=== PATIENT | female | born 1975 | race American Indian/Alaskan Native ===

== ENCOUNTER 2017-03-01 06:27 | Inpatient (IN) | payer OTHER ==
[2017-03-01 06:28] VITALS: BMI 32.5
[2017-03-01] MEDS ORDERED: Sodium Chloride 0.9% 1,000 ML IV ONE (07:36)
[2017-03-01] MEDS ORDERED: Sodium Chloride 0.9% 1,000 ML ONE (07:50)
[2017-03-01 07:56] LABS: BASO % 0.6 % (0.0-2.0); EOS # 0.1 K/uL (0.0-0.7); EOS % 2.3 % (0.0-4.0); LYMPH # 1.6 K/uL (1.0-4.3); LYMPH % 31.8 % (20.0-40.0); MEAN CELL VOLUME 80.6 fL (81.0-99.0); MEAN CORPUSCULAR HEMOGLOBIN 28.6 pg (27.0-31.0); MEAN CORPUSCULAR HGB CONC 35.5 g/dL (33.0-37.0); MEAN PLATELET VOLUME 7.9 fL (7.2-11.7); MONO # 0.3 K/uL (0.0-0.8); MONO % 5.9 % (0.0-10.0); NRBC % 0.1 % (0.0-2.0); RED CELL DISTRIBUTION WIDTH 12.8 % (11.5-14.5); WHITE BLOOD COUNT 4.9 K/uL (4.8-10.8)
[2017-03-01 08:01] LABS: CHLORIDE 96 mmol/L (98-107)
[2017-03-01 08:02] LABS: POTASSIUM 3.9 mmol/L (3.6-5.2); SODIUM 132 mmol/L (132-148)
[2017-03-01 08:04] LABS: BILIRUBIN,TOTAL 0.6 mg/dL (0.2-1.3); GFR AFRICAN-AMERICAN > 60
[2017-03-01 08:05] LABS: ALKALINE PHOSPHATASE 132 U/L (38-126); ALT/SGPT 24 U/L (9-52); AST/SGOT 23 U/L (14-36); BLOOD UREA NITROGEN 8 mg/dL (7-17); CARBON DIOXIDE 24 mmol/L (22-30)
[2017-03-01 08:16] LABS: GLUCOSE,RANDOM 464 mg/dL (65-105)
--- NOTE | 2017-03-01 08:50 | RAD ---
PROCEDURE: Radiographs of the left great toe. TECHNIQUE:: AP radiograph of the left foot, with oblique and lateral view of the left great toe. COMPARISON: None. FINDINGS: BONES: No fracture or bone destruction. Hammertoe like orientation and interphalangeal joint space narrowing 1st metatarsal-phalangeal joint space narrowing with tiny subchondral cysts present. No erosions are noted. No periosteal reaction is seen to suggest osteomyelitis. Sesamoid sclerotic changes noted JOINTS: Mild osteoarthrosis SOFT TISSUES: Soft tissue swelling with overlying bandaging -history of infection OTHER FINDINGS: None. IMPRESSION: No periosteal reaction or osseous destruction to suggest osteomyelitis. Clinical history of infection provided Mild degenerative changes. Hammertoe orientations
--- NOTE | 2017-03-01 08:52 | C.PDOC ---
History Of Present Illness 41-year-old female, presents to the emergency department for admission for cellulitis/nechrosis lof the eft great toe that has progressively been worsening over the past few weeks. Patient is under the care of Dr. Steven and is compliant w/ meds. Denies numbness/weakness, vomiting, fevers, chills, or any other associated symptoms. No other complaints at this time. Chief Complaint (Nursing): Lower Extremity Problem/Injury History Per: Patient History/Exam Limitations: no limitations Onset/Duration Of Symptoms: Days Current Symptoms Are (Timing): Still Present Past Medical History Reviewed: Historical Data, Nursing Documentation, Vital Signs Vital Signs: Last Vital Signs Temp 98 F 03/01/17 11:49 Pulse 88 03/01/17 11:49 Resp 18 03/01/17 11:49 BP 133/87 03/01/17 11:49 Pulse Ox 100 03/01/17 11:49 - Medical History PMH: Anxiety, Asthma (LAST ATTACK 5 YEARS AGO), Back Problems, Bipolar Disorder , Depression, Diabetes, Gastritis, Gastrointestinal Ulcer, HTN, Hypercholesterolemia, Chronic Pain (Back) Denies: Chronic Kidney Disease Surgical History: Back Surgery (Multiple surgeries with residual effects (right foot dropand leg pain).), Endoscopy, Tonsillectomy - [facility] Procedures D & C NEC (12/21/14) DESTRUC UTER SUPPORT NEC (02/25/15) ESOPHAGOGASTRODUODENOSCOPY [EGD] W/CLOSED BIOPSY (06/24/13) HYSTEROSCOPY (12/21/14) INJECT/INFUSE NEC (10/27/14) OTHER AND UNSPECIFIED TOTAL ABDOMINAL HYSTERECTOMY (02/25/15) OTHER SKIN & SUBQ I D (06/04/14) Family History: States: Unknown Family Hx - Social History Hx Tobacco Use: No Hx Alcohol Use: No Hx Substance Use: No - Immunization History Hx Tetanus Toxoid Vaccination: No Hx Influenza Vaccination: No Hx Pneumococcal Vaccination: No Review Of Systems Except As Marked, All Systems Reviewed And Found Negative. Constitutional: Negative for: Fever Gastrointestinal: Negative for: Nausea, Vomiting Musculoskeletal: Positive for: Foot Pain Skin: Negative for: Rash Neurological: Negative for: Weakness, Numbness, Headache, Dizziness Physical Exam - Physical Exam Appears: Non-toxic, No Acute Distress Skin: Warm, Dry, No Rash Nose: Normal Oral Mucosa: Moist Lips: Normal Appearing Neck: Normal ROM Chest: Symmetrical Cardiovascular: Rhythm Regular Respiratory: No Accessory Muscle Use Extremity: Tenderness, No Pedal Edema, Capillary Refill (<2 seconds), No Deformity, Other (Left great toe is warm. There is 1cm nechrotic area of plantar aspect ) Neurological/Psych: Oriented x3, Normal Speech ED Course And Treatment - Laboratory Results Result Diagrams: 03/01/17 07:47 03/01/17 07:47 O2 Sat by Pulse Oximetry: 98 Disposition - Disposition Disposition Time: 08:15 Condition: STABLE - Clinical Impression Clinical Impression: Hyperglycemia, Cellulitis, Uncontrolled diabetes mellitus - Scribe Statement The provider has reviewed the documentation as recorded by the Angelina Oakley All medical record entries made by the Cheriibdana were at my direction and personally dictated by me. I have reviewed the chart and agree that the record accurately reflects my personal performance of the history, physical exam, medical decision making, and the department course for this patient. I have also personally directed, reviewed, and agree with the discharge instructions and disposition.
[2017-03-01] MEDS ORDERED: Morphine 4 MG/ML VIAL IV STA (09:16)
--- NOTE | 2017-03-01 09:18 | RAD ---
HISTORY: r/o infiltrate COMPARISON: Chest x-ray performed 10/19/15 TECHNIQUE: Chest, one view. FINDINGS: Streaky external artifact limits evaluation of the lung apices. Examination limited by habitus. LUNGS: No focal consolidation. Please note that chest x-ray has limited sensitivity for the detection of pulmonary masses. PLEURA: No significant pleural effusion identified. No definite pneumothorax . CARDIOVASCULAR: Heart size appears top normal. OSSEOUS STRUCTURES: Degenerative changes of the spine. VISUALIZED UPPER ABDOMEN: Unremarkable. OTHER FINDINGS: None. IMPRESSION: Streaky external artifact limits evaluation of the lung apices. No focal consolidation, significant pleural effusion, or definite pneumothorax identified.
[2017-03-01] MEDS ORDERED: Morphine 4 MG/ML VIAL ONE (09:23)
--- NOTE | 2017-03-01 10:08 | CP.PCM.HP ---
<Manjeet Baptiste - Last Filed: 03/01/17 13:20> History of Present Illness - History of Present Illness History of Present Illness: cc: "Dr. Steven sent me in" HPI: Patient is a 41 year old female with PMHx of uncontrolled DM, hypertension , rheumatoid arthritis, lupus, asthma, diabetic neuropathy, herniated discs and foot drop presenting to the hospital after being sent in by her development director, Dr. Steven. Patient reports that about 3 weeks ago, she noticed that there was extra layers of skin on the bottom of her right big toe. She tried peeling back a little bit and noticed it started bleeding. She decided to clip off the skin and used alcohol and hydrogen peroxide to clean it. Over the next week, she noticed that it started to change in color and she developing swelling up to her knee on the right leg. She said she went to her development director to get it evaluated and he told her to come to the hospital. She denies any drainage from the wound, no fevers, chills. She says that the affected toe is at baseline, numb, however she said since the toe worsened, she has had increased burning in her toes. PMD: Fabrizio PMHx: As stated above PSHx: 2x back surgeries, MENDOZA 2 years ago Allergies: Latex, flagyl, cipro, shellfish Fam hx: mother- heart disease, brother- pancreatic cancer diagnosed at age 38 Social hx: smoked for about 2 months at age 15 then quit, drank a gallon of baccardi daily for 7 months at age 15 then stopped. Denies drug hx. Lives at home with son. Present on Admission - Present on Admission Any Indicators Present on Admission: Yes History of Uncontrolled Diabetes: Yes Review of Systems - Constitutional Constitutional: absent: Chills, Fever, Weakness - EENT Eyes: absent: Blurred Vision, Change in Vision Nose/Mouth/Throat: absent: Nasal Congestion, Facial Pain, Neck Pain, Neck Mass - Breasts Breasts: absent: Pain, Skin Changes, Swelling - Cardiovascular Cardiovascular: Pedal Edema. absent: Chest Pain, Claudication, Irregular Heart Rhythm, Leg Edema, Palpitations - Respiratory Respiratory: absent: Cough, Dyspnea, Hemoptysis, Dyspnea on Exertion, Wheezing - Gastrointestinal Gastrointestinal: absent: Abdominal Pain, Constipation, Diarrhea, Early Satiety , Nausea, Vomiting - Genitourinary Genitourinary: absent: Difficulty Urinating, Dysuria, Bladder Distension - Musculoskeletal Musculoskeletal: Back Pain, Numbness. absent: Myalgias, Tingling - Integumentary Integumentary: Wounds (beneath R 1st toe) - Neurological Neurological: Burning Sensations, Numbness. absent: Tingling, Tremor, Weakness - Psychiatric Psychiatric: absent: Anxiety, Panic Attacks, Suicidal Ideation - Endocrine Endocrine: absent: Fatigue, Palpitations Past Patient History - Past Medical History & Family History Past Medical History?: Yes - Past Social History Smoking Status: Former Smoker Chewing Tobacco Use: No Cigar Use: No Alcohol: None Drugs: Denies Home Situation {Lives}: With Family - CARDIAC Hx Hypercholesterolemia: Yes Hx Hypertension: Yes - PULMONARY Hx Asthma: Yes (LAST ATTACK 5 YEARS AGO) - NEUROLOGICAL Hx Neurological Disorder: No - HEENT Hx HEENT Problems: No - RENAL Hx Chronic Kidney Disease: No - ENDOCRINE/METABOLIC Hx Endocrine Disorders: Yes Hx Diabetes Mellitus Type 1: Yes Hx Diabetes Mellitus Type 2: Yes Hx Systemic Lupus Erythematosus: Yes - HEMATOLOGICAL/ONCOLOGICAL Hx Blood Disorders: No - INTEGUMENTARY Hx Dermatological Problems: No Hx Psoriasis: Yes (left hand) - MUSCULOSKELETAL/RHEUMATOLOGICAL Hx Musculoskeletal Disorders: Yes Hx Back Pain: Yes Hx Herniated Disk: Yes - GASTROINTESTINAL Hx Gastritis: Yes - GENITOURINARY/GYNECOLOGICAL Hx Genitourinary Disorders: No Other/Comment: fibroid uterus - PSYCHIATRIC Hx Anxiety: Yes Hx Bipolar Disorder: Yes Hx Depression: Yes Hx Substance Use: No - SURGICAL HISTORY Hx Tonsillectomy: Yes - ANESTHESIA Hx Anesthesia: Yes Hx Anesthesia Reactions: No Hx Malignant Hyperthermia: No Meds Allergies/Adverse Reactions: Allergies Allergy/AdvReac Type Severity Reaction Status Date / Time latex Allergy RASH Verified 03/01/17 06:44 metronidazole [From Flagyl] Allergy REDNESS Verified 03/01/17 06:44 shellfish derived Allergy SHORTNESS Verified 03/01/17 06:44 OF BREATH ciprofloxacin [From Cipro] AdvReac SHORTNESS Verified 03/01/17 06:44 OF BREATH ciprofloxacin HCl AdvReac SHORTNESS Verified 03/01/17 06:44 [From Cipro] OF BREATH Penicillins AdvReac SHORTNESS Verified 03/01/17 06:44 OF BREATH Physical Exam - Constitutional Appears: Non-toxic, No Acute Distress - Head Exam Head Exam: ATRAUMATIC, NORMAL INSPECTION, NORMOCEPHALIC - Eye Exam Pupil Exam: NORMAL ACCOMODATION, PERRL - ENT Exam ENT Exam: Mucous Membranes Moist - Neck Exam Neck exam: Positive for: Normal Inspection - Respiratory Exam Respiratory Exam: Clear to Auscultation Bilateral, NORMAL BREATHING PATTERN. absent: Prolonged Expiratory Phase, Rales, Rhonchi, Wheezes - Cardiovascular Exam Cardiovascular Exam: REGULAR RHYTHM, +S1, +S2 - GI/Abdominal Exam GI & Abdominal Exam: Normal Bowel Sounds, Soft. absent: Distended, Firm, Guarding, Tenderness - Extremities Exam Extremities exam: Positive for: normal capillary refill, pedal pulses present Additional comments: R 1st digit, ulceration, dried, purple/red discoloration, swollen mild non pitting edema in R leg - Neurological Exam Neurological exam: Alert, CN II-XII Intact, Oriented x3 - Psychiatric Exam Psychiatric exam: Normal Affect, Normal Mood - Skin Skin Exam: Dry, Intact, Normal Color, Warm Results - Vital Signs Recent Vital Signs: Last Vital Signs Temp 98 F 03/01/17 06:40 Pulse 91 H 03/01/17 09:20 Resp 17 03/01/17 09:20 BP 143/89 03/01/17 09:20 Pulse Ox 100 03/01/17 09:20 - Labs Result Diagrams: 03/01/17 07:47 03/01/17 07:47 Assessment & Plan (1) Diabetic foot ulcer Status: Acute Comment: Consult Podiatry- Dr. Steven. Foot Xray- 03/01/17- No periosteal reaction or osseous destruction to suggest osteomyelitis (Please see full report ). Vanco 1gm Q12h starting 9pm, one dose given at 9am in ED. Vanco trough tomorrow before 4th dose at 9pm. EKG- 03/01/17- NSR 86bpm, left axis , inferior infarct undetermined. CXR- 03/01/17- no focal consolidation, significant pleural effusion or definite pneumothorax identified (Please see full report) (2) Hypertension Status: Chronic Comment: Continue Lisinopril 20mg PO Daily. Recommended patient to be on salt restricted diet, patient stated she refuses , she will not eat anything if she is put on a salt restriction, but has agreed to be on a diabetic diet. (3) SLE (systemic lupus erythematosus) Status: Chronic Comment: Continue home med Plaquenil 200mg PO Daily (4) Uncontrolled diabetes mellitus Status: Acute Comment: Continue Home meds: Lantus 40U SC HS. Humalog 20U SC AC. Metformin 1000mg PO BID. RISS. accucheck (5) Diabetic neuropathy Status: Chronic Comment: Continue Gabapentin 600mg PO TID (6) Asthma Status: Acute Comment: Duoneb Q6h PRN (7) Chronic pain Status: Chronic Comment: Started home meds: Oxycontin 40mg PO Q12h. Oxycodone 30mg PO Q6h PRN for breakthrough pain (8) Prophylactic measure Status: Acute Comment: Pepcid 20mg PO BID. Contraindication for SCDs due to swelling. Hold anticoagulation for possible surgery <Akash Franklin H - Last Filed: 03/01/17 17:11> Results - Vital Signs Recent Vital Signs: Last Vital Signs Temp 97.5 F L 03/01/17 16:46 Pulse 89 03/01/17 16:46 Resp 20 03/01/17 16:46 BP 123/77 03/01/17 16:46 Pulse Ox 99 03/01/17 16:46 - Labs Result Diagrams: 03/01/17 07:47 03/01/17 07:47 Labs: Laboratory Results - last 24 hr 03/01/17 03/01/17 11:54 16:33 POC Glucose (mg/dL) 342 H 312 H Attending/Attestation - Attestation I have personally seen and examined this patient.: Yes I have fully participated in the care of the patient.: Yes I have reviewed all pertinent clinical information: Yes Notes (Text): 03/01/17 17:09 Medical attending: Patient was seen and examined by me, agree with the above note by medical transcriptionist. The patient was sent in by podiatry for intervention left great toe. She does have a history of rather uncontrolled diabetes. Regular give her a medication to try to control that was she's here. Furthermore she has allergies to several antibiotics including Cipro, penicillin class, as well as Flagyl. We gave IV vancomycin in the emergency room successfully and she didn't have any problems with that. Reviewed and continue with vancomycin as well as check vancomycin levels Furthermore the patient does have a history of hypertension and we had a discussion quite extensively with the patient with regards to her diet she says that she will not stay in the hospital if she is given a low salt diet she says that she wants salt her foods. I explained her that this is rather harmful in the long run she said she realizes that but she says that she wants salt her foods otherwise she's leaving the hospital An x-ray was done of the lower extremity, it was negative for osteomyelitis however we'll have to consider further imaging such as MRI or bone scan. Thank you very much, Akash Franklin
[2017-03-01] MEDS ORDERED: oxyCODONE 5 mg Immediate Release Tab PO PRN (12:50)
[2017-03-01] MEDS ORDERED: Albuterol-Ipratrop 3 mg / 0.5 (3 ml) UD ONE (13:53)
[2017-03-01] MEDS: Albuterol-Ipratrop 3 mg / 0.5 (3 ml) UD INH SCH (13:59)
[2017-03-01] MEDS ORDERED: oxyCODONE 5 mg Immediate Release Tab ONE (15:14)
[2017-03-01] MEDS: oxyCODONE 30 mg Immediate Release Tab PO PRN (15:16)
--- NOTE | 2017-03-01 15:17 | CP.PCM.CON ---
History of Present Illness - History of Present Illness History of Present Illness: 41 year old female with PMHx of DM, HTN, RA, lupus, drop foot right presents to ED for left hallux ulceration. Patient states that she has had this ulcer on the bottom of her left great toe for [address] Steven in office yesterday who suggested she come to the ED for further evaluation. She currently rates the pain as 10/10 and burning. She has noticed blood on the bottom of her sock a few times, and admits to color change around the ulcer. Currently, she denies any drainage or malodor. She states that her leg has been swollen since Sunday. She denies any n/v/f/c/sob/cp. Past Patient History - Past Medical History & Family History Past Medical History?: Yes - Past Social History Smoking Status: Former Smoker Chewing Tobacco Use: No Cigar Use: No Alcohol: None Drugs: Denies Home Situation {Lives}: With Family - CARDIAC Hx Hypercholesterolemia: Yes Hx Hypertension: Yes - PULMONARY Hx Asthma: Yes (LAST ATTACK 5 YEARS AGO) - NEUROLOGICAL Hx Neurological Disorder: No - HEENT Hx HEENT Problems: No - RENAL Hx Chronic Kidney Disease: No - ENDOCRINE/METABOLIC Hx Endocrine Disorders: Yes Hx Diabetes Mellitus Type 1: Yes Hx Diabetes Mellitus Type 2: Yes Hx Systemic Lupus Erythematosus: Yes - HEMATOLOGICAL/ONCOLOGICAL Hx Blood Disorders: No - INTEGUMENTARY Hx Dermatological Problems: No Hx Psoriasis: Yes (left hand) - MUSCULOSKELETAL/RHEUMATOLOGICAL Hx Musculoskeletal Disorders: Yes Hx Back Pain: Yes Hx Herniated Disk: Yes - GASTROINTESTINAL Hx Gastritis: Yes - GENITOURINARY/GYNECOLOGICAL Hx Genitourinary Disorders: No Other/Comment: fibroid uterus - PSYCHIATRIC Hx Anxiety: Yes Hx Bipolar Disorder: Yes Hx Depression: Yes Hx Substance Use: No - SURGICAL HISTORY Hx Tonsillectomy: Yes - ANESTHESIA Hx Anesthesia: Yes Hx Anesthesia Reactions: No Hx Malignant Hyperthermia: No Meds Allergies/Adverse Reactions: Allergies Allergy/AdvReac Type Severity Reaction Status Date / Time latex Allergy RASH Verified 03/01/17 06:44 metronidazole [From Flagyl] Allergy REDNESS Verified 03/01/17 06:44 shellfish derived Allergy SHORTNESS Verified 03/01/17 06:44 OF BREATH ciprofloxacin [From Cipro] AdvReac SHORTNESS Verified 03/01/17 06:44 OF BREATH ciprofloxacin HCl AdvReac SHORTNESS Verified 03/01/17 06:44 [From Cipro] OF BREATH Penicillins AdvReac SHORTNESS Verified 03/01/17 06:44 OF BREATH - Medications Medications: Current Medications Albuterol/Ipratropium (Duoneb 3 Mg/0.5 Mg (3 Ml) Ud) 3 ml INH RQ6 [facility] Last Admin: 03/01/17 13:59 Dose: Not Given Famotidine (Pepcid) 20 mg PO BID [facility] Gabapentin (Neurontin) 600 mg PO TID [facility] Hydroxychloroquine Sulfate (Plaquenil) 200 mg PO DAILY [facility] Vancomycin HCl 1 gm/ Sodium (Chloride) 250 mls @ 166.7 mls/hr IVPB Q12H [facility] Insulin Aspart (Novolog) 20 unit SC AC [facility] Insulin Glargine (Lantus) 40 unit SC HS [facility] Insulin Human Regular (Novolin R) 0 unit SC ACHS [facility] PRN Reason: Protocol Lisinopril (Zestril) 20 mg PO DAILY [facility] Metformin HCl (Glucophage) 1,000 mg PO BID [facility] Oxycodone HCl (Oxycontin Extended Release Tab) 40 mg PO Q12 [facility] Oxycodone HCl (Oxycodone Immediate Release Tab) 30 mg PO Q8H PRN PRN Reason: Pain, severe (8-10) Last Admin: 03/01/17 15:16 Dose: 30 mg Physical Exam - Constitutional Appears: Well, Non-toxic, No Acute Distress - Extremities Exam Additional comments: Vasc:DP and PT pulses palpable 2/4 b/l. CFT < 3 seconds all digits. Skin temperature warm to warm from proximal to distal b/l with increased warmth noted to the left lower extremity. Neuro:Gross sensation absent on right foot, decreased on left foot. Ortho: Pain on palpation to left hallux Derm: Open ulceration noted to the plantar aspect of the left hallux measuring approximately 1 cm by 1 cm by 0.1 cm, hyperkeratotic periwound with purplish discoloration. No drainage,no purulence, no malodor, no probe to bone. Left hallux toe is edematous. - Neurological Exam Neurological exam: Alert, Oriented x3 - Psychiatric Exam Psychiatric exam: Normal Affect, Normal Mood Results - Vital Signs Recent Vital Signs: Last Vital Signs Temp 98 F 03/01/17 11:49 Pulse 88 03/01/17 11:49 Resp 18 03/01/17 11:49 BP 133/87 03/01/17 11:49 Pulse Ox 98 03/01/17 13:51 - Labs Result Diagrams: 03/01/17 07:47 03/01/17 07:47 Labs: Laboratory Results - last 24 hr 03/01/17 11:54 POC Glucose (mg/dL) 342 H Assessment & Plan - Assessment and Plan (Free Text) Assessment: 41 year old female with left hallux ulceration secondary to OM Plan: Patient examined and evaluated Discussed in detail with attending, Dr. Steven. Radiographs reviewed-No periosteal reaction or osseous destruction to suggest osteomyelitis. Clinical history of infection provided Continue IVabx per primary team Left hallux dressed with DSD MRI of left lower extremity ordered Patient to go to OR on Sunday for wound debridement, medical optimization needed Patient to be NPO tomorrow 03/02/17 after midnight Podiatry will continue to follow patient while in house
[2017-03-01] MEDS: oxyCODONE 40 mg ER Tab (oxyCONTIN) PO SCH ×2 (15:48→21:38)
[2017-03-01] MEDS ORDERED: (Novolog) Insulin Aspart, Recombinant 100 u/ml 10 ml vial SC SCH (16:30)
[2017-03-01] MEDS ORDERED: (Novolin R) Insulin Human Regular 100 units/ml vial ONE (16:40)
[2017-03-01] MEDS ORDERED: (Novolog) Insulin Aspart, Recombinant 100 u/ml 10 ml vial ONE (16:42)
[2017-03-01] MEDS: (Novolin R) Insulin Human Regular 100 units/ml vial SC SCH ×2 (16:53→22:10)
[2017-03-01] MEDS: (Lantus) Insulin Glargine, Recombinant SC SCH (22:07)
[2017-03-02] MEDS: Albuterol-Ipratrop 3 mg / 0.5 (3 ml) UD INH SCH ×4 (01:35→20:09)
[2017-03-02] MEDS: oxyCODONE 30 mg Immediate Release Tab PO PRN ×2 (04:53→17:00)
--- NOTE | 2017-03-02 08:07 | CP.PCM.PN ---
Subjective - Date & Time of Evaluation Date of Evaluation: 03/02/17 Time of Evaluation: 07:30 - Subjective Subjective: pt seen for infection and ulcer left foot /great toe .Pt has uncontrolled blood glucose . Objective - Vital Signs/Intake and Output Vital Signs (last 24 hours): Temp Pulse Resp BP Pulse Ox 97.8 F 89 20 102/67 99 03/02/17 07:51 03/02/17 07:51 03/02/17 07:51 03/02/17 07:51 03/02/17 07:51 - Medications Medications: Current Medications Albuterol/Ipratropium (Duoneb 3 Mg/0.5 Mg (3 Ml) Ud) 3 ml INH RQ6 [facility] Last Admin: 03/02/17 01:35 Dose: Not Given Famotidine (Pepcid) 20 mg PO BID [facility] Last Admin: 03/01/17 18:17 Dose: 20 mg Gabapentin (Neurontin) 600 mg PO TID [facility] Last Admin: 03/01/17 18:17 Dose: 600 mg Home Med (Patient's Own Injectable) 20 unit SC AC [facility] Hydroxychloroquine Sulfate (Plaquenil) 200 mg PO DAILY [facility] Last Admin: 03/01/17 16:45 Dose: 200 mg Vancomycin HCl 1 gm/ Sodium (Chloride) 250 mls @ 166.7 mls/hr IVPB Q12H [facility] Last Admin: 03/01/17 22:30 Dose: 166.7 mls/hr Insulin Glargine (Lantus) 40 unit SC HS [facility] Last Admin: 03/01/17 22:07 Dose: 40 units Insulin Human Regular (Novolin R) 0 unit SC ACHS [facility] PRN Reason: Protocol Last Admin: 03/01/17 22:10 Dose: Not Given Lisinopril (Zestril) 20 mg PO DAILY [facility] Last Admin: 03/01/17 16:45 Dose: 20 mg Metformin HCl (Glucophage) 1,000 mg PO BID [facility] Last Admin: 03/01/17 18:17 Dose: 1,000 mg Oxycodone HCl (Oxycontin Extended Release Tab) 40 mg PO Q12 [facility] Last Admin: 03/01/17 21:38 Dose: 40 mg Oxycodone HCl (Oxycodone Immediate Release Tab) 30 mg PO Q8H PRN PRN Reason: Pain, severe (8-10) Last Admin: 03/02/17 04:53 Dose: 30 mg Pneumococcal Polyvalent Vaccine (Pneumovax 23 Vaccine) 0.5 ml IM .ONCE ONE Stop: 03/03/17 10:01 - Extremities Exam Additional comments: O/Necrotic ulcer with eschar distal aspect left hallux. Cellulitis left foot . DM neuropathy b/l .No abscess or purulence noted . Assessment and Plan - Assessment and Plan (Free Text) Assessment: A/Ungradable DM ulcer hallux left with necroses/cellulitis/R/O OM Hallux left Plan: P/IV antibiotics Glycemic control MRI Arterial Dopplers Debridement
[2017-03-02] MEDS: (Novolin R) Insulin Human Regular 100 units/ml vial SC SCH ×4 (08:33→22:04)
[2017-03-02] MEDS: HUMALOG SC SCH ×3 (08:33→17:01)
[2017-03-02 08:39] LABS: BASO % 0.8 % (0.0-2.0); EOS # 0.1 K/uL (0.0-0.7); EOS % 2.7 % (0.0-4.0); HEMATOCRIT 36.3 % (34.0-47.0); LYMPH # 1.8 K/uL (1.0-4.3); LYMPH % 41.2 % (20.0-40.0); MEAN CELL VOLUME 80.9 fL (81.0-99.0); MEAN CORPUSCULAR HEMOGLOBIN 28.1 pg (27.0-31.0); MEAN CORPUSCULAR HGB CONC 34.8 g/dL (33.0-37.0); MEAN PLATELET VOLUME 7.5 fL (7.2-11.7); MONO # 0.2 K/uL (0.0-0.8); MONO % 5.5 % (0.0-10.0); RED CELL DISTRIBUTION WIDTH 12.9 % (11.5-14.5); WHITE BLOOD COUNT 4.3 K/uL (4.8-10.8)
[2017-03-02 09:17] LABS: CHLORIDE 99 mmol/L (98-107); SODIUM 135 mmol/L (132-148)
[2017-03-02 09:18] LABS: POTASSIUM 4.6 mmol/L (3.6-5.2)
[2017-03-02 09:20] LABS: ALKALINE PHOSPHATASE 98 U/L (38-126); ALT/SGPT 23 U/L (9-52); AST/SGOT 26 U/L (14-36); BILIRUBIN,TOTAL 0.5 mg/dL (0.2-1.3); BLOOD UREA NITROGEN 8 mg/dL (7-17); CARBON DIOXIDE 26 mmol/L (22-30); GFR AFRICAN-AMERICAN > 60; GLUCOSE,RANDOM 279 mg/dL (65-105); TOTAL PROTEIN 7.3 g/dL (6.3-8.3)
[2017-03-02 09:21] LABS: CALCIUM 8.7 mg/dl (8.6-10.4)
[2017-03-02] MEDS: oxyCODONE 40 mg ER Tab (oxyCONTIN) PO SCH ×2 (09:50→21:40)
--- NOTE | 2017-03-02 10:06 | CP.PCM.PN ---
Subjective - Date & Time of Evaluation Date of Evaluation: 03/02/17 Time of Evaluation: 10:04 - Subjective Subjective: Patient seen and evaluated by Dr. Steven this am Patient is pending dopplers/MRI. Placed on the OR schedule for debridment on Sunday at roughly [address] Steven first case. Will place NPO past midnight on sunday Will hold lovenox on sunday. Will require medical clearance in chart prior to surgery. Continue to follow while admitted. Objective - Vital Signs/Intake and Output Vital Signs (last 24 hours): Temp Pulse Resp BP Pulse Ox 97.8 F 89 20 102/67 99 03/02/17 07:51 03/02/17 07:51 03/02/17 07:51 03/02/17 07:51 03/02/17 07:51 Intake and Output: 03/02/17 03/02/17 06:59 18:59 Intake Total 200 Balance 200 - Medications Medications: Current Medications Albuterol/Ipratropium (Duoneb 3 Mg/0.5 Mg (3 Ml) Ud) 3 ml INH RQ6 [facility] Last Admin: 03/02/17 01:35 Dose: Not Given Famotidine (Pepcid) 20 mg PO BID [facility] Last Admin: 03/02/17 09:53 Dose: 20 mg Gabapentin (Neurontin) 600 mg PO TID [facility] Last Admin: 03/02/17 09:53 Dose: 600 mg Home Med (Patient's Own Injectable) 20 unit SC AC [facility] Last Admin: 03/02/17 08:33 Dose: 20 unit Hydroxychloroquine Sulfate (Plaquenil) 200 mg PO DAILY [facility] Last Admin: 03/02/17 09:53 Dose: Not Given Vancomycin HCl 1 gm/ Sodium (Chloride) 250 mls @ 166.7 mls/hr IVPB Q12H [facility] Last Admin: 03/02/17 09:56 Dose: 166.7 mls/hr Insulin Glargine (Lantus) 40 unit SC HS [facility] Last Admin: 03/01/17 22:07 Dose: 40 units Insulin Human Regular (Novolin R) 0 unit SC ACHS [facility] PRN Reason: Protocol Last Admin: 03/02/17 08:33 Dose: 8 unit Lisinopril (Zestril) 20 mg PO DAILY [facility] Last Admin: 03/02/17 09:56 Dose: 20 mg Metformin HCl (Glucophage) 1,000 mg PO BID [facility] Last Admin: 03/02/17 09:53 Dose: 1,000 mg Oxycodone HCl (Oxycontin Extended Release Tab) 40 mg PO Q12 [facility] Last Admin: 03/02/17 09:50 Dose: 40 mg Oxycodone HCl (Oxycodone Immediate Release Tab) 30 mg PO Q8H PRN PRN Reason: Pain, severe (8-10) Last Admin: 03/02/17 04:53 Dose: 30 mg Pneumococcal Polyvalent Vaccine (Pneumovax 23 Vaccine) 0.5 ml IM .ONCE ONE Stop: 03/03/17 10:01 - Labs Labs: 03/02/17 08:19 03/02/17 08:19
--- NOTE | 2017-03-02 11:54 | CARD ---
APPROVED REPORT EKG Measurement Heart [id number] <Conclusion> Normal sinus rhythm Left axis deviation Inferior infarct, age undetermined Abnormal ECG
--- NOTE | 2017-03-02 14:01 | MRI ---
MRI left forefoot History: Ulcer. Comparison: X-ray dated 03/01/2017 Technique: Multi-echo multiplanar sequences were performed through the left forefoot without the use of intravenous contrast. Findings: Prominent soft tissue ulcer seen at the level of the 1st distal phalanx. Prominent signal abnormality within the 1st distal phalanx with increased STIR signal with associated patchy decreased T1 signal consistent with acute osteomyelitis. Adjacent signal abnormality seen at the head of the 1st proximal phalanx with patchy decreased T1 signal and increased STIR signal also concerning for acute osteomyelitis. Moderate hallux valgus deformity. Degenerative changes with osteochondral change noted at the medial aspect of the metatarsus sesamoid joint space. Increased signal seen within the visualized Lisfranc ligament suggestive for a low to moderate grade sprain with some interstitial delamination. Degenerative changes noted at the talonavicular joint space. Partially imaged anterior and mid talus demonstrates some signal abnormality with reactive edema. This may be the sequelae of osteochondral change ; however, additional etiologies not excluded. Clinical correlation and or correlation with mid and hindfoot MRI is recommended if clinically indicated. Impression: 1. Prominent soft tissue ulcer seen at the level of the 1st distal phalanx. 2. Prominent signal abnormality within the 1st distal phalanx with increased STIR signal with associated patchy decreased T1 signal consistent with acute osteomyelitis. Adjacent signal abnormality seen at the head of the 1st proximal phalanx with patchy decreased T1 signal and increased STIR signal also concerning for acute osteomyelitis. 3. Moderate hallux valgus deformity. 4. Degenerative changes with osteochondral change noted at the medial aspect of the metatarsus sesamoid joint space. 5. Increased signal seen within the visualized Lisfranc ligament suggestive for a low to moderate grade sprain with some interstitial delamination. 6. Degenerative changes noted at the talonavicular joint space. 7. Partially imaged anterior and mid talus demonstrates some signal abnormality with reactive edema. This may be the sequelae of osteochondral change ; however, additional etiologies not excluded. Clinical correlation and or correlation with mid and hindfoot MRI is recommended if clinically indicated.
[2017-03-02] MEDS: (Lantus) Insulin Glargine, Recombinant SC SCH (21:40)
--- NOTE | 2017-03-02 22:53 | CP.PCM.PN ---
<Mohsen Loredokan - Last Filed: 03/03/17 00:18> Subjective - Date & Time of Evaluation Date of Evaluation: 03/02/17 Time of Evaluation: 07:23 - Subjective Subjective: Pt seen and examined. Pt reports that she vomited last night and that the her plaquenil makes her nauseous. Pt denies pain in her left distal extremity first phalynx ulcer. Pt denies fever, chills, chest pain, shortness of breath. Objective - Vital Signs/Intake and Output Vital Signs (last 24 hours): Temp Pulse Resp BP Pulse Ox 98.3 F 95 H 20 103/65 100 03/02/17 16:00 03/02/17 16:00 03/02/17 16:00 03/02/17 16:00 03/02/17 16:00 Intake and Output: 03/02/17 03/03/17 18:59 06:59 Intake Total 800 Output Total 800 Balance 0 - Medications Medications: Current Medications Albuterol/Ipratropium (Duoneb 3 Mg/0.5 Mg (3 Ml) Ud) 3 ml INH RQ6 [facility] Last Admin: 03/02/17 20:09 Dose: Not Given Famotidine (Pepcid) 20 mg PO BID [facility] Last Admin: 03/02/17 20:10 Dose: 20 mg Gabapentin (Neurontin) 600 mg PO TID [facility] Last Admin: 03/02/17 19:56 Dose: 600 mg Home Med (Patient's Own Injectable) 20 unit SC AC [facility] Last Admin: 03/02/17 17:01 Dose: Not Given Hydroxychloroquine Sulfate (Plaquenil) 200 mg PO DAILY [facility] Last Admin: 03/02/17 09:53 Dose: Not Given Vancomycin HCl 1 gm/ Sodium (Chloride) 250 mls @ 166.7 mls/hr IVPB Q12H [facility] Last Admin: 03/02/17 20:00 Dose: 166.7 mls/hr Insulin Glargine (Lantus) 40 unit SC HS [facility] Last Admin: 03/02/17 21:40 Dose: Not Given Insulin Human Regular (Novolin R) 0 unit SC ACHS [facility] PRN Reason: Protocol Last Admin: 03/02/17 22:04 Dose: Not Given Lisinopril (Zestril) 20 mg PO DAILY [facility] Last Admin: 03/02/17 09:56 Dose: 20 mg Metformin HCl (Glucophage) 1,000 mg PO BID [facility] Last Admin: 03/02/17 19:58 Dose: 1,000 mg Oxycodone HCl (Oxycontin Extended Release Tab) 40 mg PO Q12 [facility] Last Admin: 03/02/17 21:40 Dose: 40 mg Oxycodone HCl (Oxycodone Immediate Release Tab) 30 mg PO Q8H PRN PRN Reason: Pain, severe (8-10) Last Admin: 03/02/17 17:00 Dose: 30 mg Pneumococcal Polyvalent Vaccine (Pneumovax 23 Vaccine) 0.5 ml IM .ONCE ONE Stop: 03/03/17 10:01 - Labs Labs: 03/02/17 08:19 03/02/17 08:19 - Constitutional Appears: No Acute Distress - Head Exam Head Exam: ATRAUMATIC, NORMOCEPHALIC - Eye Exam Eye Exam: EOMI, PERRL - ENT Exam ENT Exam: Mucous Membranes Moist. absent: Mucous Membranes Dry - Neck Exam Neck Exam: Full ROM. absent: Lymphadenopathy - Respiratory Exam Respiratory Exam: Clear to Ausculation Bilateral. absent: Rales, Rhonchi, Wheezes, Respiratory Distress - Cardiovascular Exam Cardiovascular Exam: +S1, +S2. absent: Gallop, Rubs, Murmur - GI/Abdominal Exam GI & Abdominal Exam: Soft, Normal Bowel Sounds. absent: Distended, Rigid, Tenderness - Extremities Exam Additional comments: left distal extremity great toe ulcer - Neurological Exam Neurological Exam: Alert, Awake, Oriented x3 - Psychiatric Exam Psychiatric exam: Normal Affect, Normal Mood - Skin Skin Exam: Normal Color, Warm Assessment and Plan - Assessment and Plan (Free Text) Assessment: Diabetic Foot Ulcer of Left Great Toe: Pt afebrile, nontachycardic Cage Tender, Dr. Steven, consulted. Help appreciated. Left Foot x-ray - soft tissue swelling; no periosteal destruction to suggest osteomyelitis Left lower extremity MRI: soft tissue ulcer seen at the distal 1st phalanx; prominent signal abnormality consistent with acute osteomyelitis Blood cultures no growth after 24 hours Vancomycin 1 gm IV q12h Diabetes Mellitus: Metformin 1000 mg po bid Lantus 40 units sc hs Novolin sliding scale HTN: Zestril 20 mg po qd Neuropathic Pain: Oxycodone ER 40 mg po q12h Oxycodone IR 30 mg po q8h prn Gabapentin 600 mg po tid Lupus: Plaquenil held due to pt complaining of vomiting Asthma: Duonebs prn Prophylactic Measures: DVT: SCDs GI: Pepcid 20 mg po bid <Akash Franklin H - Last Filed: 03/03/17 10:48> Objective - Vital Signs/Intake and Output Vital Signs (last 24 hours): Temp Pulse Resp BP Pulse Ox 98.1 F 91 H 20 120/81 97 03/03/17 08:00 03/03/17 08:00 03/03/17 08:00 03/03/17 08:00 03/03/17 08:00 Intake and Output: 03/03/17 03/03/17 06:59 18:59 Intake Total 800 Output Total 800 Balance 0 - Medications Medications: Current Medications Albuterol/Ipratropium (Duoneb 3 Mg/0.5 Mg (3 Ml) Ud) 3 ml INH RQ6 [facility] Last Admin: 03/03/17 07:32 Dose: Not Given Famotidine (Pepcid) 20 mg PO BID [facility] Last Admin: 03/03/17 09:58 Dose: 20 mg Gabapentin (Neurontin) 600 mg PO TID [facility] Last Admin: 03/03/17 09:58 Dose: 600 mg Home Med (Patient's Own Injectable) 20 unit SC AC [facility] Last Admin: 03/03/17 07:59 Dose: 20 unit Hydroxychloroquine Sulfate (Plaquenil) 200 mg PO DAILY [facility] Last Admin: 03/02/17 09:53 Dose: Not Given Vancomycin HCl 1 gm/ Sodium (Chloride) 250 mls @ 166.7 mls/hr IVPB Q12H [facility] Last Admin: 03/03/17 08:01 Dose: 166.7 mls/hr Insulin Glargine (Lantus) 40 unit SC HS [facility] Last Admin: 03/02/17 21:40 Dose: Not Given Insulin Human Regular (Novolin R) 0 unit SC ACHS [facility] PRN Reason: Protocol Last Admin: 03/03/17 07:58 Dose: 8 unit Lisinopril (Zestril) 20 mg PO DAILY [facility] Last Admin: 03/03/17 10:06 Dose: 20 mg Metformin HCl (Glucophage) 1,000 mg PO BID [facility] Last Admin: 03/03/17 09:58 Dose: 1,000 mg Oxycodone HCl (Oxycontin Extended Release Tab) 40 mg PO Q12 [facility] Last Admin: 03/03/17 09:56 Dose: 40 mg Oxycodone HCl (Oxycodone Immediate Release Tab) 30 mg PO Q8H PRN PRN Reason: Pain, severe (8-10) Last Admin: 03/03/17 05:27 Dose: 30 mg - Labs Labs: 03/03/17 07:45 03/03/17 07:45 Attending/Attestation - Attestation I have personally seen and examined this patient.: Yes I have fully participated in the care of the patient.: Yes I have reviewed all pertinent clinical information, including history, physical exam and plan: Yes Notes (Text): Medical Attending: Patient was seen and examined by me. Agree with the above note by the resident The patient explains she had a rough night with nausea. We held the plaqunil per patient request yesterday saying it makes her nausea The patient had MRI done yesterday afternoon and it was positive for osteomylitis of the toe. The patient remains on IV abx. Today when we saw her we had another long discussion about her diet as well as blood sugar. She explains that she did not want Lantus last night We explained to her that it is important to have good sugar controll in the setting of diabetic foot wounds. Podiatry is planning OR on Sunday Akash Franklin
[2017-03-03] MEDS: Albuterol-Ipratrop 3 mg / 0.5 (3 ml) UD INH SCH ×4 (01:36→20:19)
[2017-03-03] MEDS: oxyCODONE 30 mg Immediate Release Tab PO PRN ×2 (05:27→13:35)
[2017-03-03] MEDS: (Novolin R) Insulin Human Regular 100 units/ml vial SC SCH ×4 (07:58→21:33)
[2017-03-03] MEDS: HUMALOG SC SCH ×3 (07:59→16:41)
[2017-03-03 08:01] LABS: BASO % 0.9 % (0.0-2.0); EOS # 0.1 K/uL (0.0-0.7); EOS % 2.9 % (0.0-4.0); HEMATOCRIT 34.9 % (34.0-47.0); LYMPH # 1.8 K/uL (1.0-4.3); LYMPH % 42.4 % (20.0-40.0); MEAN CELL VOLUME 80.7 fL (81.0-99.0); MEAN CORPUSCULAR HEMOGLOBIN 28.5 pg (27.0-31.0); MEAN CORPUSCULAR HGB CONC 35.3 g/dL (33.0-37.0); MEAN PLATELET VOLUME 7.7 fL (7.2-11.7); MONO # 0.3 K/uL (0.0-0.8); MONO % 6.6 % (0.0-10.0); RED CELL DISTRIBUTION WIDTH 12.7 % (11.5-14.5); WHITE BLOOD COUNT 4.2 K/uL (4.8-10.8)
[2017-03-03 08:08] LABS: CHLORIDE 101 mmol/L (98-107)
[2017-03-03 08:09] LABS: POTASSIUM 4.9 mmol/L (3.6-5.2); SODIUM 136 mmol/L (132-148)
[2017-03-03 08:11] LABS: ALB/GLOB RATIO 0.9 (1.0-2.1); ALKALINE PHOSPHATASE 97 U/L (38-126); ALT/SGPT 14 U/L (9-52); AST/SGOT 23 U/L (14-36); BILIRUBIN,TOTAL 0.2 mg/dL (0.2-1.3); BLOOD UREA NITROGEN 8 mg/dL (7-17); CARBON DIOXIDE 23 mmol/L (22-30); GFR AFRICAN-AMERICAN > 60; GLUCOSE,RANDOM 287 mg/dL (65-105); TOTAL PROTEIN 6.7 g/dL (6.3-8.3)
[2017-03-03 08:12] LABS: CALCIUM 8.5 mg/dl (8.6-10.4); MAGNESIUM 1.3 mg/dL (1.6-2.3); PHOSPHOROUS 3.8 mg/dL (2.5-4.5)
[2017-03-03] MEDS: oxyCODONE 40 mg ER Tab (oxyCONTIN) PO SCH ×2 (09:56→21:39)
[2017-03-03] MEDS ORDERED: Pneumococcal 23-Valent Vaccine IM ONE (10:00)
--- NOTE | 2017-03-03 10:43 | CP.PCM.PN ---
Subjective - Date & Time of Evaluation Date of Evaluation: 03/03/17 Time of Evaluation: 09:30 - Subjective Subjective: PODIATRY PROGRESS NOTE DR. STEVEN: 41 yo female patient S&E w/ Dr. Steven this morning at bedside. Pt seen resting comfortably in bed at time of visit. Denies any acute events overnight. Denies pain or discomfort to the left foot today. Does say that she thinks the antibiotics she is receiving is making her a bit nauseous. Denies f/c/sob/cp. Denies any other pedal complaints at this time. Objective - Vital Signs/Intake and Output Vital Signs (last 24 hours): Temp Pulse Resp BP Pulse Ox 98.1 F 91 H 20 120/81 97 03/03/17 08:00 03/03/17 08:00 03/03/17 08:00 03/03/17 08:00 03/03/17 08:00 Intake and Output: 03/03/17 03/03/17 06:59 18:59 Intake Total 800 Output Total 800 Balance 0 - Medications Medications: Current Medications Albuterol/Ipratropium (Duoneb 3 Mg/0.5 Mg (3 Ml) Ud) 3 ml INH RQ6 [facility] Last Admin: 03/03/17 07:32 Dose: Not Given Famotidine (Pepcid) 20 mg PO BID [facility] Last Admin: 03/03/17 09:58 Dose: 20 mg Gabapentin (Neurontin) 600 mg PO TID [facility] Last Admin: 03/03/17 09:58 Dose: 600 mg Home Med (Patient's Own Injectable) 20 unit SC AC [facility] Last Admin: 03/03/17 07:59 Dose: 20 unit Hydroxychloroquine Sulfate (Plaquenil) 200 mg PO DAILY [facility] Last Admin: 03/02/17 09:53 Dose: Not Given Vancomycin HCl 1 gm/ Sodium (Chloride) 250 mls @ 166.7 mls/hr IVPB Q12H [facility] Last Admin: 03/03/17 08:01 Dose: 166.7 mls/hr Insulin Glargine (Lantus) 40 unit SC HS [facility] Last Admin: 03/02/17 21:40 Dose: Not Given Insulin Human Regular (Novolin R) 0 unit SC ACHS [facility] PRN Reason: Protocol Last Admin: 03/03/17 07:58 Dose: 8 unit Lisinopril (Zestril) 20 mg PO DAILY [facility] Last Admin: 03/03/17 10:06 Dose: 20 mg Metformin HCl (Glucophage) 1,000 mg PO BID [facility] Last Admin: 03/03/17 09:58 Dose: 1,000 mg Oxycodone HCl (Oxycontin Extended Release Tab) 40 mg PO Q12 [facility] Last Admin: 03/03/17 09:56 Dose: 40 mg Oxycodone HCl (Oxycodone Immediate Release Tab) 30 mg PO Q8H PRN PRN Reason: Pain, severe (8-10) Last Admin: 03/03/17 05:27 Dose: 30 mg - Labs Labs: 03/03/17 07:45 03/03/17 07:45 - Constitutional Appears: Non-toxic, No Acute Distress - Extremities Exam Additional comments: LLE exam: dressing appears c/d/i to the left foot VASC- DP/PT pulses palpable 2/4, skin temp runs warm to cool, cap fill time < 4 sec to digits x 5, no pedal edema NEURO- grossly diminished DERM- there is an ulceration to plantar-distal aspect of left hallux with necrotic center noted, moderate serous drainage, no purulence, no malodor, no fluctuance, no erythema noted ORTHO- no tenderness on palpation of ulceration - Neurological Exam Neurological Exam: Alert, Awake, Oriented x3 - Psychiatric Exam Psychiatric exam: Normal Affect, Normal Mood Assessment and Plan - Assessment and Plan (Free Text) Assessment: 41yo female patient w/ left hallux ulceration secondary to diabetic neuropathy Plan: -Pt S&E at bedside w/ Dr. Steven present -Chart, labs and vitals reviewed: afebrile, WBC 4.2 -HBA1c: 12.6 -Left foot MRI: (+) acute OM of left hallux (proximal and distal phalanx) -S/P arterial duplex. Pending results -Discussed w/ patient importance of glycemic control w/ goal of HbA1c 6-7% -Pt is for OR w/ Dr. Steven Monday 03/05 for debridement of the left hallux (to follow his first case) -NPO Sunday night -Lovenox to be held Sunday for surgery -Pt is medically cleared for OR pending coag studies per primary Dr. Franklin -Hallux redressed with xeroform, DSD -SUrgical shoe ordered, pt may WB to the heel only -Will follow
--- NOTE | 2017-03-03 11:36 | CP.PCM.PN ---
<Radha Jean Baptiste - Last Filed: 03/03/17 14:32> Subjective - Date & Time of Evaluation Date of Evaluation: 03/03/17 Time of Evaluation: 07:20 - Subjective Subjective: PGY [address] Franklin: Patient seen and examined this morning at bedside. Patient reports that she vomited last night and that she thinks the antibiotic she is on is making her nauseous. She denied fever/chills overnight. Pt admits to pain in her left distal extremity first phalynx ulcer. Patient chest pain, shortness of breath, diarrhea or constipation, numbness/tingling in the extremities, headache, changes in vision. She is tolerating her diet. He plaquenil is now on hold. Patient also stated she refused her Lantus last night because she felt some nausea. Objective - Vital Signs/Intake and Output Vital Signs (last 24 hours): Temp Pulse Resp BP Pulse Ox 98.1 F 91 H 20 120/81 97 03/03/17 08:00 03/03/17 08:00 03/03/17 08:00 03/03/17 08:00 03/03/17 08:00 Intake and Output: 03/03/17 03/03/17 06:59 18:59 Intake Total 800 Output Total 800 Balance 0 - Medications Medications: Current Medications Albuterol/Ipratropium (Duoneb 3 Mg/0.5 Mg (3 Ml) Ud) 3 ml INH RQ6 [facility] Last Admin: 03/03/17 07:32 Dose: Not Given Famotidine (Pepcid) 20 mg PO BID [facility] Last Admin: 03/03/17 09:58 Dose: 20 mg Gabapentin (Neurontin) 600 mg PO TID [facility] Last Admin: 03/03/17 09:58 Dose: 600 mg Home Med (Patient's Own Injectable) 20 unit SC AC [facility] Last Admin: 03/03/17 07:59 Dose: 20 unit Hydroxychloroquine Sulfate (Plaquenil) 200 mg PO DAILY [facility] Last Admin: 03/02/17 09:53 Dose: Not Given Vancomycin HCl 1 gm/ Sodium (Chloride) 250 mls @ 166.7 mls/hr IVPB Q12H [facility] Last Admin: 03/03/17 08:01 Dose: 166.7 mls/hr Insulin Glargine (Lantus) 40 unit SC HS [facility] Last Admin: 03/02/17 21:40 Dose: Not Given Insulin Human Regular (Novolin R) 0 unit SC ACHS [facility] PRN Reason: Protocol Last Admin: 03/03/17 07:58 Dose: 8 unit Lisinopril (Zestril) 20 mg PO DAILY [facility] Last Admin: 03/03/17 10:06 Dose: 20 mg Metformin HCl (Glucophage) 1,000 mg PO BID [facility] Last Admin: 03/03/17 09:58 Dose: 1,000 mg Oxycodone HCl (Oxycontin Extended Release Tab) 40 mg PO Q12 [facility] Last Admin: 03/03/17 09:56 Dose: 40 mg Oxycodone HCl (Oxycodone Immediate Release Tab) 30 mg PO Q8H PRN PRN Reason: Pain, severe (8-10) Last Admin: 03/03/17 05:27 Dose: 30 mg - Labs Labs: 03/03/17 07:45 03/03/17 07:45 - Constitutional Appears: Non-toxic, No Acute Distress - Head Exam Head Exam: ATRAUMATIC, NORMAL INSPECTION - Eye Exam Eye Exam: EOMI, Normal appearance, PERRL Pupil Exam: NORMAL ACCOMODATION - ENT Exam ENT Exam: Mucous Membranes Moist - Respiratory Exam Respiratory Exam: Clear to Ausculation Bilateral, NORMAL BREATHING PATTERN. absent: Accessory Muscle Use, Chest Wall Tenderness, Respiratory Distress - Cardiovascular Exam Cardiovascular Exam: REGULAR RHYTHM, +S1, +S2 - GI/Abdominal Exam GI & Abdominal Exam: Soft, Normal Bowel Sounds. absent: Distended, Firm, Guarding, Tenderness - Extremities Exam Extremities Exam: absent: Calf Tenderness, Pedal Edema Additional comments: left distal extremity great toe ulcer, dressing changed today by podiatry c/d/i - Back Exam Back Exam: NORMAL INSPECTION. absent: CVA tenderness (L), CVA tenderness (R), paraspinal tenderness - Neurological Exam Neurological Exam: Alert, Awake, CN II-XII Intact, Oriented x3 - Psychiatric Exam Psychiatric exam: Normal Mood - Skin Skin Exam: Dry, Intact, Normal Color, Warm Assessment and Plan - Assessment and Plan (Free Text) Assessment: Diabetic Foot Ulcer of Left Great Toe: Pt afebrile, nontachycardic Aircraft Avionics Technician, Dr. Steven, consulted. Help appreciated. -> Plan for OR for debridement on Monday 03/05 Chest X ray - no active disease EGKG - NSR, Left axis deviation Detsky score 0 - 6% risk of cardiovascular complication with surgery -> Patient is clear for surgery pending coags studies Left Foot x-ray - soft tissue swelling; no periosteal destruction to suggest osteomyelitis Left lower extremity MRI: soft tissue ulcer seen at the distal 1st phalanx; prominent signal abnormality consistent with acute osteomyelitis Blood cultures no growth after 24 hours Vancomycin 1 gm IV q12h (started 03/01) Diabetes Mellitus: Metformin 1000 mg po bid Lantus 40 units sc hs - patient refused last night, sugars are elevated Novolin sliding scale HTN: Zestril 20 mg po qd Neuropathic Pain: Oxycodone ER 40 mg po q12h Oxycodone IR 30 mg po q8h prn Gabapentin 600 mg po tid Lupus: Plaquenil held due to pt complaining of vomiting Asthma: Duonebs prn Prophylactic Measures: DVT: SCDs GI: Pepcid 20 mg po bid Zofran prn nausea/vom Lovenox 40 mg SC daily <Akash Franklin H - Last Filed: 03/03/17 15:27> Objective - Vital Signs/Intake and Output Vital Signs (last 24 hours): Temp Pulse Resp BP Pulse Ox 98.1 F 91 H 20 120/81 97 03/03/17 08:00 03/03/17 08:00 03/03/17 08:00 03/03/17 08:00 03/03/17 08:00 Intake and Output: 03/03/17 03/03/17 06:59 18:59 Intake Total 800 800 Output Total 800 Balance 0 800 - Medications Medications: Current Medications Albuterol/Ipratropium (Duoneb 3 Mg/0.5 Mg (3 Ml) Ud) 3 ml INH RQ6 [facility] Last Admin: 03/03/17 14:16 Dose: Not Given Enoxaparin Sodium (Lovenox) 40 mg SC DAILY [facility] Stop: 03/04/17 23:55 Last Admin: 03/03/17 14:40 Dose: 40 mg Famotidine (Pepcid) 20 mg PO BID [facility] Last Admin: 03/03/17 09:58 Dose: 20 mg Gabapentin (Neurontin) 600 mg PO TID [facility] Last Admin: 03/03/17 13:35 Dose: 600 mg Home Med (Patient's Own Injectable) 20 unit SC AC [facility] Last Admin: 03/03/17 12:12 Dose: 20 unit Hydroxychloroquine Sulfate (Plaquenil) 200 mg PO DAILY [facility] Last Admin: 03/02/17 09:53 Dose: Not Given Vancomycin HCl 1 gm/ Sodium (Chloride) 250 mls @ 166.7 mls/hr IVPB Q12H [facility] Last Admin: 03/03/17 08:01 Dose: 166.7 mls/hr Insulin Glargine (Lantus) 40 unit SC HS [facility] Last Admin: 03/02/17 21:40 Dose: Not Given Insulin Human Regular (Novolin R) 0 unit SC ACHS [facility] PRN Reason: Protocol Last Admin: 03/03/17 12:11 Dose: 6 unit Lisinopril (Zestril) 20 mg PO DAILY [facility] Last Admin: 03/03/17 10:06 Dose: 20 mg Metformin HCl (Glucophage) 1,000 mg PO BID [facility] Last Admin: 03/03/17 09:58 Dose: 1,000 mg Ondansetron HCl (Zofran Inj) 4 mg IVP Q6 PRN PRN Reason: Nausea/Vomiting Last Admin: 03/03/17 12:11 Dose: 4 mg Oxycodone HCl (Oxycontin Extended Release Tab) 40 mg PO Q12 [facility] Last Admin: 03/03/17 09:56 Dose: 40 mg Oxycodone HCl (Oxycodone Immediate Release Tab) 30 mg PO Q8H PRN PRN Reason: Pain, severe (8-10) Last Admin: 03/03/17 13:35 Dose: 30 mg - Labs Labs: 03/03/17 07:45 03/03/17 07:45 Attending/Attestation - Attestation I have personally seen and examined this patient.: Yes I have fully participated in the care of the patient.: Yes I have reviewed all pertinent clinical information, including history, physical exam and plan: Yes Notes (Text): Medical attending: Patient was seen and examined by me, agrees the above note by medical researcher. As documented before the MRI returned showing she she does have osteomyelitis of the toe she is currently on IV antibiotics at this time including vancomycin Yesterday we held the plaquinil after the patient reported that she sick and tired of taking this in the she thought it was giving her nausea after all these years. Today she complained that the antibiotics was given her nausea. She also did not want her afternoon dose of Lantus last night. As result her blood sugars were somewhat elevated this morning. We explained to the patient that it's very important to try to get her blood sugar under control Podiatry is planning on intervention this coming Sunday Thank you very much, Akash Franklin
[2017-03-03] MEDS: Enoxaparin 40 mg Syringe SC SCH (14:40)
[2017-03-03] MEDS: (Lantus) Insulin Glargine, Recombinant SC SCH (21:33)
[2017-03-04] MEDS: Albuterol-Ipratrop 3 mg / 0.5 (3 ml) UD INH SCH ×3 (02:18→20:34)
[2017-03-04 08:11] LABS: BASO % 0.8 % (0.0-2.0); EOS # 0.1 K/uL (0.0-0.7); HEMATOCRIT 37.3 % (34.0-47.0); LYMPH # 1.9 K/uL (1.0-4.3); LYMPH % 42.7 % (20.0-40.0); MEAN CELL VOLUME 80.8 fL (81.0-99.0); MEAN CORPUSCULAR HEMOGLOBIN 28.3 pg (27.0-31.0); MEAN PLATELET VOLUME 7.5 fL (7.2-11.7); MONO # 0.3 K/uL (0.0-0.8); MONO % 6.2 % (0.0-10.0); NRBC % 0.1 % (0.0-2.0); RED CELL DISTRIBUTION WIDTH 12.7 % (11.5-14.5); WHITE BLOOD COUNT 4.5 K/uL (4.8-10.8)
[2017-03-04 08:14] LABS: INR 0.9
[2017-03-04 08:15] LABS: CHLORIDE 100 mmol/L (98-107); POTASSIUM 4.7 mmol/L (3.6-5.2); SODIUM 136 mmol/L (132-148)
[2017-03-04] MEDS: oxyCODONE 30 mg Immediate Release Tab PO PRN ×2 (08:15→16:38)
[2017-03-04 08:17] LABS: ALKALINE PHOSPHATASE 115 U/L (38-126); AST/SGOT 28 U/L (14-36); BILIRUBIN,TOTAL 0.5 mg/dL (0.2-1.3); CARBON DIOXIDE 25 mmol/L (22-30); GFR AFRICAN-AMERICAN > 60
[2017-03-04 08:18] LABS: ALT/SGPT 23 U/L (9-52); BLOOD UREA NITROGEN 8 mg/dL (7-17); GLUCOSE,RANDOM 306 mg/dL (65-105); MAGNESIUM 1.4 mg/dL (1.6-2.3); PHOSPHOROUS 4.7 mg/dL (2.5-4.5); TOTAL PROTEIN 7.5 g/dL (6.3-8.3)
[2017-03-04] MEDS: HUMALOG SC SCH ×3 (08:30→17:35)
[2017-03-04] MEDS: (Novolin R) Insulin Human Regular 100 units/ml vial SC SCH ×4 (08:35→21:46)
[2017-03-04] MEDS: oxyCODONE 40 mg ER Tab (oxyCONTIN) PO SCH ×2 (10:17→21:44)
[2017-03-04] MEDS: Enoxaparin 40 mg Syringe SC SCH (10:19)
--- NOTE | 2017-03-04 10:37 | CP.PCM.PN ---
Subjective - Date & Time of Evaluation Date of Evaluation: 03/04/17 Time of Evaluation: 10:45 - Subjective Subjective: PODIATRY PROGRESS NOTE DR. STEVEN: 41 yo female patient S&E at bedside this morning. Pt seen resting comfortably in bed at time of visit. Pleasant and chatty today. Denies f/c/sob/cp overnight. Says nausea is better but has stomach ache today, denies vomiting. Says she feels some throbbing pain in the left big toe today. Has been using the surgical shoe for heel weight bearing. Is aware and ready for surgical procedure w/ Dr. Steven tomorrow. Denies any other complaints at this time. Objective - Vital Signs/Intake and Output Vital Signs (last 24 hours): Temp Pulse Resp BP Pulse Ox 97.9 F 94 H 20 138/92 H 99 03/04/17 08:13 03/04/17 08:13 03/04/17 08:13 03/04/17 08:13 03/04/17 08:13 - Medications Medications: Current Medications Albuterol/Ipratropium (Duoneb 3 Mg/0.5 Mg (3 Ml) Ud) 3 ml INH RQ6 [facility] Last Admin: 03/04/17 02:18 Dose: Not Given Enoxaparin Sodium (Lovenox) 40 mg SC DAILY [facility] Stop: 03/04/17 23:55 Last Admin: 03/04/17 10:19 Dose: Not Given Famotidine (Pepcid) 20 mg PO BID [facility] Last Admin: 03/04/17 10:17 Dose: 20 mg Gabapentin (Neurontin) 600 mg PO TID [facility] Last Admin: 03/04/17 10:17 Dose: 600 mg Home Med (Patient's Own Injectable) 20 unit SC AC [facility] Last Admin: 03/04/17 08:30 Dose: Not Given Hydroxychloroquine Sulfate (Plaquenil) 200 mg PO DAILY [facility] Last Admin: 03/02/17 09:53 Dose: Not Given Vancomycin HCl 1 gm/ Sodium (Chloride) 250 mls @ 166.7 mls/hr IVPB Q12H [facility] Last Admin: 03/04/17 10:18 Dose: 166.7 mls/hr Insulin Glargine (Lantus) 40 unit SC HS [facility] Last Admin: 03/03/17 21:33 Dose: Not Given Insulin Human Regular (Novolin R) 0 unit SC ACHS [facility] PRN Reason: Protocol Last Admin: 03/04/17 08:35 Dose: 8 unit Lisinopril (Zestril) 20 mg PO DAILY [facility] Last Admin: 03/04/17 10:17 Dose: 20 mg Metformin HCl (Glucophage) 1,000 mg PO BID [facility] Last Admin: 03/03/17 09:58 Dose: 1,000 mg Ondansetron HCl (Zofran Inj) 4 mg IVP Q6 PRN PRN Reason: Nausea/Vomiting Last Admin: 03/03/17 12:11 Dose: 4 mg Oxycodone HCl (Oxycontin Extended Release Tab) 40 mg PO Q12 [facility] Last Admin: 03/04/17 10:17 Dose: 40 mg Oxycodone HCl (Oxycodone Immediate Release Tab) 30 mg PO Q8H PRN PRN Reason: Pain, severe (8-10) Last Admin: 03/04/17 08:15 Dose: 30 mg - Labs Labs: 03/04/17 07:55 03/04/17 07:55 PT 10.4 SECONDS (9.7-12.2) 03/04/17 07:55 INR 0.9 03/04/17 07:55 APTT 39 SECONDS (21-34) H 03/04/17 07:55 - Constitutional Appears: Well, Non-toxic, No Acute Distress - Extremities Exam Extremities Exam: absent: Calf Tenderness Additional comments: LLE exam: dressing appears c/d/i to the left foot VASC- DP/PT pulses palpable 2/4, skin temp runs warm to cool, cap fill time < 4 sec to digits x 5, no pedal edema NEURO- grossly diminished DERM- there is an ulceration to plantar-distal aspect of left hallux with necrotic center noted, moderate serous drainage, no purulence, no malodor, no fluctuance, no erythema noted ORTHO- no tenderness on palpation of ulceration - Neurological Exam Neurological Exam: Alert, Awake, Oriented x3 - Psychiatric Exam Psychiatric exam: Normal Affect, Normal Mood Assessment and Plan - Assessment and Plan (Free Text) Assessment: 41yo female patient w/ left hallux ulceration secondary to diabetic neuropathy Plan: -Pt S&E at bedside -Plan discussed w/ Dr. Steven and primary Dr. Franklin -Chart, labs and vitals reviewed: afebrile, WBC 4.5 -HBA1c: 12.6 -Left foot MRI: (+) acute OM of left hallux (proximal and distal phalanx) -S/P arterial duplex. Pending results -Again discussed w/ patient importance of glycemic control for wound healing -Pt is for OR w/ Dr. Steven tomorrow Monday 03/05 for debridement of the left hallux (to follow his first case) -NPO after midnight -Lovenox to be held Sunday for surgery -Pt is medically cleared for OR pending coag studies per primary Dr. Franklin -Hallux redressed with xeroform, DSD -Pt weight bearing to heel only -Will follow
--- NOTE | 2017-03-04 11:37 | CP.PCM.PN ---
Subjective - Date & Time of Evaluation Date of Evaluation: 03/04/17 Time of Evaluation: 11:00 - Subjective Subjective: Patient is medically cleared for OR tommorow. Today she did not have any nausea as she had been reporting the previous few days. She denied chest pain, denied fever, denied shortness of breath. She had CXRAY, and EKG, labwork ok besides some high sugars. She reports some pain in her toe however it is controlled with the pain medication that she is getting. Objective - Vital Signs/Intake and Output Vital Signs (last 24 hours): Temp Pulse Resp BP Pulse Ox 97.9 F 94 H 20 138/92 H 99 03/04/17 08:13 03/04/17 08:13 03/04/17 08:13 03/04/17 08:13 03/04/17 08:13 - Medications Medications: Current Medications Albuterol/Ipratropium (Duoneb 3 Mg/0.5 Mg (3 Ml) Ud) 3 ml INH RQ6 [facility] Last Admin: 03/04/17 02:18 Dose: Not Given Enoxaparin Sodium (Lovenox) 40 mg SC DAILY [facility] Stop: 03/04/17 23:55 Last Admin: 03/04/17 10:19 Dose: Not Given Famotidine (Pepcid) 20 mg PO BID [facility] Last Admin: 03/04/17 10:17 Dose: 20 mg Gabapentin (Neurontin) 600 mg PO TID [facility] Last Admin: 03/04/17 10:17 Dose: 600 mg Home Med (Patient's Own Injectable) 20 unit SC AC [facility] Last Admin: 03/04/17 08:30 Dose: Not Given Hydroxychloroquine Sulfate (Plaquenil) 200 mg PO DAILY [facility] Last Admin: 03/02/17 09:53 Dose: Not Given Vancomycin HCl 1 gm/ Sodium (Chloride) 250 mls @ 166.7 mls/hr IVPB Q12H [facility] Last Admin: 03/04/17 10:18 Dose: 166.7 mls/hr Insulin Glargine (Lantus) 40 unit SC HS [facility] Last Admin: 03/03/17 21:33 Dose: Not Given Insulin Human Regular (Novolin R) 0 unit SC ACHS [facility] PRN Reason: Protocol Last Admin: 03/04/17 08:35 Dose: 8 unit Lisinopril (Zestril) 20 mg PO DAILY [facility] Last Admin: 03/04/17 10:17 Dose: 20 mg Metformin HCl (Glucophage) 1,000 mg PO BID [facility] Last Admin: 03/03/17 09:58 Dose: 1,000 mg Ondansetron HCl (Zofran Inj) 4 mg IVP Q6 PRN PRN Reason: Nausea/Vomiting Last Admin: 03/03/17 12:11 Dose: 4 mg Oxycodone HCl (Oxycontin Extended Release Tab) 40 mg PO Q12 [facility] Last Admin: 03/04/17 10:17 Dose: 40 mg Oxycodone HCl (Oxycodone Immediate Release Tab) 30 mg PO Q8H PRN PRN Reason: Pain, severe (8-10) Last Admin: 03/04/17 08:15 Dose: 30 mg - Labs Labs: 03/04/17 07:55 03/04/17 07:55 PT 10.4 SECONDS (9.7-12.2) 03/04/17 07:55 INR 0.9 03/04/17 07:55 APTT 39 SECONDS (21-34) H 03/04/17 07:55 Assessment and Plan - Assessment and Plan (Free Text) Assessment: Diabetic Foot Ulcer of Left Great Toe: 03/05: Pain is controlled today, blood culture negatve 48 hrs. Continue Vancomycin. NPO, medically cleared for surgery Pt afebrile, nontachycardic Circus Rider, Dr. Steven, consulted. Help appreciated. -> Plan for OR for debridement on Monday 03/05 Chest X ray - no active disease EGKG - NSR, Left axis deviation Detsky score 0 - 6% risk of cardiovascular complication with surgery -> Patient is clear for surgery pending coags studies Left Foot x-ray - soft tissue swelling; no periosteal destruction to suggest osteomyelitis Left lower extremity MRI: soft tissue ulcer seen at the distal 1st phalanx; prominent signal abnormality consistent with acute osteomyelitis Blood cultures no growth after 24 hours Vancomycin 1 gm IV q12h (started 03/01) Diabetes Mellitus: 03/04: She took her insulin now. Recent accuchecks better Metformin 1000 mg po bid Lantus 40 units sc hs - patient refused last night, sugars are elevated Novolin sliding scale HTN: Zestril 20 mg po qd Neuropathic Pain: Oxycodone ER 40 mg po q12h Oxycodone IR 30 mg po q8h prn Gabapentin 600 mg po tid Lupus: Plaquenil held due to pt complaining of vomiting Asthma: Duonebs prn Prophylactic Measures: DVT: SCDs GI: Pepcid 20 mg po bid Zofran prn nausea/vom Lovenox 40 mg SC daily
[2017-03-04] MEDS: (Lantus) Insulin Glargine, Recombinant SC SCH (21:46)
[2017-03-05] MEDS: Albuterol-Ipratrop 3 mg / 0.5 (3 ml) UD INH SCH ×4 (02:05→19:24)
[2017-03-05] MEDS: oxyCODONE 30 mg Immediate Release Tab PO PRN ×2 (07:39→16:01)
[2017-03-05 08:14] LABS: BASO % 0.7 % (0.0-2.0); EOS # 0.1 K/uL (0.0-0.7); EOS % 2.9 % (0.0-4.0); HEMATOCRIT 34.3 % (34.0-47.0); LYMPH # 1.9 K/uL (1.0-4.3); LYMPH % 41.5 % (20.0-40.0); MEAN CELL VOLUME 81.7 fL (81.0-99.0); MEAN CORPUSCULAR HGB CONC 34.3 g/dL (33.0-37.0); MEAN PLATELET VOLUME 7.4 fL (7.2-11.7); MONO # 0.3 K/uL (0.0-0.8); MONO % 6.9 % (0.0-10.0); RED CELL DISTRIBUTION WIDTH 12.7 % (11.5-14.5); WHITE BLOOD COUNT 4.6 K/uL (4.8-10.8)
[2017-03-05 08:31] LABS: CHLORIDE 102 mmol/L (98-107); POTASSIUM 4.4 mmol/L (3.6-5.2); SODIUM 138 mmol/L (132-148)
[2017-03-05 08:33] LABS: BILIRUBIN,TOTAL 0.4 mg/dL (0.2-1.3); GFR AFRICAN-AMERICAN > 60
[2017-03-05 08:34] LABS: ALKALINE PHOSPHATASE 81 U/L (38-126); ALT/SGPT 25 U/L (9-52); AST/SGOT 26 U/L (14-36); BLOOD UREA NITROGEN 8 mg/dL (7-17); CALCIUM 8.5 mg/dl (8.6-10.4); CARBON DIOXIDE 26 mmol/L (22-30); GLUCOSE,RANDOM 192 mg/dL (65-105); PHOSPHOROUS 4.9 mg/dL (2.5-4.5); TOTAL PROTEIN 6.5 g/dL (6.3-8.3)
[2017-03-05 08:35] LABS: MAGNESIUM 1.3 mg/dL (1.6-2.3)
--- NOTE | 2017-03-05 08:55 | VASCLAB ---
STUDY DESCRIPTION: HISTORY: non healing wound toe PRIORS: None. TECHNIQUE: Pulse volume recording waveforms and segmental pressures of bilateral lower extremities at multiple levels were obtained. Ankle Brachial Indices (ABIs) were calculated. Report prepared by Jovany Saucedo RVT RIGHT LOWER EXTREMITY: * Brachial artery: Pressure - 115 mmHg. * High thigh: Pressure - 182 mmHg: Ratio - 1.58: PVR waveform - Pulsatile * Low thigh: Pressure - 174 mmHg: Ratio - 1.51 PVR waveform: Pulsatile * Calf: Pressure - 149 mmHg: Ratio - 1.30 PVR waveform: Pulsatile * Posterior tibial Artery: Pressure - 131 mmHg: Ratio - 1.14 PVR waveform: Pulsatile * Dorsalis pedis Artery: Pressure - 139 mmHg: Ratio - 1.21 PVR waveform: Pulsatile * Great toe: Pressure - 102 mmHg: Ratio - 0.89 PVR waveform: Pulsatile Ankle brachial index (MAGALY): 1.21 LEFT LOWER EXTREMITY: * Brachial artery: Pressure - mmHg. * High thigh: Pressure - 162 mmHg: Ratio - 1.41: PVR waveform - Pulsatile * Low thigh: Pressure - 175 mmHg: Ratio - 1.52 PVR waveform: Pulsatile * Calf: Pressure - 152 mmHg: Ratio - 1.32 PVR waveform: Pulsatile * Posterior tibial Artery: Pressure - 128 mmHg: Ratio - 1.11 PVR waveform: Pulsatile * Dorsalis pedis Artery: Pressure - 137 mmHg: Ratio - 1.19 PVR waveform: Pulsatile * Great toe: Pressure - 137 mmHg: Ratio - 1.19 PVR waveform: Pulsatile Ankle brachial index (MAGALY): 1.19 OTHER FINDINGS: Right: Left: IMPRESSION: Right: There was no evidence of hemodynamically significant arterial insufficiency in the right lower extremity. Left: There was no evidence of hemodynamically significant arterial insufficiency in the left lower extremity.
[2017-03-05] MEDS: HUMALOG SC SCH ×3 (09:22→18:13)
[2017-03-05] MEDS: (Novolin R) Insulin Human Regular 100 units/ml vial SC SCH ×4 (09:30→21:55)
[2017-03-05] MEDS: oxyCODONE 40 mg ER Tab (oxyCONTIN) PO SCH ×3 (09:31→21:51)
[2017-03-05] MEDS ORDERED: Propofol 10 mg/ml Inj (20 ML) ONE ×2 (10:12→10:38)
[2017-03-05] MEDS ORDERED: Midazolam 2 MG/2 ML VIAL ONE (10:12)
[2017-03-05] MEDS ORDERED: Lidocaine 2% Inj (20ml) ONE (10:15)
[2017-03-05] MEDS ORDERED: Bupivacaine HCl 0.5% PF (10 ml) Inj ONE (10:15)
--- NOTE | 2017-03-05 10:42 | CP.PCM.PN ---
<PricilaLuke - Last Filed: 03/05/17 10:38> Subjective - Date & Time of Evaluation Date of Evaluation: 03/05/17 Time of Evaluation: 07:30 - Subjective Subjective: PGY-[address] Franklin Patient seen and examiend at bedside. Patient was NPO overnight. She is going to OR this morning for debridement of Left great toe. Patient resting in bed complaining that she did not sleep well due to her roommate. She reports some pain in her toe but states it is controlled with the pain medication. Denies fever/chills, cp, sob, palpitations, abd pain, n/v/d. Objective - Vital Signs/Intake and Output Vital Signs (last 24 hours): Temp Pulse Resp BP Pulse Ox 98.8 F 96 H 20 125/83 100 03/05/17 08:18 03/05/17 08:18 03/05/17 08:18 03/05/17 08:18 03/05/17 08:18 Intake and Output: 03/05/17 03/05/17 06:59 18:59 Intake Total 500 Balance 500 - Medications Medications: Current Medications Albuterol/Ipratropium (Duoneb 3 Mg/0.5 Mg (3 Ml) Ud) 3 ml INH RQ6 [facility] Last Admin: 03/05/17 07:38 Dose: Not Given Famotidine (Pepcid) 20 mg PO BID [facility] Last Admin: 03/05/17 09:31 Dose: Not Given Gabapentin (Neurontin) 600 mg PO TID [facility] Last Admin: 03/05/17 09:31 Dose: Not Given Home Med (Patient's Own Injectable) 20 unit SC AC [facility] Last Admin: 03/05/17 09:22 Dose: Not Given Hydroxychloroquine Sulfate (Plaquenil) 200 mg PO DAILY [facility] Last Admin: 03/02/17 09:53 Dose: Not Given Vancomycin HCl 1 gm/ Sodium (Chloride) 250 mls @ 166.7 mls/hr IVPB Q12H [facility] Last Admin: 03/05/17 09:21 Dose: 166.7 mls/hr Insulin Glargine (Lantus) 40 unit SC HS [facility] Last Admin: 03/04/17 21:46 Dose: Not Given Insulin Human Regular (Novolin R) 0 unit SC ACHS [facility] PRN Reason: Protocol Last Admin: 03/05/17 09:30 Dose: Not Given Lisinopril (Zestril) 20 mg PO DAILY [facility] Last Admin: 03/04/17 10:17 Dose: 20 mg Metformin HCl (Glucophage) 1,000 mg PO BID [facility] Last Admin: 03/03/17 09:58 Dose: 1,000 mg Ondansetron HCl (Zofran Inj) 4 mg IVP Q6 PRN PRN Reason: Nausea/Vomiting Last Admin: 03/03/17 12:11 Dose: 4 mg Oxycodone HCl (Oxycontin Extended Release Tab) 40 mg PO Q12 [facility] Last Admin: 03/05/17 09:31 Dose: Not Given Oxycodone HCl (Oxycodone Immediate Release Tab) 30 mg PO Q8H PRN PRN Reason: Pain, severe (8-10) Last Admin: 03/05/17 07:39 Dose: 30 mg - Labs Labs: 03/05/17 08:08 03/05/17 08:08 PT 10.4 SECONDS (9.7-12.2) 03/04/17 07:55 INR 0.9 03/04/17 07:55 APTT 39 SECONDS (21-34) H 03/04/17 07:55 - Constitutional Appears: Non-toxic, No Acute Distress - Head Exam Head Exam: ATRAUMATIC, NORMOCEPHALIC - Eye Exam Eye Exam: EOMI, Normal appearance Pupil Exam: PERRL - ENT Exam ENT Exam: Mucous Membranes Moist - Neck Exam Neck Exam: Normal Inspection - Respiratory Exam Respiratory Exam: Clear to Ausculation Bilateral, NORMAL BREATHING PATTERN - Cardiovascular Exam Cardiovascular Exam: REGULAR RHYTHM, +S1, +S2 - GI/Abdominal Exam GI & Abdominal Exam: Soft, Normal Bowel Sounds. absent: Tenderness - Extremities Exam Extremities Exam: absent: Calf Tenderness Additional comments: left distal extremity great toe ulcer, dressing falling off - Back Exam Back Exam: absent: CVA tenderness (L), CVA tenderness (R) - Neurological Exam Neurological Exam: Alert, Awake, CN II-XII Intact, Oriented x3 - Psychiatric Exam Psychiatric exam: Normal Affect, Normal Mood - Skin Skin Exam: Dry, Warm Assessment and Plan - Assessment and Plan (Free Text) Plan: Diabetic Foot Ulcer of Left Great Toe: OR today with Podiatry for debridement Pt afebrile, nontachycardic Veneer Lathe Operator, Dr. Steven, consulted. Help appreciated. -> Plan for OR for debridement on Monday 03/05 Chest X ray - no active disease EGKG - NSR, Left axis deviation Detsky score 0 - 6% risk of cardiovascular complication with surgery -> Patient is clear for surgery pending coags studies Left Foot x-ray - soft tissue swelling; no periosteal destruction to suggest osteomyelitis Left lower extremity MRI: soft tissue ulcer seen at the distal 1st phalanx; prominent signal abnormality consistent with acute osteomyelitis Blood cultures no growth after 24 hours Vancomycin 1 gm IV q12h (started 03/01) Diabetes Mellitus: Accuchecks HOLD Metformin 1000 mg po bid Lantus 40 units sc hs Novolin sliding scale HTN: Zestril 20 mg po qd Neuropathic Pain: Oxycodone ER 40 mg po q12h Oxycodone IR 30 mg po q8h prn Gabapentin 600 mg po tid Lupus: Plaquenil held due to pt complaining of vomiting Asthma: Duonebs prn Prophylactic Measures: DVT: SCDs GI: Pepcid 20 mg po bid Zofran prn nausea/vom <Akash Franklin H - Last Filed: 03/05/17 13:22> Objective - Vital Signs/Intake and Output Vital Signs (last 24 hours): Temp Pulse Resp BP Pulse Ox 94.7 F L 79 11 L 113/70 100 03/05/17 11:45 03/05/17 11:45 03/05/17 11:45 03/05/17 11:45 03/05/17 11:45 Intake and Output: 03/05/17 03/05/17 06:59 18:59 Intake Total 500 300 Balance 500 300 - Medications Medications: Current Medications Albuterol/Ipratropium (Duoneb 3 Mg/0.5 Mg (3 Ml) Ud) 3 ml INH RQ6 [facility] Last Admin: 03/05/17 07:38 Dose: Not Given Famotidine (Pepcid) 20 mg PO BID [facility] Last Admin: 03/05/17 09:31 Dose: Not Given Gabapentin (Neurontin) 600 mg PO TID [facility] Last Admin: 03/05/17 09:31 Dose: Not Given Home Med (Patient's Own Injectable) 20 unit SC AC [facility] Last Admin: 03/05/17 09:22 Dose: Not Given Hydroxychloroquine Sulfate (Plaquenil) 200 mg PO DAILY [facility] Last Admin: 03/02/17 09:53 Dose: Not Given Vancomycin HCl 1 gm/ Sodium (Chloride) 250 mls @ 166.7 mls/hr IVPB Q12H [facility] Last Admin: 03/05/17 09:21 Dose: 166.7 mls/hr Insulin Glargine (Lantus) 40 unit SC HS [facility] Last Admin: 03/04/17 21:46 Dose: Not Given Insulin Human Regular (Novolin R) 0 unit SC ACHS [facility] PRN Reason: Protocol Last Admin: 03/05/17 11:37 Dose: 4 unit Lisinopril (Zestril) 20 mg PO DAILY [facility] Last Admin: 03/04/17 10:17 Dose: 20 mg Metformin HCl (Glucophage) 1,000 mg PO BID [facility] Last Admin: 03/03/17 09:58 Dose: 1,000 mg Ondansetron HCl (Zofran Inj) 4 mg IVP Q6 PRN PRN Reason: Nausea/Vomiting Last Admin: 03/03/17 12:11 Dose: 4 mg Oxycodone HCl (Oxycontin Extended Release Tab) 40 mg PO Q12 [facility] Last Admin: 03/05/17 12:57 Dose: 40 mg Oxycodone HCl (Oxycodone Immediate Release Tab) 30 mg PO Q8H PRN PRN Reason: Pain, severe (8-10) Last Admin: 03/05/17 07:39 Dose: 30 mg - Labs Labs: 03/05/17 08:08 03/05/17 08:08 PT 10.4 SECONDS (9.7-12.2) 03/04/17 07:55 INR 0.9 03/04/17 07:55 APTT 39 SECONDS (21-34) H 03/04/17 07:55 Attending/Attestation - Attestation I have personally seen and examined this patient.: Yes I have fully participated in the care of the patient.: Yes I have reviewed all pertinent clinical information, including history, physical exam and plan: Yes Notes (Text): 03/05/17 13:16 Medical attending: Patient was seen and examined by me, agree with the above note by medical practitioners. Today when we saw her she was awaiting surgery for her great toe. She felt okay, she did not have any reports of nausea or vomiting. She says that by holding of the Plaquenil she felt much better than before. Set this time were pending a more for the osteomyelitis in the meantime were giving continue antibiotics. We need to clarify as to how long patient will need antibiotics for Thank you very much, Akash Franklin
[2017-03-05] MEDS ORDERED: HYDROmorphone 0.5 mg/0.5 ml ISec IVP PRN (11:01)
--- NOTE | 2017-03-05 11:05 | PCM.SURG1 ---
Surgeon's Initial Post Op Note - Surgeon's Notes Surgeon: liborio Shrimp Picker: alistair Type of Anesthesia: IV Sedation, Local Anesthesia Administered By: annmarie Pre-Operative Diagnosis: left non healing ulceration with osteo Operative Findings: see dictation Post-Operative Diagnosis: same Operation Performed: left foot wound debridment Specimen/Specimens Removed: soft tissue Estimated Blood Loss: EBL {In ML}: 5 Blood Products Given: N/A Drains Used: No Drains Post-Op Condition: Good Date of Surgery/Procedure: 03/05/17 Time of Surgery/Procedure: 11:05
--- NOTE | 2017-03-05 11:44 | CP.PCM.PN ---
Subjective - Date & Time of Evaluation Date of Evaluation: 03/05/17 Time of Evaluation: 11:42 - Subjective Subjective: 41 y/o female to the OR this morning for left hallux wound debridment. Patient was taken to the OR and tolerated anesthesia and procedure well and was transported to recovery with VSS and NVSI to the left foot. Patient placed into posterior splint and to be NWB; pt eval placed Consult placed for Dr. Noguera; will need intermediate teacher abx treatment for OM of phalanx. Dressing to be kept in place Will continue to follow. Objective - Vital Signs/Intake and Output Vital Signs (last 24 hours): Temp Pulse Resp BP Pulse Ox 98.1 F 84 12 118/72 99 03/05/17 10:58 03/05/17 11:15 03/05/17 11:15 03/05/17 11:15 03/05/17 11:15 Intake and Output: 03/05/17 03/05/17 06:59 18:59 Intake Total 500 250 Balance 500 250 - Medications Medications: Current Medications Albuterol/Ipratropium (Duoneb 3 Mg/0.5 Mg (3 Ml) Ud) 3 ml INH RQ6 [facility] Last Admin: 03/05/17 07:38 Dose: Not Given Famotidine (Pepcid) 20 mg PO BID [facility] Last Admin: 03/05/17 09:31 Dose: Not Given Gabapentin (Neurontin) 600 mg PO TID [facility] Last Admin: 03/05/17 09:31 Dose: Not Given Home Med (Patient's Own Injectable) 20 unit SC AC [facility] Last Admin: 03/05/17 09:22 Dose: Not Given Hydromorphone HCl (Dilaudid) 0.5 mg IVP Q10M PRN PRN Reason: Pain, Mild (1-3) Stop: 03/05/17 13:01 Hydroxychloroquine Sulfate (Plaquenil) 200 mg PO DAILY [facility] Last Admin: 03/02/17 09:53 Dose: Not Given Vancomycin HCl 1 gm/ Sodium (Chloride) 250 mls @ 166.7 mls/hr IVPB Q12H [facility] Last Admin: 03/05/17 09:21 Dose: 166.7 mls/hr Insulin Glargine (Lantus) 40 unit SC HS [facility] Last Admin: 03/04/17 21:46 Dose: Not Given Insulin Human Regular (Novolin R) 0 unit SC ACHS [facility] PRN Reason: Protocol Last Admin: 03/05/17 11:37 Dose: 4 unit Lisinopril (Zestril) 20 mg PO DAILY [facility] Last Admin: 03/04/17 10:17 Dose: 20 mg Metformin HCl (Glucophage) 1,000 mg PO BID [facility] Last Admin: 03/03/17 09:58 Dose: 1,000 mg Ondansetron HCl (Zofran Inj) 4 mg IVP Q6 PRN PRN Reason: Nausea/Vomiting Last Admin: 03/03/17 12:11 Dose: 4 mg Ondansetron HCl (Zofran Inj) 4 mg IVP ONCE PRN PRN Reason: Nausea/Vomiting Stop: 03/05/17 13:01 Oxycodone HCl (Oxycontin Extended Release Tab) 40 mg PO Q12 [facility] Last Admin: 03/05/17 09:31 Dose: Not Given Oxycodone HCl (Oxycodone Immediate Release Tab) 30 mg PO Q8H PRN PRN Reason: Pain, severe (8-10) Last Admin: 03/05/17 07:39 Dose: 30 mg - Labs Labs: 03/05/17 08:08 03/05/17 08:08 PT 10.4 SECONDS (9.7-12.2) 03/04/17 07:55 INR 0.9 03/04/17 07:55 APTT 39 SECONDS (21-34) H 03/04/17 07:55
--- NOTE | 2017-03-05 12:07 | CP.PCM.CON ---
History of Present Illness - History of Present Illness History of Present Illness: admitted with infected left hallux Positive OM by MRI Review of Systems - Constitutional Constitutional: absent: As Per HPI, Anorexia, Chills, Daytime Sleepiness, Excessive Sweating, Fatigue, Fever, Frequent Falls, Headache, Increased Appetite , Lethargy, Malaise, Night Sweats, Snoring, Sleep Apnea, Weight Gain, Weight Loss, Weakness, Other - EENT Eyes: absent: As Per HPI, Blind Spots, Blurred Vision, Change in Vision, Decreased Night Vision, Diplopia, Discharge, Dry Eye, Exophthalmos, Floaters, Irritation, Itchy Eyes, Loss of Peripheral Vision, Pain, Photophobia, Requires Corrective Lenses, Sees Flashes, Spots in Vision, Tunnel Vision, Other Visual Disturbances, Loss of Vision, Other Ears: absent: As Per HPI, Decreased Hearing, Ear Discharge, Ear Pain, Tinnitus, Abnormal Hearing, Disequilibrium, Dizziness, Other Nose/Mouth/Throat: absent: As Per HPI, Epistaxis, Nasal Congestion, Nasal Discharge, Nasal Obstruction, Nasal Trauma, Nose Pain, Post Nasal Drip, Sinus Pain, Sinus Pressure, Bleeding Gums, Change in Voice, Dental Pain, Dry Mouth, Dysphagia, Halitosis, Hoarsness, Lip Swelling, Mouth Lesions, Mouth Pain, Odynophagia, Sore Throat, Throat Swelling, Tongue Swelling, Facial Pain, Neck Pain, Neck Mass, Other - Breasts Breasts: absent: As Per HPI, Change in Shape, Mass, Pain, Nipple Discharge, Nipple Inversion, Skin Changes, Swelling, Other - Cardiovascular Cardiovascular: absent: As Per HPI, Acrocyanosis, Chest Pain, Chest Pain at Rest , Chest Pain with Activity, Claudication, Diaphoresis, Dyspnea, Dyspnea on Exertion, Edema, Irregular Heart Rhythm, Pain Radiating to Arm/Neck/Jaw, Leg Edema, Leg Ulcers, Lightheadedness, Orthopnea, Palpitations, Paroxysmal Nocturnal Dyspnea, Pedal Edema, Radiating Pain, Rapid Heart Rate, Slow Heart Rate, Syncope, Other - Respiratory Respiratory: absent: As Per HPI, Cough, Dyspnea, Hemoptysis, Dyspnea on Exertion , Wheezing, Snoring, Stridor, Pain on Inspiration, Chest Congestion, Excessive Mucous Production, Change in Mucous Color, Pain with Coughing, Other - Gastrointestinal Gastrointestinal: absent: As Per HPI, Abdominal Pain, Belching, Bloating, Change in Bowel Habits, Change in Stool Character, Coffee Ground Emesis, Constipation, Cramping, Diarrhea, Dyspepsia, Dysphagia, Early Satiety, Excessive Flatus, Fecal Incontinence, Heartburn, Hematemesis, Hematochezia, Loose Stools, Melena, Nausea, Odynophagia, Temesmus, Vomiting, Other - Genitourinary Genitourinary: absent: As Per HPI, Change in Urinary Stream, Difficulty Urinating, Dysuria, Flank Pain, Hematuria, Pyuria, Nocturia, Urinary Incontinence, Urinary Frequency, Urinary Hesitance, Urinary Urgency, Voiding Freq/Small Amts, Freq UTI, Hx Renal/Bladder Calculi, Hx /Renal Surgery, Bladder Distension, Other - Reproductive: Female Reproductive:Female: absent: As Per HPI, Amenorrhea, Amenorrhea/ Control, Currently Menstual, Cycle <21 Days, Cycle >35 Days, Cycle Variable, Menses 1-7 Days, Menses >/= 8 Days, Menses Variable, Cycle > 4 Weeks Between, No Menses for 6 Months, Heavy Menses, Light Menses, Normal Menses, Spotting Between Cycles , S/P Hysterectomy, Menopausal, Post Menopausal, Premenarche, Abnormal Vaginal Bleeding, Dysmenorrhea, Dyspareunia, Genital Lesions, Genital Pruritis, Pelvic Pain, Prolapse Symptoms, Sexual Dysfunction, Vaginal Discharge, Vaginal Dryness , Vaginal Odor, Vaginal Pruritis, Other - Menstruation Menstruation: absent: As Per HPI, Amenorrhea, Amenorrhea/ Control, Currently Menstual, Cycle <21 Days, Cycle >35 Days, Cycle Variable, Menses 1-7 Days, Menses >/= 8 Days, Menses Variable, Cycle > 4 Weeks Between, No Menses for 6 Months, Heavy Menses, Light Menses, Normal Menses, Spotting Between Cycles , S/P Hysterectomy, Menopausal, Post Menopausal, Premenarche, Abnormal Vaginal Bleeding, Dysmenorrhea, Other - Musculoskeletal Musculoskeletal: As Per HPI - Integumentary Integumentary: As Per HPI, Skin Pain, Wounds - Neurological Neurological: absent: As Per HPI, Abnormal Gait, Abnormal Hearing, Abnormal Movements, Abnormal Speech, Behavioral Changes, Burning Sensations, Confusion, Convulsions, Disequilibrium, Dizziness, Numbness, Focal Weakness, Frequent Falls , Headaches, Lack of Coordination, Loss of Vision, Memory Loss, Paresthesias, Radicular Pain, Restless Legs, Sensory Deficit, Syncope, Tingling, Tremor, Vertigo, Weakness, Other Visual Disturbances, Other - Psychiatric Psychiatric: absent: As Per HPI, Abnormal Sleep Pattern, Anhedonia, Anxiety, Auditory Hallucinations, Behavioral Changes, Change in Appetite, Change in Libido, Confusion, Depression, Difficulty Concentrating, Hallucinations, Homicidal Ideation, Hopelessness, Irritability, Memory Loss, Mood Swings, Panic Attacks, Paranoia, Suicidal Ideation, Visual Hallucinations, Tactile Hallucinations, Other - Endocrine Endocrine: absent: As Per HPI, Change in Body Appearance, Change in Libido, Cold Intolorance, Deepening of Voice, Excessive Sweating, Fatigue, Flushing, Heat Intolorance, Increase in Ring/Shoe/Hat Size, Palpitations, Polydipsia, Polyphagia, Polyuria, Other - Hematologic/Lymphatic Hematologic: absent: As Per HPI, Easy Bleeding, Easy Bruising, Lymphadenopathy, Other Past Patient History - Past Medical History & Family History Past Medical History?: Yes - Past Social History Smoking Status: Never Smoked - CARDIAC Hx Hypercholesterolemia: Yes Hx Hypertension: Yes - PULMONARY Hx Asthma: Yes (LAST ATTACK 5 YEARS AGO) - NEUROLOGICAL Hx Neurological Disorder: No - HEENT Hx HEENT Problems: No - RENAL Hx Chronic Kidney Disease: No - ENDOCRINE/METABOLIC Hx Endocrine Disorders: Yes Hx Diabetes Mellitus Type 1: Yes Hx Diabetes Mellitus Type 2: Yes Hx Systemic Lupus Erythematosus: Yes - HEMATOLOGICAL/ONCOLOGICAL Hx Blood Disorders: No - INTEGUMENTARY Hx Dermatological Problems: No Hx Psoriasis: Yes (left hand) - MUSCULOSKELETAL/RHEUMATOLOGICAL Hx Falls: No - GASTROINTESTINAL Hx Gastritis: Yes - GENITOURINARY/GYNECOLOGICAL Hx Genitourinary Disorders: No Other/Comment: fibroid uterus - PSYCHIATRIC Hx Bipolar Disorder: Yes Hx Depression: Yes Hx Substance Use: No - SURGICAL HISTORY Hx Hysterectomy: Yes (2 yrs ago) Hx Tonsillectomy: Yes Other/Comment: back surgery 2014 for bulging disc,L breast partial mastectomy 2001 - ANESTHESIA Hx Anesthesia: Yes Hx Anesthesia Reactions: No Hx Malignant Hyperthermia: No Meds Home Medications: Home Medication List Medication Instructions Recorded Confirmed Type Cefepime 1gm in NS 100ml [Maxipime 1 gm IVPB Q12 38 Days 03/09/17 Rx 1gm] Docusate [Colace] 100 mg PO BID #60 cap 04/28/17 Rx Gabapentin [Neurontin] 600 mg PO TID #90 03/09/17 Rx Lisinopril [Zestril] 20 mg PO DAILY #30 tab 03/09/17 Rx MetFORMIN [glucoPHAGE] 1,000 mg PO BID #60 03/09/17 Rx Miconazole Nitrate [Miconazole 7] 100 mg VG HS #7 supp.vag 03/09/17 Rx Saccharomyces Boulardi [Florastor] 250 mg PO BID #84 cap 03/09/17 Rx Vancomycin [Vancomycin Inj] 1 gm IVPB Q12H 34 Days 03/09/17 Rx oxyCODONE [oxyCODONE Immediate 30 mg PO Q8H PRN tab 03/09/17 Rx Release Tab] oxyCODONE [oxyCONTIN Extended 40 mg PO Q12 #5 tab 03/09/17 Rx Release Tab] Allergies/Adverse Reactions: Allergies Allergy/AdvReac Type Severity Reaction Status Date / Time latex Allergy RASH Verified 03/01/17 06:44 metronidazole [From Flagyl] Allergy REDNESS Verified 03/01/17 06:44 shellfish derived Allergy SHORTNESS Verified 03/01/17 06:44 OF BREATH ciprofloxacin [From Cipro] AdvReac SHORTNESS Verified 03/01/17 06:44 OF BREATH ciprofloxacin HCl AdvReac SHORTNESS Verified 03/01/17 06:44 [From Cipro] OF BREATH Penicillins AdvReac SHORTNESS Verified 03/01/17 06:44 OF BREATH - Medications Medications: Current Medications Albuterol/Ipratropium (Duoneb 3 Mg/0.5 Mg (3 Ml) Ud) 3 ml INH RQ6 [facility] Last Admin: 03/05/17 07:38 Dose: Not Given Famotidine (Pepcid) 20 mg PO BID [facility] Last Admin: 03/05/17 09:31 Dose: Not Given Gabapentin (Neurontin) 600 mg PO TID [facility] Last Admin: 03/05/17 09:31 Dose: Not Given Home Med (Patient's Own Injectable) 20 unit SC AC [facility] Last Admin: 03/05/17 09:22 Dose: Not Given Hydromorphone HCl (Dilaudid) 0.5 mg IVP Q10M PRN PRN Reason: Pain, Mild (1-3) Stop: 03/05/17 13:01 Hydroxychloroquine Sulfate (Plaquenil) 200 mg PO DAILY [facility] Last Admin: 03/02/17 09:53 Dose: Not Given Vancomycin HCl 1 gm/ Sodium (Chloride) 250 mls @ 166.7 mls/hr IVPB Q12H [facility] Last Admin: 03/05/17 09:21 Dose: 166.7 mls/hr Insulin Glargine (Lantus) 40 unit SC HS [facility] Last Admin: 03/04/17 21:46 Dose: Not Given Insulin Human Regular (Novolin R) 0 unit SC ACHS [facility] PRN Reason: Protocol Last Admin: 03/05/17 11:37 Dose: 4 unit Lisinopril (Zestril) 20 mg PO DAILY [facility] Last Admin: 03/04/17 10:17 Dose: 20 mg Metformin HCl (Glucophage) 1,000 mg PO BID [facility] Last Admin: 03/03/17 09:58 Dose: 1,000 mg Ondansetron HCl (Zofran Inj) 4 mg IVP Q6 PRN PRN Reason: Nausea/Vomiting Last Admin: 03/03/17 12:11 Dose: 4 mg Ondansetron HCl (Zofran Inj) 4 mg IVP ONCE PRN PRN Reason: Nausea/Vomiting Stop: 03/05/17 13:01 Oxycodone HCl (Oxycontin Extended Release Tab) 40 mg PO Q12 [facility] Last Admin: 03/05/17 09:31 Dose: Not Given Oxycodone HCl (Oxycodone Immediate Release Tab) 30 mg PO Q8H PRN PRN Reason: Pain, severe (8-10) Last Admin: 03/05/17 07:39 Dose: 30 mg Physical Exam - Constitutional Appears: Non-toxic, Chronically Ill - Head Exam Head Exam: NORMOCEPHALIC - Eye Exam Eye Exam: absent: Scleral icterus Pupil Exam: NORMAL ACCOMODATION - ENT Exam ENT Exam: Mucous Membranes Dry - Neck Exam Neck exam: Negative for: Lymphadenopathy - Respiratory Exam Respiratory Exam: Decreased Breath Sounds, Rhonchi - Cardiovascular Exam Cardiovascular Exam: REGULAR RHYTHM, +S1, +S2 - GI/Abdominal Exam GI & Abdominal Exam: Diminished Bowel Sounds, Soft. absent: Tenderness - Rectal Exam Rectal Exam: Deferred - Exam Exam: NORMAL INSPECTION - Extremities Exam Extremities exam: Negative for: calf tenderness, pedal edema - Back Exam Back exam: absent: CVA tenderness (L), CVA tenderness (R) - Neurological Exam Neurological exam: Alert, CN II-XII Intact, Oriented x3, Reflexes Normal - Psychiatric Exam Psychiatric exam: Normal Mood - Skin Skin Exam: Dry, Intact Results - Vital Signs Recent Vital Signs: Last Vital Signs Temp 94.7 F L 03/05/17 11:45 Pulse 79 03/05/17 11:45 Resp 11 L 03/05/17 11:45 BP 113/70 03/05/17 11:45 Pulse Ox 100 03/05/17 11:45 - Labs Result Diagrams: 03/09/17 07:20 03/09/17 07:20 Labs: Laboratory Results - last 24 hr 03/04/17 03/04/17 03/05/17 16:34 21:18 07:18 WBC RBC Hgb Hct MCV MCH MCHC RDW Plt Count MPV Neut % (Auto) Lymph % (Auto) [place] % (Auto) Eos % (Auto) Baso % (Auto) Neut # Lymph # [place] # Eos # Baso # Sodium Potassium Chloride Carbon Dioxide Anion Gap BUN Creatinine Est GFR ( Amer) Est GFR (Non-Af Amer) POC Glucose (mg/dL) 251 H 181 H 200 H Random Glucose Calcium Phosphorus Magnesium Total Bilirubin AST ALT Alkaline Phosphatase Total Protein Albumin Globulin Albumin/Globulin Ratio 03/05/17 03/05/17 08:08 11:33 WBC 4.6 L RBC 4.20 Hgb 11.8 Hct 34.3 MCV 81.7 MCH 28.0 MCHC 34.3 RDW 12.7 Plt Count 276 MPV 7.4 Neut % (Auto) 48.0 L Lymph % (Auto) 41.5 H [place] % (Auto) 6.9 Eos % (Auto) 2.9 Baso % (Auto) 0.7 Neut # 2.2 Lymph # 1.9 [place] # 0.3 Eos # 0.1 Baso # 0.0 Sodium 138 Potassium 4.4 Chloride 102 Carbon Dioxide 26 Anion Gap 14 BUN 8 Creatinine 0.7 Est GFR ( Amer) > 60 Est GFR (Non-Af Amer) > 60 POC Glucose (mg/dL) 236 H Random Glucose 192 H Calcium 8.5 L Phosphorus 4.9 H Magnesium 1.3 L Total Bilirubin 0.4 AST 26 ALT 25 Alkaline Phosphatase 81 Total Protein 6.5 Albumin 3.2 L Globulin 3.3 Albumin/Globulin Ratio 1.0 Assessment & Plan (1) Cellulitis Status: Acute - Assessment and Plan (Free Text) Assessment: OM+ await cultures cont iv rx
[2017-03-05] MEDS: Cefepime IV 1 gm in Dextrose 50 ML IVPB SCH (15:39)
[2017-03-05 16:52] VITALS: RESP 20
[2017-03-05] MEDS: (Lantus) Insulin Glargine, Recombinant SC SCH (21:54)
[2017-03-06] MEDS: oxyCODONE 30 mg Immediate Release Tab PO PRN ×3 (00:20→17:35)
[2017-03-06] MEDS: Albuterol-Ipratrop 3 mg / 0.5 (3 ml) UD INH SCH ×3 (01:36→13:24)
[2017-03-06] MEDS: Cefepime IV 1 gm in Dextrose 50 ML IVPB SCH ×2 (03:40→16:29)
[2017-03-06] MEDS: (Novolin R) Insulin Human Regular 100 units/ml vial SC SCH ×4 (08:07→21:32)
[2017-03-06] MEDS: HUMALOG SC SCH ×3 (08:07→17:38)
[2017-03-06 08:09] LABS: BASO % 0.6 % (0.0-2.0); EOS # 0.1 K/uL (0.0-0.7); EOS % 2.2 % (0.0-4.0); HEMATOCRIT 33.1 % (34.0-47.0); LYMPH # 1.8 K/uL (1.0-4.3); LYMPH % 34.1 % (20.0-40.0); MEAN CELL VOLUME 81.9 fL (81.0-99.0); MEAN CORPUSCULAR HGB CONC 34.2 g/dL (33.0-37.0); MEAN PLATELET VOLUME 7.2 fL (7.2-11.7); MONO # 0.4 K/uL (0.0-0.8); MONO % 6.8 % (0.0-10.0); RED CELL DISTRIBUTION WIDTH 12.7 % (11.5-14.5); WHITE BLOOD COUNT 5.3 K/uL (4.8-10.8)
[2017-03-06 08:21] LABS: CHLORIDE 103 mmol/L (98-107); SODIUM 137 mmol/L (132-148)
[2017-03-06 08:22] LABS: POTASSIUM 4.4 mmol/L (3.6-5.2)
[2017-03-06 08:24] LABS: ALKALINE PHOSPHATASE 81 U/L (38-126); ALT/SGPT 13 U/L (9-52); AST/SGOT 34 U/L (14-36); BILIRUBIN,TOTAL 0.2 mg/dL (0.2-1.3); BLOOD UREA NITROGEN 15 mg/dL (7-17); CARBON DIOXIDE 24 mmol/L (22-30); GFR AFRICAN-AMERICAN > 60; GLUCOSE,RANDOM 157 mg/dL (65-105); TOTAL PROTEIN 6.3 g/dL (6.3-8.3)
[2017-03-06 08:25] LABS: CALCIUM 8.1 mg/dl (8.6-10.4)
[2017-03-06] MEDS: oxyCODONE 40 mg ER Tab (oxyCONTIN) PO SCH ×2 (10:22→21:28)
--- NOTE | 2017-03-06 10:54 | CP.PCM.PN ---
Subjective - Date & Time of Evaluation Date of Evaluation: 03/06/17 Time of Evaluation: 10:51 - Subjective Subjective: 41 y/o female 1 day s/p left hallux wound debridement with underlying OM. Patient awake in bed and pleasant at this time. States that Dr. Noguera came by and saw her yesterday. States today they discussed skilled nursing at home antibiotic treatment which she is amenible too. States that she will need crutches at home to be able to ambulate properly. No further complaints. No f/c/n/v/sob. Objective - Vital Signs/Intake and Output Vital Signs (last 24 hours): Temp Pulse Resp BP Pulse Ox 98.5 F 70 20 125/78 100 03/06/17 08:00 03/06/17 08:00 03/06/17 08:00 03/06/17 08:00 03/06/17 08:00 Intake and Output: 03/06/17 03/06/17 06:59 18:59 Intake Total 800 Balance 800 - Medications Medications: Current Medications Albuterol/Ipratropium (Duoneb 3 Mg/0.5 Mg (3 Ml) Ud) 3 ml INH RQ6 [facility] Last Admin: 03/06/17 07:34 Dose: Not Given Famotidine (Pepcid) 20 mg PO BID [facility] Last Admin: 03/06/17 10:23 Dose: 20 mg Gabapentin (Neurontin) 600 mg PO TID [facility] Last Admin: 03/06/17 10:23 Dose: 600 mg Home Med (Patient's Own Injectable) 20 unit SC AC [facility] Last Admin: 03/06/17 08:07 Dose: 20 unit Hydroxychloroquine Sulfate (Plaquenil) 200 mg PO DAILY [facility] Last Admin: 03/02/17 09:53 Dose: Not Given Vancomycin HCl 1 gm/ Sodium (Chloride) 250 mls @ 166.7 mls/hr IVPB Q12H [facility] Last Admin: 03/06/17 08:09 Dose: 166.7 mls/hr Cefepime HCl (Maxipime Iv 1 Gm Premix) 50 mls @ 100 mls/hr IVPB Q12H [facility] Last Admin: 03/06/17 03:40 Dose: 100 mls/hr Insulin Glargine (Lantus) 40 unit SC HS [facility] Last Admin: 03/05/17 21:54 Dose: 40 units Insulin Human Regular (Novolin R) 0 unit SC ACHS [facility] PRN Reason: Protocol Last Admin: 03/06/17 08:07 Dose: 1 unit Lisinopril (Zestril) 20 mg PO DAILY [facility] Last Admin: 03/06/17 10:23 Dose: 20 mg Metformin HCl (Glucophage) 1,000 mg PO BID [facility] Last Admin: 03/03/17 09:58 Dose: 1,000 mg Ondansetron HCl (Zofran Inj) 4 mg IVP Q6 PRN PRN Reason: Nausea/Vomiting Last Admin: 03/03/17 12:11 Dose: 4 mg Oxycodone HCl (Oxycontin Extended Release Tab) 40 mg PO Q12 [facility] Last Admin: 03/06/17 10:22 Dose: 40 mg Oxycodone HCl (Oxycodone Immediate Release Tab) 30 mg PO Q8H PRN PRN Reason: Pain, severe (8-10) Last Admin: 03/06/17 08:30 Dose: 30 mg - Labs Labs: 03/06/17 07:55 03/06/17 07:55 PT 10.4 SECONDS (9.7-12.2) 03/04/17 07:55 INR 0.9 03/04/17 07:55 APTT 39 SECONDS (21-34) H 03/04/17 07:55 - Constitutional Appears: Well, Non-toxic, No Acute Distress - Additional Findings Additional findings: Dressing left c/d/i todya. Assessment and Plan - Assessment and Plan (Free Text) Assessment: 41 y/o female 1 day s/p left hallux wound debridment with underlying OM> Plan: Patient evaluated and chart reviewed Discussed with Dr capone. Dressing left c/d/i to the left foot today ;to change tomorrow Dr Noguera help appreciated; Following analytics developer abx plan and dressing change tomorrow patient will be stable from podiatric standpoint. Tomorrow will f/u and change dressing and splint; To be NWB to the LE with crutches
--- NOTE | 2017-03-06 14:28 | CP.PCM.PN ---
<Luke Mcnulty - Last Filed: 03/06/17 14:25> Subjective - Date & Time of Evaluation Date of Evaluation: 03/06/17 Time of Evaluation: 07:50 - Subjective Subjective: PGY-[address] Yip Patient seen and examined at bedside. No acute event overnight. She is POD #1 s/ p debridement of Left great toe. Patient resting in bed complaining of pain in the left foot. Pain medication is helping but yun is still there. Denies fever/ chills, cp, sob, palpitations, abd pain, n/v/d, constipation, incontinence. Objective - Vital Signs/Intake and Output Vital Signs (last 24 hours): Temp Pulse Resp BP Pulse Ox 98.5 F 70 20 125/78 100 03/06/17 08:00 03/06/17 08:00 03/06/17 08:00 03/06/17 08:00 03/06/17 08:00 Intake and Output: 03/06/17 03/06/17 06:59 18:59 Intake Total 800 Balance 800 - Medications Medications: Current Medications Albuterol/Ipratropium (Duoneb 3 Mg/0.5 Mg (3 Ml) Ud) 3 ml INH RQ6 [facility] Last Admin: 03/06/17 13:24 Dose: Not Given Famotidine (Pepcid) 20 mg PO BID [facility] Last Admin: 03/06/17 10:23 Dose: 20 mg Gabapentin (Neurontin) 600 mg PO TID [facility] Last Admin: 03/06/17 13:18 Dose: 600 mg Home Med (Patient's Own Injectable) 20 unit SC AC [facility] Last Admin: 03/06/17 11:51 Dose: 20 unit Hydroxychloroquine Sulfate (Plaquenil) 200 mg PO DAILY [facility] Last Admin: 03/02/17 09:53 Dose: Not Given Vancomycin HCl 1 gm/ Sodium (Chloride) 250 mls @ 166.7 mls/hr IVPB Q12H [facility] Last Admin: 03/06/17 08:09 Dose: 166.7 mls/hr Cefepime HCl (Maxipime Iv 1 Gm Premix) 50 mls @ 100 mls/hr IVPB Q12H [facility] Last Admin: 03/06/17 03:40 Dose: 100 mls/hr Insulin Glargine (Lantus) 40 unit SC HS [facility] Last Admin: 03/05/17 21:54 Dose: 40 units Insulin Human Regular (Novolin R) 0 unit SC ACHS [facility] PRN Reason: Protocol Last Admin: 03/06/17 11:51 Dose: 2 unit Lisinopril (Zestril) 20 mg PO DAILY [facility] Last Admin: 03/06/17 10:23 Dose: 20 mg Metformin HCl (Glucophage) 1,000 mg PO BID [facility] Last Admin: 03/03/17 09:58 Dose: 1,000 mg Ondansetron HCl (Zofran Inj) 4 mg IVP Q6 PRN PRN Reason: Nausea/Vomiting Last Admin: 03/06/17 12:49 Dose: 4 mg Oxycodone HCl (Oxycontin Extended Release Tab) 40 mg PO Q12 [facility] Last Admin: 03/06/17 10:22 Dose: 40 mg Oxycodone HCl (Oxycodone Immediate Release Tab) 30 mg PO Q8H PRN PRN Reason: Pain, severe (8-10) Last Admin: 03/06/17 08:30 Dose: 30 mg - Labs Labs: 03/06/17 07:55 03/06/17 07:55 PT 10.4 SECONDS (9.7-12.2) 03/04/17 07:55 INR 0.9 03/04/17 07:55 APTT 39 SECONDS (21-34) H 03/04/17 07:55 - Constitutional Appears: No Acute Distress - Head Exam Head Exam: ATRAUMATIC, NORMOCEPHALIC - Eye Exam Eye Exam: EOMI, Normal appearance Pupil Exam: PERRL - ENT Exam ENT Exam: Mucous Membranes Moist - Neck Exam Neck Exam: Normal Inspection - Respiratory Exam Respiratory Exam: Clear to Ausculation Bilateral, NORMAL BREATHING PATTERN - Cardiovascular Exam Cardiovascular Exam: REGULAR RHYTHM, +S1, +S2 - GI/Abdominal Exam GI & Abdominal Exam: Soft, Normal Bowel Sounds. absent: Tenderness - Extremities Exam Extremities Exam: Tenderness (l foot) Additional comments: L foot wrapped in big boot dressing - Back Exam Back Exam: absent: CVA tenderness (L), CVA tenderness (R) - Neurological Exam Neurological Exam: Alert, Awake, CN II-XII Intact, Normal Gait, Oriented x3 - Psychiatric Exam Psychiatric exam: Normal Affect, Normal Mood - Skin Skin Exam: Dry, Normal Color, Warm Assessment and Plan - Assessment and Plan (Free Text) Plan: Diabetic Foot Ulcer of Left Great Toe: POD #1 s/p debridement of Left great toe Pt afebrile, nontachycardic Sand Mixer Operator, Dr. Steven, consulted. Help appreciated. -> Plan for OR for debridement on Monday 03/05 Chest X ray - no active disease EGKG - NSR, Left axis deviation Detsky score 0 - 6% risk of cardiovascular complication with surgery -> Patient is clear for surgery pending coags studies Left Foot x-ray - soft tissue swelling; no periosteal destruction to suggest osteomyelitis Left lower extremity MRI: soft tissue ulcer seen at the distal 1st phalanx; prominent signal abnormality consistent with acute osteomyelitis Blood cultures no growth after 24 hours Vancomycin 1 gm IV q12h (started 03/01) Diabetes Mellitus: Accuchecks HOLD Metformin 1000 mg po bid until tomorrow due to procedure Lantus 40 units sc hs Novolin sliding scale HTN: Zestril 20 mg po qd Neuropathic Pain: Oxycodone ER 40 mg po q12h Oxycodone IR 30 mg po q8h prn Gabapentin 600 mg po tid Lupus: Plaquenil held due to pt complaining of vomiting Asthma: Duonebs prn Prophylactic Measures: DVT: SCDs GI: Pepcid 20 mg po bid Zofran prn nausea/vomiting <Izzy Yip V - Last Filed: 03/06/17 23:16> Objective - Vital Signs/Intake and Output Vital Signs (last 24 hours): Temp Pulse Resp BP Pulse Ox 98.7 F 93 H 20 120/75 99 03/06/17 16:00 03/06/17 16:00 03/06/17 16:00 03/06/17 16:00 03/06/17 16:00 Intake and Output: 03/06/17 03/07/17 18:59 06:59 Intake Total 850 350 Balance 850 350 - Medications Medications: Current Medications Famotidine (Pepcid) 20 mg PO BID [facility] Last Admin: 03/06/17 17:38 Dose: 20 mg Gabapentin (Neurontin) 600 mg PO TID [facility] Last Admin: 03/06/17 17:38 Dose: 600 mg Home Med (Patient's Own Injectable) 20 unit SC AC [facility] Last Admin: 03/06/17 17:38 Dose: Not Given Hydroxychloroquine Sulfate (Plaquenil) 200 mg PO DAILY [facility] Last Admin: 03/02/17 09:53 Dose: Not Given Vancomycin HCl 1 gm/ Sodium (Chloride) 250 mls @ 166.7 mls/hr IVPB Q12H [facility] Last Admin: 03/06/17 21:32 Dose: 166.7 mls/hr Cefepime HCl (Maxipime Iv 1 Gm Premix) 50 mls @ 100 mls/hr IVPB Q12H [facility] Last Admin: 03/06/17 16:29 Dose: 100 mls/hr Insulin Glargine (Lantus) 40 unit SC HS [facility] Last Admin: 03/06/17 21:33 Dose: Not Given Insulin Human Regular (Novolin R) 0 unit SC ACHS [facility] PRN Reason: Protocol Last Admin: 03/06/17 21:32 Dose: Not Given Lisinopril (Zestril) 20 mg PO DAILY [facility] Last Admin: 03/06/17 10:23 Dose: 20 mg Metformin HCl (Glucophage) 1,000 mg PO BID [facility] Last Admin: 03/03/17 09:58 Dose: 1,000 mg Ondansetron HCl (Zofran Inj) 4 mg IVP Q6 PRN PRN Reason: Nausea/Vomiting Last Admin: 03/06/17 12:49 Dose: 4 mg Oxycodone HCl (Oxycontin Extended Release Tab) 40 mg PO Q12 [facility] Last Admin: 03/06/17 21:28 Dose: 40 mg Oxycodone HCl (Oxycodone Immediate Release Tab) 30 mg PO Q8H PRN PRN Reason: Pain, severe (8-10) Last Admin: 03/06/17 17:35 Dose: 30 mg Saccharomyces Boulardii (Florastor) 250 mg PO BID [facility] - Labs Labs: 03/06/17 07:55 03/06/17 07:55 PT 10.4 SECONDS (9.7-12.2) 03/04/17 07:55 INR 0.9 03/04/17 07:55 APTT 39 SECONDS (21-34) H 03/04/17 07:55 Attending/Attestation - Attestation I have personally seen and examined this patient.: Yes I have fully participated in the care of the patient.: Yes I have reviewed all pertinent clinical information, including history, physical exam and plan: Yes Notes (Text): Patient seen, examined, and case discussed with day-time resident. Patient is status post debridement POD 1 with podiatry for suspecting underlying osteomyelitis. Patient is currently on IV abx to cover for osteomyelitis. Patient is reporting pain localized to her toe. Patient reports she was seen evaluated by podiatry and physical therapy today. Patient is otherwise is in good spirits. 1)Acute Osteomyelitis 2) Diabetic Foot Ulcer of Left Great Toe * Consult podiatry (Dr. Steven) on board-->help appreciated * Consult infectious disease (Dr. Noguera) on board-->help appreciated * POD #1 s/p debridement of Left great toe per podiatry * Review of imaging: - Left Foot x-ray - soft tissue swelling; no periosteal destruction to suggest osteomyelitis - Left lower extremity MRI: soft tissue ulcer seen at the distal 1st phalanx ; prominent signal abnormality consistent with acute osteomyelitis * Blood cultures no growth after 5 days X2 * Vancomycin 1 gm IV q12h (started 03/01)-->f/u repeat vanco trough in AM * Cefepime 1 gram IV Q 12hours (started 03/05) * Will need to follow-up with ID regarding if patient needs PICC lines and duration of antibiotics; and will need to f/u with podiatry regarding if patient had clean margins during debridement 3) Diabetes Mellitus type 2, uncontrolled * Accuchecks QAC and HS * Hgba1c: 12.4 * Held Metformin 1000 mg po bid -->will restart tomorrow * Lantus 40 units subq HS-->refused this evening * Novolin sliding scale 4)Hypertension * Zestril 20 mg po qdaily * monitor vital signs and adjust accordingly 5)Neuropathic Pain: * Oxycodone ER 40 mg po q12h * Oxycodone IR 30 mg po q8h prn * Gabapentin 600 mg po tid 6) Lupus: * Plaquenil held due to pt complaining of vomiting 7) Asthma: * Duonebs prn * Patient is not in acute exacerbation 8) Prophylactic Measures: * DVT: SCDs * GI: Pepcid 20 mg po bid * Zofran prn nausea/vomiting * Heparin 5000 units subq 8 hours DVT ppx
[2017-03-06] MEDS: (Lantus) Insulin Glargine, Recombinant SC SCH (21:33)
[2017-03-07] MEDS: Cefepime IV 1 gm in Dextrose 50 ML IVPB SCH ×2 (04:30→16:44)
[2017-03-07] MEDS: oxyCODONE 30 mg Immediate Release Tab PO PRN ×2 (05:52→14:26)
[2017-03-07 07:38] LABS: BASO % 0.4 % (0.0-2.0); EOS # 0.1 K/uL (0.0-0.7); EOS % 2.5 % (0.0-4.0); HEMATOCRIT 32.6 % (34.0-47.0); LYMPH # 1.3 K/uL (1.0-4.3); LYMPH % 30.1 % (20.0-40.0); MEAN CELL VOLUME 81.2 fL (81.0-99.0); MEAN CORPUSCULAR HEMOGLOBIN 28.3 pg (27.0-31.0); MEAN CORPUSCULAR HGB CONC 34.8 g/dL (33.0-37.0); MEAN PLATELET VOLUME 7.2 fL (7.2-11.7); MONO # 0.4 K/uL (0.0-0.8); MONO % 8.6 % (0.0-10.0); RED CELL DISTRIBUTION WIDTH 12.4 % (11.5-14.5); WHITE BLOOD COUNT 4.4 K/uL (4.8-10.8)
[2017-03-07 07:49] LABS: CHLORIDE 101 mmol/L (98-107); POTASSIUM 4.7 mmol/L (3.6-5.2); SODIUM 136 mmol/L (132-148)
[2017-03-07] MEDS: HUMALOG SC SCH ×3 (07:49→18:05)
[2017-03-07 07:51] LABS: BILIRUBIN,TOTAL 0.4 mg/dL (0.2-1.3); GFR AFRICAN-AMERICAN > 60
[2017-03-07] MEDS: (Novolin R) Insulin Human Regular 100 units/ml vial SC SCH ×4 (07:51→21:36)
[2017-03-07 07:52] LABS: ALKALINE PHOSPHATASE 84 U/L (38-126); ALT/SGPT 24 U/L (9-52); AST/SGOT 29 U/L (14-36); BLOOD UREA NITROGEN 12 mg/dL (7-17); CARBON DIOXIDE 26 mmol/L (22-30); GLUCOSE,RANDOM 269 mg/dL (65-105); PHOSPHOROUS 4.3 mg/dL (2.5-4.5); TOTAL PROTEIN 6.6 g/dL (6.3-8.3)
[2017-03-07 07:53] LABS: CALCIUM 8.2 mg/dl (8.6-10.4); MAGNESIUM 1.5 mg/dL (1.6-2.3)
[2017-03-07] MEDS: POLYETHYLENE GLYCOL 3350 17 GM/Dose PACKET PO SCH ×3 (10:00→18:03)
[2017-03-07] MEDS: oxyCODONE 40 mg ER Tab (oxyCONTIN) PO SCH ×2 (10:01→21:43)
[2017-03-07] MEDS: Saccharomyces Boulardi 250 mg Cap PO SCH ×2 (10:01→18:02)
--- NOTE | 2017-03-07 12:29 | CP.PCM.PN ---
Subjective - Date & Time of Evaluation Date of Evaluation: 03/07/17 Time of Evaluation: 12:25 - Subjective Subjective: 41 y/o female seen and examiend 2 days s/p left hallux wound debridement with underlying OM. Patient is awake in bed at time of exam. States that she is agitates b/c people keep coming into the room and grabbing her foot. States that she is in no pain today at this time. Denies any other pedal complaints. States that she has alot of problems walking NWB b/c of drop foot on opposite limb. No f/c/n/v/sob. Objective - Vital Signs/Intake and Output Vital Signs (last 24 hours): Temp Pulse Resp BP Pulse Ox 98.6 F 96 H 20 112/72 98 03/07/17 08:00 03/07/17 08:00 03/07/17 08:00 03/07/17 08:00 03/07/17 08:00 Intake and Output: 03/07/17 03/07/17 06:59 18:59 Intake Total 800 Balance 800 - Medications Medications: Current Medications Docusate Sodium (Colace) 100 mg PO BID [facility] Last Admin: 03/07/17 10:01 Dose: 100 mg Famotidine (Pepcid) 20 mg PO BID [facility] Last Admin: 03/07/17 10:01 Dose: 20 mg Gabapentin (Neurontin) 600 mg PO TID [facility] Last Admin: 03/07/17 10:01 Dose: 600 mg Heparin Sodium (Porcine) (Heparin) 5,000 units SC Q8 [facility] Last Admin: 03/07/17 05:49 Dose: 5,000 units Home Med (Patient's Own Injectable) 20 unit SC AC [facility] Last Admin: 03/07/17 12:14 Dose: 20 unit Hydroxychloroquine Sulfate (Plaquenil) 200 mg PO DAILY [facility] Last Admin: 03/02/17 09:53 Dose: Not Given Vancomycin HCl 1 gm/ Sodium (Chloride) 250 mls @ 166.7 mls/hr IVPB Q12H [facility] Last Admin: 03/07/17 09:03 Dose: 166.7 mls/hr Cefepime HCl (Maxipime Iv 1 Gm Premix) 50 mls @ 100 mls/hr IVPB Q12H [facility] Last Admin: 03/07/17 04:30 Dose: 100 mls/hr Insulin Glargine (Lantus) 40 unit SC HS [facility] Last Admin: 03/06/17 21:33 Dose: Not Given Insulin Human Regular (Novolin R) 0 unit SC ACHS [facility] PRN Reason: Protocol Last Admin: 03/07/17 11:43 Dose: Not Given Lisinopril (Zestril) 20 mg PO DAILY [facility] Last Admin: 03/07/17 10:01 Dose: 20 mg Metformin HCl (Glucophage) 1,000 mg PO BID [facility] Last Admin: 03/03/17 09:58 Dose: 1,000 mg Ondansetron HCl (Zofran Inj) 4 mg IVP Q6 PRN PRN Reason: Nausea/Vomiting Last Admin: 03/07/17 00:06 Dose: 4 mg Oxycodone HCl (Oxycontin Extended Release Tab) 40 mg PO Q12 [facility] Last Admin: 03/07/17 10:01 Dose: 40 mg Oxycodone HCl (Oxycodone Immediate Release Tab) 30 mg PO Q8H PRN PRN Reason: Pain, severe (8-10) Last Admin: 03/07/17 05:52 Dose: 30 mg Polyethylene Glycol (Miralax) 17 gm PO BID [facility] Last Admin: 03/07/17 11:47 Dose: 17 gm Saccharomyces Boulardii (Florastor) 250 mg PO BID [facility] Last Admin: 03/07/17 10:01 Dose: 250 mg - Labs Labs: 03/07/17 07:20 03/07/17 07:20 PT 10.4 SECONDS (9.7-12.2) 03/04/17 07:55 INR 0.9 03/04/17 07:55 APTT 39 SECONDS (21-34) H 03/04/17 07:55 - Constitutional Appears: Well, Non-toxic, No Acute Distress - Neurological Exam Neurological Exam: Alert, Awake, Oriented x3 - Psychiatric Exam Psychiatric exam: Normal Affect, Normal Mood - Skin Skin Exam: Normal Color, Warm - Additional Findings Additional findings: LLE exam: dressing appears c/d/i to the left foot VASC- DP/PT pulses palpable 2/4, skin temp runs warm to cool, cap fill time < 4 sec to digits x 5, no pedal edema NEURO- grossly diminished DERM- There is a roughly 2cm x 2cm to deep soft tissue, no bone is exposed, no purulence, no malodor, no edema, no erythema, no clinical signs of infection noted, no interdigtal maceration, wound is red and beefy with surrounding granulation tissue noted. ORTHO- tendreness to surgical site Assessment and Plan - Assessment and Plan (Free Text) Assessment: 41 y/o female 2 day s/p left hallux wound debridement with underlying OM Plan: Patient evaluated and chart reviewed Discussed with Dr. Steven. At this time splint was removed due to patient stability from opposite limb drop foot Patient was cleansed and redressed with wet to dry dressing and bulky dsd. Order placed for patient to have surgical shoe applied to left foot. Patient to try to non weight bear to left as much as possible but can put pressure to left heel as needed for support while walking. Wound is stable; Will await Dr. Chuckie vee's for supervisor intermediates antibiotics for underlying OM. Will continue to follow while admitted.
[2017-03-07] MEDS ORDERED: Magnesium Sulfate 1 gm in D5W 1 GM/100 ML BAG IVPB ONE (14:00)
--- NOTE | 2017-03-07 15:13 | OP ---
PROCEDURE DATE: 03/05/2017 PREOPERATIVE DIAGNOSIS: Left foot nonhealing ulceration with osteomyelitis. POSTOPERATIVE DIAGNOSIS: Left foot nonhealing ulceration with osteomyelitis. PROCEDURE PERFORMED: Left foot hallux wound debridement. SURGEON: Robbin Steven DPM. VOCATIONAL EVALUATOR: Ciro Mccarthy, PGY-2 ANESTHESIOLOGIST: Dr. Jackson ANESTHESIA: IV sedation with local injection. INDICATIONS: The patient is a 41-year-old female with the above-mentioned diagnosis. The patient desai s exhausted all forms of conservative treatment at this time and wishes to have further surgical inte rventions for the condition listed above. Ater a careful explanation of risks, benefits and complica tions for the proposed procedure, patient signed the consent form. All questions and concerns were a ddressed at this time. OPERATIVE PROCEDURE: The patient was brought to the operating room and placed on the operating table in supine position. No pneumatic ankle tourniquet was utilized for this procedure. Following induc tion of IV sedation, a local injection of 10 mL of 0.5% Marcaine plain and 2% lidocaine plain was inj ected in the patient's left foot in local block type fashion without complication. Following local a nesthetic, the left foot was prepped and draped in normal sterile manner procedure began. Procedure #1: Left foot hallux wound debridement. At this time, attention was directed to the dista l plantar aspect of the patient's left hallux where there was noted to be a roughly 1 cm x 1 cm ulcer ation which was covered by a large necrotic area of skin tissue. Utilizing a #15 blade, an incision was made circumferentially around the ulceration site and the necrotic area site. The incision was t hen deepened and the necrotic material was then removed from the wound bed and passed from the operat wm field without complication. Following the removal of the necrotic area, there was no purulence i n the area and no drainage. Did have a sample taken. The wound did not probe to bone, although it i s to be noted that on MRI there is a gross ____ abnormality in the distal phalanx, which is most like ly consistent with osteomyelitis. So, at this time, utilizing pulse lavage, the wound was then pulse lavaged with bacitracin-infused saline. Following the pulse lavage, the wound was then packed with Xeroform dressing and dressed with a dry sterile dressing. The patient was placed into a posterior s plint to be nonweightbearing at this time. POSTOPERATIVE CONDITION: The patient tolerated anesthesia and procedure well and returned to recover y room with vital signs stable and neurovascular status intact to the left foot. This patient will b e followed on the floor as well as admitted and followed by Dr. Steven as an outpatient following disc harge. Ciro Mccarthy DPM Robbin Steven DPM cc: [id number] TT: 03/07/2017 15:12:39 sn
--- NOTE | 2017-03-07 15:43 | CP.PCM.PN ---
<PricilaLuke - Last Filed: 03/07/17 15:43> Subjective - Date & Time of Evaluation Date of Evaluation: 03/07/17 Time of Evaluation: 08:00 - Subjective Subjective: PGY-[address] Yip Patient seen and examined at bedside. No acute event overnight. She is POD #2 s/ p debridement of Left great toe. Patient resting in bed complaining of pain in the left foot. Patient is tolerating diet but is constipated. Denies fever/ chills, cp, sob, palpitations, abd pain, n/v/d, constipation, incontinence. Objective - Vital Signs/Intake and Output Vital Signs (last 24 hours): Temp Pulse Resp BP Pulse Ox 98.6 F 96 H 20 112/72 98 03/07/17 08:00 03/07/17 08:00 03/07/17 08:00 03/07/17 08:00 03/07/17 08:00 Intake and Output: 03/07/17 03/07/17 06:59 18:59 Intake Total 800 Balance 800 - Medications Medications: Current Medications Docusate Sodium (Colace) 100 mg PO BID [facility] Last Admin: 03/07/17 10:01 Dose: 100 mg Famotidine (Pepcid) 20 mg PO BID [facility] Last Admin: 03/07/17 10:01 Dose: 20 mg Gabapentin (Neurontin) 600 mg PO TID [facility] Last Admin: 03/07/17 13:14 Dose: 600 mg Heparin Sodium (Porcine) (Heparin) 5,000 units SC Q8 [facility] Last Admin: 03/07/17 13:15 Dose: Not Given Home Med (Patient's Own Injectable) 20 unit SC AC [facility] Last Admin: 03/07/17 12:14 Dose: 20 unit Hydroxychloroquine Sulfate (Plaquenil) 200 mg PO DAILY [facility] Last Admin: 03/02/17 09:53 Dose: Not Given Vancomycin HCl 1 gm/ Sodium (Chloride) 250 mls @ 166.7 mls/hr IVPB Q12H [facility] Last Admin: 03/07/17 09:03 Dose: 166.7 mls/hr Cefepime HCl (Maxipime Iv 1 Gm Premix) 50 mls @ 100 mls/hr IVPB Q12H [facility] Last Admin: 03/07/17 04:30 Dose: 100 mls/hr Insulin Glargine (Lantus) 40 unit SC HS [facility] Last Admin: 03/06/17 21:33 Dose: Not Given Insulin Human Regular (Novolin R) 0 unit SC ACHS [facility] PRN Reason: Protocol Last Admin: 03/07/17 11:43 Dose: Not Given Lisinopril (Zestril) 20 mg PO DAILY [facility] Last Admin: 03/07/17 10:01 Dose: 20 mg Metformin HCl (Glucophage) 1,000 mg PO BID [facility] Last Admin: 03/03/17 09:58 Dose: 1,000 mg Ondansetron HCl (Zofran Inj) 4 mg IVP Q6 PRN PRN Reason: Nausea/Vomiting Last Admin: 03/07/17 00:06 Dose: 4 mg Oxycodone HCl (Oxycontin Extended Release Tab) 40 mg PO Q12 [facility] Last Admin: 03/07/17 10:01 Dose: 40 mg Oxycodone HCl (Oxycodone Immediate Release Tab) 30 mg PO Q8H PRN PRN Reason: Pain, severe (8-10) Last Admin: 03/07/17 14:26 Dose: 30 mg Polyethylene Glycol (Miralax) 17 gm PO BID [facility] Last Admin: 03/07/17 11:47 Dose: 17 gm Saccharomyces Boulardii (Florastor) 250 mg PO BID [facility] Last Admin: 03/07/17 10:01 Dose: 250 mg - Labs Labs: 03/07/17 07:20 03/07/17 07:20 PT 10.4 SECONDS (9.7-12.2) 03/04/17 07:55 INR 0.9 03/04/17 07:55 APTT 39 SECONDS (21-34) H 03/04/17 07:55 - Constitutional Appears: No Acute Distress - Head Exam Head Exam: ATRAUMATIC, NORMOCEPHALIC - Eye Exam Eye Exam: EOMI, Normal appearance Pupil Exam: PERRL - ENT Exam ENT Exam: Mucous Membranes Moist - Neck Exam Neck Exam: Normal Inspection - Respiratory Exam Respiratory Exam: Clear to Ausculation Bilateral, NORMAL BREATHING PATTERN - Cardiovascular Exam Cardiovascular Exam: REGULAR RHYTHM, +S1, +S2 - GI/Abdominal Exam GI & Abdominal Exam: Soft, Normal Bowel Sounds. absent: Tenderness - Extremities Exam Extremities Exam: Tenderness (L foot) Additional comments: left foot dressing freshly changed - c/d/i - Back Exam Back Exam: absent: CVA tenderness (L), CVA tenderness (R) - Neurological Exam Neurological Exam: Abnormal Gait (due to pain and dressing), Alert, Awake, CN II -XII Intact, Oriented x3 - Psychiatric Exam Psychiatric exam: Normal Affect, Normal Mood - Skin Skin Exam: Dry, Normal Color, Warm Assessment and Plan - Assessment and Plan (Free Text) Plan: Diabetic Foot Ulcer of Left Great Toe: POD #2 s/p debridement of Left great toe Pt afebrile, nontachycardic Podiatry consult, Dr. Steven, Help appreciated Infectious disease consult, Dr. Noguera, help appreciated Chest X ray - no active disease EGKG - NSR, Left axis deviation Detsky score 0 - 6% risk of cardiovascular complication with surgery -> Patient is clear for surgery pending coags studies Left Foot x-ray - soft tissue swelling; no periosteal destruction to suggest osteomyelitis Left lower extremity MRI: soft tissue ulcer seen at the distal 1st phalanx; prominent signal abnormality consistent with acute osteomyelitis Blood cultures no growth after 24 hours Vancomycin 1 gm IV q12h (started 03/01) Diabetes Mellitus: Accuchecks HOLD Metformin 1000 mg po bid until tomorrow due to procedure Lantus 40 units sc hs Novolin sliding scale HTN: Zestril 20 mg po qd Neuropathic Pain: Oxycodone ER 40 mg po q12h Oxycodone IR 30 mg po q8h prn Gabapentin 600 mg po tid Lupus: Plaquenil held due to pt complaining of vomiting Asthma: Duonebs prn Constipation: Miralax BID Colace BID Prophylactic Measures: DVT: SCDs GI: Pepcid 20 mg po bid Zofran prn nausea/vomiting <Izzy Yip V - Last Filed: 03/07/17 22:55> Objective - Vital Signs/Intake and Output Vital Signs (last 24 hours): Temp Pulse Resp BP Pulse Ox 98.3 F 104 H 20 160/98 H 99 03/07/17 16:00 03/07/17 16:00 03/07/17 16:00 03/07/17 16:00 03/07/17 16:00 Intake and Output: 03/07/17 03/08/17 18:59 06:59 Intake Total 400 Balance 400 - Medications Medications: Current Medications Docusate Sodium (Colace) 100 mg PO BID [facility] Last Admin: 03/07/17 18:03 Dose: 100 mg Famotidine (Pepcid) 20 mg PO BID [facility] Last Admin: 03/07/17 18:02 Dose: 20 mg Gabapentin (Neurontin) 600 mg PO TID [facility] Last Admin: 03/07/17 18:04 Dose: 600 mg Heparin Sodium (Porcine) (Heparin) 5,000 units SC Q8 [facility] Last Admin: 03/07/17 21:32 Dose: Not Given Home Med (Patient's Own Injectable) 20 unit SC AC [facility] Last Admin: 03/07/17 18:05 Dose: Not Given Hydroxychloroquine Sulfate (Plaquenil) 200 mg PO DAILY [facility] Last Admin: 03/02/17 09:53 Dose: Not Given Vancomycin HCl 1 gm/ Sodium (Chloride) 250 mls @ 166.7 mls/hr IVPB Q12H [facility] Last Admin: 03/07/17 21:29 Dose: 166.7 mls/hr Cefepime HCl (Maxipime Iv 1 Gm Premix) 50 mls @ 100 mls/hr IVPB Q12H [facility] Last Admin: 03/07/17 16:44 Dose: 100 mls/hr Insulin Glargine (Lantus) 40 unit SC HS [facility] Last Admin: 03/07/17 21:32 Dose: 40 units Insulin Human Regular (Novolin R) 0 unit SC ACHS [facility] PRN Reason: Protocol Last Admin: 03/07/17 21:36 Dose: 2 unit Lisinopril (Zestril) 20 mg PO DAILY [facility] Last Admin: 03/07/17 10:01 Dose: 20 mg Metformin HCl (Glucophage) 1,000 mg PO BID [facility] Last Admin: 03/03/17 09:58 Dose: 1,000 mg Ondansetron HCl (Zofran Inj) 4 mg IVP Q6 PRN PRN Reason: Nausea/Vomiting Last Admin: 03/07/17 00:06 Dose: 4 mg Oxycodone HCl (Oxycontin Extended Release Tab) 40 mg PO Q12 [facility] Last Admin: 03/07/17 21:43 Dose: 40 mg Oxycodone HCl (Oxycodone Immediate Release Tab) 30 mg PO Q8H PRN PRN Reason: Pain, severe (8-10) Last Admin: 03/07/17 14:26 Dose: 30 mg Polyethylene Glycol (Miralax) 17 gm PO BID [facility] Last Admin: 03/07/17 18:03 Dose: 17 gm Saccharomyces Boulardii (Florastor) 250 mg PO BID [facility] Last Admin: 03/07/17 18:02 Dose: 250 mg - Labs Labs: 03/07/17 07:20 03/07/17 07:20 PT 10.4 SECONDS (9.7-12.2) 03/04/17 07:55 INR 0.9 03/04/17 07:55 APTT 39 SECONDS (21-34) H 03/04/17 07:55 Attending/Attestation - Attestation I have personally seen and examined this patient.: Yes I have fully participated in the care of the patient.: Yes I have reviewed all pertinent clinical information, including history, physical exam and plan: Yes Notes (Text): Patient seen, examined, and case discussed with day-time resident. Patient is status post debridement POD 2 with podiatry for suspecting underlying osteomyelitis. Patient is currently on IV abx to cover for osteomyelitis. Per discussion with podiatry, there is no bone culture taken from the OR, but soft tissue culture was collected; awaiting results to determiner IV Abx and duration of antibiotics. Patient is reporting pain localized to her toe and reporting she was very upset when patient would pull out the table acting as support. Patient wants to be able to go home upon discharge. Patient refuses outpatient transfusion and refuses rehab. Patient is ordered for PICC via IR. 1)Acute Osteomyelitis 2) Diabetic Foot Ulcer of Left Great Toe * Consult podiatry (Dr. Steven) on board-->help appreciated * Consult infectious disease (Dr. Noguera) on board-->help appreciated * POD #2 s/p debridement of Left great toe per podiatry--->follow-up soft tissue culture * Review of imaging: - Left Foot x-ray - soft tissue swelling; no periosteal destruction to suggest osteomyelitis - Left lower extremity MRI: soft tissue ulcer seen at the distal 1st phalanx ; prominent signal abnormality consistent with acute osteomyelitis * Blood cultures no growth after 5 days X2 * Vancomycin 1 gm IV q12h (started 03/01) * Cefepime 1 gram IV Q 12hours (started 03/05) * Will need to follow-up with ID regarding if how many and duration of antibiotics * Ordered for PICC line placement via IR 3) Diabetes Mellitus type 2, uncontrolled * Accuchecks QAC and HS * Hgba1c: 12.4 * Held Metformin 1000 mg po bid -->will restart tomorrow * Lantus 40 units subq HS-->refused this evening * Novolin sliding scale 4)Hypertension * Zestril 20 mg po qdaily * monitor vital signs and adjust accordingly 5)Neuropathic Pain: * Oxycodone ER 40 mg po q12h * Oxycodone IR 30 mg po q8h prn * Gabapentin 600 mg po tid 6) Lupus: * Plaquenil held due to pt complaining of vomiting 7) Asthma: * Duonebs prn * Patient is not in acute exacerbation 8) Prophylactic Measures: * DVT: SCDs * GI: Pepcid 20 mg po bid * Zofran prn nausea/vomiting * Heparin 5000 units subq 8 hours DVT ppx
--- NOTE | 2017-03-07 17:32 | CP.PCM.PN ---
Subjective - Date & Time of Evaluation Date of Evaluation: 03/07/17 Time of Evaluation: 08:00 - Subjective Subjective: + OM left great toe cultures pending for PICC and cont IV rx Objective - Vital Signs/Intake and Output Vital Signs (last 24 hours): Temp Pulse Resp BP Pulse Ox 98.3 F 104 H 20 160/98 H 99 03/07/17 16:00 03/07/17 16:00 03/07/17 16:00 03/07/17 16:00 03/07/17 16:00 Intake and Output: 03/07/17 03/07/17 06:59 18:59 Intake Total 800 400 Balance 800 400 - Medications Medications: Current Medications Docusate Sodium (Colace) 100 mg PO BID [facility] Last Admin: 03/07/17 10:01 Dose: 100 mg Famotidine (Pepcid) 20 mg PO BID [facility] Last Admin: 03/07/17 10:01 Dose: 20 mg Gabapentin (Neurontin) 600 mg PO TID [facility] Last Admin: 03/07/17 13:14 Dose: 600 mg Heparin Sodium (Porcine) (Heparin) 5,000 units SC Q8 [facility] Last Admin: 03/07/17 13:15 Dose: Not Given Home Med (Patient's Own Injectable) 20 unit SC AC [facility] Last Admin: 03/07/17 12:14 Dose: 20 unit Hydroxychloroquine Sulfate (Plaquenil) 200 mg PO DAILY [facility] Last Admin: 03/02/17 09:53 Dose: Not Given Vancomycin HCl 1 gm/ Sodium (Chloride) 250 mls @ 166.7 mls/hr IVPB Q12H [facility] Last Admin: 03/07/17 09:03 Dose: 166.7 mls/hr Cefepime HCl (Maxipime Iv 1 Gm Premix) 50 mls @ 100 mls/hr IVPB Q12H [facility] Last Admin: 03/07/17 16:44 Dose: 100 mls/hr Insulin Glargine (Lantus) 40 unit SC HS [facility] Last Admin: 03/06/17 21:33 Dose: Not Given Insulin Human Regular (Novolin R) 0 unit SC ACHS [facility] PRN Reason: Protocol Last Admin: 03/07/17 11:43 Dose: Not Given Lisinopril (Zestril) 20 mg PO DAILY [facility] Last Admin: 03/07/17 10:01 Dose: 20 mg Metformin HCl (Glucophage) 1,000 mg PO BID [facility] Last Admin: 03/03/17 09:58 Dose: 1,000 mg Ondansetron HCl (Zofran Inj) 4 mg IVP Q6 PRN PRN Reason: Nausea/Vomiting Last Admin: 03/07/17 00:06 Dose: 4 mg Oxycodone HCl (Oxycontin Extended Release Tab) 40 mg PO Q12 [facility] Last Admin: 03/07/17 10:01 Dose: 40 mg Oxycodone HCl (Oxycodone Immediate Release Tab) 30 mg PO Q8H PRN PRN Reason: Pain, severe (8-10) Last Admin: 03/07/17 14:26 Dose: 30 mg Polyethylene Glycol (Miralax) 17 gm PO BID [facility] Last Admin: 03/07/17 11:47 Dose: 17 gm Saccharomyces Boulardii (Florastor) 250 mg PO BID [facility] Last Admin: 03/07/17 10:01 Dose: 250 mg - Labs Labs: 03/07/17 07:20 03/07/17 07:20 PT 10.4 SECONDS (9.7-12.2) 03/04/17 07:55 INR 0.9 03/04/17 07:55 APTT 39 SECONDS (21-34) H 03/04/17 07:55 - Constitutional Appears: Non-toxic, Chronically Ill - Head Exam Head Exam: NORMOCEPHALIC - Eye Exam Eye Exam: PERRL. absent: Scleral icterus - ENT Exam ENT Exam: Mucous Membranes Dry - Neck Exam Neck Exam: absent: Lymphadenopathy - Respiratory Exam Respiratory Exam: Decreased Breath Sounds, Clear to Ausculation Bilateral - Cardiovascular Exam Cardiovascular Exam: REGULAR RHYTHM, +S1, +S2 - GI/Abdominal Exam GI & Abdominal Exam: Distended - Rectal Exam Rectal Exam: Deferred - Exam Exam: NORMAL INSPECTION - Extremities Exam Extremities Exam: Pedal Edema. absent: Calf Tenderness - Back Exam Back Exam: absent: CVA tenderness (L), CVA tenderness (R) Assessment and Plan - Assessment and Plan (Free Text) Plan: rx as OM await OR cultures
[2017-03-07] MEDS: (Lantus) Insulin Glargine, Recombinant SC SCH (21:32)
[2017-03-08] MEDS: oxyCODONE 30 mg Immediate Release Tab PO PRN ×3 (00:35→16:01)
[2017-03-08] MEDS: Cefepime IV 1 gm in Dextrose 50 ML IVPB SCH ×2 (04:10→17:51)
[2017-03-08] MEDS: HUMALOG SC SCH ×3 (08:26→17:52)
[2017-03-08] MEDS: (Novolin R) Insulin Human Regular 100 units/ml vial SC SCH ×4 (08:29→21:09)
[2017-03-08] MEDS: Saccharomyces Boulardi 250 mg Cap PO SCH ×2 (10:46→17:50)
[2017-03-08] MEDS: oxyCODONE 40 mg ER Tab (oxyCONTIN) PO SCH ×2 (10:47→21:08)
[2017-03-08] MEDS: POLYETHYLENE GLYCOL 3350 17 GM/Dose PACKET PO SCH ×2 (10:50→17:52)
--- NOTE | 2017-03-08 11:51 | CP.PCM.PN ---
Subjective - Date & Time of Evaluation Date of Evaluation: 03/08/17 Time of Evaluation: 11:47 - Subjective Subjective: 41 y/o female seen and examiend 3 days s/p left hallux wound debridement with underlying OM. Patient seen at bedside with Dr. Steven. States that she is going to get a picc tami eplaced today. States that she is to get iv abx at home when d/c'd and that she is workng with her landlord to set up her appt so that she will best be able to get around and heal her wound. No complaints at this time. Denies any f/ c/n//vsob. Objective - Vital Signs/Intake and Output Vital Signs (last 24 hours): Temp Pulse Resp BP Pulse Ox 98.6 F 88 20 127/88 99 03/08/17 07:59 03/08/17 07:59 03/08/17 07:59 03/08/17 07:59 03/08/17 07:59 Intake and Output: 03/08/17 03/08/17 06:59 18:59 Intake Total 400 Balance 400 - Medications Medications: Current Medications Docusate Sodium (Colace) 100 mg PO BID [facility] Last Admin: 03/08/17 10:46 Dose: 100 mg Famotidine (Pepcid) 20 mg PO BID [facility] Last Admin: 03/08/17 10:46 Dose: 20 mg Gabapentin (Neurontin) 600 mg PO TID [facility] Last Admin: 03/08/17 10:46 Dose: 600 mg Heparin Sodium (Porcine) (Heparin) 5,000 units SC Q8 [facility] Last Admin: 03/08/17 06:00 Dose: Not Given Home Med (Patient's Own Injectable) 20 unit SC AC [facility] Last Admin: 03/08/17 08:26 Dose: 20 unit Hydroxychloroquine Sulfate (Plaquenil) 200 mg PO DAILY [facility] Last Admin: 03/02/17 09:53 Dose: Not Given Vancomycin HCl 1 gm/ Sodium (Chloride) 250 mls @ 166.7 mls/hr IVPB Q12H [facility] Last Admin: 03/08/17 08:36 Dose: 166.7 mls/hr Cefepime HCl (Maxipime Iv 1 Gm Premix) 50 mls @ 100 mls/hr IVPB Q12H [facility] Last Admin: 03/08/17 04:10 Dose: 100 mls/hr Insulin Glargine (Lantus) 40 unit SC HS [facility] Last Admin: 03/07/17 21:32 Dose: 40 units Insulin Human Regular (Novolin R) 0 unit SC ACHS [facility] PRN Reason: Protocol Last Admin: 03/08/17 08:29 Dose: Not Given Lisinopril (Zestril) 20 mg PO DAILY [facility] Last Admin: 03/08/17 10:50 Dose: 20 mg Metformin HCl (Glucophage) 1,000 mg PO BID [facility] Last Admin: 03/08/17 10:52 Dose: 1,000 mg Ondansetron HCl (Zofran Inj) 4 mg IVP Q6 PRN PRN Reason: Nausea/Vomiting Last Admin: 03/07/17 00:06 Dose: 4 mg Oxycodone HCl (Oxycontin Extended Release Tab) 40 mg PO Q12 [facility] Last Admin: 03/08/17 10:47 Dose: 40 mg Oxycodone HCl (Oxycodone Immediate Release Tab) 30 mg PO Q8H PRN PRN Reason: Pain, severe (8-10) Last Admin: 03/08/17 08:26 Dose: 30 mg Polyethylene Glycol (Miralax) 17 gm PO BID [facility] Last Admin: 03/08/17 10:50 Dose: Not Given Saccharomyces Boulardii (Florastor) 250 mg PO BID [facility] Last Admin: 03/08/17 10:46 Dose: 250 mg - Labs Labs: 03/07/17 07:20 03/07/17 07:20 PT 10.4 SECONDS (9.7-12.2) 03/04/17 07:55 INR 0.9 03/04/17 07:55 APTT 39 SECONDS (21-34) H 03/04/17 07:55 - Constitutional Appears: Well, Non-toxic, No Acute Distress - Neurological Exam Neurological Exam: Alert, Awake, Oriented x3 - Psychiatric Exam Psychiatric exam: Normal Affect, Normal Mood - Skin Skin Exam: Normal Color, Warm - Additional Findings Additional findings: LLE exam: dressing appears c/d/i to the left foot VASC- DP/PT pulses palpable 2/4, skin temp runs warm to cool, cap fill time < 4 sec to digits x 5, no pedal edema NEURO- grossly diminished DERM- There is a roughly 2cm x 2cm to deep soft tissue, no bone is exposed, no purulence, no malodor, no edema, no erythema, no clinical signs of infection noted, no interdigtal maceration, wound is red and beefy with surrounding granulation tissue noted. ORTHO- tendreness to surgical site Assessment and Plan - Assessment and Plan (Free Text) Assessment: 41 y/o female 3 day s/p left hallux wound debridement with underlying OM Plan: Patient evaluated and chart reviewed Seen with attending Dr. Steven. Wound redressed with xeroform and DSD. patient can WB to the left heel for balance as needed. Will need f/u with Dr. Steven in wound center following d/c. Wound stable from pod standpoint, will need continued Iv abx per Dr. Noguera rec No culture was taken during the or, soft tissue sample was sent for path but was an overlying escharous lesion; under eschar no purulence noted, no drainage, healthy viable tissue was seen; no bone culture taken at that time; Will continue to follow
--- NOTE | 2017-03-08 15:30 | CP.PCM.PN ---
<MarvinMaya hearn - Last Filed: 03/08/17 15:22> Subjective - Date & Time of Evaluation Date of Evaluation: 03/08/17 Time of Evaluation: 15:23 - Subjective Subjective: Patient seen and examined at bedside. She reports intermittent sharp pain to her left foot. Patient POD #3 s/p debridement of Left great toe. Per podiatry, on debridement there was no purulent fluid, solely dry eschar. Patient is tolerating diet. She continues to be constipated. Denies fever/chills, chest pain, shortness of breath, palpitations, abdominal pain, nausea, vomiting, diarrhea, and dysuria. Objective - Vital Signs/Intake and Output Vital Signs (last 24 hours): Temp Pulse Resp BP Pulse Ox 98.6 F 88 20 127/88 99 03/08/17 07:59 03/08/17 07:59 03/08/17 07:59 03/08/17 07:59 03/08/17 07:59 Intake and Output: 03/08/17 03/08/17 06:59 18:59 Intake Total 400 Balance 400 - Medications Medications: Current Medications Docusate Sodium (Colace) 100 mg PO BID [facility] Last Admin: 03/08/17 10:46 Dose: 100 mg Famotidine (Pepcid) 20 mg PO BID [facility] Last Admin: 03/08/17 10:46 Dose: 20 mg Gabapentin (Neurontin) 600 mg PO TID [facility] Last Admin: 03/08/17 14:27 Dose: 600 mg Heparin Sodium (Porcine) (Heparin) 5,000 units SC Q8 [facility] Last Admin: 03/08/17 14:27 Dose: Not Given Home Med (Patient's Own Injectable) 20 unit SC AC [facility] Last Admin: 03/08/17 12:19 Dose: 20 unit Hydroxychloroquine Sulfate (Plaquenil) 200 mg PO DAILY [facility] Last Admin: 03/02/17 09:53 Dose: Not Given Vancomycin HCl 1 gm/ Sodium (Chloride) 250 mls @ 166.7 mls/hr IVPB Q12H [facility] Last Admin: 03/08/17 08:36 Dose: 166.7 mls/hr Cefepime HCl (Maxipime Iv 1 Gm Premix) 50 mls @ 100 mls/hr IVPB Q12H [facility] Last Admin: 03/08/17 04:10 Dose: 100 mls/hr Insulin Glargine (Lantus) 40 unit SC HS [facility] Last Admin: 03/07/17 21:32 Dose: 40 units Insulin Human Regular (Novolin R) 0 unit SC ACHS [facility] PRN Reason: Protocol Last Admin: 03/08/17 12:20 Dose: Not Given Lisinopril (Zestril) 20 mg PO DAILY [facility] Last Admin: 03/08/17 10:50 Dose: 20 mg Metformin HCl (Glucophage) 1,000 mg PO BID [facility] Last Admin: 03/08/17 10:52 Dose: 1,000 mg Ondansetron HCl (Zofran Inj) 4 mg IVP Q6 PRN PRN Reason: Nausea/Vomiting Last Admin: 03/07/17 00:06 Dose: 4 mg Oxycodone HCl (Oxycontin Extended Release Tab) 40 mg PO Q12 [facility] Last Admin: 03/08/17 10:47 Dose: 40 mg Oxycodone HCl (Oxycodone Immediate Release Tab) 30 mg PO Q8H PRN PRN Reason: Pain, severe (8-10) Last Admin: 03/08/17 08:26 Dose: 30 mg Polyethylene Glycol (Miralax) 17 gm PO BID [facility] Last Admin: 03/08/17 10:50 Dose: Not Given Saccharomyces Boulardii (Florastor) 250 mg PO BID [facility] Last Admin: 03/08/17 10:46 Dose: 250 mg - Labs Labs: 03/07/17 07:20 03/07/17 07:20 PT 10.4 SECONDS (9.7-12.2) 03/04/17 07:55 INR 0.9 03/04/17 07:55 APTT 39 SECONDS (21-34) H 03/04/17 07:55 - Constitutional Appears: Non-toxic, No Acute Distress - Head Exam Head Exam: ATRAUMATIC, NORMAL INSPECTION, NORMOCEPHALIC - Eye Exam Eye Exam: EOMI, Normal appearance, PERRL - ENT Exam ENT Exam: Mucous Membranes Moist - Neck Exam Neck Exam: Full ROM, Normal Inspection - Respiratory Exam Respiratory Exam: Clear to Ausculation Bilateral, NORMAL BREATHING PATTERN. absent: Rales, Rhonchi, Wheezes - Cardiovascular Exam Cardiovascular Exam: +S1, +S2. absent: Tachycardia - GI/Abdominal Exam GI & Abdominal Exam: Soft, Normal Bowel Sounds. absent: Distended, Firm, Guarding, Tenderness - Extremities Exam Additional comments: left foot dressing c/d/i - Neurological Exam Neurological Exam: Alert, Awake, Oriented x3 - Psychiatric Exam Psychiatric exam: Normal Affect, Normal Mood - Skin Skin Exam: Intact, Normal Color, Warm Assessment and Plan - Assessment and Plan (Free Text) Assessment: Diabetic Foot Ulcer of Left Great Toe: POD #3 s/p debridement of Left great toe Per podiatry, dry eschar on debridement Pt afebrile, non-tachycardic Podiatry consult, Dr. Steven, Help appreciated Infectious disease consult, Dr. Noguera, help appreciated Chest X ray - no active disease EGKG - NSR, Left axis deviation Detsky score 0 - 6% risk of cardiovascular complication with surgery -> Patient is clear for surgery pending coags studies Left Foot x-ray - soft tissue swelling; no periosteal destruction to suggest osteomyelitis Left lower extremity MRI: soft tissue ulcer seen at the distal 1st phalanx; prominent signal abnormality consistent with acute osteomyelitis Blood cultures no growth after 24 hours Continue on Vancomycin 1 gm IV q12h (started 03/01) and Cefepime 1 gm IVPB Q12h ( started 03/05/17) for 6 weeks total Diabetes Mellitus: Accuchecks Restart Metformin 1000 mg po bid Lantus 40 units sc hs Novolin sliding scale HTN: Zestril 20 mg po qd Neuropathic Pain: Oxycodone ER 40 mg po q12h Oxycodone IR 30 mg po q8h prn Gabapentin 600 mg po tid Lupus: Plaquenil 200 mg po daily restarted. Held yesterday due to nausea. Asthma: Duonebs prn Constipation: Miralax BID Colace BID Prophylactic Measures: DVT: SCDs GI: Pepcid 20 mg po bid Zofran prn nausea/vomiting Dispo: Patient to have PICC line placed. Ativan 0.5 mg po stat when prior to being placed. Patient to be discharged home and continue on IV antibiotics for 6 weeks total. <Izzy Yip V - Last Filed: 03/08/17 21:36> Objective - Vital Signs/Intake and Output Vital Signs (last 24 hours): Temp Pulse Resp BP Pulse Ox 98.3 F 81 20 119/76 98 03/08/17 15:25 03/08/17 15:25 03/08/17 15:25 03/08/17 15:25 03/08/17 15:25 - Medications Medications: Current Medications Docusate Sodium (Colace) 100 mg PO BID [facility] Last Admin: 03/08/17 17:50 Dose: 100 mg Famotidine (Pepcid) 20 mg PO BID [facility] Last Admin: 03/08/17 17:53 Dose: 20 mg Gabapentin (Neurontin) 600 mg PO TID [facility] Last Admin: 03/08/17 17:52 Dose: 600 mg Heparin Sodium (Porcine) (Heparin) 5,000 units SC Q8 [facility] Last Admin: 03/08/17 21:10 Dose: Not Given Home Med (Patient's Own Injectable) 20 unit SC AC [facility] Last Admin: 03/08/17 17:52 Dose: Not Given Hydroxychloroquine Sulfate (Plaquenil) 200 mg PO DAILY [facility] Last Admin: 03/02/17 09:53 Dose: Not Given Insulin Glargine (Lantus) 40 unit SC [facility] Last Admin: 03/08/17 21:19 Dose: 40 units Insulin Human Regular (Novolin R) 0 unit SC [facility] PRN Reason: Protocol Last Admin: 03/08/17 21:09 Dose: Not Given Linezolid (Zyvox) 600 mg PO BID [facility] Last Admin: 03/08/17 21:08 Dose: 600 mg Lisinopril (Zestril) 20 mg PO DAILY [facility] Last Admin: 03/08/17 10:50 Dose: 20 mg Metformin HCl (Glucophage) 1,000 mg PO BID [facility] Last Admin: 03/08/17 17:55 Dose: Not Given Ondansetron HCl (Zofran Tab) 4 mg PO Q4H PRN PRN Reason: Nausea/Vomiting Oxycodone HCl (Oxycontin Extended Release Tab) 40 mg PO Q12 [facility] Last Admin: 03/08/17 21:08 Dose: 40 mg Oxycodone HCl (Oxycodone Immediate Release Tab) 30 mg PO Q8H PRN PRN Reason: Pain, severe (8-10) Last Admin: 03/08/17 16:01 Dose: 30 mg Polyethylene Glycol (Miralax) 17 gm PO BID [facility] Last Admin: 03/08/17 17:52 Dose: Not Given Saccharomyces Boulardii (Florastor) 250 mg PO BID [facility] Last Admin: 03/08/17 17:50 Dose: 250 mg - Labs Labs: 03/07/17 07:20 03/07/17 07:20 PT 10.4 SECONDS (9.7-12.2) 03/04/17 07:55 INR 0.9 03/04/17 07:55 APTT 39 SECONDS (21-34) H 03/04/17 07:55 Attending/Attestation - Attestation I have personally seen and examined this patient.: Yes I have fully participated in the care of the patient.: Yes I have reviewed all pertinent clinical information, including history, physical exam and plan: Yes Notes (Text): Patient seen, examined, and case discussed with day-time resident. Patient is status post debridement POD 3 with podiatry for suspecting underlying osteomyelitis. Discussed with podiatry, soft tissue for pathology, but no cultures collected. Per discussion, appeared as dry eschar not noted purulence. Patient is currently on IV abx to cover for osteomyelitis; recommended for 6 weeks of Abx. Patient is awaiting PICC line placement for discharge planning. Emergency arose in IR which delayed patient's PICC line. patient ordered for PRN small dose Ativan prior to PICC line placement, because she reports she is intensely scared of needles. Patient is pending for discharge for home with home IV abx. Patient refuses outpatient transfusion and refuses rehab. Patient is ordered for PICC via IR. 1)Acute Osteomyelitis 2) Diabetic Foot Ulcer of Left Great Toe * Consult podiatry (Dr. Steven) on board-->help appreciated * Consult infectious disease (Dr. Noguera) on board-->help appreciated * POD #3 s/p debridement of Left great toe per podiatry--->follow-up soft tissue pathology * Review of imaging: - Left Foot x-ray - soft tissue swelling; no periosteal destruction to suggest osteomyelitis - Left lower extremity MRI: soft tissue ulcer seen at the distal 1st phalanx ; prominent signal abnormality consistent with acute osteomyelitis * Blood cultures no growth after 5 days X2 * Vancomycin 1 gm IV q12h (started 03/01) * Cefepime 1 gram IV Q 12hours (started 03/05) * Duration for 6 weeks * Ordered for PICC line placement via IR-->pending 3) Diabetes Mellitus type 2, uncontrolled * Accuchecks QAC and HS * Hgba1c: 12.4 * Restarted Metformin 1000 mg po bid * Lantus 40 units subq HS-->refused this evening * Novolin sliding scale 4)Hypertension * Zestril 20 mg po qdaily * monitor vital signs and adjust accordingly 5)Neuropathic Pain: * Oxycodone ER 40 mg po q12h * Oxycodone IR 30 mg po q8h prn * Gabapentin 600 mg po tid 6) Lupus: * Plaquenil held due to pt complaining of vomiting * Will restart post-treatment for osteomyelitis 7) Asthma: * Duonebs prn * Patient is not in acute exacerbation 8) Prophylactic Measures: * DVT: SCDs * GI: Pepcid 20 mg po bid * Zofran prn nausea/vomiting * Heparin 5000 units subq 8 hours DVT ppx
--- NOTE | 2017-03-08 18:34 | CP.PCM.PN ---
Subjective - Date & Time of Evaluation Date of Evaluation: 03/08/17 Time of Evaluation: 06:00 - Subjective Subjective: discussed on rounds refusing amputation of digit no cultures available dr ANNE TO FOLLOW CONT iv vANCO / CEFEPIME FOR 6 WEEKS WITH WEEKLY LEVELS Objective - Vital Signs/Intake and Output Vital Signs (last 24 hours): Temp Pulse Resp BP Pulse Ox 98.3 F 81 20 119/76 98 03/08/17 15:25 03/08/17 15:25 03/08/17 15:25 03/08/17 15:25 03/08/17 15:25 Intake and Output: 03/08/17 03/08/17 06:59 18:59 Intake Total 400 Balance 400 - Medications Medications: Current Medications Docusate Sodium (Colace) 100 mg PO BID [facility] Last Admin: 03/08/17 17:50 Dose: 100 mg Famotidine (Pepcid) 20 mg PO BID [facility] Last Admin: 03/08/17 17:53 Dose: 20 mg Gabapentin (Neurontin) 600 mg PO TID [facility] Last Admin: 03/08/17 17:52 Dose: 600 mg Heparin Sodium (Porcine) (Heparin) 5,000 units SC Q8 [facility] Last Admin: 03/08/17 14:27 Dose: Not Given Home Med (Patient's Own Injectable) 20 unit SC AC [facility] Last Admin: 03/08/17 17:52 Dose: Not Given Hydroxychloroquine Sulfate (Plaquenil) 200 mg PO DAILY [facility] Last Admin: 03/02/17 09:53 Dose: Not Given Vancomycin HCl 1 gm/ Sodium (Chloride) 250 mls @ 166.7 mls/hr IVPB Q12H [facility] Last Admin: 03/08/17 08:36 Dose: 166.7 mls/hr Cefepime HCl (Maxipime Iv 1 Gm Premix) 50 mls @ 100 mls/hr IVPB Q12H [facility] Last Admin: 03/08/17 17:51 Dose: Not Given Insulin Glargine (Lantus) 40 unit SC HS [facility] Last Admin: 03/07/17 21:32 Dose: 40 units Insulin Human Regular (Novolin R) 0 unit SC ACHS [facility] PRN Reason: Protocol Last Admin: 03/08/17 17:52 Dose: Not Given Lisinopril (Zestril) 20 mg PO DAILY [facility] Last Admin: 03/08/17 10:50 Dose: 20 mg Metformin HCl (Glucophage) 1,000 mg PO BID [facility] Last Admin: 03/08/17 17:55 Dose: Not Given Ondansetron HCl (Zofran Inj) 4 mg IVP Q6 PRN PRN Reason: Nausea/Vomiting Last Admin: 03/07/17 00:06 Dose: 4 mg Oxycodone HCl (Oxycontin Extended Release Tab) 40 mg PO Q12 [facility] Last Admin: 03/08/17 10:47 Dose: 40 mg Oxycodone HCl (Oxycodone Immediate Release Tab) 30 mg PO Q8H PRN PRN Reason: Pain, severe (8-10) Last Admin: 03/08/17 16:01 Dose: 30 mg Polyethylene Glycol (Miralax) 17 gm PO BID [facility] Last Admin: 03/08/17 17:52 Dose: Not Given Saccharomyces Boulardii (Florastor) 250 mg PO BID [facility] Last Admin: 03/08/17 17:50 Dose: 250 mg - Labs Labs: 03/07/17 07:20 03/07/17 07:20 PT 10.4 SECONDS (9.7-12.2) 03/04/17 07:55 INR 0.9 03/04/17 07:55 APTT 39 SECONDS (21-34) H 03/04/17 07:55 - Constitutional Appears: Non-toxic, Chronically Ill - Head Exam Head Exam: NORMOCEPHALIC - Eye Exam Eye Exam: EOMI Pupil Exam: NORMAL ACCOMODATION - ENT Exam ENT Exam: Mucous Membranes Dry - Neck Exam Neck Exam: absent: Lymphadenopathy - Respiratory Exam Respiratory Exam: Decreased Breath Sounds, Rhonchi - Cardiovascular Exam Cardiovascular Exam: REGULAR RHYTHM, +S1, +S2 - GI/Abdominal Exam GI & Abdominal Exam: Distended, Soft. absent: Tenderness - Rectal Exam Rectal Exam: Deferred Assessment and Plan - Assessment and Plan (Free Text) Plan: CONT RX OSTEO ID FOLLOW UP PODIATRY FOLLOW UP
[2017-03-08] MEDS: (Lantus) Insulin Glargine, Recombinant SC SCH (21:19)
[2017-03-09 07:33] LABS: BASO % 0.5 % (0.0-2.0); EOS # 0.1 K/uL (0.0-0.7); EOS % 2.6 % (0.0-4.0); HEMATOCRIT 31.5 % (34.0-47.0); LYMPH # 1.6 K/uL (1.0-4.3); LYMPH % 34.2 % (20.0-40.0); MEAN CELL VOLUME 81.9 fL (81.0-99.0); MEAN CORPUSCULAR HEMOGLOBIN 28.8 pg (27.0-31.0); MEAN CORPUSCULAR HGB CONC 35.2 g/dL (33.0-37.0); MEAN PLATELET VOLUME 7.2 fL (7.2-11.7); MONO # 0.5 K/uL (0.0-0.8); MONO % 10.5 % (0.0-10.0); RED CELL DISTRIBUTION WIDTH 12.8 % (11.5-14.5); WHITE BLOOD COUNT 4.7 K/uL (4.8-10.8)
--- NOTE | 2017-03-09 07:43 | CP.PCM.PN ---
<Maya Singletary - Last Filed: 03/09/17 07:40> Subjective - Date & Time of Evaluation Date of Evaluation: 03/09/17 Time of Evaluation: 07:40 - Subjective Subjective: Patient seen and examined at bedside. Patient is POD#4 s/p debridement of left great toe. Objective - Vital Signs/Intake and Output Vital Signs (last 24 hours): Temp Pulse Resp BP Pulse Ox 98.8 F 70 20 132/81 97 03/09/17 00:00 03/09/17 00:00 03/09/17 00:00 03/09/17 00:00 03/09/17 00:00 Intake and Output: 03/09/17 03/09/17 06:59 18:59 Intake Total 120 Balance 120 - Medications Medications: Current Medications Docusate Sodium (Colace) 100 mg PO BID [facility] Last Admin: 03/08/17 17:50 Dose: 100 mg Famotidine (Pepcid) 20 mg PO BID [facility] Last Admin: 03/08/17 17:53 Dose: 20 mg Gabapentin (Neurontin) 600 mg PO TID [facility] Last Admin: 03/08/17 17:52 Dose: 600 mg Heparin Sodium (Porcine) (Heparin) 5,000 units SC Q8 [facility] Last Admin: 03/09/17 06:04 Dose: Not Given Home Med (Patient's Own Injectable) 20 unit SC AC [facility] Last Admin: 03/08/17 17:52 Dose: Not Given Hydroxychloroquine Sulfate (Plaquenil) 200 mg PO DAILY [facility] Last Admin: 03/02/17 09:53 Dose: Not Given Insulin Glargine (Lantus) 40 unit SC HS [facility] Last Admin: 03/08/17 21:19 Dose: 40 units Insulin Human Regular (Novolin R) 0 unit SC ACHS [facility] PRN Reason: Protocol Last Admin: 03/08/17 21:09 Dose: Not Given Linezolid (Zyvox) 600 mg PO BID [facility] Last Admin: 03/08/17 21:08 Dose: 600 mg Lisinopril (Zestril) 20 mg PO DAILY [facility] Last Admin: 03/08/17 10:50 Dose: 20 mg Metformin HCl (Glucophage) 1,000 mg PO BID [facility] Last Admin: 03/08/17 17:55 Dose: Not Given Ondansetron HCl (Zofran Tab) 4 mg PO Q4H PRN PRN Reason: Nausea/Vomiting Oxycodone HCl (Oxycontin Extended Release Tab) 40 mg PO Q12 [facility] Last Admin: 03/08/17 21:08 Dose: 40 mg Oxycodone HCl (Oxycodone Immediate Release Tab) 30 mg PO Q8H PRN PRN Reason: Pain, severe (8-10) Last Admin: 03/08/17 16:01 Dose: 30 mg Polyethylene Glycol (Miralax) 17 gm PO BID [facility] Last Admin: 03/08/17 17:52 Dose: Not Given Saccharomyces Boulardii (Florastor) 250 mg PO BID [facility] Last Admin: 03/08/17 17:50 Dose: 250 mg - Labs Labs: 03/07/17 07:20 03/07/17 07:20 PT 10.4 SECONDS (9.7-12.2) 03/04/17 07:55 INR 0.9 03/04/17 07:55 APTT 39 SECONDS (21-34) H 03/04/17 07:55 Assessment and Plan - Assessment and Plan (Free Text) Assessment: Diabetic Foot Ulcer of Left Great Toe: POD #3 s/p debridement of Left great toe Per podiatry, dry eschar on debridement Pt afebrile, non-tachycardic Podiatry consult, Dr. Steven, Help appreciated Infectious disease consult, Dr. Noguera, help appreciated Chest X ray - no active disease EGKG - NSR, Left axis deviation Detsky score 0 - 6% risk of cardiovascular complication with surgery -> Patient is clear for surgery pending coags studies Left Foot x-ray - soft tissue swelling; no periosteal destruction to suggest osteomyelitis Left lower extremity MRI: soft tissue ulcer seen at the distal 1st phalanx; prominent signal abnormality consistent with acute osteomyelitis Blood cultures no growth after 24 hours Continue on Vancomycin 1 gm IV q12h (started 03/01) and Cefepime 1 gm IVPB Q12h ( started 03/05/17) for 6 weeks total Diabetes Mellitus: Accuchecks Restart Metformin 1000 mg po bid Lantus 40 units sc hs Novolin sliding scale HTN: Zestril 20 mg po qd Neuropathic Pain: Oxycodone ER 40 mg po q12h Oxycodone IR 30 mg po q8h prn Gabapentin 600 mg po tid Lupus: Plaquenil 200 mg po daily restarted. Held yesterday due to nausea. Asthma: Duonebs prn Constipation: Miralax BID Colace BID Prophylactic Measures: DVT: SCDs GI: Pepcid 20 mg po bid Zofran prn nausea/vomiting Dispo: Patient to have PICC line placed. Ativan 0.5 mg po stat when prior to being placed. Patient to be discharged home and continue on IV antibiotics for 6 weeks total. <Izzy Yip V - Last Filed: 03/09/17 20:08> Objective - Vital Signs/Intake and Output Vital Signs (last 24 hours): Temp Pulse Resp BP Pulse Ox 98.5 F 94 H 20 146/85 100 03/09/17 08:00 03/09/17 08:00 03/09/17 08:00 03/09/17 08:00 03/09/17 08:00 Intake and Output: 03/09/17 03/10/17 18:59 06:59 Intake Total 500 Balance 500 - Labs Labs: 03/09/17 07:20 03/09/17 07:20 PT 10.4 SECONDS (9.7-12.2) 03/04/17 07:55 INR 0.9 03/04/17 07:55 APTT 39 SECONDS (21-34) H 03/04/17 07:55 Attending/Attestation - Attestation I have personally seen and examined this patient.: Yes I have fully participated in the care of the patient.: Yes I have reviewed all pertinent clinical information, including history, physical exam and plan: Yes Notes (Text): Patient seen, examined, and case discussed with day-time resident. Patient is status post debridement POD 4 with podiatry for suspecting underlying osteomyelitis. Discussed with podiatry, soft tissue for pathology, but no cultures collected. Per discussion, appeared as dry eschar not noted purulence. Patient is currently on IV abx to cover for osteomyelitis; recommended for 6 weeks of Abx. Patient received PICC line today. No complaints. Patient to be discharged for home with home IV abx for 6 weeks. Patient refuses outpatient transfusion and refuses rehab. Reviewed [place] [facility], patient has sufficient supply oxycodone IR and ER to last her to her appointment for Sunday, March 12 per directory. No further pain medication provided. Patient to follow-up with her pain management on Sunday. Patient to follow-up with infectious disease and podiatry upon discharge. Patient provided scripts for IV abx and Sunistat- for yeast infection. Patient provided script for home care and Unna boot. Discussed discharge order and discharge instructions with day-time resident. This is a summary of patient's hospitalization. Please see EMR for further recommendations. 1)Acute Osteomyelitis 2) Diabetic Foot Ulcer of Left Great Toe * Consult podiatry (Dr. Steven) on board-->help appreciated * Consult infectious disease (Dr. Noguera) on board-->help appreciated * POD #4 s/p debridement of Left great toe per podiatry--->follow-up soft tissue pathology * Review of imaging: - Left Foot x-ray - soft tissue swelling; no periosteal destruction to suggest osteomyelitis - Left lower extremity MRI: soft tissue ulcer seen at the distal 1st phalanx ; prominent signal abnormality consistent with acute osteomyelitis * Blood cultures no growth after 5 days X2 * Vancomycin 1 gm IV q12h (started 03/01) * Cefepime 1 gram IV Q 12hours (started 03/05) * Duration for 6 weeks * Received PICC today for home IV abx 3) Diabetes Mellitus type 2, uncontrolled * Accuchecks QAC and HS * Hgba1c: 12.4 * Metformin 1000 mg po bid * Lantus 40 units subq HS-->refused this evening * Novolin sliding scale 4)Hypertension * Zestril 20 mg po qdaily * monitor vital signs and adjust accordingly 5)Neuropathic Pain: * Oxycodone ER 40 mg po q12h * Oxycodone IR 30 mg po q8h prn * Gabapentin 600 mg po tid * Review [place] [employer] day of discharge, patient has sufficient supply of Oxycodone IR and ER per EMR. Patient not provided new scripts. patient has a follow-up appointment with pain management next week. 6) Lupus: * Plaquenil held due to pt complaining of vomiting * Will restart post-treatment for osteomyelitis 7) Asthma: * Duonebs prn * Patient is not in acute exacerbation 8) Prophylactic Measures: * DVT: SCDs * GI: Pepcid 20 mg po bid * Zofran prn nausea/vomiting * Heparin 5000 units subq 8 hours DVT ppx
[2017-03-09] MEDS: oxyCODONE 30 mg Immediate Release Tab PO PRN (07:48)
[2017-03-09] MEDS: (Novolin R) Insulin Human Regular 100 units/ml vial SC SCH ×2 (07:51→12:02)
[2017-03-09] MEDS: HUMALOG SC SCH ×2 (07:52→12:13)
[2017-03-09 08:05] LABS: CHLORIDE 99 mmol/L (98-107); SODIUM 136 mmol/L (132-148)
[2017-03-09 08:06] VITALS: BP 146/85; PULSE 94; TEMP 98.5; O2SAT 100
[2017-03-09 08:07] LABS: BILIRUBIN,TOTAL 0.5 mg/dL (0.2-1.3); GFR AFRICAN-AMERICAN > 60
[2017-03-09 08:08] LABS: ALB/GLOB RATIO 0.9 (1.0-2.1); ALKALINE PHOSPHATASE 86 U/L (38-126); AST/SGOT 35 U/L (14-36); BLOOD UREA NITROGEN 8 mg/dL (7-17); CALCIUM 8.5 mg/dl (8.6-10.4); CARBON DIOXIDE 29 mmol/L (22-30); GLUCOSE,RANDOM 193 mg/dL (65-105); TOTAL PROTEIN 6.4 g/dL (6.3-8.3)
[2017-03-09 08:09] LABS: ALT/SGPT 25 U/L (9-52); MAGNESIUM 1.7 mg/dL (1.6-2.3)
[2017-03-09] MEDS: Saccharomyces Boulardi 250 mg Cap PO SCH (09:22)
[2017-03-09] MEDS: POLYETHYLENE GLYCOL 3350 17 GM/Dose PACKET PO SCH (09:23)
--- NOTE | 2017-03-09 09:32 | CP.PCM.PN ---
Subjective - Date & Time of Evaluation Date of Evaluation: 03/09/17 Time of Evaluation: 09:29 - Subjective Subjective: 41 y/o female s/p left foot hallux wound debridment with underlying osteo Patient states that she is feeling well today. States that later today she is to go to have a PICC placed. States that at home abx therapy has been set up for her and she understands how to use it. patient denies any other complaints at this time. Denies any f/c/n/v/sob. Objective - Vital Signs/Intake and Output Vital Signs (last 24 hours): Temp Pulse Resp BP Pulse Ox 98.5 F 94 H 20 146/85 100 03/09/17 08:00 03/09/17 08:00 03/09/17 08:00 03/09/17 08:00 03/09/17 08:00 Intake and Output: 03/09/17 03/09/17 06:59 18:59 Intake Total 120 Balance 120 - Medications Medications: Current Medications Docusate Sodium (Colace) 100 mg PO BID [facility] Last Admin: 03/09/17 09:22 Dose: 100 mg Famotidine (Pepcid) 20 mg PO BID [facility] Last Admin: 03/09/17 09:21 Dose: 20 mg Gabapentin (Neurontin) 600 mg PO TID [facility] Last Admin: 03/09/17 09:22 Dose: 600 mg Heparin Sodium (Porcine) (Heparin) 5,000 units SC Q8 [facility] Last Admin: 03/09/17 06:04 Dose: Not Given Home Med (Patient's Own Injectable) 20 unit SC AC [facility] Last Admin: 03/09/17 07:52 Dose: 20 unit Hydroxychloroquine Sulfate (Plaquenil) 200 mg PO DAILY [facility] Last Admin: 03/09/17 09:22 Dose: 200 mg Insulin Glargine (Lantus) 40 unit SC HS [facility] Last Admin: 03/08/17 21:19 Dose: 40 units Insulin Human Regular (Novolin R) 0 unit SC ACHS [facility] PRN Reason: Protocol Last Admin: 03/09/17 07:51 Dose: 4 unit Linezolid (Zyvox) 600 mg PO BID [facility] Last Admin: 03/09/17 09:22 Dose: 600 mg Lisinopril (Zestril) 20 mg PO DAILY [facility] Last Admin: 03/09/17 09:22 Dose: 20 mg Metformin HCl (Glucophage) 1,000 mg PO BID [facility] Last Admin: 03/09/17 09:21 Dose: 1,000 mg Ondansetron HCl (Zofran Tab) 4 mg PO Q4H PRN PRN Reason: Nausea/Vomiting Oxycodone HCl (Oxycontin Extended Release Tab) 40 mg PO Q12 [facility] Last Admin: 03/08/17 21:08 Dose: 40 mg Oxycodone HCl (Oxycodone Immediate Release Tab) 30 mg PO Q8H PRN PRN Reason: Pain, severe (8-10) Last Admin: 03/09/17 07:48 Dose: 30 mg Polyethylene Glycol (Miralax) 17 gm PO BID [facility] Last Admin: 03/09/17 09:23 Dose: Not Given Saccharomyces Boulardii (Florastor) 250 mg PO BID [facility] Last Admin: 03/09/17 09:22 Dose: 250 mg - Labs Labs: 03/09/17 07:20 03/09/17 07:20 PT 10.4 SECONDS (9.7-12.2) 03/04/17 07:55 INR 0.9 03/04/17 07:55 APTT 39 SECONDS (21-34) H 03/04/17 07:55 - Constitutional Appears: Well, Non-toxic, No Acute Distress - Skin Skin Exam: Normal Color, Warm - Additional Findings Additional findings: LLE exam: dressing appears c/d/i to the left foot VASC- DP/PT pulses palpable 2/4, skin temp runs warm to cool, cap fill time < 4 sec to digits x 5, no pedal edema NEURO- grossly diminished DERM- There is a roughly 2cm x 2cm to deep soft tissue, no bone is exposed, no purulence, no malodor, no edema, no erythema, no clinical signs of infection noted, no interdigtal maceration, wound is red and beefy with surrounding granulation tissue noted. ORTHO- tendreness to surgical site Assessment and Plan - Assessment and Plan (Free Text) Assessment: 41 y/o female 4 day s/p left hallux wound debridement with underlying OM Plan: Patient evaluated and charts reviewed Discussed with Dr. Steven Labs/vitals reviewed Patient wound redressed with xeroform and DSD to have PICC placed today Wound is stable Wound dressing to be left c/d/i unti lfollow up with liborio Patient to call Dr. Steven upon d/c for f/u appt. At home abx for 6 weeks; Vanco/cefepime Will continue to follow while admitted.
[2017-03-09] MEDS: oxyCODONE 40 mg ER Tab (oxyCONTIN) PO SCH (12:05)
--- NOTE | 2017-03-09 12:18 | RAD ---
PROCEDURE: CHEST RADIOGRAPH, 1 VIEW HISTORY: verify Right PICC COMPARISON: Comparison is made to 03/01/2017 FINDINGS: LUNGS: No evidence of new infiltrate or consolidation in the lungs. PLEURA: No pneumothorax or pleural fluid seen. CARDIOVASCULAR: Normal. OSSEOUS STRUCTURES: No significant abnormalities. VISUALIZED UPPER ABDOMEN: Normal. OTHER FINDINGS: None. IMPRESSION: No active disease.
--- NOTE | 2017-03-09 22:23 | CP.PCM.DIS ---
<Maya Singletary - Last Filed: 03/09/17 22:19> Provider - Provider Date of Admission: 03/01/17 08:39 Attending physician: Akash Franklin DO Primary care physician: Dr. Dinh Consults: ALBERTO, Dr. Noguera Podiatry, Dr. Steven Time Spent in preparation of Discharge (in minutes): 31 Diagnosis - Discharge Diagnosis (1) Osteomyelitis of right foot Status: Acute Comment: please see hospital course (2) Diabetes mellitus Status: Chronic Comment: please see hospital course (3) Asthma Status: Chronic Comment: please see hospital course (4) Chronic pain Status: Chronic Comment: please see hospital course (5) Hypertension Status: Chronic Comment: please see hospital course (6) SLE (systemic lupus erythematosus) Status: Chronic Comment: please see hospital course Hospital Course - Lab Results Lab Results: Most Recent Lab Values WBC 4.7 K/uL (4.8-10.8) L 03/09/17 07:20 RBC 3.85 Mil/uL (3.80-5.20) 03/09/17 07:20 Hgb 11.1 g/dL (11.0-16.0) 03/09/17 07:20 Hct 31.5 % (34.0-47.0) L 03/09/17 07:20 MCV 81.9 fL (81.0-99.0) 03/09/17 07:20 MCH 28.8 pg (27.0-31.0) 03/09/17 07:20 MCHC 35.2 g/dL (33.0-37.0) 03/09/17 07:20 RDW 12.8 % (11.5-14.5) 03/09/17 07:20 Plt Count 282 K/uL (130-400) 03/09/17 07:20 MPV 7.2 fL (7.2-11.7) 03/09/17 07:20 Neut % (Auto) 52.2 % (50.0-75.0) 03/09/17 07:20 Lymph % (Auto) 34.2 % (20.0-40.0) 03/09/17 07:20 [place] % (Auto) 10.5 % (0.0-10.0) H 03/09/17 07:20 Eos % (Auto) 2.6 % (0.0-4.0) 03/09/17 07:20 Baso % (Auto) 0.5 % (0.0-2.0) 03/09/17 07:20 Neut # 2.4 K/uL (1.8-7.0) 03/09/17 07:20 Lymph # 1.6 K/uL (1.0-4.3) 03/09/17 07:20 [place] # 0.5 K/uL (0.0-0.8) 03/09/17 07:20 Eos # 0.1 K/uL (0.0-0.7) 03/09/17 07:20 Baso # 0.0 K/uL (0.0-0.2) 03/09/17 07:20 PT 10.4 SECONDS (9.7-12.2) 03/04/17 07:55 INR 0.9 03/04/17 07:55 APTT 39 SECONDS (21-34) H 03/04/17 07:55 Sodium 136 mmol/L (132-148) 03/09/17 07:20 Potassium 5.0 mmol/L (3.6-5.2) 03/09/17 07:20 Chloride 99 mmol/L (98-107) 03/09/17 07:20 Carbon Dioxide 29 mmol/L (22-30) 03/09/17 07:20 Anion Gap 13 (10-20) 03/09/17 07:20 BUN 8 mg/dL (7-17) 03/09/17 07:20 Creatinine 0.9 MG/DL (0.7-1.2) 03/09/17 07:20 Est GFR ( Amer) > 60 03/09/17 07:20 Est GFR (Non-Af Amer) > 60 03/09/17 07:20 POC Glucose (mg/dL) 93 mg/dL (65-110) 03/09/17 11:15 Random Glucose 193 mg/dL (65-105) H 03/09/17 07:20 Hemoglobin A1c 12.6 % (4.2-6.5) H 03/02/17 09:52 Calcium 8.5 mg/dl (8.6-10.4) L 03/09/17 07:20 Phosphorus 4.3 mg/dL (2.5-4.5) 03/07/17 07:20 Magnesium 1.7 mg/dL (1.6-2.3) 03/09/17 07:20 Total Bilirubin 0.5 mg/dL (0.2-1.3) 03/09/17 07:20 AST 35 U/L (14-36) 03/09/17 07:20 ALT 25 U/L (9-52) 03/09/17 07:20 Alkaline Phosphatase 86 U/L (38-126) 03/09/17 07:20 Total Protein 6.4 g/dL (6.3-8.3) 03/09/17 07:20 Albumin 3.1 g/dL (3.5-5.0) L 03/09/17 07:20 Globulin 3.3 gm/dL (2.2-3.9) 03/09/17 07:20 Albumin/Globulin Ratio 0.9 (1.0-2.1) L 03/09/17 07:20 Vancomycin Trough 6.6 ug/mL (5.0-10.0) 03/09/17 07:20 Urine Opiates Screen Positive (NEGATIVE) 03/08/17 17:40 Urine Methadone Screen Negative (NEGATIVE) 03/08/17 17:40 Ur Barbiturates Screen Negative (NEGATIVE) 03/08/17 17:40 Ur Phencyclidine Scrn Negative (NEGATIVE) 03/08/17 17:40 Ur Amphetamines Screen Negative (NEGATIVE) 03/08/17 17:40 U Benzodiazepines Scrn Negative (NEGATIVE) 03/08/17 17:40 U Oth Cocaine Metabols Negative (NEGATIVE) 03/08/17 17:40 U Cannabinoids Screen Negative (NEGATIVE) 03/08/17 17:40 - Hospital Course Hospital Course: On admission: cc: "Dr. Steven sent me in" HPI: Patient is a 41 year old female with PMHx of uncontrolled DM, hypertension , rheumatoid arthritis, lupus, asthma, diabetic neuropathy, herniated discs and foot drop presenting to the hospital after being sent in by her sheet metal mechanic, Dr. Steven. Patient reports that about 3 weeks ago, she noticed that there was extra layers of skin on the bottom of her right big toe. She tried peeling back a little bit and noticed it started bleeding. She decided to clip off the skin and used alcohol and hydrogen peroxide to clean it. Over the next week, she noticed that it started to change in color and she developing swelling up to her knee on the right leg. She said she went to her sheet metal mechanic to get it evaluated and he told her to come to the hospital. She denies any drainage from the wound, no fevers, chills. She says that the affected toe is at baseline, numb, however she said since the toe worsened, she has had increased burning in her toes. PMD: Fabrizio PMHx: As stated above PSHx: 2x back surgeries, MENDOZA 2 years ago Allergies: Latex, flagyl, cipro, shellfish Fam hx: mother- heart disease, brother- pancreatic cancer diagnosed at age 38 Social hx: smoked for about 2 months at age 15 then quit, drank a gallon of baccardi daily for 7 months at age 15 then stopped. Denies drug hx. Lives at home with son. During hospital course: Acute Osteomyelitis Diabetic Foot Ulcer of Left Great Toe Podiatry (Dr. Steven) was consulted as well as ID (Dr. Noguera) Debridement of Left great toe performed by podiatry Soft tissue pathology to be followed-up. No wound culture as dry eschar px in OR Imaging: Left Foot x-ray: soft tissue swelling; no periosteal destruction to suggest osteomyelitis Left lower extremity MRI: soft tissue ulcer seen at the distal 1st phalanx; prominent signal abnormality consistent with acute osteomyelitis Blood cultures no growth after 5 days X2 Vancomycin 1 gm IV q12h (started 03/01) - to be continued for 6 weeks Cefepime 1 gram IV Q 12hours (started 03/05) - to be continued for 6 weeks PICC line placed by PICC line nurse on 03/09/17 Diabetes Mellitus type 2, uncontrolled Accuchecks QAC and HS Hgba1c: 12.4 Metformin 1000 mg po bid held for debridement but then restarted Lantus 40 units subq HS Novolin sliding scale Patient reports allergy to Novolog Hypertension Zestril 20 mg po qdaily Vitals were monitored throughout course Neuropathic Pain: Oxycodone ER 40 mg po q12h Oxycodone IR 30 mg po q8h prn Gabapentin 600 mg po tid Patient follows with pain management doctor as outpatient Lupus: Plaquenil held due to pt complaining of vomiting Will restart post-treatment for osteomyelitis Asthma: Duonebs ordered as needed. Patient was not in acute exacerbation. Prophylactic Measures: DVT: SCDs GI: Pepcid 20 mg po bid Zofran prn nausea/vomiting OnHeparin 5000 units subq 8 hours DVT ppx Please note this is summary of hospital course. For full details please see patient patient. Discharge Instructions: Patient medically stable for discharge. Discharged to home with PICC line for home infusions. Patient to continue taking the following medications as prescribed: Vancomycin 1 gm IVPB Q12h for total of 6 weeks (started on 03/01/17) Cefepime 1 gm in NS IVPB Q12h for total og 6 weeks (started on 03/05/17) Florastor 250 mg tab by mouth twice daily for total of 6 weeks Omeprazole 40 mg tab by mouth at night Metformin 1000 mg tab by mouth twice daily Gabapentin 600 mg tab by mouth three times daily Lisinopril 20 mg tab by mouth daily Colace 100 mg by tab mouth twice daily Miconazole 7 vaginal suppository for seven days at night to treat yeast infection. Prescription given for patient to have home physical therapy as well as nurse for diabetes management Prescription given for patient to have walker to aid with ambulation. Prescription for the following blood work to be done given: CMP, CBC, and Vancomycin Trough weekly Patient instructed to follow-up with infectious disease, Dr. Noguera, within one week of discharge. Patient instructed to follow-up with sheet metal mechanic, Dr. Steven, within one week of discharge. Patient instructed to follow-up with pain management doctor, scheduled appointment for 11 am on 03/12/17. Patient given detailed instructions at bedside. Patient understands and agrees. - Date & Time of H&P Date of H&P: 03/01/17 Time of H&P: 10:08 Discharge Exam - Head Exam Head Exam: NORMOCEPHALIC - Eye Exam Eye Exam: EOMI, Normal appearance Pupil Exam: PERRL - ENT Exam ENT Exam: Mucous Membranes Moist - Respiratory Exam Respiratory Exam: Clear to PA & Lateral, NORMAL BREATHING PATTERN, UNREMARKABLE - Cardiovascular Exam Cardiovascular Exam: +S1, +S2. absent: Tachycardia, Systolic Murmur - GI/Abdominal Exam GI & Abdominal Exam: Normal Bowel Sounds, Unremarkable - Extremities Exam Additional comments: dressing to right foot clean, dry and intact - Neurological Exam Neurological exam: Alert, Oriented x3 - Psychiatric Exam Psychiatric exam: Normal Affect, Normal Mood - Skin Skin Exam: Dry, Intact Additional comments: acanthosis nigricans to posterior neck Discharge Plan - Discharge Medications Prescriptions: Cefepime 1gm in NS 100ml [Maxipime 1gm] 1 gm IVPB Q12 38 Days Docusate [Colace] 100 mg PO BID #60 cap Gabapentin [Neurontin] 600 mg PO TID #90 Lisinopril [Zestril] 20 mg PO DAILY #30 tab MetFORMIN [glucoPHAGE] 1,000 mg PO BID #60 Miconazole Nitrate [Miconazole 7] 100 mg VG HS #7 supp.vag oxyCODONE [oxyCONTIN Extended Release Tab] 40 mg PO Q12 #5 tab Saccharomyces Boulardi [Florastor] 250 mg PO BID #84 cap Vancomycin [Vancomycin Inj] 1 gm IVPB Q12H 34 Days - Follow Up Plan Condition: STABLE Disposition: HOME/ ROUTINE Instructions: Gabapentin (By mouth), Metformin (By mouth), Probiotic (By mouth) , Cellulitis (DC), Osteomyelitis (DC), Diabetic Hyperglycemia (DC) Additional Instructions: Patient medically stable for discharge. Discharged to home with PICC line for home infusions. Patient to continue taking the following medications as prescribed: Vancomycin 1 gm IVPB Q12h for total of 6 weeks (started on 03/01/17) Cefepime 1 gm in NS IVPB Q12h for total og 6 weeks (started on 03/05/17) Florastor 250 mg tab by mouth twice daily for total of 6 weeks Omeprazole 40 mg tab by mouth at night Metformin 1000 mg tab by mouth twice daily Gabapentin 600 mg tab by mouth three times daily Lisinopril 20 mg tab by mouth daily Colace 100 mg by tab mouth twice daily Miconazole 7 vaginal suppository for seven days at night to treat yeast infection. Prescription given for patient to have home physical therapy as well as nurse for diabetes management Prescription given for patient to have walker to aid with ambulation. Prescription for the following blood work to be done given: CMP, CBC, and Vancomycin Trough weekly Patient instructed to follow-up with infectious disease, Dr. Noguera, within one week of discharge. Patient instructed to follow-up with sheet metal mechanic, Dr. Steven, within one week of discharge. Patient instructed to follow-up with pain management doctor, scheduled appointment for 11 am on 03/12/17. Patient given detailed instructions at bedside. Patient understands and agrees. Referrals: Solitario Noguera MD [Staff Provider] - Robbin Steven DPM [Staff Provider] - <Izzy Yip V - Last Filed: 03/10/17 16:23> Provider - Provider Date of Admission: 03/01/17 08:39 Attending physician: Akash Franklin DO Hospital Course - Lab Results Lab Results: Most Recent Lab Values WBC 4.7 K/uL (4.8-10.8) L 03/09/17 07:20 RBC 3.85 Mil/uL (3.80-5.20) 03/09/17 07:20 Hgb 11.1 g/dL (11.0-16.0) 03/09/17 07:20 Hct 31.5 % (34.0-47.0) L 03/09/17 07:20 MCV 81.9 fL (81.0-99.0) 03/09/17 07:20 MCH 28.8 pg (27.0-31.0) 03/09/17 07:20 MCHC 35.2 g/dL (33.0-37.0) 03/09/17 07:20 RDW 12.8 % (11.5-14.5) 03/09/17 07:20 Plt Count 282 K/uL (130-400) 03/09/17 07:20 MPV 7.2 fL (7.2-11.7) 03/09/17 07:20 Neut % (Auto) 52.2 % (50.0-75.0) 03/09/17 07:20 Lymph % (Auto) 34.2 % (20.0-40.0) 03/09/17 07:20 [place] % (Auto) 10.5 % (0.0-10.0) H 03/09/17 07:20 Eos % (Auto) 2.6 % (0.0-4.0) 03/09/17 07:20 Baso % (Auto) 0.5 % (0.0-2.0) 03/09/17 07:20 Neut # 2.4 K/uL (1.8-7.0) 03/09/17 07:20 Lymph # 1.6 K/uL (1.0-4.3) 03/09/17 07:20 [place] # 0.5 K/uL (0.0-0.8) 03/09/17 07:20 Eos # 0.1 K/uL (0.0-0.7) 03/09/17 07:20 Baso # 0.0 K/uL (0.0-0.2) 03/09/17 07:20 PT 10.4 SECONDS (9.7-12.2) 03/04/17 07:55 INR 0.9 03/04/17 07:55 APTT 39 SECONDS (21-34) H 03/04/17 07:55 Sodium 136 mmol/L (132-148) 03/09/17 07:20 Potassium 5.0 mmol/L (3.6-5.2) 03/09/17 07:20 Chloride 99 mmol/L (98-107) 03/09/17 07:20 Carbon Dioxide 29 mmol/L (22-30) 03/09/17 07:20 Anion Gap 13 (10-20) 03/09/17 07:20 BUN 8 mg/dL (7-17) 03/09/17 07:20 Creatinine 0.9 MG/DL (0.7-1.2) 03/09/17 07:20 Est GFR ( Amer) > 60 03/09/17 07:20 Est GFR (Non-Af Amer) > 60 03/09/17 07:20 POC Glucose (mg/dL) 93 mg/dL (65-110) 03/09/17 11:15 Random Glucose 193 mg/dL (65-105) H 03/09/17 07:20 Hemoglobin A1c 12.6 % (4.2-6.5) H 03/02/17 09:52 Calcium 8.5 mg/dl (8.6-10.4) L 03/09/17 07:20 Phosphorus 4.3 mg/dL (2.5-4.5) 03/07/17 07:20 Magnesium 1.7 mg/dL (1.6-2.3) 03/09/17 07:20 Total Bilirubin 0.5 mg/dL (0.2-1.3) 03/09/17 07:20 AST 35 U/L (14-36) 03/09/17 07:20 ALT 25 U/L (9-52) 03/09/17 07:20 Alkaline Phosphatase 86 U/L (38-126) 03/09/17 07:20 Total Protein 6.4 g/dL (6.3-8.3) 03/09/17 07:20 Albumin 3.1 g/dL (3.5-5.0) L 03/09/17 07:20 Globulin 3.3 gm/dL (2.2-3.9) 03/09/17 07:20 Albumin/Globulin Ratio 0.9 (1.0-2.1) L 03/09/17 07:20 Vancomycin Trough 6.6 ug/mL (5.0-10.0) 03/09/17 07:20 Urine Opiates Screen Positive (NEGATIVE) 03/08/17 17:40 Urine Methadone Screen Negative (NEGATIVE) 03/08/17 17:40 Ur Barbiturates Screen Negative (NEGATIVE) 03/08/17 17:40 Ur Phencyclidine Scrn Negative (NEGATIVE) 03/08/17 17:40 Ur Amphetamines Screen Negative (NEGATIVE) 03/08/17 17:40 U Benzodiazepines Scrn Negative (NEGATIVE) 03/08/17 17:40 U Oth Cocaine Metabols Negative (NEGATIVE) 03/08/17 17:40 U Cannabinoids Screen Negative (NEGATIVE) 03/08/17 17:40 Attending/Attestation - Attestation I have personally seen and examined this patient.: Yes I have fully participated in the care of the patient.: Yes I have reviewed all pertinent clinical information, including history, physical exam and plan: Yes Notes (Text): This is a late computer entry for 03/09/17. Patient seen, examined and case discussed with day-time resident. Patient is status post debridement POD 4 with podiatry for suspecting underlying osteomyelitis. Patient is currently on IV abx to cover for osteomyelitis; recommended for 6 weeks of Abx. Patient received PICC line today. Patient refuses outpatient transfusion and refuses rehab. Reviewed [place] [facility]-->patient has sufficient supply of Oxycodone IR and ER for her follow-up pain management doctor on Sunday. No new pain prescription prescribed. Discussed discharge order and discharge instructions with day-time resident. Patient medically stable for discharge. Discharged to home with PICC line for home infusions. Patient to continue taking the following medications as prescribed: 1)Vancomycin 1 gm IVPB Q12h for total of 6 weeks (started on 03/01/17) 2) Cefepime 1 gm in NS IVPB Q12h for total og 6 weeks (started on 03/05/17) 3) Florastor 250 mg tab by mouth twice daily for total of 6 weeks 4) Omeprazole 40 mg tab by mouth at night 5) Metformin 1000 mg tab by mouth twice daily 6) Gabapentin 600 mg tab by mouth three times daily 7) Lisinopril 20 mg tab by mouth daily 8)Colace 100 mg by tab mouth twice daily 9) Miconazole 7 vaginal suppository for seven days at night to treat yeast infection. Prescription given for patient to have home physical therapy as well as nurse for diabetes management Prescription given for patient to have walker to aid with ambulation. Prescription for the following blood work to be done given: CMP, CBC, and Vancomycin Trough weekly and to follow-up with ID. Patient instructed to follow-up with infectious disease, Dr. Noguera, within one week of discharge. Patient instructed to follow-up with sheet metal mechanic, Dr. Steven, within one week of discharge. Patient instructed to follow-up with pain management doctor, scheduled appointment for 11 am on 03/12/17. Patient given detailed instructions at bedside. Patient understands and agrees. This is a summary of patient's hospitalization. Please review EMR for further details 1)Acute Osteomyelitis 2) Diabetic Foot Ulcer of Left Great Toe * Consult podiatry (Dr. Steven) on board-->help appreciated * Consult infectious disease (Dr. Noguera) on board-->help appreciated * POD #4 s/p debridement of Left great toe per podiatry--->follow-up soft tissue pathology * Review of imaging: - Left Foot x-ray - soft tissue swelling; no periosteal destruction to suggest osteomyelitis - Left lower extremity MRI: soft tissue ulcer seen at the distal 1st phalanx ; prominent signal abnormality consistent with acute osteomyelitis * Blood cultures no growth after 5 days X2 * Vancomycin 1 gm IV q12h (started 03/01) * Cefepime 1 gram IV Q 12hours (started 03/05) * Duration for 6 weeks * PICC completed 3) Diabetes Mellitus type 2, uncontrolled * Accuchecks QAC and HS * Hgba1c: 12.4 * Restarted Metformin 1000 mg po bid upon discharge 4)Hypertension * Zestril 20 mg po qdaily resumed upon discharge * monitor vital signs and adjust accordingly 5)Neuropathic Pain: * Oxycodone ER 40 mg po q12h * Oxycodone IR 30 mg po q8h prn * Gabapentin 600 mg po tid * No new pain pain prescription given, given reviewed [place] [employer] and patient should have sufficient supply 6) Lupus: * Plaquenil held due to pt complaining of vomiting * Will restart post-treatment for osteomyelitis 7) Asthma: * Duonebs prn * Patient is not in acute exacerbation 8) Prophylactic Measures: * DVT: SCDs * GI: Pepcid 20 mg po bid * Zofran prn nausea/vomiting * Heparin 5000 units subq 8 hours DVT ppx
== END 2017-03-09 16:35 | disposition home or self-care (01) | DRG 565 ==
LOC: C.ER 06:27 → OBSVTOIN 08:39 → C.9E 08:39 → C.3T 15:59
PROVIDERS: ADMIT Hospitalist; ATTEND Hospitalist
PROC: 0JBR0ZZ Excision of Left Foot Subcutaneous Tissue and Fascia, Open Approach (ICD-10-PCS; principal; 2017-03-05 11:45)
DX: E11.69 Type 2 diabetes mellitus with other specified complication (principal); M86.172 Other acute osteomyelitis, left ankle and foot; E11.40 Type 2 diabetes mellitus with diabetic neuropathy, unspecified; E11.621 Type 2 diabetes mellitus with foot ulcer; M32.9 Systemic lupus erythematosus, unspecified; L97.529 Non-pressure chronic ulcer of other part of left foot with unspecified severity; L83 Acanthosis nigricans; E11.65 Type 2 diabetes mellitus with hyperglycemia; M21.372 Foot drop, left foot; M06.9 Rheumatoid arthritis, unspecified; J45.909 Unspecified asthma, uncomplicated; I10 Essential (primary) hypertension; Z79.4 Long term (current) use of insulin; Z90.710 Acquired absence of both cervix and uterus; Z88.1 Allergy status to other antibiotic agents; Z91.040 Latex allergy status

== ENCOUNTER 2017-04-12 16:16 | Inpatient (IN) | payer OTHER ==
[2017-04-12 16:25] VITALS: BMI 29.5
--- NOTE | 2017-04-12 17:15 | C.PDOC ---
History Of Present Illness 41 year old patient is sent to the emergency department by Dr. Rizo for further evaluation. pt has pmh of iddm, ra, lupus, htn; recent hospitalization for diabetic foot infection, now at home on 2 antibiotics bid for last 5 weeks via picc line. pt has routine blood work done in last day or so, and was discovered today that she is neutropenic. pt was called by PMD to come to ED for further testing. pt denies fever, chills, worse foot pain; c/o vomiting one time today and feeling nauseous. Time Seen by Provider: 04/12/17 16:51 Chief Complaint (Nursing): Abnormal Labs History Per: Patient History/Exam Limitations: no limitations Recent travel outside of the [place]: No Past Medical History Reviewed: Historical Data, Nursing Documentation, Vital Signs Vital Signs: Last Vital Signs Temp 98.3 F 04/12/17 16:25 Pulse 95 H 04/12/17 16:25 Resp 20 04/12/17 16:25 BP 172/93 H 04/12/17 16:25 Pulse Ox 100 04/12/17 17:41 - Medical History PMH: Anxiety, Asthma (LAST ATTACK 5 YEARS AGO), Back Problems, Bipolar Disorder , Depression, Diabetes, Gastritis, Gastrointestinal Ulcer, HTN, Hypercholesterolemia, Chronic Pain (Back) Surgical History: Back Surgery (Multiple surgeries with residual effects (right foot dropand leg pain).), Endoscopy, Tonsillectomy Other Surgeries: left foot surgery, hysterectomy - [facility] Procedures D & C NEC (12/21/14) DESTRUC UTER SUPPORT NEC (02/25/15) ESOPHAGOGASTRODUODENOSCOPY [EGD] W/CLOSED BIOPSY (06/24/13) EXCISION OF L FOOT SUBCU/FASCIA, OPEN APPROACH (03/01/17) HYSTEROSCOPY (12/21/14) INJECT/INFUSE NEC (10/27/14) OTHER AND UNSPECIFIED TOTAL ABDOMINAL HYSTERECTOMY (02/25/15) OTHER SKIN & SUBQ I D (06/04/14) Family History: States: Unknown Family Hx - Social History Hx Tobacco Use: No Hx Alcohol Use: No Hx Substance Use: No - Immunization History Hx Tetanus Toxoid Vaccination: No Hx Influenza Vaccination: No Hx Pneumococcal Vaccination: No Review Of Systems Constitutional: Negative for: Fever, Chills Cardiovascular: Negative for: Chest Pain Respiratory: Negative for: Cough, Shortness of Breath Gastrointestinal: Positive for: Nausea, Vomiting Genitourinary: Negative for: Dysuria Skin: Negative for: Rash Physical Exam - Physical Exam Appears: Non-toxic, No Acute Distress Skin: Warm, Dry Head: Atraumatic, Normacephalic Eye(s): bilateral: Normal Inspection Oral Mucosa: Moist Neck: Normal ROM Chest: Symmetrical, No Deformity, No Tenderness Cardiovascular: Rhythm Regular, No Murmur Respiratory: Normal Breath Sounds, No Rales, No Rhonchi, No Wheezing Gastrointestinal/Abdominal: Bowel Sounds, Soft, No Tenderness Neurological/Psych: Oriented x3, Normal Speech, Normal Cognition, Normal Motor, Normal Sensation ED Course And Treatment - Laboratory Results Result Diagrams: 04/12/17 17:57 04/12/17 17:57 O2 Sat by Pulse Oximetry: 100 (room air) Pulse Ox Interpretation: Normal Medical Decision Making Medical Decision Makin41 y/o female sent to ED for neutropenia; pt appears well; will recheck labs. 630 pm labs repeated, wbc still 1.6, await differential. discussed with Dr Marilou Rizo, wantla nena pt admitted to Dr Guo's service. discussed with Dr Brant Rizo. discussed with Dr Gilbert, hematology, he will come see pt. Disposition Discussed With .: Shaye Rizo Doctor Will See Patient In The: Hospital - Disposition Disposition: HOSPITALIZED Disposition Time: 18:44 Condition: SERIOUS - Clinical Impression Clinical Impression: Neutropenia Decision To Admit - Pt Status Changed To: Hospital Disposition Of: Inpatient - Admit Certification Admit to Inpatient:: After my assessment, the patient will require hospitalization for at least two midnights. This is because of the severity of symptoms shown, intensity of services needed, and/or the medical risk in this patient being treated as an outpatient. - InPatient: Physician Admission Certification: I certify that this patient requires 2 or more midnights of care for the following reason:: requires evaluation and treatment of neutropenia - . Bed Request Type: Regular Admitting Physician: Shaye Rizo Patient Diagnosis: Neutropenia
[2017-04-12 18:04] LABS: HEMATOCRIT 30.8 % (34.0-47.0); MEAN CORPUSCULAR HEMOGLOBIN 27.5 pg (27.0-31.0); MEAN CORPUSCULAR HGB CONC 35.4 g/dL (33.0-37.0); MEAN PLATELET VOLUME 6.9 fL (7.2-11.7); PLATELET COUNT 306 K/uL (130-400); RED CELL DISTRIBUTION WIDTH 12.8 % (11.5-14.5)
[2017-04-12 18:08] LABS: CHLORIDE 99 mmol/L (98-107); POTASSIUM 3.4 mmol/L (3.6-5.2); SODIUM 135 mmol/L (132-148)
[2017-04-12 18:10] LABS: BILIRUBIN,TOTAL 0.9 mg/dL (0.2-1.3); CARBON DIOXIDE 27 mmol/L (22-30); GFR AFRICAN-AMERICAN > 60
[2017-04-12 18:11] LABS: ALKALINE PHOSPHATASE 88 U/L (38-126); ALT/SGPT 33 U/L (9-52); AST/SGOT 21 U/L (14-36); BLOOD UREA NITROGEN 10 mg/dL (7-17); CALCIUM 8.7 mg/dl (8.6-10.4); GLUCOSE,RANDOM 223 mg/dL (65-105); TOTAL PROTEIN 7.5 g/dL (6.3-8.3)
[2017-04-12 18:17] LABS: MEAN CELL VOLUME 77.8 fL (81.0-99.0); WHITE BLOOD COUNT 1.6 K/uL (4.8-10.8)
[2017-04-12 18:49] LABS: EOS # 0.5 K/uL (0.0-0.7); EOS % 2.4 % (0.0-4.0); LYMPH % 63.7 % (20.0-40.0); MONO % 33.5 % (0.0-10.0)
[2017-04-12 18:53] LABS: EOSINOPHIL 1 % (0-4); TOTAL CELLS COUNTED 100
[2017-04-12 19:10] LABS: RBC URINE 20 /hpf (0-3); URINE BACTERIA OCC (<OCC); URINE BILIRUBIN NEGATIVE (NEGATIVE); URINE BLOOD 1+ (NEGATIVE); URINE COLOR Yellow (YELLOW); URINE GLUCOSE (UA) 3+ mg/dL (Normal); URINE KETONE NEGATIVE (NEGATIVE); URINE LEUKOCYTE ESTERASE NEG Leu/uL (Negative); URINE PROTEIN 2+ mg/dL (NEGATIVE); URINE UROBILINOGEN NORMAL mg/dL (0.2-1.0); WBC URINE 2 /hpf (0-5)
[2017-04-12] MEDS ORDERED: (Novolog) Insulin Aspart, Recombinant 100 u/ml 10 ml vial SC SCH (22:00)
[2017-04-12] MEDS: (Novolin R) Insulin Human Regular 100 units/ml vial SC SCH (22:06)
[2017-04-12] MEDS: oxyCODONE 40 mg ER Tab (oxyCONTIN) PO SCH (22:10)
[2017-04-12] MEDS: (Lantus) Insulin Glargine, Recombinant SC SCH (22:11)
[2017-04-12] MEDS ORDERED: Potassium Chloride 20 mEq ER Tab PO ONE (23:00)
[2017-04-13] MEDS: (Novolin R) Insulin Human Regular 100 units/ml vial SC SCH ×4 (08:08→22:08)
[2017-04-13 08:32] LABS: HEMATOCRIT 30.5 % (34.0-47.0); LYMPH % 65.9 % (20.0-40.0); MEAN CELL VOLUME 77.2 fL (81.0-99.0); MEAN CORPUSCULAR HEMOGLOBIN 27.8 pg (27.0-31.0); MEAN PLATELET VOLUME 6.8 fL (7.2-11.7); MONO # 0.5 K/uL (0.0-0.8); MONO % 30.7 % (0.0-10.0); NRBC % 0.2 % (0.0-2.0); PLATELET COUNT 295 K/uL (130-400); RED CELL DISTRIBUTION WIDTH 12.9 % (11.5-14.5)
[2017-04-13 08:38] LABS: CHLORIDE 98 mmol/L (98-107); POTASSIUM 3.4 mmol/L (3.6-5.2); SODIUM 135 mmol/L (132-148)
[2017-04-13 08:40] LABS: BILIRUBIN,TOTAL 0.9 mg/dL (0.2-1.3); GFR AFRICAN-AMERICAN > 60
[2017-04-13 08:41] LABS: ALKALINE PHOSPHATASE 87 U/L (38-126); ALT/SGPT 19 U/L (9-52); AST/SGOT 22 U/L (14-36); BLOOD UREA NITROGEN 10 mg/dL (7-17); CALCIUM 8.5 mg/dl (8.6-10.4); CARBON DIOXIDE 28 mmol/L (22-30); GLUCOSE,RANDOM 256 mg/dL (65-105); TOTAL PROTEIN 7.4 g/dL (6.3-8.3)
[2017-04-13 08:50] LABS: WHITE BLOOD COUNT 1.5 K/uL (4.8-10.8)
[2017-04-13] MEDS ORDERED: Cefepime IV 1 gm in Dextrose 1 GM/50 ML BAG IVPB SCH (10:00)
[2017-04-13] MEDS ORDERED: Potassium Chloride 20 mEq ER Tab PO SCH (10:00)
[2017-04-13 10:13] LABS: NEUTROPHIL 4 % (50-75); TOTAL CELLS COUNTED 50
[2017-04-13] MEDS ORDERED: Potassium Chloride 20 mEq ER Tab PO ONE (10:33)
[2017-04-13] MEDS: oxyCODONE 40 mg ER Tab (oxyCONTIN) PO SCH ×2 (10:40→22:07)
--- NOTE | 2017-04-13 10:40 | CP.PCM.PN ---
Subjective - Date & Time of Evaluation Date of Evaluation: 04/13/17 Time of Evaluation: 09:00 - Subjective Subjective: PGY2 on medicine Dr. Rizo service: Pt seen and examined at bedside this morning. 41F PMhx HTN, RA, lupus, asthma and recent admission in 02/2016 for diabetic foot ulcer and subsequent ostemyelitis was sent here by PMD for evaluation of new onset neutropenia on routine labs. Pt finished course of 6 weeks of Vancomycin and still 5 more days on 6 weeks course of Cefepime. Pt has been following Dr. Steven for the foot ulcer and wound has improved since. Pt currently complaining right chest discomfort which she thinks is secondary to the PICC line. Pt also complains Cefepime makes her SOB but she almost finished her 6 weeks course of treatment. Family hx significant for pancreatic CA in her brother at age of 38. Objective - Vital Signs/Intake and Output Vital Signs (last 24 hours): Temp Pulse Resp BP Pulse Ox 98.5 F 92 H 20 159/95 H 99 04/13/17 07:43 04/13/17 07:43 04/13/17 07:43 04/13/17 07:43 04/13/17 07:43 Intake and Output: 04/13/17 04/13/17 06:59 18:59 Intake Total 240 Balance 240 - Medications Medications: Current Medications Gabapentin (Neurontin) 600 mg PO TID [facility] Last Admin: 04/12/17 22:11 Dose: 600 mg Insulin Glargine (Lantus) 45 unit SC HS [facility] Last Admin: 04/12/17 22:11 Dose: 45 unit Insulin Human Regular (Novolin R) 0 unit SC ACHS [facility] PRN Reason: Protocol Last Admin: 04/13/17 08:08 Dose: 2 unit Lisinopril (Zestril) 20 mg PO DAILY [facility] Metformin HCl (Glucophage) 1,000 mg PO BID [facility] Ondansetron HCl (Zofran Inj) 4 mg IVP Q6H PRN PRN Reason: Nausea/Vomiting Last Admin: 04/12/17 22:12 Dose: 4 mg Oxycodone HCl (Oxycodone Immediate Release Tab) 30 mg PO Q8H PRN PRN Reason: Pain, moderate (4-7) Oxycodone HCl (Oxycontin Extended Release Tab) 40 mg PO Q12 [facility] Last Admin: 04/12/17 22:10 Dose: Not Given Pantoprazole Sodium (Protonix Ec Tab) 40 mg PO DAILY [facility] - Labs Labs: 04/13/17 08:27 04/13/17 08:27 - Constitutional Appears: Non-toxic, No Acute Distress - Head Exam Head Exam: NORMOCEPHALIC - Eye Exam Eye Exam: Normal appearance - ENT Exam ENT Exam: Mucous Membranes Moist - Respiratory Exam Respiratory Exam: Clear to Ausculation Bilateral, NORMAL BREATHING PATTERN. absent: Rhonchi, Wheezes - Cardiovascular Exam Cardiovascular Exam: REGULAR RHYTHM, +S1, +S2. absent: Gallop, Rubs - GI/Abdominal Exam GI & Abdominal Exam: Soft, Normal Bowel Sounds - Extremities Exam Extremities Exam: Normal Capillary Refill. absent: Pedal Edema Additional comments: left first toe ulcer open wound, no erythema and no drainage, bandage clean, dry and was intact - Neurological Exam Neurological Exam: Alert, Awake, Oriented x3 - Psychiatric Exam Psychiatric exam: Normal Mood - Skin Skin Exam: Intact Assessment and Plan - Assessment and Plan (Free Text) Assessment: Neutropenia WBC 1.6 yesterday, today 1.[address] Gilbert consulted, help appreciated. One dose of Granix was given. Continue monitoring. Osteomyelitis Patient finished 6 weeks of Vancomycin that was started on 03/01. Patient also on 6 weeks course of Cefepime that was started on 03/05. Patient has 5 more days to go but DCed as per attending due to neutropenia. Toe wound Podiatry Dr. Steven consulted, help appreciated. ID Dr. Noguera consulted, help appreciated. DM Continue Lantus 45U SC HS, Neurontin, Metformin. RISS, accuchecks. Asthma Duoneb PRN. HTN Continue Lisinoprl. Prophylactic measure Protonix, HepSQ. Management per Dr. Rizo.
[2017-04-13] MEDS: Pantoprazole 40 mg EC Tab PO SCH (10:41)
[2017-04-13] MEDS: oxyCODONE 30 mg Immediate Release Tab PO PRN (12:35)
--- NOTE | 2017-04-13 12:54 | RAD ---
HISTORY: verify PICC line placement COMPARISON: No prior. FINDINGS: LUNGS: In situ right-sided PICC line with tip in the region of the proximal right subclavian vein. Poor inspiration with low lung volumes, mild crowded bronchovascular markings and mild bibasilar atelectasis. . PLEURA: No significant pleural effusion identified, no pneumothorax apparent. CARDIOVASCULAR: Heart appears mildly enlarged. OSSEOUS STRUCTURES: No significant abnormalities. VISUALIZED UPPER ABDOMEN: Normal. OTHER FINDINGS: None. IMPRESSION: In situ right-sided PICC line with tip in the region of the proximal right subclavian vein. Azam Poor inspiration with low lung volumes, mild crowded bronchovascular markings and mild bibasilar atelectasis. . Findings discussed 3 [place] at approximately 12:50 p.m. with written down and read back verification.
--- NOTE | 2017-04-13 13:18 | CP.PCM.CON ---
History of Present Illness - History of Present Illness History of Present Illness: 41 year old female with a history of HTN, DM, HL, osteomyelitis of the left foot on antibiotics (vancomycin and cefepime), admitted with severe neutropenia. The patient denies blood problems in the past. Review of her past blood work shows no neutropenia in the past. Her only new medications is antibiotics. She denies fevers and chills. Past medical history: HTN, DM, HL, osteomyelitis. Past surgical history: Foot debridement Family history: Denies hematologic and oncologic problems Social history: Denies tobacco, alcohol, and illicit drug use. Allergies: Multiple, see list Review of systems: All remaining review of systems including HEENT, cardiovascular, respiratory, gastrointestinal, genitourinary, musculoskeletal, dermatologic, neurologic, and psychiatric are negative unless mentioned in the HPI. Past Patient History - Past Medical History & Family History Past Medical History?: Yes - Past Social History Smoking Status: Never Smoked - CARDIAC Hx Hypercholesterolemia: Yes Hx Hypertension: Yes - PULMONARY Hx Asthma: Yes (LAST ATTACK 5 YEARS AGO) - NEUROLOGICAL Hx Neurological Disorder: No - HEENT Hx HEENT Problems: No - RENAL Hx Chronic Kidney Disease: No - ENDOCRINE/METABOLIC Hx Endocrine Disorders: Yes Hx Diabetes Mellitus Type 1: Yes Hx Diabetes Mellitus Type 2: Yes Hx Systemic Lupus Erythematosus: Yes - HEMATOLOGICAL/ONCOLOGICAL Hx Blood Disorders: No - INTEGUMENTARY Hx Dermatological Problems: No Hx Psoriasis: Yes (left hand) - MUSCULOSKELETAL/RHEUMATOLOGICAL Hx Falls: No - GASTROINTESTINAL Hx Gastritis: Yes - GENITOURINARY/GYNECOLOGICAL Hx Genitourinary Disorders: No - PSYCHIATRIC Hx Anxiety: Yes Hx Bipolar Disorder: Yes Hx Depression: Yes Hx Substance Use: No - SURGICAL HISTORY Hx Hysterectomy: Yes (2 yrs ago) Hx Tonsillectomy: Yes - ANESTHESIA Hx Anesthesia: Yes Hx Anesthesia Reactions: No Hx Malignant Hyperthermia: No Meds Allergies/Adverse Reactions: Allergies Allergy/AdvReac Type Severity Reaction Status Date / Time latex Allergy RASH Verified 04/12/17 16:24 metronidazole [From Flagyl] Allergy REDNESS Verified 04/12/17 16:24 shellfish derived Allergy SHORTNESS Verified 04/12/17 16:24 OF BREATH ciprofloxacin [From Cipro] AdvReac SHORTNESS Verified 04/12/17 16:24 OF BREATH ciprofloxacin HCl AdvReac SHORTNESS Verified 04/12/17 16:24 [From Cipro] OF BREATH Penicillins AdvReac SHORTNESS Verified 04/12/17 16:24 OF BREATH - Medications Medications: Current Medications Gabapentin (Neurontin) 600 mg PO TID [facility] Last Admin: 04/13/17 10:40 Dose: 600 mg Heparin Sodium (Porcine) (Heparin) 5,000 units SC Q12 [facility] Insulin Glargine (Lantus) 45 unit SC HS [facility] Last Admin: 04/12/17 22:11 Dose: 45 unit Insulin Human Regular (Novolin R) 0 unit SC ACHS [facility] PRN Reason: Protocol Last Admin: 04/13/17 12:20 Dose: 3 unit Lisinopril (Zestril) 20 mg PO DAILY [facility] Last Admin: 04/13/17 10:41 Dose: 20 mg Metformin HCl (Glucophage) 1,000 mg PO BID [facility] Last Admin: 04/13/17 10:41 Dose: 1,000 mg Ondansetron HCl (Zofran Inj) 4 mg IVP Q6H PRN PRN Reason: Nausea/Vomiting Last Admin: 04/12/17 22:12 Dose: 4 mg Oxycodone HCl (Oxycodone Immediate Release Tab) 30 mg PO Q8H PRN PRN Reason: Pain, moderate (4-7) Last Admin: 04/13/17 12:35 Dose: 30 mg Oxycodone HCl (Oxycontin Extended Release Tab) 40 mg PO Q12 [facility] Last Admin: 04/13/17 10:40 Dose: 40 mg Pantoprazole Sodium (Protonix Ec Tab) 40 mg PO DAILY [facility] Last Admin: 04/13/17 10:41 Dose: 40 mg Physical Exam - Head Exam Head Exam: ATRAUMATIC - Eye Exam Eye Exam: Normal appearance - ENT Exam ENT Exam: Mucous Membranes Dry - Respiratory Exam Respiratory Exam: NORMAL BREATHING PATTERN - Cardiovascular Exam Cardiovascular Exam: +S1, +S2 - GI/Abdominal Exam GI & Abdominal Exam: Normal Bowel Sounds - Neurological Exam Neurological exam: Oriented x3 - Psychiatric Exam Psychiatric exam: Normal Affect, Normal Mood - Skin Skin Exam: Warm Results - Vital Signs Recent Vital Signs: Last Vital Signs Temp 98.5 F 04/13/17 07:43 Pulse 92 H 04/13/17 07:43 Resp 20 04/13/17 07:43 BP 159/95 H 04/13/17 07:43 Pulse Ox 99 06/02/17 07:43 - Labs Result Diagrams: 04/13/17 08:27 04/13/17 08:27 Labs: Laboratory Results - last 24 hr 04/12/17 04/12/17 04/13/17 18:58 21:18 07:17 WBC RBC Hgb Hct MCV MCH MCHC RDW Plt Count MPV Neut % (Auto) Lymph % (Auto) [place] % (Auto) Eos % (Auto) Baso % (Auto) Neut # Lymph # [place] # Eos # Baso # Neutrophils % (Manual) Lymphocytes % (Manual) Monocytes % (Manual) Platelet Estimate Hypochromasia (manual) Poikilocytosis (manual Anisocytosis (manual) Sodium Potassium Chloride Carbon Dioxide Anion Gap BUN Creatinine Est GFR ( Amer) Est GFR (Non-Af Amer) POC Glucose (mg/dL) 225 H 249 H Random Glucose Calcium Total Bilirubin AST ALT Alkaline Phosphatase Total Protein Albumin Globulin Albumin/Globulin Ratio Urine Color Yellow Urine Clarity Hazy Urine pH 5.0 Ur Specific [place] 1.022 Urine Protein 2+ H Urine Glucose (UA) 3+ H Urine Ketones Negative Urine Blood 1+ H Urine Nitrate Negative Urine Bilirubin Negative Urine Urobilinogen Normal Ur Leukocyte Esterase Neg Urine WBC (Auto) 2 Urine RBC (Auto) 20 H Ur Squamous Epith Cells 17 H Urine Bacteria Occ H 04/13/17 04/13/17 04/13/17 08:27 08:27 11:29 WBC 1.5 L* RBC 3.95 Hgb 11.0 Hct 30.5 L MCV 77.2 L MCH 27.8 MCHC 36.0 RDW 12.9 Plt Count 295 MPV 6.8 L Neut % (Auto) 0.4 L Lymph % (Auto) 65.9 H [place] % (Auto) 30.7 H Eos % (Auto) 3.0 Baso % (Auto) 0.0 Neut # 0.0 L Lymph # 1.0 [place] # 0.5 Eos # 0.0 Baso # 0.0 Neutrophils % (Manual) 4 L Lymphocytes % (Manual) 70 H Monocytes % (Manual) 26 H Platelet Estimate Normal Hypochromasia (manual) Slight Poikilocytosis (manual Slight Anisocytosis (manual) Slight Sodium 135 Potassium 3.4 L Chloride 98 Carbon Dioxide 28 Anion Gap 12 BUN 10 Creatinine 0.8 Est GFR ( Amer) > 60 Est GFR (Non-Af Amer) > 60 POC Glucose (mg/dL) 277 H Random Glucose 256 H Calcium 8.5 L Total Bilirubin 0.9 AST 22 ALT 19 Alkaline Phosphatase 87 Total Protein 7.4 Albumin 3.8 Globulin 3.6 Albumin/Globulin Ratio 1.0 Urine Color Urine Clarity Urine pH Ur Specific [place] Urine Protein Urine Glucose (UA) Urine Ketones Urine Blood Urine Nitrate Urine Bilirubin Urine Urobilinogen Ur Leukocyte Esterase Urine WBC (Auto) Urine RBC (Auto) Ur Squamous Epith Cells Urine Bacteria Assessment & Plan (1) Neutropenia Assessment and Plan: Severe neutropenia. neutropenic precautions no neutropenia in February suspect medication induced - vancomycin more likely than cefepime; vancomycon D/ C'd given 1 dose of Neupogen today f/u CBC in AM Status: Acute (2) Anemia Assessment and Plan: will check ferritin, retic count, b12, folate, FOBT to further characterize Gibsonk you for this interesting consult. Status: Acute
--- NOTE | 2017-04-13 15:15 | CP.PCM.CON ---
History of Present Illness - History of Present Illness History of Present Illness: 41 y/o female patient with PMHx of nxiety, Asthma (LAST ATTACK 5 YEARS AGO), Back Problems, Bipolar Disorder, Depression, Diabetes, Gastritis, Gastrointestinal Ulcer, HTN, Hypercholesterolemia, Chronic Pain (Back) seen and evaluated at bedside after request for podiatry consult. Patient is well known to attending Dr. Steven. Patient states that after she visited her PCP, she found out her WBC is too low and was sent to ED. Patient states that she has been seeing Dr. Steven for couple of years for her left hallux open wound. Patient also states that she changed her dressing everyday at home. Patient denies any pedal pain at this time. Patient also denies any symptoms of N/V/F/ SOB/Chest pain. Past Patient History - Past Medical History & Family History Past Medical History?: Yes - Past Social History Smoking Status: Never Smoked - CARDIAC Hx Hypercholesterolemia: Yes Hx Hypertension: Yes - PULMONARY Hx Asthma: Yes (LAST ATTACK 5 YEARS AGO) - NEUROLOGICAL Hx Neurological Disorder: No - HEENT Hx HEENT Problems: No - RENAL Hx Chronic Kidney Disease: No - ENDOCRINE/METABOLIC Hx Endocrine Disorders: Yes Hx Diabetes Mellitus Type 1: Yes Hx Diabetes Mellitus Type 2: Yes Hx Systemic Lupus Erythematosus: Yes - HEMATOLOGICAL/ONCOLOGICAL Hx Blood Disorders: No - INTEGUMENTARY Hx Dermatological Problems: No Hx Psoriasis: Yes (left hand) - MUSCULOSKELETAL/RHEUMATOLOGICAL Hx Falls: No - GASTROINTESTINAL Hx Gastritis: Yes - GENITOURINARY/GYNECOLOGICAL Hx Genitourinary Disorders: No - PSYCHIATRIC Hx Anxiety: Yes Hx Bipolar Disorder: Yes Hx Depression: Yes Hx Substance Use: No - SURGICAL HISTORY Hx Hysterectomy: Yes (2 yrs ago) Hx Tonsillectomy: Yes - ANESTHESIA Hx Anesthesia: Yes Hx Anesthesia Reactions: No Hx Malignant Hyperthermia: No Meds Allergies/Adverse Reactions: Allergies Allergy/AdvReac Type Severity Reaction Status Date / Time latex Allergy RASH Verified 04/12/17 16:24 metronidazole [From Flagyl] Allergy REDNESS Verified 04/12/17 16:24 shellfish derived Allergy SHORTNESS Verified 04/12/17 16:24 OF BREATH ciprofloxacin [From Cipro] AdvReac SHORTNESS Verified 04/12/17 16:24 OF BREATH ciprofloxacin HCl AdvReac SHORTNESS Verified 04/12/17 16:24 [From Cipro] OF BREATH Penicillins AdvReac SHORTNESS Verified 04/12/17 16:24 OF BREATH - Medications Medications: Current Medications Gabapentin (Neurontin) 600 mg PO TID [facility] Last Admin: 04/13/17 14:04 Dose: 600 mg Heparin Sodium (Porcine) (Heparin) 5,000 units SC Q12 [facility] Insulin Glargine (Lantus) 45 unit SC HS [facility] Last Admin: 04/12/17 22:11 Dose: 45 unit Insulin Human Regular (Novolin R) 0 unit SC ACHS [facility] PRN Reason: Protocol Last Admin: 04/13/17 12:20 Dose: 3 unit Lisinopril (Zestril) 20 mg PO DAILY [facility] Last Admin: 04/13/17 10:41 Dose: 20 mg Metformin HCl (Glucophage) 1,000 mg PO BID [facility] Last Admin: 04/13/17 10:41 Dose: 1,000 mg Ondansetron HCl (Zofran Inj) 4 mg IVP Q6H PRN PRN Reason: Nausea/Vomiting Last Admin: 04/12/17 22:12 Dose: 4 mg Oxycodone HCl (Oxycodone Immediate Release Tab) 30 mg PO Q8H PRN PRN Reason: Pain, moderate (4-7) Last Admin: 04/13/17 12:35 Dose: 30 mg Oxycodone HCl (Oxycontin Extended Release Tab) 40 mg PO Q12 [facility] Last Admin: 04/13/17 10:40 Dose: 40 mg Pantoprazole Sodium (Protonix Ec Tab) 40 mg PO DAILY [facility] Last Admin: 04/13/17 10:41 Dose: 40 mg Physical Exam - Constitutional Appears: Well, Non-toxic, No Acute Distress - Extremities Exam Additional comments: Vascular: DP and PT palpable, CFT is less than 3 seconds, no pedal edema noted, normal ski coloration Derm: Open wound at plantar aspect of left hallux ( 3 cm x 2.5 cm x 0.1) Granular base, no drainage noted, no sinus tract, no tunneling, no signs of infection [place] mild ankld and SJT ROM intact, no pain with palpable Neuro: Protective sensation intact, light touch intact - Neurological Exam Neurological exam: CN II-XII Intact, Motor Sensory Deficit - Psychiatric Exam Psychiatric exam: Normal Affect, Normal Mood Results - Vital Signs Recent Vital Signs: Last Vital Signs Temp 98.5 F 04/13/17 07:43 Pulse 92 H 04/13/17 07:43 Resp 20 04/13/17 07:43 BP 159/95 H 04/13/17 07:43 Pulse Ox 99 04/13/17 07:43 - Labs Result Diagrams: 04/13/17 08:27 04/13/17 08:27 Labs: Laboratory Results - last 24 hr 04/12/17 04/12/17 04/13/17 18:58 21:18 07:17 WBC RBC Hgb Hct MCV MCH MCHC RDW Plt Count MPV Neut % (Auto) Lymph % (Auto) [place] % (Auto) Eos % (Auto) Baso % (Auto) Neut # Lymph # [place] # Eos # Baso # Neutrophils % (Manual) Lymphocytes % (Manual) Monocytes % (Manual) Platelet Estimate Hypochromasia (manual) Poikilocytosis (manual Anisocytosis (manual) Sodium Potassium Chloride Carbon Dioxide Anion Gap BUN Creatinine Est GFR ( Amer) Est GFR (Non-Af Amer) POC Glucose (mg/dL) 225 H 249 H Random Glucose Calcium Total Bilirubin AST ALT Alkaline Phosphatase Total Protein Albumin Globulin Albumin/Globulin Ratio Urine Color Yellow Urine Clarity Hazy Urine pH 5.0 Ur Specific [place] 1.022 Urine Protein 2+ H Urine Glucose (UA) 3+ H Urine Ketones Negative Urine Blood 1+ H Urine Nitrate Negative Urine Bilirubin Negative Urine Urobilinogen Normal Ur Leukocyte Esterase Neg Urine WBC (Auto) 2 Urine RBC (Auto) 20 H Ur Squamous Epith Cells 17 H Urine Bacteria Occ H 04/13/17 04/13/17 04/13/17 08:27 08:27 11:29 WBC 1.5 L* RBC 3.95 Hgb 11.0 Hct 30.5 L MCV 77.2 L MCH 27.8 MCHC 36.0 RDW 12.9 Plt Count 295 MPV 6.8 L Neut % (Auto) 0.4 L Lymph % (Auto) 65.9 H [place] % (Auto) 30.7 H Eos % (Auto) 3.0 Baso % (Auto) 0.0 Neut # 0.0 L Lymph # 1.0 [place] # 0.5 Eos # 0.0 Baso # 0.0 Neutrophils % (Manual) 4 L Lymphocytes % (Manual) 70 H Monocytes % (Manual) 26 H Platelet Estimate Normal Hypochromasia (manual) Slight Poikilocytosis (manual Slight Anisocytosis (manual) Slight Sodium 135 Potassium 3.4 L Chloride 98 Carbon Dioxide 28 Anion Gap 12 BUN 10 Creatinine 0.8 Est GFR ( Amer) > 60 Est GFR (Non-Af Amer) > 60 POC Glucose (mg/dL) 277 H Random Glucose 256 H Calcium 8.5 L Total Bilirubin 0.9 AST 22 ALT 19 Alkaline Phosphatase 87 Total Protein 7.4 Albumin 3.8 Globulin 3.6 Albumin/Globulin Ratio 1.0 Urine Color Urine Clarity Urine pH Ur Specific [place] Urine Protein Urine Glucose (UA) Urine Ketones Urine Blood Urine Nitrate Urine Bilirubin Urine Urobilinogen Ur Leukocyte Esterase Urine WBC (Auto) Urine RBC (Auto) Ur Squamous Epith Cells Urine Bacteria Assessment & Plan - Assessment and Plan (Free Text) Assessment: 41 y/o female patient with chronic open wound to plantar aspect of left foot hallux Plan: Patient seen and evaluated at bedside All the questions and concerns were addressed Discussed with attending Dr. Steven Applied the left foot with xeroform and DSD Labs and vitals were reviewed Patient is stable per podiatry. Podiatry will continue to follow while patient remains in house.
--- NOTE | 2017-04-13 17:36 | CP.PCM.CON ---
History of Present Illness - History of Present Illness History of Present Illness: 41 year old patient is sent to the emergency department by Dr. Rizo for further evaluation. pt has pmh of iddm, ra, lupus, htn; recent hospitalization for diabetic foot infection, now at home on 2 antibiotics bid for last 5 weeks via picc line. pt has routine blood work done in last day or so, and was discovered today that she is neutropenic. pt was called by PMD to come to ED for further testing. pt denies fever, chills, worse foot pain; c/o vomiting one time today and feeling nauseous. was treated with iv antibiotic for 6 weeks- didnt follow up as requested labs done show neutopenia left great toe dry non purulent - Medical History PMH: Anxiety, Asthma (LAST ATTACK 5 YEARS AGO), Back Problems, Bipolar Disorder , Depression, Diabetes, Gastritis, Gastrointestinal Ulcer, HTN, Hypercholesterolemia, Chronic Pain (Back) Surgical History: Back Surgery (Multiple surgeries with residual effects (right foot dropand leg pain).), Endoscopy, Tonsillectomy Other Surgeries: left foot surgery, hysterectomy Review of Systems - Review of Systems All systems: reviewed and no additional remarkable complaints except - Constitutional Constitutional: absent: As Per HPI, Anorexia, Chills, Daytime Sleepiness, Excessive Sweating, Fatigue, Fever, Frequent Falls, Headache, Increased Appetite , Lethargy, Malaise, Night Sweats, Snoring, Sleep Apnea, Weight Gain, Weight Loss, Weakness, Other - EENT Eyes: absent: As Per HPI, Blind Spots, Blurred Vision, Change in Vision, Decreased Night Vision, Diplopia, Discharge, Dry Eye, Exophthalmos, Floaters, Irritation, Itchy Eyes, Loss of Peripheral Vision, Pain, Photophobia, Requires Corrective Lenses, Sees Flashes, Spots in Vision, Tunnel Vision, Other Visual Disturbances, Loss of Vision, Other Ears: absent: As Per HPI, Decreased Hearing, Ear Discharge, Ear Pain, Tinnitus, Abnormal Hearing, Disequilibrium, Dizziness, Other Nose/Mouth/Throat: absent: As Per HPI, Epistaxis, Nasal Congestion, Nasal Discharge, Nasal Obstruction, Nasal Trauma, Nose Pain, Post Nasal Drip, Sinus Pain, Sinus Pressure, Bleeding Gums, Change in Voice, Dental Pain, Dry Mouth, Dysphagia, Halitosis, Hoarsness, Lip Swelling, Mouth Lesions, Mouth Pain, Odynophagia, Sore Throat, Throat Swelling, Tongue Swelling, Facial Pain, Neck Pain, Neck Mass, Other - Breasts Breasts: absent: As Per HPI, Change in Shape, Mass, Pain, Nipple Discharge, Nipple Inversion, Skin Changes, Swelling, Other - Cardiovascular Cardiovascular: absent: As Per HPI, Acrocyanosis, Chest Pain, Chest Pain at Rest , Chest Pain with Activity, Claudication, Diaphoresis, Dyspnea, Dyspnea on Exertion, Edema, Irregular Heart Rhythm, Pain Radiating to Arm/Neck/Jaw, Leg Edema, Leg Ulcers, Lightheadedness, Orthopnea, Palpitations, Paroxysmal Nocturnal Dyspnea, Pedal Edema, Radiating Pain, Rapid Heart Rate, Slow Heart Rate, Syncope, Other - Respiratory Respiratory: absent: As Per HPI, Cough, Dyspnea, Hemoptysis, Dyspnea on Exertion , Wheezing, Snoring, Stridor, Pain on Inspiration, Chest Congestion, Excessive Mucous Production, Change in Mucous Color, Pain with Coughing, Other - Gastrointestinal Gastrointestinal: absent: As Per HPI, Abdominal Pain, Belching, Bloating, Change in Bowel Habits, Change in Stool Character, Coffee Ground Emesis, Constipation, Cramping, Diarrhea, Dyspepsia, Dysphagia, Early Satiety, Excessive Flatus, Fecal Incontinence, Heartburn, Hematemesis, Hematochezia, Loose Stools, Melena, Nausea, Odynophagia, Temesmus, Vomiting, Other - Genitourinary Genitourinary: absent: As Per HPI, Change in Urinary Stream, Difficulty Urinating, Dysuria, Flank Pain, Hematuria, Pyuria, Nocturia, Urinary Incontinence, Urinary Frequency, Urinary Hesitance, Urinary Urgency, Voiding Freq/Small Amts, Freq UTI, Hx Renal/Bladder Calculi, Hx /Renal Surgery, Bladder Distension, Other - Reproductive: Female Reproductive:Female: absent: As Per HPI, Amenorrhea, Amenorrhea/ Control, Currently Menstual, Cycle <21 Days, Cycle >35 Days, Cycle Variable, Menses 1-7 Days, Menses >/= 8 Days, Menses Variable, Cycle > 4 Weeks Between, No Menses for 6 Months, Heavy Menses, Light Menses, Normal Menses, Spotting Between Cycles , S/P Hysterectomy, Menopausal, Post Menopausal, Premenarche, Abnormal Vaginal Bleeding, Dysmenorrhea, Dyspareunia, Genital Lesions, Genital Pruritis, Pelvic Pain, Prolapse Symptoms, Sexual Dysfunction, Vaginal Discharge, Vaginal Dryness , Vaginal Odor, Vaginal Pruritis, Other - Menstruation Menstruation: absent: As Per HPI, Amenorrhea, Amenorrhea/ Control, Currently Menstual, Cycle <21 Days, Cycle >35 Days, Cycle Variable, Menses 1-7 Days, Menses >/= 8 Days, Menses Variable, Cycle > 4 Weeks Between, No Menses for 6 Months, Heavy Menses, Light Menses, Normal Menses, Spotting Between Cycles , S/P Hysterectomy, Menopausal, Post Menopausal, Premenarche, Abnormal Vaginal Bleeding, Dysmenorrhea, Other - Musculoskeletal Musculoskeletal: absent: As Per HPI, Abnormal Gait, Arthralgias, Atrophy, Back Pain, Deformity, Joint Swelling, Limited Range of Motion, Loss of Height, Muscle Cramps, Muscle Weakness, Myalgias, Neck Pain, Numbness, Radiating Pain into Limb, Stiffness, Tingling, Other - Integumentary Integumentary: absent: As Per HPI, Acne, Alopecia, Bleeding Lesions, Change in Hair, Change in Nails, Change in Pigmentation, Changing Lesions, Dry Skin, Erythema, Furuncle, Hirsutism, Lesions, New Lesions, Non-Healing Lesions, Photosensitivity, Pruritus, Rash, Skin Pain, Skin Ulcer, Sores, Striae, Swelling , Unusual Bruising, Wounds, Jaundice, Other - Neurological Neurological: absent: As Per HPI, Abnormal Gait, Abnormal Hearing, Abnormal Movements, Abnormal Speech, Behavioral Changes, Burning Sensations, Confusion, Convulsions, Disequilibrium, Dizziness, Numbness, Focal Weakness, Frequent Falls , Headaches, Lack of Coordination, Loss of Vision, Memory Loss, Paresthesias, Radicular Pain, Restless Legs, Sensory Deficit, Syncope, Tingling, Tremor, Vertigo, Weakness, Other Visual Disturbances, Other - Psychiatric Psychiatric: absent: As Per HPI, Abnormal Sleep Pattern, Anhedonia, Anxiety, Auditory Hallucinations, Behavioral Changes, Change in Appetite, Change in Libido, Confusion, Depression, Difficulty Concentrating, Hallucinations, Homicidal Ideation, Hopelessness, Irritability, Memory Loss, Mood Swings, Panic Attacks, Paranoia, Suicidal Ideation, Visual Hallucinations, Tactile Hallucinations, Other - Endocrine Endocrine: absent: As Per HPI, Change in Body Appearance, Change in Libido, Cold Intolorance, Deepening of Voice, Excessive Sweating, Fatigue, Flushing, Heat Intolorance, Increase in Ring/Shoe/Hat Size, Palpitations, Polydipsia, Polyphagia, Polyuria, Other - Hematologic/Lymphatic Hematologic: absent: As Per HPI, Easy Bleeding, Easy Bruising, Lymphadenopathy, Other Past Patient History - Past Medical History & Family History Past Medical History?: Yes - Past Social History Smoking Status: Never Smoked - CARDIAC Hx Hypercholesterolemia: Yes Hx Hypertension: Yes - PULMONARY Hx Asthma: Yes (LAST ATTACK 5 YEARS AGO) - NEUROLOGICAL Hx Neurological Disorder: No - HEENT Hx HEENT Problems: No - RENAL Hx Chronic Kidney Disease: No - ENDOCRINE/METABOLIC Hx Endocrine Disorders: Yes Hx Diabetes Mellitus Type 1: Yes Hx Diabetes Mellitus Type 2: Yes Hx Systemic Lupus Erythematosus: Yes - HEMATOLOGICAL/ONCOLOGICAL Hx Blood Disorders: No - INTEGUMENTARY Hx Dermatological Problems: No Hx Psoriasis: Yes (left hand) - MUSCULOSKELETAL/RHEUMATOLOGICAL Hx Falls: No - GASTROINTESTINAL Hx Gastritis: Yes - GENITOURINARY/GYNECOLOGICAL Hx Genitourinary Disorders: No - PSYCHIATRIC Hx Anxiety: Yes Hx Bipolar Disorder: Yes Hx Depression: Yes Hx Substance Use: No - SURGICAL HISTORY Hx Hysterectomy: Yes (2 yrs ago) Hx Tonsillectomy: Yes - ANESTHESIA Hx Anesthesia: Yes Hx Anesthesia Reactions: No Hx Malignant Hyperthermia: No Meds Allergies/Adverse Reactions: Allergies Allergy/AdvReac Type Severity Reaction Status Date / Time latex Allergy RASH Verified 04/12/17 16:24 metronidazole [From Flagyl] Allergy REDNESS Verified 04/12/17 16:24 shellfish derived Allergy SHORTNESS Verified 04/12/17 16:24 OF BREATH ciprofloxacin [From Cipro] AdvReac SHORTNESS Verified 04/12/17 16:24 OF BREATH ciprofloxacin HCl AdvReac SHORTNESS Verified 04/12/17 16:24 [From Cipro] OF BREATH Penicillins AdvReac SHORTNESS Verified 04/12/17 16:24 OF BREATH - Medications Medications: Current Medications Gabapentin (Neurontin) 600 mg PO TID [facility] Last Admin: 04/13/17 14:04 Dose: 600 mg Heparin Sodium (Porcine) (Heparin) 5,000 units SC Q12 [facility] Insulin Glargine (Lantus) 45 unit SC HS [facility] Last Admin: 04/12/17 22:11 Dose: 45 unit Insulin Human Regular (Novolin R) 0 unit SC ACHS [facility] PRN Reason: Protocol Last Admin: 04/13/17 12:20 Dose: 3 unit Lisinopril (Zestril) 20 mg PO DAILY [facility] Last Admin: 04/13/17 10:41 Dose: 20 mg Metformin HCl (Glucophage) 1,000 mg PO BID [facility] Last Admin: 04/13/17 10:41 Dose: 1,000 mg Ondansetron HCl (Zofran Inj) 4 mg IVP Q6H PRN PRN Reason: Nausea/Vomiting Last Admin: 04/12/17 22:12 Dose: 4 mg Oxycodone HCl (Oxycodone Immediate Release Tab) 30 mg PO Q8H PRN PRN Reason: Pain, moderate (4-7) Last Admin: 04/13/17 12:35 Dose: 30 mg Oxycodone HCl (Oxycontin Extended Release Tab) 40 mg PO Q12 [facility] Last Admin: 04/13/17 10:40 Dose: 40 mg Pantoprazole Sodium (Protonix Ec Tab) 40 mg PO DAILY [facility] Last Admin: 04/13/17 10:41 Dose: 40 mg Physical Exam - Constitutional Appears: Non-toxic, Chronically Ill - Head Exam Head Exam: NORMOCEPHALIC - Eye Exam Eye Exam: PERRL. absent: Scleral icterus - ENT Exam ENT Exam: Mucous Membranes Dry, Normal External Ear Exam - Neck Exam Neck exam: Negative for: Lymphadenopathy, Thyromegaly - Respiratory Exam Respiratory Exam: Decreased Breath Sounds, Rhonchi - Cardiovascular Exam Cardiovascular Exam: REGULAR RHYTHM, +S1, +S2 - GI/Abdominal Exam GI & Abdominal Exam: Diminished Bowel Sounds, Soft. absent: Tenderness - Rectal Exam Rectal Exam: Deferred - Exam Exam: NORMAL INSPECTION - Extremities Exam Extremities exam: Negative for: pedal edema - Back Exam Back exam: absent: CVA tenderness (L), CVA tenderness (R) - Neurological Exam Neurological exam: Alert, CN II-XII Intact, Oriented x3, Reflexes Normal - Psychiatric Exam Psychiatric exam: Normal Mood - Skin Skin Exam: Dry, Intact Results - Vital Signs Recent Vital Signs: Last Vital Signs Temp 98.2 F 04/13/17 15:00 Pulse 92 H 04/13/17 15:00 Resp 20 04/13/17 15:00 BP 147/85 04/13/17 15:00 Pulse Ox 99 04/13/17 15:00 - Labs Result Diagrams: 04/13/17 08:27 04/13/17 08:27 Labs: Laboratory Results - last 24 hr 04/12/17 04/12/17 04/13/17 18:58 21:18 07:17 WBC RBC Hgb Hct MCV MCH MCHC RDW Plt Count MPV Neut % (Auto) Lymph % (Auto) [place] % (Auto) Eos % (Auto) Baso % (Auto) Neut # Lymph # [place] # Eos # Baso # Neutrophils % (Manual) Lymphocytes % (Manual) Monocytes % (Manual) Platelet Estimate Hypochromasia (manual) Poikilocytosis (manual Anisocytosis (manual) Sodium Potassium Chloride Carbon Dioxide Anion Gap BUN Creatinine Est GFR ( Amer) Est GFR (Non-Af Amer) POC Glucose (mg/dL) 225 H 249 H Random Glucose Calcium Total Bilirubin AST ALT Alkaline Phosphatase Total Protein Albumin Globulin Albumin/Globulin Ratio Urine Color Yellow Urine Clarity Hazy Urine pH 5.0 Ur Specific [place] 1.022 Urine Protein 2+ H Urine Glucose (UA) 3+ H Urine Ketones Negative Urine Blood 1+ H Urine Nitrate Negative Urine Bilirubin Negative Urine Urobilinogen Normal Ur Leukocyte Esterase Neg Urine WBC (Auto) 2 Urine RBC (Auto) 20 H Ur Squamous Epith Cells 17 H Urine Bacteria Occ H 04/13/17 04/13/17 04/13/17 08:27 08:27 11:29 WBC 1.5 L* RBC 3.95 Hgb 11.0 Hct 30.5 L MCV 77.2 L MCH 27.8 MCHC 36.0 RDW 12.9 Plt Count 295 MPV 6.8 L Neut % (Auto) 0.4 L Lymph % (Auto) 65.9 H [place] % (Auto) 30.7 H Eos % (Auto) 3.0 Baso % (Auto) 0.0 Neut # 0.0 L Lymph # 1.0 [place] # 0.5 Eos # 0.0 Baso # 0.0 Neutrophils % (Manual) 4 L Lymphocytes % (Manual) 70 H Monocytes % (Manual) 26 H Platelet Estimate Normal Hypochromasia (manual) Slight Poikilocytosis (manual Slight Anisocytosis (manual) Slight Sodium 135 Potassium 3.4 L Chloride 98 Carbon Dioxide 28 Anion Gap 12 BUN 10 Creatinine 0.8 Est GFR ( Amer) > 60 Est GFR (Non-Af Amer) > 60 POC Glucose (mg/dL) 277 H Random Glucose 256 H Calcium 8.5 L Total Bilirubin 0.9 AST 22 ALT 19 Alkaline Phosphatase 87 Total Protein 7.4 Albumin 3.8 Globulin 3.6 Albumin/Globulin Ratio 1.0 Urine Color Urine Clarity Urine pH Ur Specific [place] Urine Protein Urine Glucose (UA) Urine Ketones Urine Blood Urine Nitrate Urine Bilirubin Urine Urobilinogen Ur Leukocyte Esterase Urine WBC (Auto) Urine RBC (Auto) Ur Squamous Epith Cells Urine Bacteria 04/13/17 16:43 WBC RBC Hgb Hct MCV MCH MCHC RDW Plt Count MPV Neut % (Auto) Lymph % (Auto) [place] % (Auto) Eos % (Auto) Baso % (Auto) Neut # Lymph # [place] # Eos # Baso # Neutrophils % (Manual) Lymphocytes % (Manual) Monocytes % (Manual) Platelet Estimate Hypochromasia (manual) Poikilocytosis (manual Anisocytosis (manual) Sodium Potassium Chloride Carbon Dioxide Anion Gap BUN Creatinine Est GFR ( Amer) Est GFR (Non-Af Amer) POC Glucose (mg/dL) 214 H Random Glucose Calcium Total Bilirubin AST ALT Alkaline Phosphatase Total Protein Albumin Globulin Albumin/Globulin Ratio Urine Color Urine Clarity Urine pH Ur Specific [place] Urine Protein Urine Glucose (UA) Urine Ketones Urine Blood Urine Nitrate Urine Bilirubin Urine Urobilinogen Ur Leukocyte Esterase Urine WBC (Auto) Urine RBC (Auto) Ur Squamous Epith Cells Urine Bacteria Assessment & Plan (1) Neutropenia Status: Acute (2) Asthma Status: Acute (3) Chronic back pain Status: Acute (4) Uncontrolled diabetes mellitus Status: Acute - Assessment and Plan (Free Text) Assessment: need podiatry input may need amp
[2017-04-13] MEDS ORDERED: Albuterol-Ipratrop 3 mg / 0.5 (3 ml) UD INH PRN (18:03)
[2017-04-13] MEDS: (Lantus) Insulin Glargine, Recombinant SC SCH (22:06)
[2017-04-14 07:36] LABS: EOS # 0.1 K/uL (0.0-0.7); EOS % 2.3 % (0.0-4.0); HEMATOCRIT 29.8 % (34.0-47.0); LYMPH # 1.6 K/uL (1.0-4.3); LYMPH % 56.8 % (20.0-40.0); MEAN CELL VOLUME 77.5 fL (81.0-99.0); MEAN CORPUSCULAR HEMOGLOBIN 27.8 pg (27.0-31.0); MEAN CORPUSCULAR HGB CONC 35.9 g/dL (33.0-37.0); MEAN PLATELET VOLUME 7.3 fL (7.2-11.7); MONO # 1.2 K/uL (0.0-0.8); MONO % 40.6 % (0.0-10.0); NRBC % 0.1 % (0.0-2.0); PLATELET COUNT 291 K/uL (130-400); RED CELL DISTRIBUTION WIDTH 12.6 % (11.5-14.5)
[2017-04-14 07:44] LABS: CHLORIDE 98 mmol/L (98-107); POTASSIUM 3.6 mmol/L (3.6-5.2); SODIUM 134 mmol/L (132-148)
[2017-04-14 07:46] LABS: ALKALINE PHOSPHATASE 76 U/L (38-126); AST/SGOT 18 U/L (14-36); BILIRUBIN,TOTAL 0.9 mg/dL (0.2-1.3); CARBON DIOXIDE 27 mmol/L (22-30); GFR AFRICAN-AMERICAN > 60; WHITE BLOOD COUNT 2.9 K/uL (4.8-10.8)
[2017-04-14 07:47] LABS: ALT/SGPT 17 U/L (9-52); BLOOD UREA NITROGEN 13 mg/dL (7-17); CALCIUM 8.5 mg/dl (8.6-10.4); GLUCOSE,RANDOM 199 mg/dL (65-105)
[2017-04-14] MEDS: (Novolin R) Insulin Human Regular 100 units/ml vial SC SCH ×4 (08:25→21:38)
[2017-04-14] MEDS: oxyCODONE 40 mg ER Tab (oxyCONTIN) PO SCH ×2 (09:22→22:11)
[2017-04-14] MEDS: Pantoprazole 40 mg EC Tab PO SCH (09:22)
[2017-04-14 09:30] LABS: EOSINOPHIL 2 % (0-4); NEUTROPHIL 2 % (50-75); TOTAL CELLS COUNTED 100
[2017-04-14 09:33] LABS: LARGE PLATELETS PRESENT
--- NOTE | 2017-04-14 10:11 | CP.PCM.PN ---
Subjective - Date & Time of Evaluation Date of Evaluation: 04/14/17 Time of Evaluation: 10:08 - Subjective Subjective: Patient seen and evaluated at bedside with attending, Dr. Steven. Patient is resting comfortably, NAD. Bandage is clean dry and intact to the left foot. Patient denies n/v/f/c/sob. Objective - Vital Signs/Intake and Output Vital Signs (last 24 hours): Temp Pulse Resp BP Pulse Ox 98.3 F 99 H 20 156/96 H 99 04/14/17 00:00 04/14/17 00:00 04/14/17 00:00 04/14/17 00:00 04/14/17 00:00 Intake and Output: 04/14/17 04/14/17 06:59 18:59 Intake Total 960 Balance 960 - Medications Medications: Current Medications Albuterol/Ipratropium (Duoneb 3 Mg/0.5 Mg (3 Ml) Ud) 3 ml INH RQ2 PRN PRN Reason: SOB Gabapentin (Neurontin) 600 mg PO TID [facility] Last Admin: 04/14/17 09:24 Dose: 600 mg Heparin Sodium (Porcine) (Heparin) 5,000 units SC Q12 [facility] Last Admin: 04/14/17 09:23 Dose: 5,000 units Insulin Glargine (Lantus) 45 unit SC HS [facility] Last Admin: 04/13/17 22:06 Dose: 45 unit Insulin Human Regular (Novolin R) 0 unit SC ACHS [facility] PRN Reason: Protocol Last Admin: 04/14/17 08:25 Dose: 2 unit Lisinopril (Zestril) 20 mg PO DAILY [facility] Last Admin: 04/13/17 10:41 Dose: 20 mg Metformin HCl (Glucophage) 1,000 mg PO BID [facility] Last Admin: 04/14/17 09:22 Dose: 1,000 mg Ondansetron HCl (Zofran Inj) 4 mg IVP Q6H PRN PRN Reason: Nausea/Vomiting Last Admin: 04/12/17 22:12 Dose: 4 mg Oxycodone HCl (Oxycodone Immediate Release Tab) 30 mg PO Q8H PRN PRN Reason: Pain, moderate (4-7) Last Admin: 04/13/17 12:35 Dose: 30 mg Oxycodone HCl (Oxycontin Extended Release Tab) 40 mg PO Q12 [facility] Last Admin: 04/14/17 09:22 Dose: 40 mg Pantoprazole Sodium (Protonix Ec Tab) 40 mg PO DAILY [facility] Last Admin: 04/14/17 09:22 Dose: 40 mg - Labs Labs: 04/14/17 07:26 04/14/17 07:26 - Constitutional Appears: Well, Non-toxic, No Acute Distress - Neurological Exam Neurological Exam: Oriented x3 - Psychiatric Exam Psychiatric exam: Normal Affect, Normal Mood - Additional Findings Additional findings: DERMATOLOGIC: Left hallux small superficial ulceration with granular base, mild serous drainage, no purulence, no erythema. The wound does not probe deep, no tunneling. Periwound skin is hyperpigmented. VASCULAR: DP/PT pulses 2/4, PATIENT SUPPORT SPECIALIST<3 seconds, skin temperature is normal. NEUROLOGIC: Protective sensation decreased ORTHOPEDIC: Mild pain on palpation to the left hallux Assessment and Plan - Assessment and Plan (Free Text) Assessment: 41 year old female with ischemic ulceration to the left hallux Plan: Patient seen and evaluated with attending Dr. Steven Patients foot dressed with xeroform, DSD Will plan for graft application once patient has stable white count Podiatry will continue to follow while in house
[2017-04-14] MEDS: oxyCODONE 30 mg Immediate Release Tab PO PRN (17:09)
--- NOTE | 2017-04-14 21:45 | CP.PCM.PN ---
Subjective - Date & Time of Evaluation Date of Evaluation: 04/14/17 Time of Evaluation: 17:45 - Subjective Subjective: Feeling better Objective - Vital Signs/Intake and Output Vital Signs (last 24 hours): Temp Pulse Resp BP Pulse Ox 98.1 F 95 H 20 149/81 97 04/14/17 15:00 04/14/17 15:00 04/14/17 15:00 04/14/17 15:00 04/14/17 15:00 Intake and Output: 04/14/17 04/15/17 18:59 06:59 Intake Total 600 Balance 600 - Medications Medications: Current Medications Albuterol/Ipratropium (Duoneb 3 Mg/0.5 Mg (3 Ml) Ud) 3 ml INH RQ2 PRN PRN Reason: SOB Gabapentin (Neurontin) 600 mg PO TID [facility] Last Admin: 04/14/17 17:06 Dose: 600 mg Heparin Sodium (Porcine) (Heparin) 5,000 units SC Q12 [facility] Last Admin: 04/14/17 09:23 Dose: 5,000 units Insulin Glargine (Lantus) 45 unit SC HS [facility] Last Admin: 04/13/17 22:06 Dose: 45 unit Insulin Human Regular (Novolin R) 0 unit SC ACHS [facility] PRN Reason: Protocol Last Admin: 04/14/17 21:38 Dose: Not Given Lisinopril (Zestril) 20 mg PO DAILY [facility] Last Admin: 04/14/17 10:30 Dose: 20 mg Metformin HCl (Glucophage) 1,000 mg PO BID [facility] Last Admin: 04/14/17 17:05 Dose: 1,000 mg Ondansetron HCl (Zofran Inj) 4 mg IVP Q6H PRN PRN Reason: Nausea/Vomiting Last Admin: 04/14/17 15:35 Dose: 4 mg Oxycodone HCl (Oxycodone Immediate Release Tab) 30 mg PO Q8H PRN PRN Reason: Pain, moderate (4-7) Last Admin: 04/14/17 17:09 Dose: 30 mg Oxycodone HCl (Oxycontin Extended Release Tab) 40 mg PO Q12 [facility] Last Admin: 04/14/17 09:22 Dose: 40 mg Pantoprazole Sodium (Protonix Ec Tab) 40 mg PO DAILY [facility] Last Admin: 04/14/17 09:22 Dose: 40 mg - Labs Labs: 04/14/17 07:26 04/14/17 07:26 - Head Exam Head Exam: ATRAUMATIC - Eye Exam Eye Exam: Normal appearance - ENT Exam ENT Exam: Mucous Membranes Dry - Respiratory Exam Respiratory Exam: NORMAL BREATHING PATTERN - Cardiovascular Exam Cardiovascular Exam: +S1, +S2 - GI/Abdominal Exam GI & Abdominal Exam: Normal Bowel Sounds Assessment and Plan (1) Neutropenia Assessment & Plan: suspect medication induced Neupogen until ANC > 500 Status: Acute (2) Anemia Assessment & Plan: chronic disease Status: Acute
[2017-04-14] MEDS: (Lantus) Insulin Glargine, Recombinant SC SCH (22:11)
[2017-04-15 07:02] LABS: BASO % 0.8 % (0.0-2.0); EOS # 0.1 K/uL (0.0-0.7); EOS % 3.5 % (0.0-4.0); HEMATOCRIT 29.9 % (34.0-47.0); LYMPH # 1.8 K/uL (1.0-4.3); MEAN CELL VOLUME 77.2 fL (81.0-99.0); MEAN CORPUSCULAR HGB CONC 36.3 g/dL (33.0-37.0); MEAN PLATELET VOLUME 7.1 fL (7.2-11.7); MONO # 1.7 K/uL (0.0-0.8); MONO % 44.3 % (0.0-10.0); NRBC % 0.1 % (0.0-2.0); PLATELET COUNT 297 K/uL (130-400); RED CELL DISTRIBUTION WIDTH 12.6 % (11.5-14.5); WHITE BLOOD COUNT 3.8 K/uL (4.8-10.8)
[2017-04-15] MEDS: (Novolin R) Insulin Human Regular 100 units/ml vial SC SCH ×4 (07:49→23:25)
[2017-04-15 07:59] LABS: ALKALINE PHOSPHATASE 82 U/L (38-126); ALT/SGPT 27 U/L (9-52); AST/SGOT 25 U/L (14-36); BILIRUBIN,TOTAL 0.9 mg/dL (0.2-1.3); BLOOD UREA NITROGEN 12 mg/dL (7-17); CALCIUM 8.5 mg/dl (8.6-10.4); CARBON DIOXIDE 26 mmol/L (22-30); CHLORIDE 99 mmol/L (98-107); GFR AFRICAN-AMERICAN > 60; GLUCOSE,RANDOM 139 mg/dL (65-105); POTASSIUM 3.6 mmol/L (3.6-5.2); SODIUM 136 mmol/L (132-148); TOTAL PROTEIN 6.9 g/dL (6.3-8.3)
[2017-04-15 08:36] LABS: EOSINOPHIL 2 % (0-4); NEUTROPHIL 1 % (50-75); TOTAL CELLS COUNTED 100
[2017-04-15 08:40] LABS: RBC URINE < 1 /hpf (0-3); URINE BACTERIA RARE (<OCC); URINE BILIRUBIN NEGATIVE (NEGATIVE); URINE BLOOD NEGATIVE (NEGATIVE); URINE COLOR Yellow (YELLOW); URINE GLUCOSE (UA) NORMAL (Normal); URINE KETONE NEGATIVE (NEGATIVE); URINE LEUKOCYTE ESTERASE NEG Leu/uL (Negative); URINE PROTEIN 1+ mg/dL (NEGATIVE); URINE UROBILINOGEN NORMAL mg/dL (0.2-1.0); WBC URINE 2 /hpf (0-5)
--- NOTE | 2017-04-15 09:41 | CP.PCM.PN ---
Subjective - Date & Time of Evaluation Date of Evaluation: 04/15/17 Time of Evaluation: 09:40 - Subjective Subjective: Patient seen and evaluated at bedside, NAD. Patient reports feeling nauseous and vomiting yesterday. She denies pain to her left foot. She denies fevers or chills. Patient has bandage clean dry and intact to the left foot. Objective - Vital Signs/Intake and Output Vital Signs (last 24 hours): Temp Pulse Resp BP Pulse Ox 98.1 F 95 H 20 149/81 97 04/14/17 15:00 04/14/17 15:00 04/14/17 15:00 04/14/17 15:00 04/14/17 15:00 Intake and Output: 04/15/17 04/15/17 06:59 18:59 Intake Total 920 Balance 920 - Medications Medications: Current Medications Albuterol/Ipratropium (Duoneb 3 Mg/0.5 Mg (3 Ml) Ud) 3 ml INH RQ2 PRN PRN Reason: SOB Gabapentin (Neurontin) 600 mg PO TID [facility] Last Admin: 04/14/17 17:06 Dose: 600 mg Heparin Sodium (Porcine) (Heparin) 5,000 units SC Q12 [facility] Last Admin: 04/14/17 22:10 Dose: Not Given Insulin Glargine (Lantus) 45 unit SC HS [facility] Last Admin: 04/14/17 22:11 Dose: 45 unit Insulin Human Regular (Novolin R) 0 unit SC ACHS [facility] PRN Reason: Protocol Last Admin: 04/15/17 07:49 Dose: 1 unit Lisinopril (Zestril) 20 mg PO DAILY [facility] Last Admin: 04/14/17 10:30 Dose: 20 mg Metformin HCl (Glucophage) 1,000 mg PO BID [facility] Last Admin: 04/14/17 17:05 Dose: 1,000 mg Ondansetron HCl (Zofran Inj) 4 mg IVP Q6H PRN PRN Reason: Nausea/Vomiting Last Admin: 04/14/17 15:35 Dose: 4 mg Oxycodone HCl (Oxycodone Immediate Release Tab) 30 mg PO Q8H PRN PRN Reason: Pain, moderate (4-7) Last Admin: 04/14/17 17:09 Dose: 30 mg Oxycodone HCl (Oxycontin Extended Release Tab) 40 mg PO Q12 [facility] Last Admin: 04/14/17 22:11 Dose: 40 mg Pantoprazole Sodium (Protonix Ec Tab) 40 mg PO DAILY [facility] Last Admin: 04/14/17 09:22 Dose: 40 mg - Labs Labs: 04/15/17 06:50 04/15/17 06:50 - Constitutional Appears: Well, Non-toxic, No Acute Distress - Neurological Exam Neurological Exam: Oriented x3 - Psychiatric Exam Psychiatric exam: Normal Affect, Normal Mood - Additional Findings Additional findings: DERMATOLOGIC: Left hallux small superficial ulceration with granular base, mild hypergranular tissue medially, mild serous drainage, no purulence, no erythema. The wound does not probe deep, no tunneling. Periwound skin is hyperpigmented. VASCULAR: DP/PT pulses 2/4, GUIDANCE AND CONTROL SYSTEM ENGINEER<3 seconds, skin temperature is normal. NEUROLOGIC: Protective sensation decreased ORTHOPEDIC: Mild pain on palpation to the left hallux Assessment and Plan - Assessment and Plan (Free Text) Assessment: 41 year old female with chronic ulceration of the left hallux Plan: Patient seen and evaluated, d/w attending Dr. Steven Patients left foot cleansed with sterile saline, dressed with xeroform, DSD, TO[place] Patients WBC count up to 3.8 this morning, will wait till white count is normal and stable to consider skin graft for wound Podiatry will continue to follow
[2017-04-15] MEDS: Pantoprazole 40 mg EC Tab PO SCH (10:39)
[2017-04-15] MEDS: oxyCODONE 40 mg ER Tab (oxyCONTIN) PO SCH ×2 (10:39→23:24)
--- NOTE | 2017-04-15 16:14 | CP.PCM.PN ---
Subjective - Date & Time of Evaluation Date of Evaluation: 04/15/17 Time of Evaluation: 08:00 - Subjective Subjective: denies fever decreased urination and some back pain ultrasound pending Objective - Vital Signs/Intake and Output Vital Signs (last 24 hours): Temp Pulse Resp BP Pulse Ox 98.4 F 76 20 120/77 99 04/15/17 11:45 04/15/17 11:45 04/15/17 11:45 04/15/17 11:45 04/15/17 08:00 Intake and Output: 04/15/17 04/15/17 06:59 18:59 Intake Total 920 Balance 920 - Medications Medications: Current Medications Albuterol/Ipratropium (Duoneb 3 Mg/0.5 Mg (3 Ml) Ud) 3 ml INH RQ2 PRN PRN Reason: SOB Gabapentin (Neurontin) 600 mg PO TID [facility] Last Admin: 04/15/17 14:07 Dose: 600 mg Heparin Sodium (Porcine) (Heparin) 5,000 units SC Q12 [facility] Last Admin: 04/15/17 10:40 Dose: 5,000 units Insulin Glargine (Lantus) 45 unit SC HS [facility] Last Admin: 04/14/17 22:11 Dose: 45 unit Insulin Human Regular (Novolin R) 0 unit SC ACHS [facility] PRN Reason: Protocol Last Admin: 04/15/17 12:02 Dose: 1 unit Lisinopril (Zestril) 20 mg PO DAILY [facility] Last Admin: 04/15/17 10:10 Dose: 20 mg Metformin HCl (Glucophage) 1,000 mg PO BID [facility] Last Admin: 04/15/17 10:39 Dose: 1,000 mg Ondansetron HCl (Zofran Inj) 4 mg IVP Q6H PRN PRN Reason: Nausea/Vomiting Last Admin: 04/15/17 10:40 Dose: 4 mg Oxycodone HCl (Oxycodone Immediate Release Tab) 30 mg PO Q8H PRN PRN Reason: Pain, moderate (4-7) Last Admin: 04/14/17 17:09 Dose: 30 mg Oxycodone HCl (Oxycontin Extended Release Tab) 40 mg PO Q12 [facility] Last Admin: 04/15/17 10:39 Dose: 40 mg Pantoprazole Sodium (Protonix Ec Tab) 40 mg PO DAILY [facility] Last Admin: 04/15/17 10:39 Dose: 40 mg - Labs Labs: 04/15/17 06:50 04/15/17 06:50 - Constitutional Appears: Non-toxic, Chronically Ill - Head Exam Head Exam: NORMOCEPHALIC - Eye Exam Eye Exam: PERRL. absent: Scleral icterus - ENT Exam ENT Exam: Mucous Membranes Dry - Neck Exam Neck Exam: absent: Lymphadenopathy - Respiratory Exam Respiratory Exam: Decreased Breath Sounds - Cardiovascular Exam Cardiovascular Exam: REGULAR RHYTHM - GI/Abdominal Exam GI & Abdominal Exam: Distended, Soft. absent: Tenderness - Rectal Exam Rectal Exam: Deferred - Exam Exam: NORMAL INSPECTION - Extremities Exam Extremities Exam: absent: Calf Tenderness, Pedal Edema - Back Exam Back Exam: absent: CVA tenderness (L), CVA tenderness (R) - Neurological Exam Neurological Exam: Alert, Awake, Oriented x3 - Psychiatric Exam Psychiatric exam: Normal Mood - Skin Skin Exam: Dry Assessment and Plan (1) Neutropenia Status: Acute (2) Asthma Status: Acute (3) Chronic back pain Status: Acute (4) Uncontrolled diabetes mellitus Status: Acute
[2017-04-15] MEDS: oxyCODONE 30 mg Immediate Release Tab PO PRN (19:26)
[2017-04-15] MEDS: (Lantus) Insulin Glargine, Recombinant SC SCH (23:00)
[2017-04-16 06:31] LABS: BASO # 0.1 K/uL (0.0-0.2); BASO % 1.1 % (0.0-2.0); EOS # 0.2 K/uL (0.0-0.7); EOS % 3.3 % (0.0-4.0); HEMATOCRIT 31.4 % (34.0-47.0); LYMPH # 2.1 K/uL (1.0-4.3); LYMPH % 39.8 % (20.0-40.0); MEAN CELL VOLUME 77.3 fL (81.0-99.0); MEAN CORPUSCULAR HEMOGLOBIN 27.6 pg (27.0-31.0); MEAN CORPUSCULAR HGB CONC 35.7 g/dL (33.0-37.0); MEAN PLATELET VOLUME 7.4 fL (7.2-11.7); MONO # 1.6 K/uL (0.0-0.8); MONO % 30.5 % (0.0-10.0); NRBC % 0.4 % (0.0-2.0); PLATELET COUNT 304 K/uL (130-400); RED CELL DISTRIBUTION WIDTH 12.7 % (11.5-14.5); WHITE BLOOD COUNT 5.3 K/uL (4.8-10.8)
[2017-04-16 06:37] LABS: CHLORIDE 97 mmol/L (98-107); SODIUM 136 mmol/L (132-148)
[2017-04-16 06:40] LABS: ALKALINE PHOSPHATASE 90 U/L (38-126); ALT/SGPT 23 U/L (9-52); AST/SGOT 28 U/L (14-36); BILIRUBIN,TOTAL 0.8 mg/dL (0.2-1.3); BLOOD UREA NITROGEN 10 mg/dL (7-17); CARBON DIOXIDE 28 mmol/L (22-30); GFR AFRICAN-AMERICAN > 60; GLUCOSE,RANDOM 128 mg/dL (65-105); TOTAL PROTEIN 6.9 g/dL (6.3-8.3)
[2017-04-16 06:41] LABS: CALCIUM 8.8 mg/dl (8.6-10.4)
--- NOTE | 2017-04-16 08:20 | CP.PCM.PN ---
Subjective - Date & Time of Evaluation Date of Evaluation: 04/16/17 Time of Evaluation: 09:00 - Subjective Subjective: Patient seen and evaluated at bedside, NAD. Patient was resting comfortably in bed. No NAD. She denies pain to her left foot. She denies fevers or chills. Patient has bandage clean dry and intact to the left foot. Objective - Vital Signs/Intake and Output Vital Signs (last 24 hours): Temp Pulse Resp BP Pulse Ox 98.6 F 101 H 20 132/85 100 04/16/17 00:00 04/16/17 00:00 04/16/17 00:00 04/16/17 00:00 04/16/17 00:00 Intake and Output: 04/16/17 04/16/17 06:59 18:59 Intake Total 480 Balance 480 - Medications Medications: Current Medications Albuterol/Ipratropium (Duoneb 3 Mg/0.5 Mg (3 Ml) Ud) 3 ml INH RQ2 PRN PRN Reason: SOB Gabapentin (Neurontin) 600 mg PO TID [facility] Last Admin: 04/15/17 19:00 Dose: 600 mg Heparin Sodium (Porcine) (Heparin) 5,000 units SC Q12 [facility] Last Admin: 04/15/17 23:25 Dose: Not Given Insulin Glargine (Lantus) 45 unit SC HS [facility] Last Admin: 04/15/17 23:00 Dose: 45 unit Insulin Human Regular (Novolin R) 0 unit SC ACHS [facility] PRN Reason: Protocol Last Admin: 04/15/17 23:25 Dose: Not Given Lisinopril (Zestril) 20 mg PO DAILY [facility] Last Admin: 04/15/17 10:10 Dose: 20 mg Metformin HCl (Glucophage) 1,000 mg PO BID [facility] Last Admin: 04/15/17 19:00 Dose: 1,000 mg Ondansetron HCl (Zofran Inj) 4 mg IVP Q6H PRN PRN Reason: Nausea/Vomiting Last Admin: 04/15/17 10:40 Dose: 4 mg Oxycodone HCl (Oxycodone Immediate Release Tab) 30 mg PO Q8H PRN PRN Reason: Pain, moderate (4-7) Last Admin: 04/15/17 19:26 Dose: 30 mg Oxycodone HCl (Oxycontin Extended Release Tab) 40 mg PO Q12 [facility] Last Admin: 04/15/17 23:24 Dose: 40 mg Pantoprazole Sodium (Protonix Ec Tab) 40 mg PO DAILY [facility] Last Admin: 04/15/17 10:39 Dose: 40 mg - Labs Labs: 04/16/17 06:15 04/16/17 06:15 - Constitutional Appears: Well, Non-toxic, No Acute Distress - Head Exam Head Exam: ATRAUMATIC - Extremities Exam Additional comments: DERMATOLOGIC: Left hallux small superficial ulceration with granular base, mild hypergranular tissue medially, mild serous drainage, no purulence, no erythema. The wound does not probe deep, no tunneling. Periwound skin is hyperpigmented. VASCULAR: DP/PT pulses 2/4, [employer]<3 seconds, skin temperature is normal. NEUROLOGIC: Protective sensation decreased ORTHOPEDIC: Mild pain on palpation to the left hallux - Neurological Exam Neurological Exam: Alert, Awake, Oriented x3 - Psychiatric Exam Psychiatric exam: Normal Affect, Normal Mood Assessment and Plan - Assessment and Plan (Free Text) Assessment: 41 year old female with chronic ulceration of the left hallux Plan: Patient seen and evaluated at bedside All the questions and concerns were addressed Discussed with attending reviewed all labs and vitals Patient to OR tomorrow at 7:45 am for left hallux graft application Patients left foot cleansed with sterile saline, dressed with xeroform, DSD, TOBIN Podiatry will continue to follow while patient remains in house.
[2017-04-16 08:30] LABS: BASOPHIL 1 % (0-2); EOSINOPHIL 2 % (0-4); TOTAL CELLS COUNTED 100
[2017-04-16 08:31] LABS: NEUTROPHIL 9 % (50-75)
--- NOTE | 2017-04-16 08:43 | CP.PCM.PN ---
Subjective - Date & Time of Evaluation Date of Evaluation: 04/16/17 Time of Evaluation: 09:30 - Subjective Subjective: Dr. Rizo progress note: Patient is seen in room. She is complaining of some abdominal pain with some chills. She denies nausea, vomiting, dysuria, diarrhea, joint pain, or swelling. She reports having tingling sensation in her extremities. Objective - Vital Signs/Intake and Output Vital Signs (last 24 hours): Temp Pulse Resp BP Pulse Ox 98.6 F 101 H 20 132/85 100 04/16/17 00:00 04/16/17 00:00 04/16/17 00:00 04/16/17 00:00 04/16/17 00:00 Intake and Output: 04/16/17 04/16/17 06:59 18:59 Intake Total 480 Balance 480 - Medications Medications: Current Medications Albuterol/Ipratropium (Duoneb 3 Mg/0.5 Mg (3 Ml) Ud) 3 ml INH RQ2 PRN PRN Reason: SOB Gabapentin (Neurontin) 600 mg PO TID [facility] Last Admin: 04/15/17 19:00 Dose: 600 mg Heparin Sodium (Porcine) (Heparin) 5,000 units SC Q12 [facility] Last Admin: 04/15/17 23:25 Dose: Not Given Insulin Glargine (Lantus) 45 unit SC HS [facility] Last Admin: 04/15/17 23:00 Dose: 45 unit Insulin Human Regular (Novolin R) 0 unit SC ACHS [facility] PRN Reason: Protocol Last Admin: 04/15/17 23:25 Dose: Not Given Lisinopril (Zestril) 20 mg PO DAILY [facility] Last Admin: 04/15/17 10:10 Dose: 20 mg Metformin HCl (Glucophage) 1,000 mg PO BID [facility] Last Admin: 04/15/17 19:00 Dose: 1,000 mg Ondansetron HCl (Zofran Inj) 4 mg IVP Q6H PRN PRN Reason: Nausea/Vomiting Last Admin: 04/15/17 10:40 Dose: 4 mg Oxycodone HCl (Oxycodone Immediate Release Tab) 30 mg PO Q8H PRN PRN Reason: Pain, moderate (4-7) Last Admin: 04/15/17 19:26 Dose: 30 mg Oxycodone HCl (Oxycontin Extended Release Tab) 40 mg PO Q12 [facility] Last Admin: 04/15/17 23:24 Dose: 40 mg Pantoprazole Sodium (Protonix Ec Tab) 40 mg PO DAILY [facility] Last Admin: 04/15/17 10:39 Dose: 40 mg - Labs Labs: 04/16/17 06:15 04/16/17 06:15 - Constitutional Appears: Non-toxic, No Acute Distress - Head Exam Head Exam: NORMAL INSPECTION - Eye Exam Eye Exam: Normal appearance Pupil Exam: NORMAL ACCOMODATION - ENT Exam ENT Exam: Normal Exam - Neck Exam Neck Exam: Normal Inspection - Respiratory Exam Respiratory Exam: Clear to Ausculation Bilateral. absent: Rales, Rhonchi, Wheezes - Cardiovascular Exam Cardiovascular Exam: REGULAR RHYTHM, RRR, +S1, +S2. absent: Gallop, Rubs - GI/Abdominal Exam GI & Abdominal Exam: Soft, Normal Bowel Sounds. absent: Tenderness - Extremities Exam Extremities Exam: Normal Inspection. absent: Pedal Edema Assessment and Plan (1) Diabetic foot ulcer Assessment & Plan: Patient is scheduled for surgery tomorrow, will be NPO past midnight Status: Acute (2) Diabetic neuropathy Assessment & Plan: continue Neurontin. Status: Chronic (3) Neutropenia Assessment & Plan: resolved, follow up morning cbc WBC 5.3 ANC 1200 Status: Acute (4) Uncontrolled diabetes mellitus Assessment & Plan: continue current managment Status: Acute (5) Prophylactic measure Assessment & Plan: protonix 40mg, hold Heparin for surgery tomorrow morning. Status: Acute
[2017-04-16] MEDS: (Novolin R) Insulin Human Regular 100 units/ml vial SC SCH ×4 (09:11→21:41)
--- NOTE | 2017-04-16 10:17 | US ---
HISTORY: r/o nephrolithiasis, r/o bladder distention COMPARISON: Limited abdominal ultrasound 10/02/2014 TECHNIQUE: Sonographic evaluation of the abdomen. FINDINGS: LIVER: Measures 18.9 cm. Diffusely increased echogenicity of the liver parenchyma. No mass. No intrahepatic bile duct dilatation. GALLBLADDER: Mobile sludge. Probable small calculi. No mural thickening or pericholecystic fluid. Negative sonographic Mcmahon sign. COMMON BILE DUCT: Measures 3 mm. No stones. No dilatation. PANCREAS: Unremarkable as visualized. No mass. No ductal dilatation. RIGHT KIDNEY: Measures 11.4cm. Normal echogenicity. No calculus, mass, or hydronephrosis. LEFT KIDNEY: Measures 11.0cm. Normal echogenicity. No calculus, mass, or hydronephrosis. SPLEEN: Normal in size and contour. No mass. AORTA: No aneurysmal dilatation. IVC: Unremarkable. OTHER FINDINGS: Limited evaluation of urinary bladder shows no evidence of bladder distention. Bladder volume at the time of this examination is 24.5 mL. IMPRESSION: Gallbladder sludge and probable tiny calculi. No sonographic evidence of cholecystitis. Mild hepatomegaly with fatty infiltration of the liver.
[2017-04-16] MEDS: oxyCODONE 40 mg ER Tab (oxyCONTIN) PO SCH ×2 (10:27→22:50)
[2017-04-16] MEDS: Pantoprazole 40 mg EC Tab PO SCH (10:28)
[2017-04-16] MEDS: oxyCODONE 30 mg Immediate Release Tab PO PRN ×2 (13:41→21:39)
[2017-04-16] MEDS: (Lantus) Insulin Glargine, Recombinant SC SCH (21:43)
[2017-04-16] MEDS ORDERED: oxyCODONE 40 mg ER Tab (oxyCONTIN) PO STA (23:05)
[2017-04-17] MEDS: oxyCODONE 30 mg Immediate Release Tab PO PRN ×2 (06:26→20:23)
[2017-04-17] MEDS: (Novolin R) Insulin Human Regular 100 units/ml vial SC SCH ×4 (07:59→21:34)
[2017-04-17 08:16] LABS: BASO % 0.6 % (0.0-2.0); EOS # 0.2 K/uL (0.0-0.7); EOS % 2.2 % (0.0-4.0); LYMPH # 2.2 K/uL (1.0-4.3); LYMPH % 31.5 % (20.0-40.0); MEAN CELL VOLUME 77.9 fL (81.0-99.0); MEAN CORPUSCULAR HEMOGLOBIN 27.9 pg (27.0-31.0); MEAN CORPUSCULAR HGB CONC 35.8 g/dL (33.0-37.0); MEAN PLATELET VOLUME 7.4 fL (7.2-11.7); MONO # 1.3 K/uL (0.0-0.8); MONO % 18.9 % (0.0-10.0); NRBC % 0.7 % (0.0-2.0); PLATELET COUNT 286 K/uL (130-400); RED CELL DISTRIBUTION WIDTH 12.7 % (11.5-14.5)
[2017-04-17 08:39] LABS: BILIRUBIN,TOTAL 0.6 mg/dL (0.2-1.3); TOTAL PROTEIN 6.9 g/dL (6.3-8.3)
[2017-04-17 08:40] LABS: CALCIUM 8.4 mg/dl (8.6-10.4)
[2017-04-17 09:05] LABS: BASOPHIL 1 % (0-2); EOSINOPHIL 1 % (0-4); NEUTROPHIL 25 % (50-75); TOTAL CELLS COUNTED 100
[2017-04-17] MEDS: oxyCODONE 40 mg ER Tab (oxyCONTIN) PO SCH ×2 (09:08→22:22)
[2017-04-17] MEDS: Pantoprazole 40 mg EC Tab PO SCH (09:10)
--- NOTE | 2017-04-17 09:57 | HP ---
The patient is a 41-year-old female admitted to the hospital with chief complaint of weakness, neutro penia. The patient has history of a diabetic foot, given IV antibiotic, vancomycin and cefepime. Th e patient is complaining of weakness. White count revealed leukopenia. The patient advised admissio n to the hospital. The patient has diabetes. The patient uses Lantus, NovoLog and metformin. PHYSICAL EXAMINATION: GENERAL: The patient is awake, alert, oriented. VITAL SIGNS: Temperature 98, pulse 90. HEENT: Within normal limits. NECK: Supple. CHEST: Symmetrical. HEART: Regular. ABDOMEN: Soft. EXTREMITIES: There are atrophic changes in both lower extremities. There is an ulcer, clean, at the right big toe. The patient suffers from diabetic foot, neutropenia, rule out drug-induced neutropenia. At this poin t, get hematology consult, hold on IV antibiotics for reevaluation. Shaye Garrido MD cc: [id number] TT: 04/13/2017 11:09:12 en
--- NOTE | 2017-04-17 10:01 | PN ---
DATE: 04/14/2017 The patient is improving, for hematology evaluation. Follow up white count. Shaye Garrido MD cc: [id number] TT: 04/14/2017 10:02:01 Confirmation # [id number] Dictation # [id number]
--- NOTE | 2017-04-17 10:33 | CP.PCM.PN ---
Subjective - Date & Time of Evaluation Date of Evaluation: 04/17/17 Time of Evaluation: 10:33 - Subjective Subjective: 41 y/o female patient seen and evaluated at bedside for follow up on left hallux open wound. Patient was resting comfortably in bed and in NAD. Patient states that she has not eaten/drank since last night. Patient to OR today at 3: 30pm for left foot hallux graft application. Left foot dressing intact, clean and dry. Patient denies any symptoms of N/V/F/SOB/Chest pain. Objective - Vital Signs/Intake and Output Vital Signs (last 24 hours): Temp Pulse Resp BP Pulse Ox 97.9 F 98 H 20 128/84 98 04/17/17 08:00 04/17/17 08:00 04/17/17 08:00 04/17/17 08:00 04/17/17 08:00 Intake and Output: 04/17/17 04/17/17 06:59 18:59 Intake Total 640 Balance 640 - Medications Medications: Current Medications Albuterol/Ipratropium (Duoneb 3 Mg/0.5 Mg (3 Ml) Ud) 3 ml INH RQ2 PRN PRN Reason: SOB Gabapentin (Neurontin) 600 mg PO TID [facility] Last Admin: 04/17/17 09:10 Dose: 600 mg Heparin Sodium (Porcine) (Heparin) 5,000 units SC Q12 [facility] Last Admin: 04/16/17 10:26 Dose: 5,000 units Insulin Glargine (Lantus) 45 unit SC HS [facility] Last Admin: 04/16/17 21:43 Dose: 45 unit Insulin Human Regular (Novolin R) 0 unit SC ACHS [facility] PRN Reason: Protocol Last Admin: 04/17/17 07:59 Dose: Not Given Lisinopril (Zestril) 20 mg PO DAILY [facility] Last Admin: 04/17/17 09:10 Dose: 20 mg Metformin HCl (Glucophage) 1,000 mg PO BID [facility] Last Admin: 04/16/17 17:24 Dose: 1,000 mg Ondansetron HCl (Zofran Inj) 4 mg IVP Q6H PRN PRN Reason: Nausea/Vomiting Last Admin: 04/17/17 08:30 Dose: 4 mg Oxycodone HCl (Oxycodone Immediate Release Tab) 30 mg PO Q8H PRN PRN Reason: Pain, moderate (4-7) Last Admin: 04/17/17 06:26 Dose: 30 mg Oxycodone HCl (Oxycontin Extended Release Tab) 40 mg PO Q12 [facility] Last Admin: 04/17/17 09:08 Dose: 40 mg Pantoprazole Sodium (Protonix Ec Tab) 40 mg PO DAILY [facility] Last Admin: 04/17/17 09:10 Dose: 40 mg - Labs Labs: 04/17/17 08:02 04/17/17 08:02 - Constitutional Appears: Well, Non-toxic, No Acute Distress - Extremities Exam Additional comments: Left foot dressing intact, clean and dry. WIll change it in the OR. - Neurological Exam Neurological Exam: Alert, Awake - Psychiatric Exam Psychiatric exam: Normal Affect, Normal Mood Assessment and Plan - Assessment and Plan (Free Text) Assessment: 41 y/o female patient with left foot hallux chronic open wound. Plan: Patient seen and evaluated at bedside All the questions and concerns were addressed Discussed with attending Dr. Steven Patient to OR at 3:30pm for left foot hallux wound debridement with graft application NPO status confirmed Anticoagulation meds has held Patient signed on consent for surgery All the risks, benefits and alternatives were addressed Podiatry will continue to follow while patient remains in house.
--- NOTE | 2017-04-17 10:39 | CP.PCM.PN ---
Subjective - Date & Time of Evaluation Date of Evaluation: 04/17/17 Time of Evaluation: 10:00 - Subjective Subjective: Dr. Rizo note: Patient seen and examined in room. She is complaining of feeling nauseated through the night but no vomiting. She denies diarrhea, fever, chills, chest pain, cough, or shortness of breath. She is very anxious for her surgery. Objective - Vital Signs/Intake and Output Vital Signs (last 24 hours): Temp Pulse Resp BP Pulse Ox 97.9 F 98 H 20 128/84 98 04/17/17 08:00 04/17/17 08:00 04/17/17 08:00 04/17/17 08:00 04/17/17 08:00 Intake and Output: 04/17/17 04/17/17 06:59 18:59 Intake Total 640 Balance 640 - Medications Medications: Current Medications Albuterol/Ipratropium (Duoneb 3 Mg/0.5 Mg (3 Ml) Ud) 3 ml INH RQ2 PRN PRN Reason: SOB Gabapentin (Neurontin) 600 mg PO TID [facility] Last Admin: 04/17/17 09:10 Dose: 600 mg Heparin Sodium (Porcine) (Heparin) 5,000 units SC Q12 [facility] Last Admin: 04/16/17 10:26 Dose: 5,000 units Insulin Glargine (Lantus) 45 unit SC HS [facility] Last Admin: 04/16/17 21:43 Dose: 45 unit Insulin Human Regular (Novolin R) 0 unit SC ACHS [facility] PRN Reason: Protocol Last Admin: 04/17/17 07:59 Dose: Not Given Lisinopril (Zestril) 20 mg PO DAILY [facility] Last Admin: 04/17/17 09:10 Dose: 20 mg Metformin HCl (Glucophage) 1,000 mg PO BID [facility] Last Admin: 04/16/17 17:24 Dose: 1,000 mg Ondansetron HCl (Zofran Inj) 4 mg IVP Q6H PRN PRN Reason: Nausea/Vomiting Last Admin: 04/17/17 08:30 Dose: 4 mg Oxycodone HCl (Oxycodone Immediate Release Tab) 30 mg PO Q8H PRN PRN Reason: Pain, moderate (4-7) Last Admin: 04/17/17 06:26 Dose: 30 mg Oxycodone HCl (Oxycontin Extended Release Tab) 40 mg PO Q12 [facility] Last Admin: 04/17/17 09:08 Dose: 40 mg Pantoprazole Sodium (Protonix Ec Tab) 40 mg PO DAILY [facility] Last Admin: 04/17/17 09:10 Dose: 40 mg - Labs Labs: 04/17/17 08:02 04/17/17 08:02 - Constitutional Appears: Non-toxic, No Acute Distress - Head Exam Head Exam: NORMAL INSPECTION - Eye Exam Eye Exam: Normal appearance Pupil Exam: NORMAL ACCOMODATION - ENT Exam ENT Exam: Normal Exam - Respiratory Exam Respiratory Exam: Clear to Ausculation Bilateral. absent: Rales, Rhonchi, Wheezes - Cardiovascular Exam Cardiovascular Exam: REGULAR RHYTHM, RRR, +S1, +S2. absent: Gallop, Rubs - GI/Abdominal Exam GI & Abdominal Exam: Soft, Normal Bowel Sounds. absent: Distended, Guarding, Tenderness - Extremities Exam Extremities Exam: Normal Inspection. absent: Pedal Edema - Back Exam Back Exam: NORMAL INSPECTION - Psychiatric Exam Psychiatric exam: Normal Affect, Normal Mood - Skin Skin Exam: Normal Color Assessment and Plan (1) Diabetic foot ulcer Assessment & Plan: Patient went to the OR with podiatry this afternoon and has been cleared by them for discharge. Oxycodone 30mg PO Q8H PRN for breakthrough pain Oxycodone ER 40mg Q12H scheduled Status: Acute (2) Diabetic neuropathy Assessment & Plan: Neurontin PO Status: Chronic (3) Neutropenia Assessment & Plan: resolved. Status: Acute (4) Uncontrolled diabetes mellitus Assessment & Plan: Lantus 45 units HS, accu checks and sliding scale. Status: Acute (5) Prophylactic measure Assessment & Plan: Protonix and Heparin 5000 units sc q12h. Status: Acute
--- NOTE | 2017-04-17 12:16 | CP.PCM.PN ---
Subjective - Date & Time of Evaluation Date of Evaluation: 04/17/17 Time of Evaluation: 09:00 - Subjective Subjective: wbc improving foot satble Objective - Vital Signs/Intake and Output Vital Signs (last 24 hours): Temp Pulse Resp BP Pulse Ox 97.9 F 98 H 20 128/84 98 04/17/17 08:00 04/17/17 08:00 04/17/17 08:00 04/17/17 08:00 04/17/17 08:00 Intake and Output: 04/17/17 04/17/17 06:59 18:59 Intake Total 640 Balance 640 - Medications Medications: Current Medications Albuterol/Ipratropium (Duoneb 3 Mg/0.5 Mg (3 Ml) Ud) 3 ml INH RQ2 PRN PRN Reason: SOB Gabapentin (Neurontin) 600 mg PO TID [facility] Last Admin: 04/17/17 09:10 Dose: 600 mg Heparin Sodium (Porcine) (Heparin) 5,000 units SC Q12 [facility] Last Admin: 04/16/17 10:26 Dose: 5,000 units Insulin Glargine (Lantus) 45 unit SC HS [facility] Last Admin: 04/16/17 21:43 Dose: 45 unit Insulin Human Regular (Novolin R) 0 unit SC ACHS [facility] PRN Reason: Protocol Last Admin: 04/17/17 12:09 Dose: Not Given Lisinopril (Zestril) 20 mg PO DAILY [facility] Last Admin: 04/17/17 09:10 Dose: 20 mg Metformin HCl (Glucophage) 1,000 mg PO BID [facility] Last Admin: 04/17/17 12:08 Dose: Not Given Ondansetron HCl (Zofran Inj) 4 mg IVP Q6H PRN PRN Reason: Nausea/Vomiting Last Admin: 04/17/17 08:30 Dose: 4 mg Oxycodone HCl (Oxycodone Immediate Release Tab) 30 mg PO Q8H PRN PRN Reason: Pain, moderate (4-7) Last Admin: 04/17/17 06:26 Dose: 30 mg Oxycodone HCl (Oxycontin Extended Release Tab) 40 mg PO Q12 [facility] Last Admin: 04/17/17 09:08 Dose: 40 mg Pantoprazole Sodium (Protonix Ec Tab) 40 mg PO DAILY [facility] Last Admin: 04/17/17 09:10 Dose: 40 mg - Labs Labs: 04/17/17 08:02 04/17/17 08:02 - Constitutional Appears: Non-toxic, Chronically Ill - Head Exam Head Exam: NORMOCEPHALIC - Eye Exam Eye Exam: PERRL. absent: Scleral icterus - ENT Exam ENT Exam: Mucous Membranes Dry - Neck Exam Neck Exam: absent: Lymphadenopathy - Respiratory Exam Respiratory Exam: Decreased Breath Sounds - Cardiovascular Exam Cardiovascular Exam: REGULAR RHYTHM, +S1, +S2 - GI/Abdominal Exam GI & Abdominal Exam: Distended, Soft. absent: Tenderness - Rectal Exam Rectal Exam: Deferred Assessment and Plan (1) Neutropenia Status: Acute (2) Asthma Status: Acute (3) Chronic back pain Status: Acute (4) Uncontrolled diabetes mellitus Status: Acute
[2017-04-17] MEDS ORDERED: Lidocaine 2% Inj (20ml) ONE (16:00)
[2017-04-17] MEDS ORDERED: Bupivacaine HCl 0.25% PF (10 ml) Inj ONE ×2 (16:01)
[2017-04-17] MEDS ORDERED: Propofol 10 mg/ml Inj (20 ML) ONE (16:05)
[2017-04-17] MEDS ORDERED: Midazolam 2 MG/2 ML VIAL ONE (16:05)
[2017-04-17] MEDS ORDERED: Clindamycin 300 mg/2 ml Inj ONE (16:13)
[2017-04-17] MEDS ORDERED: Sodium Chloride 0.9% 1,000 ML IV ONE (16:15)
[2017-04-17] MEDS ORDERED: ePHEDrine 50 mg/ml Inj ONE (16:53)
--- NOTE | 2017-04-17 17:13 | PCM.SURG1 ---
Surgeon's Initial Post Op Note - Surgeon's Notes Surgeon: Dr. Steven Lace Weaver: Dr. Del Cid, PGY-1 Type of Anesthesia: General LMA, Local Anesthesia Administered By: Dr. Jackson Pre-Operative Diagnosis: chronic non-healing ulceration left hallux Operative Findings: see operative report Post-Operative Diagnosis: same Operation Performed: debridement of plantar left hallux wound with application of graft Specimen/Specimens Removed: none Estimated Blood Loss: EBL {In ML}: 2 Blood Products Given: N/A Drains Used: No Drains Post-Op Condition: Good Date of Surgery/Procedure: 04/17/17 Time of Surgery/Procedure: 15:00
[2017-04-17] MEDS ORDERED: HYDROmorphone 0.5 mg/0.5 ml ISec IVP PRN (17:24)
--- NOTE | 2017-04-17 18:11 | CP.PCM.PN ---
Subjective - Date & Time of Evaluation Date of Evaluation: 04/17/17 Time of Evaluation: 13:00 - Subjective Subjective: No complaints, for debridement today Objective - Vital Signs/Intake and Output Vital Signs (last 24 hours): Temp Pulse Resp BP Pulse Ox 98 F 105 H 14 123/76 98 04/17/17 17:11 04/17/17 17:30 04/17/17 17:30 04/17/17 17:30 04/17/17 17:30 Intake and Output: 04/17/17 04/17/17 06:59 18:59 Intake Total 640 Balance 640 - Medications Medications: Current Medications Albuterol/Ipratropium (Duoneb 3 Mg/0.5 Mg (3 Ml) Ud) 3 ml INH RQ2 PRN PRN Reason: SOB Gabapentin (Neurontin) 600 mg PO TID [facility] Last Admin: 04/17/17 09:10 Dose: 600 mg Heparin Sodium (Porcine) (Heparin) 5,000 units SC Q12 [facility] Last Admin: 04/16/17 10:26 Dose: 5,000 units Hydromorphone HCl (Dilaudid) 0.5 mg IVP Q15M PRN PRN Reason: Pain, severe (8-10) Stop: 04/17/17 19:24 Insulin Glargine (Lantus) 45 unit SC HS [facility] Last Admin: 04/16/17 21:43 Dose: 45 unit Insulin Human Regular (Novolin R) 0 unit SC ACHS [facility] PRN Reason: Protocol Last Admin: 04/17/17 12:09 Dose: Not Given Lisinopril (Zestril) 20 mg PO DAILY [facility] Last Admin: 04/17/17 09:10 Dose: 20 mg Metformin HCl (Glucophage) 1,000 mg PO BID [facility] Last Admin: 04/17/17 12:08 Dose: Not Given Ondansetron HCl (Zofran Inj) 4 mg IVP Q6H PRN PRN Reason: Nausea/Vomiting Last Admin: 04/17/17 08:30 Dose: 4 mg Ondansetron HCl (Zofran Inj) 4 mg IVP ONCE PRN PRN Reason: Nausea/Vomiting Stop: 04/17/17 19:24 Oxycodone HCl (Oxycodone Immediate Release Tab) 30 mg PO Q8H PRN PRN Reason: Pain, moderate (4-7) Last Admin: 04/17/17 06:26 Dose: 30 mg Oxycodone HCl (Oxycontin Extended Release Tab) 40 mg PO Q12 [facility] Last Admin: 04/17/17 09:08 Dose: 40 mg Pantoprazole Sodium (Protonix Ec Tab) 40 mg PO DAILY [facility] Last Admin: 04/17/17 09:10 Dose: 40 mg - Labs Labs: 04/17/17 08:02 04/17/17 08:02 - Head Exam Head Exam: ATRAUMATIC - Eye Exam Eye Exam: Normal appearance - ENT Exam ENT Exam: Mucous Membranes Dry - Respiratory Exam Respiratory Exam: NORMAL BREATHING PATTERN - Cardiovascular Exam Cardiovascular Exam: +S1, +S2 - GI/Abdominal Exam GI & Abdominal Exam: Normal Bowel Sounds - Neurological Exam Neurological Exam: Oriented x3 Assessment and Plan (1) Anemia Assessment & Plan: chronic disease Status: Acute (2) Neutropenia Assessment & Plan: suspect medication induced (vancomycin) s/p neupogen with resolution of neutropenia Status: Acute
--- NOTE | 2017-04-17 18:13 | CP.PCM.PN ---
Subjective - Date & Time of Evaluation Date of Evaluation: 04/16/17 Time of Evaluation: 18:00 - Subjective Subjective: No complaints. Objective - Vital Signs/Intake and Output Vital Signs (last 24 hours): Temp Pulse Resp BP Pulse Ox 98 F 105 H 14 123/76 98 04/17/17 17:11 04/17/17 17:30 04/17/17 17:30 04/17/17 17:30 04/17/17 17:30 Intake and Output: 04/17/17 04/17/17 06:59 18:59 Intake Total 640 Balance 640 - Medications Medications: Current Medications Albuterol/Ipratropium (Duoneb 3 Mg/0.5 Mg (3 Ml) Ud) 3 ml INH RQ2 PRN PRN Reason: SOB Gabapentin (Neurontin) 600 mg PO TID [facility] Last Admin: 04/17/17 09:10 Dose: 600 mg Heparin Sodium (Porcine) (Heparin) 5,000 units SC Q12 [facility] Last Admin: 04/16/17 10:26 Dose: 5,000 units Hydromorphone HCl (Dilaudid) 0.5 mg IVP Q15M PRN PRN Reason: Pain, severe (8-10) Stop: 04/17/17 19:24 Insulin Glargine (Lantus) 45 unit SC HS [facility] Last Admin: 04/16/17 21:43 Dose: 45 unit Insulin Human Regular (Novolin R) 0 unit SC ACHS [facility] PRN Reason: Protocol Last Admin: 04/17/17 12:09 Dose: Not Given Lisinopril (Zestril) 20 mg PO DAILY [facility] Last Admin: 04/17/17 09:10 Dose: 20 mg Metformin HCl (Glucophage) 1,000 mg PO BID [facility] Last Admin: 04/17/17 12:08 Dose: Not Given Ondansetron HCl (Zofran Inj) 4 mg IVP Q6H PRN PRN Reason: Nausea/Vomiting Last Admin: 04/17/17 08:30 Dose: 4 mg Ondansetron HCl (Zofran Inj) 4 mg IVP ONCE PRN PRN Reason: Nausea/Vomiting Stop: 04/17/17 19:24 Oxycodone HCl (Oxycodone Immediate Release Tab) 30 mg PO Q8H PRN PRN Reason: Pain, moderate (4-7) Last Admin: 04/17/17 06:26 Dose: 30 mg Oxycodone HCl (Oxycontin Extended Release Tab) 40 mg PO Q12 [facility] Last Admin: 04/17/17 09:08 Dose: 40 mg Pantoprazole Sodium (Protonix Ec Tab) 40 mg PO DAILY [facility] Last Admin: 04/17/17 09:10 Dose: 40 mg - Labs Labs: 04/17/17 08:02 04/17/17 08:02 - Head Exam Head Exam: ATRAUMATIC - Eye Exam Eye Exam: Normal appearance - ENT Exam ENT Exam: Mucous Membranes Dry - Respiratory Exam Respiratory Exam: NORMAL BREATHING PATTERN - Cardiovascular Exam Cardiovascular Exam: +S1, +S2 - GI/Abdominal Exam GI & Abdominal Exam: Normal Bowel Sounds Assessment and Plan (1) Anemia Assessment & Plan: chronic disease Status: Acute (2) Neutropenia Assessment & Plan: resolved with neupogen Status: Acute
--- NOTE | 2017-04-17 21:06 | OP ---
PROCEDURE DATE: 04/17/2017 SURGEON: Dr. Robbin Steven. MAT WEAVER: Dr. Lazo, PGY-1. STEAM HAND: Dr. Jackson. ANESTHESIA: General LMA with local. PREOPERATIVE DIAGNOSIS: Chronic nonhealing diabetic ulceration of left hallux. POSTOPERATIVE DIAGNOSIS: Chronic nonhealing diabetic ulceration of left hallux. PROCEDURE PERFORMED: Debridement of nonhealing ulceration of left hallux with application of graft. INDICATIONS: The patient is a 41-year-old female with the above diagnosis. The patient has exhausted all conservative treatment at this time and now requires surgical intervention for the chronic ulceration of her left hallux. The patient signed the consent after careful explanation of risks, benefits, complications and alternatives for surgical procedure. No guarantees were given nor implied. As patient has an allergy to penicillin, 1 dose of IV clindamycin 600 mg was given to the patient prior to the procedure. N.p.o. status was confirmed prior to taking patient to the operating room. PREPARATION: The patient was brought into the operating room and placed on the operating room table in supine position. An ankle tourniquet was not required for this procedure. After induction of IV sedation, the patient received a total of 10 mL of a 1:1 mixture of 0.25% Marcaine plain and 1% lidocaine plain in a local block fashion to the left foot. Once local anesthesia was achieved, the left foot was then prepped and draped in the usual sterile manner and the procedure began. PROCEDURE: Attention was then directed to the plantar distal aspect of the patient's left hallux where a full thickness ulceration was noted measuring 1.6 x 1.4 x 0.3 cm. The wound bed is 100% granular with hypergranulation tissue noted to the wound bed. There is a hyperkeratotic rim noted to the wound. At this time, a #15 blade was utilized to excisionally debride the ulceration border of all nonviable hyperkeratotic tissue, which was passed from the operative field. Next, using a curette, the wound bed was excisionally debrided to remove the hypergranulation tissue to the point of healthy bleeding noted to the wound bed. At this time, the wound bed was copiously flushed with sterile normal saline and a healthy red granular wound bed was noted. Next, the Amniox graft was prepared. The measurements for this graft being used today were 4.0 x 3.0 cm. The graft was then placed to the wound bed and sutured to the wound edges using #4-0 nylon suture in a simple suture technique. The entirety of the graft was utilized for this procedure. Prior to placing the graft on the wound bed, it should be noted that the graft was fenestrated with a fresh #15 blade. At this time, Adaptic was placed over the graft. The foot was then dressed with 4 x 4 gauze, Barb, and a light compressive dressing consisting of Coban. It should be noted that the attending , Dr. Steven, was present during the entire case. POSTOPERATIVE CONDITION: The patient tolerated the anesthesia and procedure well and was escorted to the recovery room with vital signs stable and neurovascular status intact to the left foot. The patient will be weightbearing as tolerated to the left heel with a surgical shoe. She was instructed to keep the dressing clean, dry and intact for a period of 1 week. The patient is stable at this time. Podiatry will continue to follow while she remains on the floor. The patient is to follow up with Dr. Steven in the office as the outpatient. EVELINE LAZO DPM Robbin Steven DPM cc: [id number] TT: 04/17/2017 21:05:36 aguila ANDREW
[2017-04-17] MEDS: (Lantus) Insulin Glargine, Recombinant SC SCH (21:33)
[2017-04-18 01:24] VITALS: RESP 20
[2017-04-18] MEDS: oxyCODONE 30 mg Immediate Release Tab PO PRN ×2 (04:06→13:20)
[2017-04-18] MEDS ORDERED: Alum-Mag Hydrox-Simethicone Susp (30 mL) PO PRN (07:49)
--- NOTE | 2017-04-18 07:50 | CP.PCM.PN ---
Subjective - Date & Time of Evaluation Date of Evaluation: 04/18/17 Time of Evaluation: 07:00 - Subjective Subjective: PGY2 Medicine Note - Dr. Rizo's service: Patient seen and examined at bedside this AM. Patient reports "lightning" in her left toes and indigestion. Patient denies fever, chills, chest pain, SOB. Objective - Vital Signs/Intake and Output Vital Signs (last 24 hours): Temp Pulse Resp BP Pulse Ox 98.2 F 107 H 20 124/75 100 04/18/17 00:00 04/18/17 00:00 04/18/17 00:00 04/18/17 00:00 04/18/17 00:00 Intake and Output: 04/18/17 04/18/17 06:59 18:59 Intake Total 490 Balance 490 - Medications Medications: Current Medications Albuterol/Ipratropium (Duoneb 3 Mg/0.5 Mg (3 Ml) Ud) 3 ml INH RQ2 PRN PRN Reason: SOB Gabapentin (Neurontin) 600 mg PO TID [facility] Last Admin: 04/17/17 22:21 Dose: 600 mg Heparin Sodium (Porcine) (Heparin) 5,000 units SC Q12 [facility] Last Admin: 04/17/17 21:32 Dose: Not Given Insulin Glargine (Lantus) 45 unit SC HS [facility] Last Admin: 04/17/17 21:33 Dose: Not Given Insulin Human Regular (Novolin R) 0 unit SC ACHS [facility] PRN Reason: Protocol Last Admin: 04/17/17 21:34 Dose: Not Given Lisinopril (Zestril) 20 mg PO DAILY [facility] Last Admin: 04/17/17 09:10 Dose: 20 mg Metformin HCl (Glucophage) 1,000 mg PO BID [facility] Last Admin: 04/17/17 18:00 Dose: Not Given Ondansetron HCl (Zofran Inj) 4 mg IVP Q6H PRN PRN Reason: Nausea/Vomiting Last Admin: 04/17/17 08:30 Dose: 4 mg Oxycodone HCl (Oxycodone Immediate Release Tab) 30 mg PO Q8H PRN PRN Reason: Pain, moderate (4-7) Last Admin: 04/18/17 04:06 Dose: 30 mg Oxycodone HCl (Oxycontin Extended Release Tab) 40 mg PO Q12 [facility] Last Admin: 04/17/17 22:22 Dose: 40 mg Pantoprazole Sodium (Protonix Ec Tab) 40 mg PO DAILY [facility] Last Admin: 04/17/17 09:10 Dose: 40 mg - Labs Labs: 04/17/17 08:02 04/17/17 08:02 - Constitutional Appears: Non-toxic, No Acute Distress - Head Exam Head Exam: NORMAL INSPECTION - Eye Exam Eye Exam: EOMI - ENT Exam ENT Exam: Mucous Membranes Moist - Respiratory Exam Respiratory Exam: Clear to Ausculation Bilateral, NORMAL BREATHING PATTERN. absent: Rales, Rhonchi, Wheezes - Cardiovascular Exam Cardiovascular Exam: REGULAR RHYTHM, +S1, +S2 - GI/Abdominal Exam GI & Abdominal Exam: Soft, Normal Bowel Sounds. absent: Tenderness - Extremities Exam Additional comments: left hallux bandaged with dressing and jose bandage - Neurological Exam Neurological Exam: Alert, Awake, Oriented x3 - Psychiatric Exam Psychiatric exam: Normal Affect, Normal Mood - Skin Skin Exam: Normal Color, Warm Assessment and Plan - Assessment and Plan (Free Text) Assessment: (1) Diabetic foot ulcer Assessment & Plan: s/p Left hallux debridement and graft with supervisor contact and service clerks, Dr. Steven (help appreciated) POD #1 Patient cleared by podiatry for discharge Oxycodone 30mg PO Q8H PRN for breakthrough pain Oxycodone ER 40mg Q12H scheduled Id consult - Dr. Noguera - help appreciated Will discuss if adding an antibiotic is needed Status: Acute (2) Diabetic neuropathy Assessment & Plan: Gabapentin 600mg PO TID Status: Chronic (3) Neutropenia Assessment & Plan: resolved. Status: Acute (4) Uncontrolled diabetes mellitus Assessment & Plan: Lantus 45 units HS accu checks sliding scale Metformin 100mg PO BID Lisinopril 20mg PO daily Status: Acute (5) Prophylactic measure Assessment & Plan: Protonix and Heparin 5000 units sc q12h. Zofran 40mg PO daily Maalox Plus 30ml PO Q12H Status: Acute Will discuss with Dr. Rizo
[2017-04-18] MEDS: (Novolin R) Insulin Human Regular 100 units/ml vial SC SCH ×4 (08:38→22:39)
[2017-04-18 09:28] LABS: BASO % 0.5 % (0.0-2.0); EOS # 0.1 K/uL (0.0-0.7); EOS % 1.8 % (0.0-4.0); HEMATOCRIT 30.8 % (34.0-47.0); LYMPH # 1.8 K/uL (1.0-4.3); LYMPH % 31.8 % (20.0-40.0); MEAN CORPUSCULAR HEMOGLOBIN 27.3 pg (27.0-31.0); MONO # 0.7 K/uL (0.0-0.8); MONO % 11.8 % (0.0-10.0); NRBC % 0.1 % (0.0-2.0); PLATELET COUNT 249 K/uL (130-400); RED CELL DISTRIBUTION WIDTH 12.7 % (11.5-14.5); WHITE BLOOD COUNT 5.5 K/uL (4.8-10.8)
[2017-04-18 09:35] LABS: CHLORIDE 97 mmol/L (98-107); SODIUM 135 mmol/L (132-148)
[2017-04-18 09:37] LABS: GFR AFRICAN-AMERICAN > 60
[2017-04-18 09:38] LABS: ALKALINE PHOSPHATASE 88 U/L (38-126); ALT/SGPT 21 U/L (9-52); AST/SGOT 21 U/L (14-36); BILIRUBIN,TOTAL 0.6 mg/dL (0.2-1.3); BLOOD UREA NITROGEN 12 mg/dL (7-17); CARBON DIOXIDE 28 mmol/L (22-30); GLUCOSE,RANDOM 256 mg/dL (65-105); TOTAL PROTEIN 6.7 g/dL (6.3-8.3)
[2017-04-18 09:39] LABS: CALCIUM 8.3 mg/dl (8.6-10.4)
[2017-04-18] MEDS: oxyCODONE 40 mg ER Tab (oxyCONTIN) PO SCH ×2 (10:15→21:15)
[2017-04-18] MEDS: Pantoprazole 40 mg EC Tab PO SCH (10:16)
[2017-04-18 12:26] LABS: EOSINOPHIL 1 % (0-4); METAMYELOCYTE 1 % (0-0); MYELOCYTE 1 % (0-0); NEUTROPHIL 33 % (50-75); REACTIVE LYMPHOCYTES 1 % (0-0); TOTAL CELLS COUNTED 100
--- NOTE | 2017-04-18 12:33 | CP.PCM.PN ---
Subjective - Date & Time of Evaluation Date of Evaluation: 04/18/17 Time of Evaluation: 12:10 - Subjective Subjective: Has some pain in foot Objective - Vital Signs/Intake and Output Vital Signs (last 24 hours): Temp Pulse Resp BP Pulse Ox 98.1 F 95 H 20 113/74 100 04/18/17 08:17 04/18/17 08:17 04/18/17 08:17 04/18/17 08:17 04/18/17 08:17 Intake and Output: 04/18/17 04/18/17 06:59 18:59 Intake Total 490 Balance 490 - Medications Medications: Current Medications Al Hydrox/Mg Hydrox/Simethicone (Maalox Plus 30 Ml) 30 ml PO Q12H PRN PRN Reason: Indigestion / Heartburn Albuterol/Ipratropium (Duoneb 3 Mg/0.5 Mg (3 Ml) Ud) 3 ml INH RQ2 PRN PRN Reason: SOB Clindamycin HCl (Cleocin) 300 mg PO Q8 [facility] Stop: 04/25/17 14:01 Gabapentin (Neurontin) 600 mg PO TID [facility] Last Admin: 04/18/17 10:17 Dose: 600 mg Heparin Sodium (Porcine) (Heparin) 5,000 units SC Q12 [facility] Last Admin: 04/18/17 10:16 Dose: Not Given Daptomycin 540 mg/ Sodium (Chloride) 100 mls @ 100 mls/hr IV Q24H [facility] Stop: 04/23/17 10:01 Last Admin: 04/18/17 10:26 Dose: 100 mls/hr Insulin Glargine (Lantus) 45 unit SC HS [facility] Last Admin: 04/17/17 21:33 Dose: Not Given Insulin Human Regular (Novolin R) 0 unit SC ACHS [facility] PRN Reason: Protocol Last Admin: 04/18/17 12:18 Dose: 3 unit Lisinopril (Zestril) 20 mg PO DAILY [facility] Last Admin: 04/18/17 10:16 Dose: 20 mg Metformin HCl (Glucophage) 1,000 mg PO BID [facility] Last Admin: 04/18/17 10:16 Dose: 1,000 mg Oxycodone HCl (Oxycodone Immediate Release Tab) 30 mg PO Q8H PRN PRN Reason: Pain, moderate (4-7) Last Admin: 04/18/17 04:06 Dose: 30 mg Oxycodone HCl (Oxycontin Extended Release Tab) 40 mg PO Q12 [facility] Last Admin: 04/18/17 10:15 Dose: 40 mg Pantoprazole Sodium (Protonix Ec Tab) 40 mg PO DAILY [facility] Last Admin: 04/18/17 10:16 Dose: 40 mg - Labs Labs: 04/18/17 09:24 04/18/17 09:24 - Head Exam Head Exam: ATRAUMATIC - Eye Exam Eye Exam: Normal appearance - ENT Exam ENT Exam: Mucous Membranes Dry - Respiratory Exam Respiratory Exam: NORMAL BREATHING PATTERN - Cardiovascular Exam Cardiovascular Exam: +S1, +S2 - GI/Abdominal Exam GI & Abdominal Exam: Normal Bowel Sounds Assessment and Plan (1) Anemia Assessment & Plan: chronic disease Status: Acute (2) Neutropenia Assessment & Plan: resolved s/p neupogen Status: Acute
[2017-04-18] MEDS: (Lantus) Insulin Glargine, Recombinant SC SCH (21:19)
[2017-04-19] MEDS: oxyCODONE 30 mg Immediate Release Tab PO PRN (05:45)
[2017-04-19 07:48] LABS: BASO % 0.4 % (0.0-2.0); EOS # 0.1 K/uL (0.0-0.7); EOS % 1.5 % (0.0-4.0); HEMATOCRIT 34.6 % (34.0-47.0); LYMPH # 2.5 K/uL (1.0-4.3); LYMPH % 36.5 % (20.0-40.0); MEAN CELL VOLUME 78.3 fL (81.0-99.0); MEAN CORPUSCULAR HEMOGLOBIN 27.1 pg (27.0-31.0); MEAN CORPUSCULAR HGB CONC 34.6 g/dL (33.0-37.0); MEAN PLATELET VOLUME 7.2 fL (7.2-11.7); MONO # 0.7 K/uL (0.0-0.8); MONO % 10.9 % (0.0-10.0); NRBC % 0.1 % (0.0-2.0); PLATELET COUNT 253 K/uL (130-400); RED CELL DISTRIBUTION WIDTH 12.5 % (11.5-14.5); WHITE BLOOD COUNT 6.8 K/uL (4.8-10.8)
[2017-04-19 08:11] LABS: CHLORIDE 98 mmol/L (98-107); POTASSIUM 4.4 mmol/L (3.6-5.2); SODIUM 138 mmol/L (132-148)
[2017-04-19 08:13] LABS: GFR AFRICAN-AMERICAN > 60
[2017-04-19 08:14] LABS: ALKALINE PHOSPHATASE 92 U/L (38-126); ALT/SGPT 19 U/L (9-52); AST/SGOT 26 U/L (14-36); BILIRUBIN,TOTAL 0.6 mg/dL (0.2-1.3); BLOOD UREA NITROGEN 10 mg/dL (7-17); CALCIUM 8.3 mg/dl (8.6-10.4); CARBON DIOXIDE 28 mmol/L (22-30); GLUCOSE,RANDOM 173 mg/dL (65-105); TOTAL PROTEIN 7.5 g/dL (6.3-8.3)
[2017-04-19] MEDS: (Novolin R) Insulin Human Regular 100 units/ml vial SC SCH ×2 (08:39→12:31)
[2017-04-19 08:54] VITALS: BP 125/85; PULSE 105; TEMP 97.9; O2SAT 98
[2017-04-19] MEDS: oxyCODONE 40 mg ER Tab (oxyCONTIN) PO SCH (10:18)
[2017-04-19] MEDS: Pantoprazole 40 mg EC Tab PO SCH (10:20)
--- NOTE | 2017-04-19 10:59 | CP.PCM.PN ---
Subjective - Date & Time of Evaluation Date of Evaluation: 04/19/17 Time of Evaluation: 09:10 - Subjective Subjective: PGY2 Medicine Note - Dr. Rzio's service: Patient seen and examined at bedside this AM. Patient says foot pain is better and she wants to go home. Patient says she will definitely follow up. Patient denies fever, chills, chest pain, SOB. Patient reports chronic epigastric pain. Objective - Vital Signs/Intake and Output Vital Signs (last 24 hours): Temp Pulse Resp BP Pulse Ox 97.9 F 105 H 20 125/85 98 04/19/17 08:00 04/19/17 08:00 04/19/17 08:00 04/19/17 08:00 04/19/17 08:00 - Medications Medications: Current Medications Al Hydrox/Mg Hydrox/Simethicone (Maalox Plus 30 Ml) 30 ml PO Q12H PRN PRN Reason: Indigestion / Heartburn Last Admin: 04/19/17 06:57 Dose: 30 ml Albuterol/Ipratropium (Duoneb 3 Mg/0.5 Mg (3 Ml) Ud) 3 ml INH RQ2 PRN PRN Reason: SOB Clindamycin HCl (Cleocin) 300 mg PO Q8 [facility] Stop: 04/25/17 14:01 Last Admin: 04/19/17 05:45 Dose: 300 mg Gabapentin (Neurontin) 600 mg PO TID [facility] Last Admin: 04/19/17 10:20 Dose: 600 mg Heparin Sodium (Porcine) (Heparin) 5,000 units SC Q12 [facility] Last Admin: 04/19/17 10:21 Dose: Not Given Daptomycin 540 mg/ Sodium (Chloride) 100 mls @ 100 mls/hr IV Q24H [facility] Stop: 04/23/17 10:01 Last Admin: 04/19/17 10:15 Dose: Not Given Insulin Glargine (Lantus) 45 unit SC HS [facility] Last Admin: 04/18/17 21:19 Dose: 45 unit Insulin Human Regular (Novolin R) 0 unit SC ACHS [facility] PRN Reason: Protocol Last Admin: 04/19/17 08:39 Dose: 1 unit Lisinopril (Zestril) 20 mg PO DAILY [facility] Last Admin: 04/19/17 10:21 Dose: 20 mg Metformin HCl (Glucophage) 1,000 mg PO BID [facility] Last Admin: 04/19/17 10:19 Dose: 1,000 mg Oxycodone HCl (Oxycodone Immediate Release Tab) 30 mg PO Q8H PRN PRN Reason: Pain, moderate (4-7) Last Admin: 04/19/17 05:45 Dose: 30 mg Oxycodone HCl (Oxycontin Extended Release Tab) 40 mg PO Q12 [facility] Last Admin: 04/19/17 10:18 Dose: 40 mg Pantoprazole Sodium (Protonix Ec Tab) 40 mg PO DAILY [facility] Last Admin: 04/19/17 10:20 Dose: 40 mg - Labs Labs: 04/19/17 07:30 04/19/17 07:30 - Constitutional Appears: Non-toxic, No Acute Distress - Head Exam Head Exam: NORMAL INSPECTION - Eye Exam Eye Exam: EOMI - ENT Exam ENT Exam: Mucous Membranes Moist - Respiratory Exam Respiratory Exam: Clear to Ausculation Bilateral, NORMAL BREATHING PATTERN. absent: Rales, Rhonchi, Wheezes - Cardiovascular Exam Cardiovascular Exam: REGULAR RHYTHM, +S1, +S2. absent: Gallop, Rubs, Murmur - GI/Abdominal Exam GI & Abdominal Exam: Soft, Normal Bowel Sounds. absent: Tenderness - Extremities Exam Additional comments: right toe in bandage - Neurological Exam Neurological Exam: Alert, Awake, Oriented x3 - Psychiatric Exam Psychiatric exam: Normal Affect, Normal Mood Assessment and Plan - Assessment and Plan (Free Text) Assessment: (1) Diabetic foot ulcer Assessment & Plan: s/p Left hallux debridement and graft with space systems operations manager, Dr. Steven (help appreciated) POD #1 Patient cleared by podiatry for discharge Oxycodone 30mg PO Q8H PRN for breakthrough pain Oxycodone ER 40mg Q12H scheduled Id consult - Dr. Noguera - help appreciated Patient is refusing any IV medication and refusing PICC line. Patient given script for clindamycin 300mg 1 tab PO TID for a total of 7 days ( started yesterday in hospital) #18 Patient should follow up with Dr. Steven in one week Patient given script for outpatient PT Status: Acute (2) Diabetic neuropathy Assessment & Plan: Gabapentin 600mg PO TID Status: Chronic (3) Neutropenia Assessment & Plan: resolved. Status: Acute (4) Uncontrolled diabetes mellitus Assessment & Plan: Lantus 45 units HS accu checks sliding scale Metformin 100mg PO BID Lisinopril 20mg PO daily Status: Acute (5) Prophylactic measure Assessment & Plan: Protonix and Heparin 5000 units sc q12h. Zofran 40mg PO daily Maalox Plus 30ml PO Q12H Status: Acute Management as per Dr. Rizo
--- NOTE | 2017-04-19 11:59 | CP.PCM.PN ---
Subjective - Date & Time of Evaluation Date of Evaluation: 04/19/17 Time of Evaluation: 11:56 - Subjective Subjective: 41 y/o female seen bedside 2 days s/p left hallux wound debridement and graft application. Pt appears in NAD and is AAOx3. Pt denies of any acute overnight events. Pt denies of any F/N/V/C/SOB. Pt states that her surgical shoe is small and would like a bigger size. Pt's dressing was clean, intact and dry. Objective - Vital Signs/Intake and Output Vital Signs (last 24 hours): Temp Pulse Resp BP Pulse Ox 97.9 F 105 H 20 125/85 98 04/19/17 08:00 04/19/17 08:00 04/19/17 08:00 04/19/17 08:00 04/19/17 08:00 - Medications Medications: Current Medications Al Hydrox/Mg Hydrox/Simethicone (Maalox Plus 30 Ml) 30 ml PO Q12H PRN PRN Reason: Indigestion / Heartburn Last Admin: 04/19/17 06:57 Dose: 30 ml Albuterol/Ipratropium (Duoneb 3 Mg/0.5 Mg (3 Ml) Ud) 3 ml INH RQ2 PRN PRN Reason: SOB Clindamycin HCl (Cleocin) 300 mg PO Q8 [facility] Stop: 04/25/17 14:01 Last Admin: 04/19/17 05:45 Dose: 300 mg Gabapentin (Neurontin) 600 mg PO TID [facility] Last Admin: 04/19/17 10:20 Dose: 600 mg Heparin Sodium (Porcine) (Heparin) 5,000 units SC Q12 [facility] Last Admin: 04/19/17 10:21 Dose: Not Given Daptomycin 540 mg/ Sodium (Chloride) 100 mls @ 100 mls/hr IV Q24H [facility] Stop: 04/23/17 10:01 Last Admin: 04/19/17 10:15 Dose: Not Given Insulin Glargine (Lantus) 45 unit SC HS [facility] Last Admin: 04/18/17 21:19 Dose: 45 unit Insulin Human Regular (Novolin R) 0 unit SC ACHS [facility] PRN Reason: Protocol Last Admin: 04/19/17 08:39 Dose: 1 unit Lisinopril (Zestril) 20 mg PO DAILY [facility] Last Admin: 04/19/17 10:21 Dose: 20 mg Metformin HCl (Glucophage) 1,000 mg PO BID [facility] Last Admin: 04/19/17 10:19 Dose: 1,000 mg Oxycodone HCl (Oxycodone Immediate Release Tab) 30 mg PO Q8H PRN PRN Reason: Pain, moderate (4-7) Last Admin: 04/19/17 05:45 Dose: 30 mg Oxycodone HCl (Oxycontin Extended Release Tab) 40 mg PO Q12 [facility] Last Admin: 04/19/17 10:18 Dose: 40 mg Pantoprazole Sodium (Protonix Ec Tab) 40 mg PO DAILY [facility] Last Admin: 04/19/17 10:20 Dose: 40 mg - Labs Labs: 04/19/17 07:30 04/19/17 07:30 - Constitutional Appears: Well, Non-toxic, No Acute Distress - Extremities Exam Additional comments: Left foot focused: Pt's dressing was intact, clean and dry. There was no strike through or malodor noted from the dressing. Pt is resting comfortably in her bed. - Neurological Exam Neurological Exam: Alert, Awake, Oriented x3 Assessment and Plan - Assessment and Plan (Free Text) Assessment: 41 y/o female seen bedside 2 days s/p left hallux wound debridement and graft application Plan: Pt evaluated and chart reviewed all the questions and concerns were addressed Pt discussed with attending Dr. Steven Labs and vitals reviewed Pt given a larger size of surgical shoe Patient will be discharged home with PO ABX Advised patient to keep the dressing until she sees Dr. Setven. Patient will f/u with Dr. Steven at his office upon discharge
[2017-04-19 12:16] LABS: BASOPHIL 2 % (0-2); EOSINOPHIL 2 % (0-4); METAMYELOCYTE 3 % (0-0); MYELOCYTE 3 % (0-0); NEUTROPHIL 28 % (50-75); REACTIVE LYMPHOCYTES 1 % (0-0); TOTAL CELLS COUNTED 100
--- NOTE | 2017-04-26 06:56 | DS ---
The patient had chief complaint of foot pain and ulcer, ____ to outpatient therapy, leukopenia. The patient ____ IV antibiotics, supportive care, wound care. Discharged. To be followed as an outpati ent with p.o. antibiotics. Shaye Garrido MD cc: [id number] TT: 04/25/2017 19:13:51 jn
== END 2017-04-19 13:30 | disposition home or self-care (01) | DRG 287 ==
LOC: C.ER 16:16 → C.9E 18:46 → C.3T 19:34
PROVIDERS: ADMIT Internal Medicine Pulmonary Disease; ATTEND Internal Medicine Pulmonary Disease
PROC: 0HRNXJZ Replacement of Left Foot Skin with Synthetic Substitute, External Approach (ICD-10-PCS; 2017-04-17)
PROC: 0HBNXZZ Excision of Left Foot Skin, External Approach (ICD-10-PCS; principal; 2017-04-17 15:30)
DX: E11.621 Type 2 diabetes mellitus with foot ulcer (principal); L97.521 Non-pressure chronic ulcer of other part of left foot limited to breakdown of skin; E11.40 Type 2 diabetes mellitus with diabetic neuropathy, unspecified; D70.9 Neutropenia, unspecified; E11.65 Type 2 diabetes mellitus with hyperglycemia; M32.9 Systemic lupus erythematosus, unspecified; E11.69 Type 2 diabetes mellitus with other specified complication; D64.9 Anemia, unspecified; E78.00 Pure hypercholesterolemia, unspecified; F31.9 Bipolar disorder, unspecified; J45.909 Unspecified asthma, uncomplicated; I10 Essential (primary) hypertension; Z79.4 Long term (current) use of insulin; G89.29 Other chronic pain; Z88.0 Allergy status to penicillin

== ENCOUNTER 2017-05-17 10:53 | Inpatient (IN) | payer OTHER ==
[2017-05-17 10:54] VITALS: BMI 29.5
[2017-05-17 12:44] LABS: BASO % 0.9 % (0.0-2.0); EOS # 0.1 K/uL (0.0-0.7); EOS % 2.9 % (0.0-4.0); HEMOGLOBIN 11.1 g/dL (11.0-16.0); LYMPH # 1.5 K/uL (1.0-4.3); LYMPH % 37.9 % (20.0-40.0); MEAN CELL VOLUME 79.2 fL (81.0-99.0); MEAN CORPUSCULAR HEMOGLOBIN 27.1 pg (27.0-31.0); MEAN CORPUSCULAR HGB CONC 34.2 g/dL (33.0-37.0); MEAN PLATELET VOLUME 7.9 fL (7.2-11.7); MONO # 0.2 K/uL (0.0-0.8); MONO % 5.7 % (0.0-10.0); NEUT # 2.1 K/uL (1.8-7.0); NEUT % 52.6 % (50.0-75.0); NRBC % 0.1 % (0.0-2.0); RBC 4.11 Mil/uL (3.80-5.20); RED CELL DISTRIBUTION WIDTH 15.1 % (11.5-14.5)
[2017-05-17 12:52] LABS: ALBUMIN 3.6 g/dL (3.5-5.0)
[2017-05-17 12:54] LABS: GFR AFRICAN-AMERICAN > 60; GFR NON-AFRICAN AMERICAN > 60
[2017-05-17 12:55] LABS: ALT/SGPT 32 U/L (9-52); AST/SGOT 29 U/L (14-36); BLOOD UREA NITROGEN 7 mg/dL (7-17)
[2017-05-17] MEDS ORDERED: (Novolin R) Insulin Human Regular 100 units/ml vial SC ONE (13:12)
[2017-05-17] MEDS ORDERED: (Novolin R) Insulin Human Regular 100 units/ml vial ONE (13:21)
--- NOTE | 2017-05-17 14:17 | RAD ---
PROCEDURE: Radiographs of the left great toe. TECHNIQUE:: AP radiograph of the left foot, with oblique and lateral view of the left great toe. COMPARISON: 03/01/2017 FINDINGS: BONES: No interval fracture seen. The 1st interphalangeal joint space narrowing with osseous hypertrophy here and plantar 1st proximal phalangeal spurring and hammertoe like orientations are renoted. No periosteal reaction to suggest any osteomyelitis is seen. There is overlying bandage in the great toe JOINTS: As above SOFT TISSUES: Soft tissues prominent around the great toe with overlying bandaging. OTHER FINDINGS: None. IMPRESSION: No periosteal reaction or cortical destruction seen to suggest gross osteomyelitis. . 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 Soft tissue prominence great toe with overlying bandaging. Correlate clinically with any known ulcers or infection here
[2017-05-17] MEDS ORDERED: Sodium Chloride 0.9% 1,000 ML IV ONE (14:44)
[2017-05-17] MEDS ORDERED: Sodium Chloride 0.9% 1,000 ML IV STA (14:44)
[2017-05-17] MEDS ORDERED: Sodium Chloride 0.9% 1,000 ML ONE (14:48)
--- NOTE | 2017-05-17 15:07 | C.PDOC ---
History Of Present Illness Patient is a 41 y/o female, whose PMHx includes diabetes, that is sent to the ED by Dr. Steven for evaluation of left great toe infection. Patient was seen by Dr. Steven yesterday, and was found to have pyogenic granuloma, and requested pt to come to ED for admission. Pt denies taking her insulin today. Otherwise, denies any fever, chills, or any other complaints at this time. Time Seen by Provider: 05/17/17 11:31 Chief Complaint (Nursing): Lower Extremity Problem/Injury History Per: Patient History/Exam Limitations: no limitations Onset/Duration Of Symptoms: Days Current Symptoms Are (Timing): Still Present Recent travel outside of the [place]: No Additional History Per: Patient Past Medical History Reviewed: Historical Data, Nursing Documentation, Vital Signs Vital Signs: Last Vital Signs Temp 98.8 F 05/17/17 15:40 Pulse 97 H 05/17/17 15:40 Resp 20 05/17/17 15:40 BP 128/82 05/17/17 15:40 Pulse Ox 100 05/17/17 16:40 - Medical History PMH: Anxiety, Asthma (LAST ATTACK 5 YEARS AGO), Back Problems, Bipolar Disorder , Depression, Diabetes, Gastritis, Gastrointestinal Ulcer, HTN, Hypercholesterolemia, Chronic Pain (Back) Denies: Chronic Kidney Disease Surgical History: Back Surgery, Endoscopy, Tonsillectomy - [facility] Procedures D & C NEC (12/21/14) DESTRUC UTER SUPPORT NEC (02/25/15) ESOPHAGOGASTRODUODENOSCOPY [EGD] W/CLOSED BIOPSY (06/24/13) EXCISION OF L FOOT SUBCU/FASCIA, OPEN APPROACH (03/01/17) EXCISION OF LEFT FOOT SKIN, EXTERNAL APPROACH (04/12/17) HYSTEROSCOPY (12/21/14) INJECT/INFUSE NEC (10/27/14) OTHER AND UNSPECIFIED TOTAL ABDOMINAL HYSTERECTOMY (02/25/15) OTHER SKIN & SUBQ I D (06/04/14) REPLACEMENT OF L FOOT SKIN WITH SYNTH SUB, KINDERGARTNER APPROACH (04/12/17) Family History: States: Unknown Family Hx - Social History Hx Tobacco Use: No Hx Alcohol Use: No Hx Substance Use: No - Immunization History Hx Tetanus Toxoid Vaccination: No Hx Influenza Vaccination: No Hx Pneumococcal Vaccination: No Review Of Systems Except As Marked, All Systems Reviewed And Found Negative. Constitutional: Negative for: Fever, Chills Cardiovascular: Negative for: Chest Pain, Palpitations Respiratory: Negative for: Shortness of Breath Musculoskeletal: Positive for: Foot Pain (left great toe infection) Neurological: Negative for: Weakness, Numbness Physical Exam - Physical Exam Appears: Non-toxic, No Acute Distress Skin: Normal Color, Warm, Dry Head: Atraumatic, Normacephalic Eye(s): bilateral: Normal Inspection, EOMI Neck: Normal ROM, Supple Chest: Symmetrical, No Tenderness Cardiovascular: Rhythm Regular, No Murmur Respiratory: Normal Breath Sounds, No Accessory Muscle Use, No Rales, No Rhonchi , No Wheezing Extremity: Normal ROM, No Tenderness, Capillary Refill (<2 sec.), No Deformity, Other (Left great toe: granulation tissue in bottom of distal phalanx, no active bleeding) Pulses: Left Dorsalis Pedis: Normal, Right Dorsalis Pedis: Normal Neurological/Psych: Oriented x3, Normal Speech, Normal Cognition, Normal Motor, Normal Sensation ED Course And Treatment - Laboratory Results Result Diagrams: 05/17/17 12:39 05/17/17 12:39 O2 Sat by Pulse Oximetry: 100 (on RA) Pulse Ox Interpretation: Normal - Other Rad Left great toe x-ray X-Ray: Viewed By Me, Read By Radiologist Interpretation: FINDINGS: BONES: No interval fracture seen. The 1st interphalangeal joint space narrowing with osseous hypertrophy here and plantar 1st proximal phalangeal spurring and hammertoe like orientations are renoted. No periosteal reaction to suggest any osteomyelitis is seen. There is overlying bandage in the great toe. JOINTS: As above. SOFT TISSUES: Soft tissues prominent around the great toe with overlying bandaging. OTHER FINDINGS : None. IMPRESSION: No periosteal reaction or cortical destruction seen to suggest gross osteomyelitis. . 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 Soft tissue prominence great toe with overlying bandaging. Correlate clinically with any known ulcers or infection here Progress Note: Labs, left great toe x-ray ordered and reviewed. Pt was given Insulin and IV fluids. On reassessment, patient is resting comfortably, no acute distress. Patient will be admitted to hospital for further evaluation and surgical treatment. Patient requested to be admitted to the hospitalist service. was contacted and accepted patient to his service for admission. Disposition - Disposition Disposition: HOSPITALIZED Disposition Time: 15:06 Condition: STABLE - Clinical Impression Clinical Impression: Diabetic foot infection, Uncontrolled diabetes mellitus - PA / EXECUTIVE ADVISOR / Resident Statement MD/DO has reviewed & agrees with the documentation as recorded. - Scribe Statement The provider has reviewed the documentation as recorded by the Cheriibe Meghan Parmar All medical record entries made by the Cheriibe were at my direction and personally dictated by me. I have reviewed the chart and agree that the record accurately reflects my personal performance of the history, physical exam, medical decision making, and the department course for this patient. I have also personally directed, reviewed, and agree with the discharge instructions and disposition. Decision To Admit - Pt Status Changed To: Hospital Disposition Of: Inpatient - Admit Certification Admit to Inpatient:: After my assessment, the patient will require hospitalization for at least two midnights. This is because of the severity of symptoms shown, intensity of services needed, and/or the medical risk in this patient being treated as an outpatient. - InPatient: Physician Admission Certification: I certify that this patient requires 2 or more midnights of care for the following reason:: Patient will need surgical treatment. - . Bed Request Type: Regular Admitting Physician: Neri Patton Patient Diagnosis: Diabetic foot infection, Uncontrolled diabetes mellitus
[2017-05-17 15:41] VITALS: RESP 20
[2017-05-17] MEDS ORDERED: Clindamycin 300 MG in Sodium Chloride 0.9% 50 ML IVPB SCH (15:45)
--- NOTE | 2017-05-17 15:45 | CP.PCM.HP ---
<No Olivia - Last Filed: 05/17/17 15:42> History of Present Illness - History of Present Illness History of Present Illness: cc: "Dr. Steven sent me in" HPI: Patient is a 41 year old female with PMHx of uncontrolled DM, hypertension , rheumatoid arthritis, lupus, asthma, diabetic neuropathy, herniated discs and foot drop presenting to the hospital after being sent in by her mineral engineer, Dr. Steven. Patient was discharged from hospital with PO Clindamycin for 7 days one month ago s/p debridement for left hallux ulcer. Patient says she took the full course of antibiotics. She followed up with Dr. Steven who made her a diabetic foot cast. She wore this for a few weeks. Yesterday, she went to his office. He took the cast off. He debrided the ulcer in his office and cauterized it. She says he told her "it does not look good." He told her to come into ER today to get surgery tomorrow. Patient says her pain in her foot and back are controlled on her home oxycodone regimen. Patient deniesfever, chills, chest pain, SOB, nausea, vomiting, abdominal pain, diarrhea, constipation, dysuria. She reports some anxiety about the surgery. PMD: Fabrizio PMHx: As stated above PSHx: 2x back surgeries, MENDOZA 2 years ago Allergies: Latex, flagyl, cipro, shellfish Fam hx: mother- heart disease, brother- pancreatic cancer diagnosed at age 38 Social hx: smoked for about 2 months at age 15 then quit, drank a gallon of baccardi daily for 7 months at age 15 then stopped. Denies drug hx. Lives at home with son. Present on Admission - Present on Admission Any Indicators Present on Admission: Yes History of Uncontrolled Diabetes: Yes Review of Systems - Constitutional Constitutional: absent: Chills, Fever - EENT Eyes: absent: Change in Vision Ears: absent: Dizziness Nose/Mouth/Throat: absent: Sore Throat - Cardiovascular Cardiovascular: absent: Chest Pain, Dyspnea, Palpitations - Respiratory Respiratory: absent: Cough, Dyspnea - Gastrointestinal Gastrointestinal: absent: Abdominal Pain, Constipation, Diarrhea, Nausea, Vomiting - Genitourinary Genitourinary: absent: Dysuria - Musculoskeletal Musculoskeletal: Back Pain - Integumentary Integumentary: Lesions, Skin Ulcer, Unusual Bruising (in between left toes) - Neurological Neurological: absent: Dizziness, Headaches - Psychiatric Psychiatric: Anxiety - Endocrine Endocrine: absent: Fatigue, Palpitations - Hematologic/Lymphatic Hematologic: absent: Easy Bleeding, Easy Bruising Past Patient History - Past Medical History & Family History Past Medical History?: Yes Pertinent Family History: mother- heart disease, brother- pancreatic cancer diagnosed at age 38 - Past Social History Smoking Status: Former Smoker Alcohol: None Drugs: Denies Home Situation {Lives}: With Family - CARDIAC Hx Hypercholesterolemia: Yes Hx Hypertension: Yes - PULMONARY Hx Asthma: Yes (LAST ATTACK 5 YEARS AGO) - NEUROLOGICAL Hx Neurological Disorder: No - HEENT Hx HEENT Problems: No - RENAL Hx Chronic Kidney Disease: No - ENDOCRINE/METABOLIC Hx Diabetes Mellitus Type 2: Yes - HEMATOLOGICAL/ONCOLOGICAL Hx Blood Disorders: No - INTEGUMENTARY Hx Dermatological Problems: No Hx Psoriasis: Yes (left hand) - MUSCULOSKELETAL/RHEUMATOLOGICAL Hx Falls: No - GASTROINTESTINAL Hx Gastritis: Yes - GENITOURINARY/GYNECOLOGICAL Hx Genitourinary Disorders: No - PSYCHIATRIC Hx Anxiety: Yes Hx Bipolar Disorder: Yes Hx Depression: Yes Hx Substance Use: No - SURGICAL HISTORY Hx Tonsillectomy: Yes - ANESTHESIA Hx Anesthesia: Yes Hx Anesthesia Reactions: No Hx Malignant Hyperthermia: No Meds Allergies/Adverse Reactions: Allergies Allergy/AdvReac Type Severity Reaction Status Date / Time latex Allergy RASH Verified 05/17/17 11:31 metronidazole [From Flagyl] Allergy REDNESS Verified 05/17/17 11:31 shellfish derived Allergy SHORTNESS Verified 05/17/17 11:31 OF BREATH ciprofloxacin [From Cipro] AdvReac SHORTNESS Verified 05/17/17 11:31 OF BREATH ciprofloxacin HCl AdvReac SHORTNESS Verified 05/17/17 11:31 [From Cipro] OF BREATH Penicillins AdvReac SHORTNESS Verified 05/17/17 11:31 OF BREATH Physical Exam - Constitutional Appears: Non-toxic, No Acute Distress - Head Exam Head Exam: NORMAL INSPECTION - Eye Exam Eye Exam: EOMI - ENT Exam ENT Exam: Mucous Membranes Moist - Respiratory Exam Respiratory Exam: Clear to Auscultation Bilateral, NORMAL BREATHING PATTERN. absent: Rales, Rhonchi, Wheezes - Cardiovascular Exam Cardiovascular Exam: REGULAR RHYTHM, +S1, +S2. absent: Gallop, Rubs, Systolic Murmur - GI/Abdominal Exam GI & Abdominal Exam: Normal Bowel Sounds, Soft. absent: Distended, Firm, Tenderness - Extremities Exam Additional comments: left hallux wrapped in clean, dry, intact dressing. left toes swollen with bruising in between them. - Neurological Exam Neurological exam: Alert, Oriented x3 - Psychiatric Exam Psychiatric exam: Normal Affect, Normal Mood - Skin Skin Exam: Normal Color, Warm Results - Vital Signs Recent Vital Signs: Last Vital Signs Temp 98.8 F 05/17/17 15:40 Pulse 97 H 05/17/17 15:40 Resp 20 05/17/17 15:40 BP 128/82 05/17/17 15:40 Pulse Ox 100 05/17/17 15:40 - Labs Result Diagrams: 05/17/17 12:39 05/17/17 12:39 Assessment & Plan - Assessment and Plan (Free Text) Assessment: Diabetic Foot Ulcer Foot X ray 05/17/17 - no periosteal reaction or cortical destruction seen to suggest gross osteomyelitis. osteoarthritis of 1st interphalangeal joint and hammer toe orientations (please see full report) Clindamycin 600mg IVPB TID Florastor 250mg PO BID Podiatry consult - Dr. Steven - help appreciated Diabetes Continue home Lantus 45U SC HS Holding home metformin RISS Accuchecks HTN Continue home meds: Lisinopril 20mg PO daily Atenolol 25mg PO daily Chronic Pain Continue home oxycontin ER 40mg PO Q12 and oxycodone IR 30mg PO Q8 F/U UDS Prophylaxis Hep 5000U SC Q8 Protonix 40mg PO daily SCDs contraindicated secondary to foot ulcer <Neri Patton - Last Filed: 05/18/17 09:17> Results - Vital Signs Recent Vital Signs: Last Vital Signs Temp 97.8 F 05/18/17 08:00 Pulse 81 05/18/17 08:00 Resp 20 05/18/17 08:00 BP 92/60 L 05/18/17 08:00 Pulse Ox 99 05/18/17 08:00 - Labs Result Diagrams: 05/18/17 06:00 05/18/17 06:00 Labs: Laboratory Results - last 24 hr 05/17/17 05/17/17 05/17/17 15:56 16:26 21:42 WBC RBC Hgb Hct MCV MCH MCHC RDW Plt Count MPV Neut % (Auto) Lymph % (Auto) [place] % (Auto) Eos % (Auto) Baso % (Auto) Neut # Lymph # [place] # Eos # Baso # APTT Sodium Potassium Chloride Carbon Dioxide Anion Gap BUN Creatinine Est GFR ( Amer) Est GFR (Non-Af Amer) POC Glucose (mg/dL) 346 H 322 H Random Glucose Calcium Total Bilirubin AST ALT Alkaline Phosphatase Total Protein Albumin Globulin Albumin/Globulin Ratio Urine Opiates Screen Positive Urine Methadone Screen Negative Ur Barbiturates Screen Negative Ur Phencyclidine Scrn Negative Ur Amphetamines Screen Negative U Benzodiazepines Scrn Negative U Oth Cocaine Metabols Negative U Cannabinoids Screen Negative 05/18/17 05/18/17 05/18/17 06:00 06:00 06:00 WBC 4.3 L RBC 3.72 L Hgb 10.2 L Hct 29.5 L MCV 79.3 L MCH 27.4 MCHC 34.6 RDW 15.4 H Plt Count 225 MPV 7.9 Neut % (Auto) 48.0 L Lymph % (Auto) 42.3 H [place] % (Auto) 5.8 Eos % (Auto) 3.1 Baso % (Auto) 0.8 Neut # 2.1 Lymph # 1.8 [place] # 0.2 Eos # 0.1 Baso # 0.0 APTT 31 Sodium 136 Potassium 3.9 Chloride 103 Carbon Dioxide 24 Anion Gap 13 BUN 6 L Creatinine 1.0 Est GFR ( Amer) > 60 Est GFR (Non-Af Amer) > 60 POC Glucose (mg/dL) Random Glucose 378 H Calcium 8.6 Total Bilirubin 0.7 AST 23 ALT 28 Alkaline Phosphatase 99 Total Protein 6.3 Albumin 3.1 L Globulin 3.2 Albumin/Globulin Ratio 1.0 Urine Opiates Screen Urine Methadone Screen Ur Barbiturates Screen Ur Phencyclidine Scrn Ur Amphetamines Screen U Benzodiazepines Scrn U Oth Cocaine Metabols U Cannabinoids Screen 05/18/17 07:09 WBC RBC Hgb Hct MCV MCH MCHC RDW Plt Count MPV Neut % (Auto) Lymph % (Auto) [place] % (Auto) Eos % (Auto) Baso % (Auto) Neut # Lymph # [place] # Eos # Baso # APTT Sodium Potassium Chloride Carbon Dioxide Anion Gap BUN Creatinine Est GFR ( Amer) Est GFR (Non-Af Amer) POC Glucose (mg/dL) 446 H* Random Glucose Calcium Total Bilirubin AST ALT Alkaline Phosphatase Total Protein Albumin Globulin Albumin/Globulin Ratio Urine Opiates Screen Urine Methadone Screen Ur Barbiturates Screen Ur Phencyclidine Scrn Ur Amphetamines Screen U Benzodiazepines Scrn U Oth Cocaine Metabols U Cannabinoids Screen Attending/Attestation - Attestation I have personally seen and examined this patient.: Yes I have fully participated in the care of the patient.: Yes I have reviewed all pertinent clinical information: Yes Notes (Text): 05/18/17 09:16 Patient was seen and examined at bedside Patient sent in by podiatry for admission because of for injury to the foot We will continue local wound care We will also start the patient on IV antibiotics We'll request podiatry consultation and follow-up recommendations I discussed the plan of care with the resident and agree with the assessment and plan by the resident
[2017-05-17 16:12] LABS: OPIATES, UR POSITIVE (NEGATIVE); PHENCYCLIDINE, UR NEGATIVE (NEGATIVE)
[2017-05-17 16:15] LABS: BENZODIAZEPINES, UR NEGATIVE (NEGATIVE)
[2017-05-17 16:16] LABS: BARBITURATES, UR NEGATIVE (NEGATIVE)
[2017-05-17] MEDS: Pantoprazole 40 mg EC Tab PO SCH (16:26)
[2017-05-17] MEDS: Clindamycin 300 MG in Sodium Chloride 0.9% 50 ML IVPB SCH ×2 (17:35→23:52)
[2017-05-17] MEDS: Saccharomyces Boulardi 250 mg Cap PO SCH (17:36)
[2017-05-17] MEDS: (Novolin R) Insulin Human Regular 100 units/ml vial SC SCH ×2 (17:37→22:17)
[2017-05-17] MEDS: oxyCODONE 30 mg Immediate Release Tab PO PRN (17:47)
[2017-05-17] MEDS: oxyCODONE 40 mg ER Tab (oxyCONTIN) PO SCH (21:45)
[2017-05-17] MEDS ORDERED: (Lantus) Insulin Glargine, Recombinant SC SCH (22:00)
[2017-05-18] MEDS: Clindamycin 300 MG in Sodium Chloride 0.9% 50 ML IVPB SCH (05:17)
[2017-05-18] MEDS: oxyCODONE 30 mg Immediate Release Tab PO PRN ×2 (05:18→14:40)
[2017-05-18 06:59] LABS: BASO % 0.8 % (0.0-2.0); EOS # 0.1 K/uL (0.0-0.7); EOS % 3.1 % (0.0-4.0); HEMOGLOBIN 10.2 g/dL (11.0-16.0); LYMPH # 1.8 K/uL (1.0-4.3); LYMPH % 42.3 % (20.0-40.0); MEAN CELL VOLUME 79.3 fL (81.0-99.0); MEAN CORPUSCULAR HEMOGLOBIN 27.4 pg (27.0-31.0); MEAN CORPUSCULAR HGB CONC 34.6 g/dL (33.0-37.0); MEAN PLATELET VOLUME 7.9 fL (7.2-11.7); MONO # 0.2 K/uL (0.0-0.8); MONO % 5.8 % (0.0-10.0); NEUT # 2.1 K/uL (1.8-7.0); NRBC % 0.1 % (0.0-2.0); RBC 3.72 Mil/uL (3.80-5.20); RED CELL DISTRIBUTION WIDTH 15.4 % (11.5-14.5); WHITE BLOOD COUNT 4.3 K/uL (4.8-10.8)
[2017-05-18 07:13] LABS: ALBUMIN 3.1 g/dL (3.5-5.0)
[2017-05-18 07:16] LABS: ALT/SGPT 28 U/L (9-52); AST/SGOT 23 U/L (14-36); BLOOD UREA NITROGEN 6 mg/dL (7-17); GFR AFRICAN-AMERICAN > 60; GFR NON-AFRICAN AMERICAN > 60
[2017-05-18 07:17] LABS: CALCIUM 8.6 mg/dl (8.6-10.4)
[2017-05-18] MEDS ORDERED: (Novolin R) Insulin Human Regular 100 units/ml vial SC STA (08:10)
[2017-05-18] MEDS: (Novolin R) Insulin Human Regular 100 units/ml vial SC SCH (08:35)
--- NOTE | 2017-05-18 09:07 | CP.PCM.CON ---
History of Present Illness - History of Present Illness History of Present Illness: 41 year old female presented to [facility] wound center stating She fell over sons property in room breaking cast and hurting foot trying to open window .Pt did text me on May 14 about 11 pm and I insytructed her to go to ED if she was injured .She presented on sunday with a large hematoma on left great toe and was sent for admission . Review of Systems - Constitutional Constitutional: As Per HPI - EENT Eyes: As Per HPI Nose/Mouth/Throat: As Per HPI - Cardiovascular Cardiovascular: As Per HPI - Respiratory Respiratory: As Per HPI - Gastrointestinal Gastrointestinal: As Per HPI - Genitourinary Genitourinary: As Per HPI - Musculoskeletal Musculoskeletal: As Per HPI - Integumentary Integumentary: Skin Ulcer - Neurological Neurological: As Per HPI Past Patient History - Past Medical History & Family History Past Medical History?: Yes - Past Social History Smoking Status: Never Smoked - CARDIAC Hx Hypercholesterolemia: Yes Hx Hypertension: Yes - PULMONARY Hx Asthma: Yes (LAST ATTACK 5 YEARS AGO) - NEUROLOGICAL Hx Neurological Disorder: No - HEENT Hx HEENT Problems: No - RENAL Hx Chronic Kidney Disease: No - ENDOCRINE/METABOLIC Hx Diabetes Mellitus Type 2: Yes - HEMATOLOGICAL/ONCOLOGICAL Hx Blood Disorders: No - INTEGUMENTARY Hx Dermatological Problems: No Hx Psoriasis: Yes (left hand) - MUSCULOSKELETAL/RHEUMATOLOGICAL Hx Falls: Yes - GASTROINTESTINAL Hx Gastritis: Yes - GENITOURINARY/GYNECOLOGICAL Hx Genitourinary Disorders: No - PSYCHIATRIC Hx Anxiety: Yes Hx Bipolar Disorder: Yes Hx Depression: Yes Hx Substance Use: No - SURGICAL HISTORY Hx Tonsillectomy: Yes - ANESTHESIA Hx Anesthesia: Yes Hx Anesthesia Reactions: No Hx Malignant Hyperthermia: No Meds Allergies/Adverse Reactions: Allergies Allergy/AdvReac Type Severity Reaction Status Date / Time latex Allergy RASH Verified 05/17/17 11:31 metronidazole [From Flagyl] Allergy REDNESS Verified 05/17/17 11:31 shellfish derived Allergy SHORTNESS Verified 05/17/17 11:31 OF BREATH ciprofloxacin [From Cipro] AdvReac SHORTNESS Verified 05/17/17 11:31 OF BREATH ciprofloxacin HCl AdvReac SHORTNESS Verified 05/17/17 11:31 [From Cipro] OF BREATH Penicillins AdvReac SHORTNESS Verified 05/17/17 11:31 OF BREATH - Medications Medications: Current Medications Atenolol (Tenormin) 25 mg PO DAILY [facility] Gabapentin (Neurontin) 600 mg PO TID [facility] Last Admin: 05/17/17 17:36 Dose: 600 mg Heparin Sodium (Porcine) (Heparin) 5,000 units SC Q8 [facility] Last Admin: 05/18/17 05:27 Dose: Not Given Clindamycin Phosphate 600 mg/ (Sodium Chloride) 54 mls @ 100 mls/hr IVPB Q6 [facility] Insulin Aspart (Novolog) 0 unit SC ACHS [facility] PRN Reason: Protocol Insulin Glargine (Lantus) 45 unit SC HS [facility] Last Admin: 05/17/17 21:45 Dose: 45 units Lisinopril (Zestril) 20 mg PO DAILY [facility] Last Admin: 05/17/17 16:26 Dose: 20 mg Oxycodone HCl (Oxycodone Immediate Release Tab) 30 mg PO Q8H PRN PRN Reason: Pain, severe (8-10) Last Admin: 05/18/17 05:18 Dose: 30 mg Oxycodone HCl (Oxycontin Extended Release Tab) 40 mg PO Q12 [facility] Last Admin: 05/17/17 21:45 Dose: 40 mg Pantoprazole Sodium (Protonix Ec Tab) 40 mg PO DAILY [facility] Last Admin: 05/17/17 16:26 Dose: 40 mg Saccharomyces Boulardii (Florastor) 250 mg PO BID [facility] Last Admin: 05/17/17 17:36 Dose: 250 mg Physical Exam - Extremities Exam Additional comments: O/ Ulcer left hallux is improved with antibiotics and wound center application of Agni . Vascular status intact b/l . Dp/Pt intact b/l . Neuro DM neuropathy/Radiculopathy Hx of OM left hallux . Results - Vital Signs Recent Vital Signs: Last Vital Signs Temp 98.1 F 05/18/17 00:00 Pulse 86 05/18/17 00:00 Resp 20 05/18/17 00:00 BP 113/72 05/18/17 00:00 Pulse Ox 100 05/18/17 00:00 - Labs Result Diagrams: 05/18/17 06:00 05/18/17 06:00 Labs: Laboratory Results - last 24 hr 05/17/17 05/17/17 05/17/17 15:56 16:26 21:42 WBC RBC Hgb Hct MCV MCH MCHC RDW Plt Count MPV Neut % (Auto) Lymph % (Auto) [place] % (Auto) Eos % (Auto) Baso % (Auto) Neut # Lymph # [place] # Eos # Baso # APTT Sodium Potassium Chloride Carbon Dioxide Anion Gap BUN Creatinine Est GFR ( Amer) Est GFR (Non-Af Amer) POC Glucose (mg/dL) 346 H 322 H Random Glucose Calcium Total Bilirubin AST ALT Alkaline Phosphatase Total Protein Albumin Globulin Albumin/Globulin Ratio Urine Opiates Screen Positive Urine Methadone Screen Negative Ur Barbiturates Screen Negative Ur Phencyclidine Scrn Negative Ur Amphetamines Screen Negative U Benzodiazepines Scrn Negative U Oth Cocaine Metabols Negative U Cannabinoids Screen Negative 05/18/17 05/18/17 05/18/17 06:00 06:00 06:00 WBC 4.3 L RBC 3.72 L Hgb 10.2 L Hct 29.5 L MCV 79.3 L MCH 27.4 MCHC 34.6 RDW 15.4 H Plt Count 225 MPV 7.9 Neut % (Auto) 48.0 L Lymph % (Auto) 42.3 H [place] % (Auto) 5.8 Eos % (Auto) 3.1 Baso % (Auto) 0.8 Neut # 2.1 Lymph # 1.8 [place] # 0.2 Eos # 0.1 Baso # 0.0 APTT 31 Sodium 136 Potassium 3.9 Chloride 103 Carbon Dioxide 24 Anion Gap 13 BUN 6 L Creatinine 1.0 Est GFR ( Amer) > 60 Est GFR (Non-Af Amer) > 60 POC Glucose (mg/dL) Random Glucose 378 H Calcium 8.6 Total Bilirubin 0.7 AST 23 ALT 28 Alkaline Phosphatase 99 Total Protein 6.3 Albumin 3.1 L Globulin 3.2 Albumin/Globulin Ratio 1.0 Urine Opiates Screen Urine Methadone Screen Ur Barbiturates Screen Ur Phencyclidine Scrn Ur Amphetamines Screen U Benzodiazepines Scrn U Oth Cocaine Metabols U Cannabinoids Screen 05/18/17 07:09 WBC RBC Hgb Hct MCV MCH MCHC RDW Plt Count MPV Neut % (Auto) Lymph % (Auto) [place] % (Auto) Eos % (Auto) Baso % (Auto) Neut # Lymph # [place] # Eos # Baso # APTT Sodium Potassium Chloride Carbon Dioxide Anion Gap BUN Creatinine Est GFR ( Amer) Est GFR (Non-Af Amer) POC Glucose (mg/dL) 446 H* Random Glucose Calcium Total Bilirubin AST ALT Alkaline Phosphatase Total Protein Albumin Globulin Albumin/Globulin Ratio Urine Opiates Screen Urine Methadone Screen Ur Barbiturates Screen Ur Phencyclidine Scrn Ur Amphetamines Screen U Benzodiazepines Scrn U Oth Cocaine Metabols U Cannabinoids Screen Assessment & Plan - Assessment and Plan (Free Text) Assessment: A/DM ulcer left hallux with resolving hematoma /HX of OM left hallux./ Uncontrolled DM Plan: P/Apply Xeroform dressing left . IV antibiotics as ordered . Instructed Patient She must change diet and control DM or she faces amputation of toe . She was eating potatoe chips this am and routinely drinks sugar beverages when visiting wound center.
[2017-05-18] MEDS: Pantoprazole 40 mg EC Tab PO SCH (09:17)
[2017-05-18] MEDS: Saccharomyces Boulardi 250 mg Cap PO SCH ×2 (09:17→17:31)
[2017-05-18] MEDS: oxyCODONE 40 mg ER Tab (oxyCONTIN) PO SCH (09:17)
[2017-05-18] MEDS: (Novolog) Insulin Aspart, Recombinant 100 u/ml 10 ml vial SC SCH ×2 (12:30→17:10)
[2017-05-18 16:51] VITALS: BP 118/79; PULSE 77; TEMP 98; O2SAT 100
--- NOTE | 2017-05-18 17:05 | CP.PCM.DIS ---
<Sophie You E - Last Filed: 05/19/17 00:56> Provider - Provider Date of Admission: 05/17/17 15:05 Attending physician: Neri Patton MD Time Spent in preparation of Discharge (in minutes): 45 Hospital Course - Lab Results Lab Results: Most Recent Lab Values WBC 4.3 K/uL (4.8-10.8) L 05/18/17 06:00 RBC 3.72 Mil/uL (3.80-5.20) L 05/18/17 06:00 Hgb 10.2 g/dL (11.0-16.0) L 05/18/17 06:00 Hct 29.5 % (34.0-47.0) L 05/18/17 06:00 MCV 79.3 fL (81.0-99.0) L 05/18/17 06:00 MCH 27.4 pg (27.0-31.0) 05/18/17 06:00 MCHC 34.6 g/dL (33.0-37.0) 05/18/17 06:00 RDW 15.4 % (11.5-14.5) H 05/18/17 06:00 Plt Count 225 K/uL (130-400) 05/18/17 06:00 MPV 7.9 fL (7.2-11.7) 05/18/17 06:00 Neut % (Auto) 48.0 % (50.0-75.0) L 05/18/17 06:00 Lymph % (Auto) 42.3 % (20.0-40.0) H 05/18/17 06:00 [place] % (Auto) 5.8 % (0.0-10.0) 05/18/17 06:00 Eos % (Auto) 3.1 % (0.0-4.0) 05/18/17 06:00 Baso % (Auto) 0.8 % (0.0-2.0) 05/18/17 06:00 Neut # 2.1 K/uL (1.8-7.0) 05/18/17 06:00 Lymph # 1.8 K/uL (1.0-4.3) 05/18/17 06:00 [place] # 0.2 K/uL (0.0-0.8) 05/18/17 06:00 Eos # 0.1 K/uL (0.0-0.7) 05/18/17 06:00 Baso # 0.0 K/uL (0.0-0.2) 05/18/17 06:00 APTT 31 SECONDS (21-34) 05/18/17 06:00 Sodium 136 mmol/L (132-148) 05/18/17 06:00 Potassium 3.9 mmol/L (3.6-5.2) 05/18/17 06:00 Chloride 103 mmol/L (98-107) 05/18/17 06:00 Carbon Dioxide 24 mmol/L (22-30) 05/18/17 06:00 Anion Gap 13 (10-20) 05/18/17 06:00 BUN 6 mg/dL (7-17) L 05/18/17 06:00 Creatinine 1.0 MG/DL (0.7-1.2) 05/18/17 06:00 Est GFR ( Amer) > 60 05/18/17 06:00 Est GFR (Non-Af Amer) > 60 05/18/17 06:00 POC Glucose (mg/dL) 250 mg/dL (65-110) H 05/18/17 16:28 Random Glucose 378 mg/dL (65-105) H 05/18/17 06:00 Hemoglobin A1c 10.2 % (4.2-6.5) H 05/18/17 09:06 Calcium 8.6 mg/dl (8.6-10.4) 05/18/17 06:00 Total Bilirubin 0.7 mg/dL (0.2-1.3) 05/18/17 06:00 AST 23 U/L (14-36) 05/18/17 06:00 ALT 28 U/L (9-52) 05/18/17 06:00 Alkaline Phosphatase 99 U/L (38-126) 05/18/17 06:00 Total Protein 6.3 g/dL (6.3-8.3) 05/18/17 06:00 Albumin 3.1 g/dL (3.5-5.0) L 05/18/17 06:00 Globulin 3.2 gm/dL (2.2-3.9) 05/18/17 06:00 Albumin/Globulin Ratio 1.0 (1.0-2.1) 05/18/17 06:00 Urine Opiates Screen Positive (NEGATIVE) 05/17/17 15:56 Urine Methadone Screen Negative (NEGATIVE) 05/17/17 15:56 Ur Barbiturates Screen Negative (NEGATIVE) 05/17/17 15:56 Ur Phencyclidine Scrn Negative (NEGATIVE) 05/17/17 15:56 Ur Amphetamines Screen Negative (NEGATIVE) 05/17/17 15:56 U Benzodiazepines Scrn Negative (NEGATIVE) 05/17/17 15:56 U Oth Cocaine Metabols Negative (NEGATIVE) 05/17/17 15:56 U Cannabinoids Screen Negative (NEGATIVE) 05/17/17 15:56 - Hospital Course Hospital Course: As per admission: HPI : Patient is a 41 year old female with PMHx of uncontrolled DM, hypertension, rheumatoid arthritis, lupus, asthma, diabetic neuropathy, herniated discs and foot drop presenting to the hospital after being sent in by her stemhole borer and topper, Dr. Stevne. Patient was discharged from hospital with PO Clindamycin for 7 days one month ago s/p debridement for left hallux ulcer. Patient says she took the full course of antibiotics. She followed up with Dr. Steven who made her a diabetic foot cast. She wore this for a few weeks. Yesterday, she went to his office. He took the cast off. He debrided the ulcer in his office and cauterized it. She says he told her "it does not look good." He told her to come into ER today to get surgery tomorrow. Patient says her pain in her foot and back are controlled on her home oxycodone regimen. Patient deniesfever, chills, chest pain, SOB, nausea, vomiting, abdominal pain, diarrhea, constipation, dysuria. She reports some anxiety about the surgery. Hospital Course: Patient was admitted with the consideration of diabetic foot ulcer of the left hallux ulcer. Burner Operator, Dr. Steven was consulted, who is known to the patient and has been monitoring patient's foot ulcer outpatient. Dr. Steven continued to monitor with daily dressing change while patient was been medically managed on IV antibiotics. During the course of the admission, patient's glucose was very uncontrolled and patient was non-compliant with dietary restriction. Patient was then discharge with PO antibiotics upon clearance by Dr. Steven. Pertinent study result: foot X-ray: No periosteal reaction or cortical destruction seen to suggest gross osteomyelitis. . 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 Soft tissue prominence great toe with overlying bandaging. This is a brief summary of events. For a complete course, refer to the medical record. Discharge Exam - Head Exam Head Exam: NORMAL INSPECTION, NORMOCEPHALIC - Eye Exam Eye Exam: EOMI, Normal appearance - ENT Exam ENT Exam: Mucous Membranes Moist, Normal Exam - Respiratory Exam Respiratory Exam: Clear to PA & Lateral, NORMAL BREATHING PATTERN - Cardiovascular Exam Cardiovascular Exam: REGULAR RHYTHM, +S1, +S2 - GI/Abdominal Exam GI & Abdominal Exam: Normal Bowel Sounds, Soft - Neurological Exam Neurological exam: Alert, Oriented x3 - Psychiatric Exam Psychiatric exam: Normal Affect, Normal Mood - Skin Skin Exam: Dry, Normal Color, Warm Discharge Plan - Follow Up Plan Condition: STABLE Disposition: HOME/ ROUTINE Instructions: Doxycycline (By mouth), Diabetic Foot Care (DC), Meal Planning with Diabetes Exchanges (DC), Diabetic Foot Ulcers (DC), Diabetic Hyperglycemia (DC) Additional Instructions: Please discharge patient home as per Dr. Steven and Dr. Patton Please start the following new medication as per Dr. Steven's recommendation: 1. Doxycycline 100mg PO BID ( for 10 days) Please resume all home medications as prescribed Please follow up with Dr. Steven on Sunday, May 23 2017 Please follow up with your primary care physician, Dr. Dinh within one week Please monitor your sugar levels at home Please return to the hospital if symptoms resume. Referrals: Shaik Dinh MD [Staff Provider] - Shaye Rizo MD [Staff Provider] - Robbin Steven DPM [Staff Provider] - <Neri Patton - Last Filed: 05/19/17 17:51> Provider - Provider Date of Admission: 05/17/17 15:05 Attending physician: Neri Patton MD Hospital Course - Lab Results Lab Results: Micro Results 05/17/17 16:15 Blood-Venous Blood Culture - Preliminary NO GROWTH AFTER 24 HOURS 05/17/17 15:55 Blood-Venous Blood Culture - Preliminary NO GROWTH AFTER 24 HOURS Most Recent Lab Values WBC 4.3 K/uL (4.8-10.8) L 05/18/17 06:00 RBC 3.72 Mil/uL (3.80-5.20) L 05/18/17 06:00 Hgb 10.2 g/dL (11.0-16.0) L 05/18/17 06:00 Hct 29.5 % (34.0-47.0) L 05/18/17 06:00 MCV 79.3 fL (81.0-99.0) L 05/18/17 06:00 MCH 27.4 pg (27.0-31.0) 05/18/17 06:00 MCHC 34.6 g/dL (33.0-37.0) 05/18/17 06:00 RDW 15.4 % (11.5-14.5) H 05/18/17 06:00 Plt Count 225 K/uL (130-400) 05/18/17 06:00 MPV 7.9 fL (7.2-11.7) 05/18/17 06:00 Neut % (Auto) 48.0 % (50.0-75.0) L 05/18/17 06:00 Lymph % (Auto) 42.3 % (20.0-40.0) H 05/18/17 06:00 [place] % (Auto) 5.8 % (0.0-10.0) 05/18/17 06:00 Eos % (Auto) 3.1 % (0.0-4.0) 05/18/17 06:00 Baso % (Auto) 0.8 % (0.0-2.0) 05/18/17 06:00 Neut # 2.1 K/uL (1.8-7.0) 05/18/17 06:00 Lymph # 1.8 K/uL (1.0-4.3) 05/18/17 06:00 [place] # 0.2 K/uL (0.0-0.8) 05/18/17 06:00 Eos # 0.1 K/uL (0.0-0.7) 05/18/17 06:00 Baso # 0.0 K/uL (0.0-0.2) 05/18/17 06:00 APTT 31 SECONDS (21-34) 05/18/17 06:00 Sodium 136 mmol/L (132-148) 05/18/17 06:00 Potassium 3.9 mmol/L (3.6-5.2) 05/18/17 06:00 Chloride 103 mmol/L (98-107) 05/18/17 06:00 Carbon Dioxide 24 mmol/L (22-30) 05/18/17 06:00 Anion Gap 13 (10-20) 05/18/17 06:00 BUN 6 mg/dL (7-17) L 05/18/17 06:00 Creatinine 1.0 MG/DL (0.7-1.2) 05/18/17 06:00 Est GFR ( Amer) > 60 05/18/17 06:00 Est GFR (Non-Af Amer) > 60 05/18/17 06:00 POC Glucose (mg/dL) 250 mg/dL (65-110) H 05/18/17 16:28 Random Glucose 378 mg/dL (65-105) H 05/18/17 06:00 Hemoglobin A1c 10.2 % (4.2-6.5) H 05/18/17 09:06 Calcium 8.6 mg/dl (8.6-10.4) 05/18/17 06:00 Total Bilirubin 0.7 mg/dL (0.2-1.3) 05/18/17 06:00 AST 23 U/L (14-36) 05/18/17 06:00 ALT 28 U/L (9-52) 05/18/17 06:00 Alkaline Phosphatase 99 U/L (38-126) 05/18/17 06:00 Total Protein 6.3 g/dL (6.3-8.3) 05/18/17 06:00 Albumin 3.1 g/dL (3.5-5.0) L 05/18/17 06:00 Globulin 3.2 gm/dL (2.2-3.9) 05/18/17 06:00 Albumin/Globulin Ratio 1.0 (1.0-2.1) 05/18/17 06:00 Urine Opiates Screen Positive (NEGATIVE) 05/17/17 15:56 Urine Methadone Screen Negative (NEGATIVE) 05/17/17 15:56 Ur Barbiturates Screen Negative (NEGATIVE) 05/17/17 15:56 Ur Phencyclidine Scrn Negative (NEGATIVE) 05/17/17 15:56 Ur Amphetamines Screen Negative (NEGATIVE) 05/17/17 15:56 U Benzodiazepines Scrn Negative (NEGATIVE) 05/17/17 15:56 U Oth Cocaine Metabols Negative (NEGATIVE) 05/17/17 15:56 U Cannabinoids Screen Negative (NEGATIVE) 05/17/17 15:56 Attending/Attestation - Attestation I have personally seen and examined this patient.: Yes I have fully participated in the care of the patient.: Yes I have reviewed all pertinent clinical information, including history, physical exam and plan: Yes Notes (Text): 05/19/17 17:51 Patient was seen and examined at bedside The toe wound examined with the podiatry resident Improved significantly and patient cleared for discharge by podiatry Continue antibiotics the as per recommendations of ID Agree with the discharge note by the resident
--- NOTE | 2017-05-21 14:37 | VASCLAB ---
PROCEDURE: Lower Extremity Venous Duplex Exam. HISTORY: Diabetic foot ulcer PRIORS: None. TECHNIQUE: Bilateral common femoral, femoral, popliteal and posterior tibial, peroneal and great saphenous veins were evaluated. Flow was assessed with color Doppler, compressibility, assessment of phasic flow and augmentation response. Report prepared by VANE Che, RVT FINDINGS: RIGHT: 1. Common Femoral Vein: 1.1. Compressibility - Fully compressible: Thrombus - None : Flow - Phasic: Augmentation -Normal: Reflux - None. 2. Femoral Vein: 2.1. Compressibility - Fully compressible: Thrombus - None : Flow - Phasic: Augmentation -Normal: Reflux - None. 3. Popliteal Vein: 3.1. Compressibility - Fully compressible: Thrombus - None : Flow - Phasic: Augmentation -Normal: Reflux - None. 4. Posterior Tibial Vein: 4.1. Compressibility - Fully compressible: Thrombus - None: Flow - Phasic: Augmentation -Normal: Reflux - None. 5. Peroneal Vein: 5.1. Compressibility - Fully compressible: Thrombus - None: Flow - Phasic: Augmentation -Normal: Reflux - None. 6. Great Saphenous Vein: 6.1. Compressibility - Fully compressible: Thrombus - None: Flow - Phasic: Augmentation - Normal: Reflux - None. LEFT: 1. Common Femoral Vein: 1.1. Compressibility - Fully compressible: Thrombus - None: Flow - Phasic: Augmentation -Normal: Reflux - None. 2. Femoral Vein: 2.1. Compressibility - Fully compressible: Thrombus - None: Flow - Phasic: Augmentation -Normal: Reflux - None. 3. Popliteal Vein: 3.1. Compressibility - Fully compressible: Thrombus - None : Flow - Phasic: Augmentation -Normal: Reflux - None. 4. Posterior Tibial Vein: 4.1. Compressibility - Fully compressible: Thrombus - None: Flow - Phasic: Augmentation -Normal: Reflux - None. 5. Peroneal Vein: 5.1. Compressibility - Fully compressible: Thrombus - None: Flow - Phasic: Augmentation -Normal: Reflux - None. 6. Great Saphenous Vein: 6.1. Compressibility - Fully compressible: Thrombus - None: Flow - Phasic: Augmentation - Normal: Reflux - None. OTHER FINDINGS: Right: None significant. Left: None significant. IMPRESSION: Right: No evidence of deep or superficial vein thrombosis of the right lower extremity. Normal valve function noted of the right side. Left: No evidence of deep or superficial vein thrombosis of the left lower extremity. Normal valve function noted of the left side.
== END 2017-05-18 17:35 | disposition home or self-care (01) | DRG 277 ==
LOC: C.ER 10:53 → C.9E 15:05 → C.3T 16:02
PROVIDERS: ADMIT Internal Medicine; ATTEND Internal Medicine
DX: L98.0 Pyogenic granuloma (principal); E11.65 Type 2 diabetes mellitus with hyperglycemia; E11.621 Type 2 diabetes mellitus with foot ulcer; E11.628 Type 2 diabetes mellitus with other skin complications; E11.622 Type 2 diabetes mellitus with other skin ulcer; L97.529 Non-pressure chronic ulcer of other part of left foot with unspecified severity; I10 Essential (primary) hypertension; J45.909 Unspecified asthma, uncomplicated; G89.29 Other chronic pain; F41.9 Anxiety disorder, unspecified; F31.9 Bipolar disorder, unspecified; E78.00 Pure hypercholesterolemia, unspecified; K29.70 Gastritis, unspecified, without bleeding; L08.9 Local infection of the skin and subcutaneous tissue, unspecified; Z87.11 Personal history of peptic ulcer disease; Z91.19 Patient's noncompliance with other medical treatment and regimen; M06.9 Rheumatoid arthritis, unspecified; M19.90 Unspecified osteoarthritis, unspecified site; M20.40 Other hammer toe(s) (acquired), unspecified foot; K59.00 Constipation, unspecified

== ENCOUNTER 2018-04-07 08:06 | Emergency (ER) | payer MEDICAID ==
[2018-04-07 08:07] VITALS: BMI 29.5
[2018-04-07 08:20] VITALS: O2SAT 100
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
[2018-04-07 12:42] VITALS: BP 142/80; PULSE 86; RESP 18; TEMP 98
== END 2018-04-07 12:42 | disposition home or self-care (01) ==
LOC: C.ER 08:06
DX: T65.891A Toxic effect of other specified substances, accidental (unintentional), initial encounter (principal); T26.92XA Corrosion of left eye and adnexa, part unspecified, initial encounter; Y92.89 Other specified places as the place of occurrence of the external cause

== ENCOUNTER 2018-06-16 07:23 | Emergency (ER) | payer MEDICAID ==
[2018-06-16 07:23] VITALS: BMI 29.5
[2018-06-16 07:48] VITALS: O2SAT 100
[2018-06-16] MEDS ORDERED: Sodium Chloride 0.9% 1,000 ML IV ONE (08:01)
[2018-06-16] MEDS ORDERED: MethylPREDNISolone 40 mg Vial IVP STA (08:02)
[2018-06-16] MEDS ORDERED: MethylPREDNISolone 40 mg Vial ONE ×2 (08:25→08:36)
[2018-06-16] MEDS ORDERED: Sodium Chloride 0.9% 1,000 ML ONE (08:25)
[2018-06-16] MEDS ORDERED: Oxycodone/Acetaminophen 5/325 mg Tab PO STA (08:30)
[2018-06-16] MEDS ORDERED: Oxycodone/Acetaminophen 5/325 mg Tab ONE (08:37)
[2018-06-16] MEDS ORDERED: MethylPREDNISolone 40 mg Vial IM STA (08:47)
[2018-06-16 08:55] LABS: BASO % 0.7 % (0.0-2.0); EOS # 0.1 K/uL (0.0-0.7); EOS % 1.7 % (0.0-4.0); LYMPH # 1.7 K/uL (1.0-4.3); LYMPH % 31.7 % (20.0-40.0); MEAN CELL VOLUME 79.2 fL (81.0-99.0); MEAN CORPUSCULAR HEMOGLOBIN 28.9 pg (27.0-31.0); MEAN CORPUSCULAR HGB CONC 36.5 g/dL (33.0-37.0); MEAN PLATELET VOLUME 7.9 fL (7.2-11.7); MONO # 0.3 K/uL (0.0-0.8); NEUT # 3.2 K/uL (1.8-7.0); NEUT % 59.9 % (50.0-75.0); NRBC % 0.2 % (0.0-2.0); RBC 4.28 Mil/uL (3.80-5.20); RED CELL DISTRIBUTION WIDTH 13.4 % (11.5-14.5); WHITE BLOOD COUNT 5.3 K/uL (4.8-10.8)
[2018-06-16 09:08] LABS: ALB/GLOB RATIO 1.1 (1.0-2.1); ALBUMIN 4.1 g/dL (3.5-5.0); CALCIUM 9.4 mg/dl (8.6-10.4); GFR AFRICAN-AMERICAN > 60; GFR NON-AFRICAN AMERICAN > 60
[2018-06-16 09:09] LABS: ALT/SGPT 25 U/L (9-52); AST/SGOT 30 U/L (14-36)
[2018-06-16 09:10] LABS: BLOOD UREA NITROGEN 10 mg/dL (7-17)
[2018-06-16 09:14] LABS: HEMOGLOBIN 12.4 g/dL (11.0-16.0)
--- NOTE | 2018-06-16 09:22 | C.PDOC ---
Time Seen by Provider: 06/16/18 07:54 Chief Complaint (Nursing): Back Pain Past Medical History Vital Signs: Last Vital Signs Temp 98.6 F 06/16/18 07:45 Pulse 90 06/16/18 07:45 Resp 16 06/16/18 07:45 BP 147/88 06/16/18 07:45 Pulse Ox 100 06/16/18 07:45 - Medical History PMH: Anxiety, Asthma, Back Problems, Bipolar Disorder, Depression, Diabetes, Gastritis, Gastrointestinal Ulcer, HTN, Hypercholesterolemia, Chronic Pain (Back ) Denies: Chronic Kidney Disease Surgical History: Back Surgery, Endoscopy, Tonsillectomy - [facility] Procedures D & C NEC (12/21/14) DESTRUC UTER SUPPORT NEC (02/25/15) ESOPHAGOGASTRODUODENOSCOPY [EGD] W/CLOSED BIOPSY (06/24/13) EXCISION OF L FOOT SUBCU/FASCIA, OPEN APPROACH (03/01/17) EXCISION OF LEFT FOOT SKIN, EXTERNAL APPROACH (04/12/17) HYSTEROSCOPY (12/21/14) INJECT/INFUSE NEC (10/27/14) OTHER AND UNSPECIFIED TOTAL ABDOMINAL HYSTERECTOMY (02/25/15) OTHER SKIN & SUBQ I D (06/04/14) REPLACEMENT OF L FOOT SKIN WITH SYNTH SUB, ENGINEERING GROUP MANAGER APPROACH (04/12/17) Family History: States: Unknown Family Hx - Social History Hx Tobacco Use: No Hx Alcohol Use: No Hx Substance Use: No - Immunization History Hx Tetanus Toxoid Vaccination: No Hx Influenza Vaccination: No Hx Pneumococcal Vaccination: No ED Course And Treatment - Laboratory Results Result Diagrams: 06/16/18 08:40 06/16/18 08:40 O2 Sat by Pulse Oximetry: 100 Disposition - Disposition Disposition: HOME/ ROUTINE Forms: [employer] (Albanian)
[2018-06-16 09:23] LABS: HCG,QUALITATIVE URINE NEGATIVE (NEGATIVE)
--- NOTE | 2018-06-16 09:26 | C.PDOC ---
History Of Present Illness 42 year old female, with past medical history of lupus, presents to ED for evaluation of generalized body pain and joint pain for the last few days. Notes she occasionally gets flare-up when she experiences stress. She admits to feeling stressed due to recent discovery of lump in her right breast, she reports family history of breath cancer and is concerned about the same. She states she is compliant with all her meds, and also took Oxycodone 30mg for pain without improvement. Otherwise, denies fever, chest pain, or shortness of breath. Time Seen by Provider: 06/16/18 07:54 Chief Complaint (Nursing): Back Pain History Per: Patient History/Exam Limitations: no limitations Onset/Duration Of Symptoms: Days Current Symptoms Are (Timing): Still Present Quality Of Discomfort: Aching, "Pain" Recent travel outside of the [place]: No Additional History Per: Patient Past Medical History Reviewed: Historical Data, Nursing Documentation, Vital Signs Vital Signs: Last Vital Signs Temp 98.2 F 06/16/18 10:53 Pulse 78 06/16/18 10:53 Resp 17 06/16/18 10:53 BP 155/90 H 06/16/18 10:53 Pulse Ox 100 06/16/18 10:53 - Medical History PMH: Anxiety, Asthma, Back Problems, Bipolar Disorder, Depression, Diabetes, Gastritis, Gastrointestinal Ulcer, HTN, Hypercholesterolemia, Chronic Pain (Back ) Denies: Chronic Kidney Disease Surgical History: Back Surgery, Endoscopy, Tonsillectomy - [facility] Procedures D & C NEC (12/21/14) DESTRUC UTER SUPPORT NEC (02/25/15) ESOPHAGOGASTRODUODENOSCOPY [EGD] W/CLOSED BIOPSY (06/24/13) EXCISION OF L FOOT SUBCU/FASCIA, OPEN APPROACH (03/01/17) EXCISION OF LEFT FOOT SKIN, EXTERNAL APPROACH (04/12/17) HYSTEROSCOPY (12/21/14) INJECT/INFUSE NEC (10/27/14) OTHER AND UNSPECIFIED TOTAL ABDOMINAL HYSTERECTOMY (02/25/15) OTHER SKIN & SUBQ I D (06/04/14) REPLACEMENT OF L FOOT SKIN WITH SYNTH SUB, BRAKE RELINER APPROACH (04/12/17) Family History: States: Unknown Family Hx - Social History Hx Tobacco Use: No Hx Alcohol Use: No Hx Substance Use: No - Immunization History Hx Tetanus Toxoid Vaccination: No Hx Influenza Vaccination: No Hx Pneumococcal Vaccination: No Review Of Systems Except As Marked, All Systems Reviewed And Found Negative. Constitutional: Positive for: Other (body pain). Negative for: Fever, Chills Cardiovascular: Negative for: Chest Pain, Palpitations Respiratory: Negative for: Cough, Shortness of Breath Gastrointestinal: Negative for: Nausea, Vomiting Physical Exam - Physical Exam Appears: Non-toxic, No Acute Distress, Other (anxious) Skin: Normal Color, Warm, Dry Head: Atraumatic, Normacephalic Eye(s): bilateral: Normal Inspection, Other (tearful) Oral Mucosa: Moist Neck: Normal ROM, Supple Cardiovascular: Rhythm Regular Respiratory: Normal Breath Sounds, No Rales, No Rhonchi, No Wheezing Gastrointestinal/Abdominal: Soft, No Tenderness Extremity: Normal ROM, No Tenderness, No Swelling (no joint swelling or erythema ) Extremity: Bilateral: Atraumatic Neurological/Psych: Oriented x3, Normal Speech ED Course And Treatment - Laboratory Results Result Diagrams: 06/16/18 08:40 06/16/18 08:40 O2 Sat by Pulse Oximetry: 100 (RA) Pulse Ox Interpretation: Normal Medical Decision Making Medical Decision Making: Plan: Blood work Urinalysis Solu-Medrol, IV fluids Progress: Labs reviewed with no acute findings. Patient continues to complain of bodypain. Percocet PO given Patient reevaluated and remains unchanged and states she has pain and just feels worried. Denies any SI/HI. Offer community outreach worker consult, but she declined. Valium PO ordered. Patient continued to be observed in ED. On third re-eval she is talking on phone. She is now calm and comfortable, she reports feeling better. She feels comfortable going home and will be discharged. Patient given follow up instructions. Instructed to return to ER if symptoms worsen or new symptoms arise. Disposition Counseled Patient/Family Regarding: Studies Performed, Diagnosis, Need For Followup, Rx Given - Disposition Referrals: Sravani Camara [Family Provider] - [facility] [Outside] Disposition: HOME/ ROUTINE Disposition Time: 10:40 Condition: STABLE Additional Instructions: Follow up with your primary medical doctor or clinic in 2-5 days for further evaluation. Take your usual medications as prescribed. Take valium as needed for muscle pains. Return to the emergency department at any time if symptoms persist or worsen. Prescriptions: diaZEpam [Valium] 5 mg PO PRN PRN #5 tab PRN Reason: Muscle Spasm Instructions: Muscle and Bone Pain (DC) Forms: [employer] (Georgian) - POA Present On Arrival: None - Clinical Impression Clinical Impression: Myalgia, History of lupus - PA / FIRST CRUSHER / Resident Statement MD/DO has reviewed & agrees with the documentation as recorded. - Scribe Statement The provider has reviewed the documentation as recorded by the Scribe KP All medical record entries made by the Scribe were at my direction and personally dictated by me. I have reviewed the chart and agree that the record accurately reflects my personal performance of the history, physical exam, medical decision making, and the department course for this patient. I have also personally directed, reviewed, and agree with the discharge instructions and disposition.
[2018-06-16 09:43] LABS: SQUAMOUS EPITHIAL 12 /hpf (0-5); URINE BILIRUBIN NEGATIVE (NEGATIVE); URINE BLOOD NEGATIVE (NEGATIVE); URINE CLARITY Hazy (Clear); URINE COLOR Yellow (YELLOW); URINE GLUCOSE (UA) 3+ mg/dL (Normal); URINE LEUKOCYTE ESTERASE NEG Leu/uL (Negative); URINE PROTEIN 1+ mg/dL (NEGATIVE)
[2018-06-16 10:54] VITALS: BP 155/90; PULSE 78; RESP 17; TEMP 98.2
== END 2018-06-16 11:00 | disposition home or self-care (01) ==
LOC: C.ER 07:23
DX: M79.1 Myalgia (principal); M32.9 Systemic lupus erythematosus, unspecified; I10 Essential (primary) hypertension; E11.9 Type 2 diabetes mellitus without complications; E78.00 Pure hypercholesterolemia, unspecified
CPT/HCPCS: 80053; 81001; 84703; 85025; 96372; 99285; J2920

== ENCOUNTER 2018-09-24 15:03 | Emergency (ER) | payer MEDICAID ==
[2018-09-24 15:04] VITALS: BMI 29.5
[2018-09-24] MEDS ORDERED: Sodium Chloride 0.9% 1,000 ML IV ONE ×2 (16:00→17:16)
[2018-09-24 16:12] LABS: BASO % 0.8 % (0.0-2.0); EOS # 0.3 K/uL (0.0-0.7); EOS % 4.9 % (0.0-4.0); HEMOGLOBIN 13.1 g/dL (11.0-16.0); LYMPH # 1.9 K/uL (1.0-4.3); LYMPH % 36.2 % (20.0-40.0); MEAN CELL VOLUME 79.7 fL (81.0-99.0); MEAN CORPUSCULAR HEMOGLOBIN 27.9 pg (27.0-31.0); MEAN CORPUSCULAR HGB CONC 35.1 g/dL (33.0-37.0); MONO # 0.3 K/uL (0.0-0.8); MONO % 5.7 % (0.0-10.0); NEUT # 2.7 K/uL (1.8-7.0); NEUT % 52.4 % (50.0-75.0); NRBC % 0.1 % (0.0-2.0); RBC 4.67 Mil/uL (3.80-5.20); RED CELL DISTRIBUTION WIDTH 13.5 % (11.5-14.5); WHITE BLOOD COUNT 5.2 K/uL (4.8-10.8)
[2018-09-24 16:20] LABS: VENOUS BLOOD GAS BASE EXCESS 1.2 mmol/L (0.0-2.0); VENOUS BLOOD GAS PCO2 57 mmHg (40-60); VENOUS BLOOD GAS PO2 13 mm/Hg (30-55); VENOUS BLOOD PH 7.31 (7.32-7.43)
[2018-09-24] MEDS ORDERED: Sodium Chloride 0.9% 1,000 ML ONE (16:21)
[2018-09-24 16:24] LABS: INR 1.1; PROTHROMBIN TIME 12.2 SECONDS (9.7-12.2)
[2018-09-24 16:34] LABS: SQUAMOUS EPITHIAL 18 /hpf (0-5); URINE BACTERIA RARE (<OCC); URINE BILIRUBIN NEGATIVE (NEGATIVE); URINE BLOOD NEGATIVE (NEGATIVE); URINE CLARITY Hazy (Clear); URINE COLOR Yellow (YELLOW); URINE GLUCOSE (UA) 3+ mg/dL (Normal); URINE LEUKOCYTE ESTERASE NEG Leu/uL (Negative); URINE PROTEIN 1+ mg/dL (NEGATIVE); URINE UROBILINOGEN NORMAL mg/dL (0.2-1.0)
[2018-09-24 16:43] LABS: ALB/GLOB RATIO 1.2 (1.0-2.1); ALBUMIN 4.4 g/dL (3.5-5.0); ALT/SGPT 43 U/L (9-52); AST/SGOT 32 U/L (14-36); BLOOD UREA NITROGEN 20 mg/dL (7-17); CALCIUM 9.6 mg/dl (8.6-10.4); GFR NON-AFRICAN AMERICAN 41
--- NOTE | 2018-09-24 16:47 | RAD ---
Date of service: 09/24/2018 HISTORY: Dizziness, weakness COMPARISON: No acute infiltrates.. Questionable small granuloma right lateral upper lung field overlying the right posterior 6th rib. TECHNIQUE: Chest PA and lateral FINDINGS: LUNGS: No active pulmonary disease. PLEURA: No significant pleural effusion identified. No pneumothorax apparent. CARDIOVASCULAR: No aortic atherosclerotic calcification present. Normal cardiac size. No pulmonary vascular congestion. OSSEOUS STRUCTURES: Minor multilevel degenerative spondylosis of the thoracic spine. Degenerative. VISUALIZED UPPER ABDOMEN: Normal. OTHER FINDINGS: None. IMPRESSION: No active disease.
[2018-09-24] MEDS ORDERED: (Novolin R) Insulin Human Regular 100 units/ml vial IVP STA (16:50)
--- NOTE | 2018-09-24 16:50 | C.PDOC ---
History Of Present Illness 42 y/o with a PMHx of diabetes and HTN, comes in from home for dizziness and lightheadedness for past few days. Denies any complaints of pain, fever, chest tightness, SOB, numbness, weakness, or visual changes. Patient offers no other medical complaints. Time Seen by Provider: 09/24/18 15:22 Chief Complaint (Nursing): Dizziness/Lightheaded History Per: Patient History/Exam Limitations: no limitations Onset/Duration Of Symptoms: Days Current Symptoms Are (Timing): Still Present Past Medical History Reviewed: Historical Data, Nursing Documentation, Vital Signs Vital Signs: Last Vital Signs Temp 98.7 F 09/24/18 15:32 Pulse 108 H 09/24/18 15:32 Resp 20 09/24/18 15:32 BP 116/85 09/24/18 15:32 Pulse Ox 100 09/24/18 15:32 - Medical History PMH: Anxiety, Asthma, Back Problems, Bipolar Disorder, Depression, Diabetes, G astritis, Gastrointestinal Ulcer, HTN, Hypercholesterolemia, Rheumatoid Arthritis, Chronic Pain (Back) Denies: Chronic Kidney Disease Surgical History: Back Surgery, Endoscopy, Tonsillectomy - [facility] Procedures D & C NEC (12/21/14) DESTRUC UTER SUPPORT NEC (02/25/15) ESOPHAGOGASTRODUODENOSCOPY [EGD] W/CLOSED BIOPSY (06/24/13) EXCISION OF L FOOT SUBCU/FASCIA, OPEN APPROACH (03/01/17) EXCISION OF LEFT FOOT SKIN, EXTERNAL APPROACH (04/12/17) HYSTEROSCOPY (12/21/14) INJECT/INFUSE NEC (10/27/14) OTHER AND UNSPECIFIED TOTAL ABDOMINAL HYSTERECTOMY (02/25/15) OTHER SKIN & SUBQ I D (06/04/14) REPLACEMENT OF L FOOT SKIN WITH SYNTH SUB, PROGRAM CLERK APPROACH (04/12/17) Family History: States: Unknown Family Hx - Social History Hx Tobacco Use: No Hx Alcohol Use: No Hx Substance Use: No - Immunization History Hx Tetanus Toxoid Vaccination: Yes Hx Influenza Vaccination: No Hx Pneumococcal Vaccination: No Review Of Systems Constitutional: Negative for: Fever, Chills Cardiovascular: Positive for: Light Headedness. Negative for: Chest Pain, Palpitations Respiratory: Negative for: Shortness of Breath Gastrointestinal: Negative for: Nausea, Vomiting Neurological: Positive for: Dizziness. Negative for: Weakness, Numbness, Incoordination Physical Exam - Physical Exam Appears: Non-toxic, No Acute Distress Skin: Warm, Dry Head: Atraumatic, Normacephalic Eye(s): bilateral: Normal Inspection, PERRL, EOMI Oral Mucosa: Moist Neck: Normal ROM Chest: Symmetrical Cardiovascular: Rhythm Regular, No Murmur Respiratory: Normal Breath Sounds, No Accessory Muscle Use, No Wheezing Gastrointestinal/Abdominal: Soft, No Tenderness, No Distention Extremity: Bilateral: Atraumatic, Normal Color And Temperature Neurological/Psych: Oriented x3, Normal Speech, Normal Cranial Nerves, Other (No focal deficits) ED Course And Treatment - Laboratory Results Result Diagrams: 09/24/18 16:07 09/24/18 16:07 O2 Sat by Pulse Oximetry: 100 (RA) Pulse Ox Interpretation: Normal - Radiology CXR: Viewed By Me, Read By Radiologist CXR Interpretation: Yes: No Acute Disease Against Medical Advice - AMA Patient Left Against Medical Advice: The patient declines admission to the hospital and wishes to leave the Emergency Department. This action is against my medical advice. This decision was made with informed refusal. The patient was told that admission to the hospital is necessary. Explanation of the reasons why were discussed. The risks of leaving were explained to the patient and include, but are not limited to, worsening of known or currently unknown conditions, permanent disability and from undiagnosed or untreated conditions. The patient has the capacity to make this informed decision and understands my explanation of the current medical problem and risks of leaving. The patient voluntarily accepts these risks and signed an AMA form documenting our conversation. The patient was given the opportunity to ask questions and reconsider. The patient was encouraged to return to the Emergency Department at any time for further care. Medical Decision Making Medical Decision Making: diamond dka Plan: --VBG --EKG --CMP --Troponin I --Beta hydoxybutyrate --Serum osmolality --CBC --PTT/PT --UA --IV fluids and 8 units insulin --Chest x-ray --Reassess ekg sinsu tach 112 CXR negative pt reassesed. blood sugar elevated. reufses to wait in er for decrease and ivfluids. advised of risks including , dehydration. signs out ama Labs reviewed, and discussed with patient. Discussed plan for admission, patient refuses. Patient is choosing to sign out AMA. Disposition - Disposition Disposition: AGAINST MEDICAL ADVICE Disposition Time: 19:50 Condition: UNKNOWN Additional Instructions: return to er with worsneing symptoms or concerns. Instructions: Hyperglycemia, Adult, Leaving Against Medical Advice Forms: [facility] [employer] ([place]) - Clinical Impression Clinical Impression: Dizziness, Hyperglycemia - Scribe Statement The provider has reviewed the documentation as recorded by the Scribe (Shima Lan) Provider Attestation: All medical record entries made by the Scribe were at my direction and personally dictated by me. I have reviewed the chart and agree that the record accurately reflects my personal performance of the history, physical exam, medical decision making, and the department course for this patient. I have also personally directed, reviewed, and agree with the discharge instructions and disposition.
[2018-09-24 17:12] VITALS: BP 111/77; PULSE 115; RESP 16; TEMP 98.5; O2SAT 100
[2018-09-24] MEDS ORDERED: (Novolin R) Insulin Human Regular 100 units/ml vial ONE (17:12)
--- NOTE | 2018-09-25 12:19 | CARD ---
APPROVED REPORT Date of service: 09/24/2018 EKG Measurement Heart [id number] <Conclusion> Sinus tachycardia Left axis deviation Low voltage QRS Possible Anterolateral infarct, age undetermined Abnormal ECG
== END 2018-09-24 18:07 | disposition left against medical advice (07) ==
LOC: C.ER 15:03
DX: E11.65 Type 2 diabetes mellitus with hyperglycemia (principal); R42 Dizziness and giddiness
CPT/HCPCS: 71046; 80053; 81001; 82009; 82803; 82948; 83930; 84484; 85025; 85610; 85730; 93005; 96374; 99285; J7030